=== PATIENT | male | born 1945 | race Caucasian/White ===

== ENCOUNTER → 2017-11-05 12:54 | Outpatient (CLI) | payer MEDICARE, OTHER, SELFPAY ==
[2017-11-06 08:05] LABS: CREATININE FINGERSTICK 1.06 mg/dL (0.70-1.30)
== END ==
PROVIDERS: Family Provider Internal Medicine Infectious Disease; PCP Internal Medicine Infectious Disease
DX: C61 Malignant neoplasm of prostate (principal)
CPT/HCPCS: 74177; Q9967

== ENCOUNTER → 2017-11-06 10:22 | Outpatient (CLI) | payer MEDICARE, OTHER, SELFPAY | PROVIDERS: Family Provider Internal Medicine Infectious Disease; PCP Internal Medicine Infectious Disease | DX: C61 Malignant neoplasm of prostate (principal) | CPT/HCPCS: 78306 ==

== ENCOUNTER → 2018-10-05 | Outpatient (CLI) | payer MEDICARE, OTHER, SELFPAY | END | disposition home or self-care (01) | LOC: LAB 14:50 | PROVIDERS: Family Provider Internal Medicine Infectious Disease; PCP Internal Medicine Infectious Disease; Referring Provider Urology; Visit Provider Urology | DX: C61 Malignant neoplasm of prostate (principal) | CPT/HCPCS: 36415; 84153 ==

== ENCOUNTER → 2018-10-13 | Outpatient (CLI) | payer MEDICARE, OTHER, SELFPAY ==
[2016-10-01 13:05] VITALS: BMI 35.9
--- NOTE | 2018-10-13 10:16 | NM_ITS ---
CLINICAL: 73-year-old male with reported history of carcinoma of the prostate. WHOLE BODY 99m Tc MDP RADIONUCLIDE BONE SCINTIGRAPHY COMPARISON: Previous whole body bone scintigraphy study dated 11/06/2017 FINDINGS: Following the intravenous administration of 26.0 mCi of 99m Tc MDP, whole body bone images reveal: 1. Focal increased radiopharmaceutical concentration is newly defined in the right femoral neck. 2. Enhanced tracer uptake is defined in the sixth thoracic vertebra posteriorly on the left, 12th thoracic vertebra posteriorly on the right, the acromioclavicular and sternoclavicular compartments of both shoulders, patellofemoral compartments of both knees, medial tibial compartment of the right knee. 3. The remaining skeletal structures are scintigraphically unremarkable with normal-appearing renal images and urinary bladder activity identified. There is interval resolution of the prior defined left rib and right iliac wing abnormalities. NM/Bone Scan Whole Body IMPRESSION: 1. The facilitated radiotracer distribution currently defined in the right femoral neck may be further investigated with plain film radiography. 2. 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 3. The previously described left rib and visualized right iliac wing scintigraphic findings are resolved on the present examination. 4. Overall compared to the previous whole body bone scintigraphy study dated 11/06/2017, the current increase in radiopharmaceutical concentration noted in the right proximal femur-femoral neck warrants further radiologic investigation. There is interval resolution of the previously described left rib and right iliac wing abnormalities. Electronically Signed: Kian Karimi DO at 23:39 EDT Tel , Service support ,
== END | disposition home or self-care (01) ==
LOC: NM 10:10
PROVIDERS: Family Provider Internal Medicine; PCP Internal Medicine; Referring Provider Urology; Visit Provider Urology
DX: C61 Malignant neoplasm of prostate (principal)
CPT/HCPCS: 78306

== ENCOUNTER → 2018-10-16 | Outpatient (CLI) | payer MEDICARE, OTHER, SELFPAY ==
[2016-10-01 13:05] VITALS: BMI 35.9
--- NOTE | 2018-10-16 10:37 | RAD_ITS ---
STUDY: X-RAY - RIGHT FEMUR REASON FOR STUDY: Male, 73 years old. Prostate cancer. Abnormal bone scan. TECHNIQUE: Frontal and lateral view(s) of the femur on 4 films. COMPARISON: Whole body bone scan October 13, 2018. FINDINGS: There is a vaguely defined 2.5 cm sclerotic density in the neck of the femur, correlating to the area of abnormal uptake on bone scan. This is consistent with blastic bone metastasis. Degenerative spurring also seen at the greater trochanter as well as the medial femoral condyle at the knee. Corresponding degenerative changes also seen at the medial tibial plateau and patella. Normal visualized soft tissue structure. There is no significant knee joint effusion. There is no demonstrated fracture. RAD/Femur Min 2 Views IMPRESSION: Sclerotic density consistent with osseous metastasis in the neck of the femur, correlating to the site of abnormal uptake on bone scan. Electronically Signed: Gideon Cardoza MD at 17:46 EDT , Service support ,
== END | disposition home or self-care (01) ==
LOC: RAD.FUTURE 10:33
PROVIDERS: Family Provider Internal Medicine; PCP Internal Medicine; Referring Provider Urology; Visit Provider Urology
DX: R93.7 Abnormal findings on diagnostic imaging of other parts of musculoskeletal system (principal)
CPT/HCPCS: 73552

== ENCOUNTER → 2018-10-20 | Outpatient (CLI) | payer MEDICARE, OTHER, SELFPAY ==
[2016-10-01 13:05] VITALS: BMI 35.9
--- NOTE | 2018-10-20 08:10 | CT_ITS ---
STUDY: CT ABDOMEN AND PELVIS WITH CONTRAST REASON FOR EXAM: Male, 73 years old. Prostate cancer RADIATION DOSAGE (If Supplied By Facility): CTDIvol = ( 17.33 ) mGy, DLP = ( 1084.46 ) mGycm TECHNIQUE: Transaxial images were obtained from the dome of the diaphragm to the symphysis pubis without oral contrast. 100 IV Isovue 300 was administered. Sagittal and coronal images were reconstructed. Individualized dose optimization techniques were used for this CT. COMPARISON: November 05, 2017.. FINDINGS: There is 1.6 cm left lower lung nodule, series 2 image 19/122. There are mitral annular calcifications. Normal liver. Normal gallbladder and extrahepatic biliary system. Normal spleen. Normal pancreas. Normal bilateral adrenal glands. There are parapelvic cysts versus mild hydronephrosis of the kidneys. Normal visualized stomach. Normal small intestine. There are multiple colonic diverticula consistent with diverticulosis. There is non-visualization of the appendix. There is diffuse atherosclerotic calcification of the abdominal aorta, without a demonstrated aneurysm. Normal inferior vena cava. Normal retroperitoneum. Normal urinary bladder. There is enlargement of the prostate gland. There is trace free fluid in the pelvis. Postoperative changes of the abdominal wall. There are diffuse degenerative changes of the visualized lumbar spine. There is focal sclerosis of the right femoral neck, series 2 image 102/122. CT/Abdomen/Pelvis WITH Contrast IMPRESSION: Left lower lung nodule. Biopsy and/or PET scan recommended for further delineation. Focal sclerosis of the right femoral neck suggesting osseous metastatic disease. Enlarged prostate gland. Parapelvic cysts versus mild hydronephrosis of the kidneys. Colonic diverticulosis. Electronically Signed: Jaquan Neely MD at 21:38 EDT , Service support ,
[2018-10-20 08:21] LABS: CREATININE FINGERSTICK 0.9 mg/dL (0.70-1.30); EGFR FINGERSTICK > 60.0000 mL/min (>60)
== END | disposition home or self-care (01) ==
LOC: CT 08:01
PROVIDERS: Family Provider Internal Medicine; PCP Internal Medicine; Referring Provider Urology; Visit Provider Urology
DX: C61 Malignant neoplasm of prostate (principal)
CPT/HCPCS: 74177; Q9967

== ENCOUNTER → 2018-12-08 09:19 | Outpatient (CLI) | payer MEDICARE, OTHER, SELFPAY ==
[2016-10-01 13:05] VITALS: BMI 35.9
== END ==
PROVIDERS: Family Provider Internal Medicine; PCP Internal Medicine; Referring Provider Urology; Visit Provider Urology
DX: C61 Malignant neoplasm of prostate (principal)
CPT/HCPCS: 36415; 84153

== ENCOUNTER → 2019-01-18 16:34 | Outpatient (CLI) | payer MEDICARE, OTHER, SELFPAY ==
[2016-10-01 13:05] VITALS: BMI 35.9
[2019-01-18 17:38] LABS: Creatinine, Serum 1.26 mg/dL (0.70-1.30); EST Glomerular Filtration Rate 60 mL/min (>60); Est Glom Filt Rate - Afr Amer 72 mL/min (>60)
== END ==
PROVIDERS: Family Provider Internal Medicine; PCP Internal Medicine; Referring Provider Internal Medicine Pulmonary Disease; Visit Provider Internal Medicine Pulmonary Disease
DX: R91.1 Solitary pulmonary nodule (principal)
CPT/HCPCS: 36415; 82565

== ENCOUNTER → 2019-01-26 15:37 | Outpatient (CLI) | payer MEDICARE, OTHER, SELFPAY ==
[2016-10-01 13:05] VITALS: BMI 35.9
--- NOTE | 2019-01-26 15:44 | CT_ITS ---
STUDY: CT CHEST WITH CONTRAST REASON FOR EXAM: Male, 73 years old. Nodule for follow-up. Currently with prostate cancer undergoing treatment. History of tonsillar cancer with surgery. RADIATION DOSAGE (If Supplied By Facility): CTDIvol = ( 14.78 ) mGy, DLP = ( 636.29 ) mGycm TECHNIQUE: Transaxial imaging was performed following intravenous administration of IV Isovue 300 100CC. Individualized dose optimization techniques were used for this CT. COMPARISON: PET-CT February 10, 2017. CT abdomen and pelvis October 20, 2018. CT abdomen and pelvis November 05, 2017. FINDINGS: 3 mm calcified nodule right upper lobe axial image 28 series 4. Multiple noncalcified lung nodules right upper lobe anteriorly 0.3 cm axial image 53, right middle lobe measuring 0.6 x 0.6 cm axial image 64 right middle lobe measuring 0.6 x 0.5 cm axial image 77 right middle lobe measuring 0.4 x 0.4 cm axial image 81, right middle lobe measuring 0.4 x 0.4 cm axial image 83 right middle lobe measuring 0.3 x 0.3 cm axial image 86, all measured on series 4. 1.2 x 0.9 cm noncalcified left lower lobe lung nodule axial image 108 series 4. As compared to the CT of the abdomen and pelvis October 20, 2018 the more inferior lung nodules in the right middle lobe and both lower lobes have not significantly changed. On the CT of the abdomen and pelvis November 10, 2017 the nodule left lower lobe was not present. The other sections of the lung bases obtained did not include the region of the lung nodules. Although not optimal for evaluation of lung nodules on the PET/CT scan of February 10, 2017 no lung nodules are identified. In particular the largest lung nodule located in the left lower lobe was not present. The heart is not enlarged. Calcification mitral annulus. No pericardial effusion. Pretracheal lymph nodes measuring 1.5 x 1.3 cm and 1.5 x 0.8 cm new since the PET/CT scan of January 2017. Normal hilar regions. Normal enhanced pulmonary arteries. Normal aorta arch and descending thoracic aorta. Mild degenerative changes of thoracic spine. Left parapelvic renal cysts unchanged. CT/Chest WITH Contrast IMPRESSION: Multiple noncalcified lung nodules bilaterally with the largest in the left lower lobe measuring 1.2 x 0.9 cm. As compared to the CT of the abdomen and pelvis from October 2018 the more inferior lung nodules have not significantly changed. However the lung nodules in the inferior aspect of the right middle lobe as well as in the inferior aspect of the right and left lower lobes were not present on the studies of October 2017 and January 2017 suggestive of interval development of metastatic disease. There are additional noncalcified nodules in the right lung not visualized on any of the prior studies and also worrisome for metastatic disease. Development of mild mediastinal lymphadenopathy. Electronically Signed: Flip Urrutia MD at 8:27 EST , Service support ,
== END ==
PROVIDERS: Family Provider Internal Medicine; PCP Internal Medicine; Referring Provider Internal Medicine Pulmonary Disease; Visit Provider Internal Medicine Pulmonary Disease
DX: R91.1 Solitary pulmonary nodule (principal)
CPT/HCPCS: 71260; Q9967

== ENCOUNTER → 2019-02-02 10:37 | Outpatient (CLI) | payer MEDICARE, OTHER, SELFPAY ==
[2016-10-01 13:05] VITALS: BMI 35.9
== END ==
PROVIDERS: Family Provider Internal Medicine; PCP Internal Medicine; Referring Provider Urology; Visit Provider Urology
DX: C61 Malignant neoplasm of prostate (principal)
CPT/HCPCS: 36415; 84153

== ENCOUNTER → 2019-05-21 11:54 | Outpatient (CLI) | payer MEDICARE, OTHER, SELFPAY ==
[2016-10-01 13:05] VITALS: BMI 35.9
== END ==
PROVIDERS: PCP Internal Medicine; Referring Provider Urology; Visit Provider Urology
DX: R97.20 Elevated prostate specific antigen [PSA] (principal)
CPT/HCPCS: 36415; 84153

== ENCOUNTER → 2019-07-06 12:36 | Outpatient (CLI) | payer MEDICARE, OTHER, SELFPAY ==
[2016-10-01 13:05] VITALS: BMI 35.9
--- NOTE | 2019-07-06 12:41 | CT_ITS ---
STUDY: CT CHEST WITHOUT CONTRAST REASON FOR EXAM: Male, 73 years old. LUNG NODULES FOUND IN JAN. RADIATION DOSAGE (If Supplied By Facility): CTDIvol = ( 16.60 ) mGy, DLP = ( 672.12 ) mGycm TECHNIQUE: Transaxial imaging was performed without the administration of intravenous contrast material. Multiplanar coronal and sagittal images were reformatted. Individualized dose optimization techniques were used for this CT. COMPARISON: Comparison is made with prior examination dated January 26, 2019. FINDINGS: Since prior study, the previously seen nodular density in the left lower lobe has decreased in size. It presently measures 9 mm x 9 mm. Stable tiny noncalcified nodules in both lungs. Stable 3 mm calcified nodule in the right upper lobe. There is no demonstrated pleural abnormality. There are calcifications of the coronary arteries. There are multiple small lymph nodes within the mediastinum, which are normal in size and morphology most compatible with reactive lymph hyperplasia. Normal hilar regions. Normal unenhanced pulmonary arteries. There is atherosclerotic calcification of the aortic arch with tortuosity and elongation of the aortic arch and descending thoracic aorta. There are mild degenerative changes of the thoracic spine. Small hiatal hernia. CT/Chest without Contrast IMPRESSION: Interval decrease in size of the noncalcified nodule in the left lower lobe presently measuring 9 mm x 9 mm. Electronically Signed: Jesse Alvarez, at 13:55 EDT , Service support ,
== END ==
PROVIDERS: Family Provider Internal Medicine; PCP Internal Medicine; Referring Provider Internal Medicine Pulmonary Disease; Visit Provider Internal Medicine Pulmonary Disease
DX: R91.1 Solitary pulmonary nodule (principal)
CPT/HCPCS: 71250

== ENCOUNTER → 2019-08-26 08:13 | Outpatient (CLI) | payer MEDICARE, OTHER, SELFPAY ==
[2016-10-01 13:05] VITALS: BMI 35.9
== END ==
PROVIDERS: PCP Internal Medicine; Referring Provider Urology; Visit Provider Urology
DX: C61 Malignant neoplasm of prostate (principal)
CPT/HCPCS: 36415; 84153

== ENCOUNTER → 2019-12-07 12:52 | Outpatient (CLI) | payer MEDICARE, OTHER, SELFPAY ==
[2016-10-01 13:05] VITALS: BMI 35.9
[2019-12-07 14:10] LABS: PSA,Total- Diagnostic 2.73 ng/mL (0.0-4.0)
== END ==
PROVIDERS: PCP Internal Medicine; Referring Provider Urology; Visit Provider Urology
DX: C61 Malignant neoplasm of prostate (principal)
CPT/HCPCS: 36415; 84153

== ENCOUNTER → 2020-01-14 12:57 | Outpatient (CLI) | payer MEDICARE, OTHER, SELFPAY ==
[2016-10-01 13:05] VITALS: BMI 35.9
--- NOTE | 2020-01-14 12:59 | CT_ITS ---
We are attempting to reach an attending provider to discuss findings. An addendum with communication details will be sent when the communication is complete. STUDY: CT CHEST WITHOUT CONTRAST REASON FOR EXAM: Male, 74 years old. Lung nodule f/u RADIATION DOSAGE (If Supplied By Facility): CTDIvol = ( 17.55 ) mGy, DLP = ( 710.62 ) mGycm TECHNIQUE: Transaxial imaging was performed without the administration of intravenous contrast material. Multiplanar coronal and sagittal images were reformatted. Individualized dose optimization techniques were used for this CT. COMPARISON: CT ChestJun 2018 4:03pm FINDINGS: There are patchy groundglass opacities involving the left upper lobe and bilateral lower lobes with some areas of peripheral higher, localized density (reverse halo sign). Nodule in the left lower lobe on image 113 of series 4 the prior study has nearly, completely involuted with a only small residual nodule measuring 4-5 mm on image 113 of series 4 of the current study. There is no demonstrated pleural abnormality. Heart size is normal. There are mitral valve calcifications. Minor calcifications are also identified. Normal mediastinum. Normal hilar regions. Normal unenhanced pulmonary arteries. Normal aorta arch and descending thoracic aorta. Normal osseous structures. Left parapelvic renal cysts are grossly similar, considered benign. Benign, incidental finding; no specific imaging workup recommended according to current ACR guidelines. CT/Chest without Contrast IMPRESSION: 1. Multilobar groundglass opacities with reverse halo sign in the right lower lobe. Findings are commonly reported imaging features of COVID-19 pneumonia although can be seen in other processes such as influenza pneumonia, organizing pneumonia, among other etiologies. Electronically Signed: Cristofer Stahl MD ([place]) at 12:50 EDT , Service support ,
[2020-01-14 13:20] VITALS: BP 213/92; PULSE 85; RESP 16; O2SAT 99
--- NOTE | 2020-01-14 13:28 | NURSING ---
Pt brought to radiology nurse office for b/p check after finishing a CT study. Pt reports being seen in pcp office this morning and having a headache and elevated b/p 188 systolic. B/P remains elevated at 213/92. Pt reports not being on any home medications for blood pressure. CARLYLE Mcgee asked if pt would be willing to be seen in ED since he seems to be in a hypertensive crisis. Pt states I think I'll be ok, I've been under a lot of stress recently CARLYLE Mcgee states that she does not believe patient will come out of this high b/p on his own. CARLYLE Mcgee tells pt that this high b/p can put him at a much greater risk for stroke and that he should be seen so they can bring his blood pressure down to a safe level. Pt does not wish to be seen in ED, pt does agree to wait 10 minutes in radiology to have b/p rechecked.
[2020-01-14 13:39] VITALS: BP 169/92; PULSE 83; RESP 16; O2SAT 99
--- NOTE | 2020-01-14 13:40 | NURSING ---
Pt agrees to communicate intermittent elevated b/p with his pcp. Pt states he intends to keep his b/p low without medications at home if possible. CARLYLE Mcgee encouraged pt to seek assistance at his local ED if he has any headache, throbbing or rushing sound in his ears, dizziness or visual changes. Pt agrees. CARLYLE Mcgee walks pt to elevator.
== END ==
PROVIDERS: PCP Internal Medicine; Referring Provider Internal Medicine Pulmonary Disease; Visit Provider Internal Medicine Pulmonary Disease
DX: R91.1 Solitary pulmonary nodule (principal)
CPT/HCPCS: 71250

== ENCOUNTER → 2020-01-28 17:18 | Outpatient (CLI) | payer MEDICARE, OTHER, SELFPAY ==
[2016-10-01 13:05] VITALS: BMI 35.9
--- NOTE | 2020-01-28 17:24 | RAD_ITS ---
STUDY: X-RAY CHEST REASON FOR EXAM: Male, 74 years old. DRUG INDUCED INTERSTITIAL LUNG; LUNG NODULE TECHNIQUE: Frontal and lateral views of the chest. COMPARISON: None. FINDINGS: The lungs are clear and expanded. There is no demonstrated pleural abnormality. Normal size heart. Normal mediastinum and kirby. Normal visualized pulmonary arteries. Normal visualized aortic arch and descending thoracic aorta. There are diffuse degenerative changes of the visualized thoracic spine. Normal visualized ribs, clavicles, and shoulders. There is no demonstrated abnormality of the visualized soft tissue structures of the upper abdomen. RAD/Chest PA and Lateral IMPRESSION: No acute pulmonary findings. Electronically Signed: Ayad Shukla MD at 19:11 EST Tel , Service support ,
[2020-01-28 18:27] LABS: Erythrocyte Sedimentation Rate 12 mm/hr (0-20)
[2020-01-28 19:03] LABS: CRP < 2.90 mg/L (0.0-3.0)
== END ==
PROVIDERS: PCP Internal Medicine; Visit Provider Internal Medicine Pulmonary Disease
DX: R91.1 Solitary pulmonary nodule (principal)
CPT/HCPCS: 36415; 71046; 85652; 86140

== ENCOUNTER → 2020-03-15 14:20 | Outpatient (CLI) | payer MEDICARE, OTHER, SELFPAY ==
[2016-10-01 13:05] VITALS: BMI 35.9
[2020-03-15 15:26] LABS: PSA,Total- Diagnostic 0.54 ng/mL (0.0-4.0)
== END ==
PROVIDERS: PCP Internal Medicine; Referring Provider Urology; Visit Provider Urology
DX: C61 Malignant neoplasm of prostate (principal)
CPT/HCPCS: 36415; 84153

== ENCOUNTER → 2020-06-22 09:54 | Outpatient (CLI) | payer MEDICARE, OTHER, SELFPAY ==
[2016-10-01 13:05] VITALS: BMI 35.9
== END ==
PROVIDERS: PCP Internal Medicine; Referring Provider Urology; Visit Provider Urology
DX: C79.51 Secondary malignant neoplasm of bone (principal)
CPT/HCPCS: 36415; 84153

== ENCOUNTER → 2020-09-26 11:23 | Outpatient (CLI) | payer MEDICARE, OTHER, SELFPAY ==
[2016-10-01 13:05] VITALS: BMI 35.9
[2020-09-26 13:04] LABS: PSA,Total- Diagnostic 0.53 ng/mL (0.0-4.0)
== END ==
PROVIDERS: PCP Internal Medicine; Visit Provider Urology
DX: R97.20 Elevated prostate specific antigen [PSA] (principal)
CPT/HCPCS: 36415; 84153

== ENCOUNTER → 2020-10-05 11:44 | Outpatient (CLI) | payer MEDICARE, OTHER, SELFPAY ==
--- NOTE | 2020-10-05 12:30 | BD_ITS ---
STUDY: DUAL ENERGY X-RAY ABSORPTIOMETRY / DXA REASON FOR EXAM: Male, 74 years old. Z79.52. History of prostate cancer. TECHNIQUE: Bone Mineral Density (BMD) measurements of lumbar spine and bilateral hips were obtained. COMPARISON: None. FINDINGS: Lumbar Spine (L1-L4): g/cm2 (1.168) / T-score (0.5) / Z-score (1.5) Findings are suggestive of normal bone density with a low fracture risk. Left Femur Total: g/cm2 (1.266) / T-score (1.5) / Z-score (2.3) Left Femoral Neck: g/cm2 (0.978) / T-score (0.4) / Z-score (1.7) Right Femur Total: g/cm2 (1.310) / T-score (1.8) / Z-score (2.6) Right Femoral Neck: g/cm2 (1.383) / T-score (3.3) / Z-score (4.6) BD/Dexa Bone Density Study IMPRESSION: The patient is considered normal as outlined below according to World Robinson Organization (WHO) criteria with a low fracture risk. Reference Information: The T-score is the number of standard deviations above or below the standard which is normal for young adults at their peak bone mineral density. The World Health Organization (WHO) interprets the T-scores as follows: Above -1 Normal bone density Between -1 and -2.5 Osteopenia Equal to / or below -2.5 Osteoporosis As a practical clinical guideline, osteopenia may be graded as follows: Mild -1 through -1.5 Moderate -1.6 through -2.0 Severe -2.1 through -2.4 The Z-score is the number of standard deviations above or below age-matched controls. A Z-score of less than -1.5 would be considered abnormal. References: 1. NIH Osteoporosis and Related Bone Diseases www osteo.org 2. International Society for Clinical Densitometry www iscd.org 3. National Osteoporosis Foundation www nof.org Electronically Signed: Jesse Alvarez MD at 14:44 EDT , Service support ,
== END ==
PROVIDERS: PCP Internal Medicine; Referring Provider Urology; Visit Provider Urology
DX: C61 Malignant neoplasm of prostate (principal); Z79.52 Long term (current) use of systemic steroids
CPT/HCPCS: 77080

== ENCOUNTER → 2021-01-02 16:58 | Outpatient (CLI) | payer MEDICARE, OTHER, SELFPAY ==
[2021-01-02 18:54] LABS: PSA,Total- Diagnostic 0.81 ng/mL (0.0-4.0)
== END ==
PROVIDERS: PCP Internal Medicine; Referring Provider Urology; Visit Provider Urology
DX: C61 Malignant neoplasm of prostate (principal)
CPT/HCPCS: 84153

== ENCOUNTER → 2021-01-16 13:33 | Outpatient (CLI) | payer MEDICARE, OTHER, SELFPAY ==
--- NOTE | 2021-01-16 13:38 | CT_ITS ---
STUDY: CT CHEST WITHOUT CONTRAST REASON FOR EXAM: Male, 75 years old. PULMONARY NODULE follow-up. RADIATION DOSAGE (If Supplied By Facility): CTDIvol = ( 15.95 ) mGy, DLP = ( 641.70 ) mGycm TECHNIQUE: Transaxial imaging was performed without the administration of intravenous contrast material. Multiplanar coronal and sagittal images were reformatted. Individualized dose optimization techniques were used for this CT. COMPARISON: Comparison is made with prior study 01/14/2020. FINDINGS: The previously seen patchy groundglass opacities in the left upper lobe and bilateral lower lobes have cleared. Stable 3 mm nodule in the posterior aspect of the left lower lobe. There is no demonstrated pleural abnormality. There are calcifications of the coronary arteries. Calcification of the mitral valve annulus. There are multiple small lymph nodes within the mediastinum, which are normal in size and morphology most compatible with reactive lymph hyperplasia. Normal hilar regions. Normal unenhanced pulmonary arteries. There is atherosclerotic calcification of the aortic arch . There are multi-level degenerative changes of the thoracic spine. Once again, zones of left parapelvic renal cysts. CT/Chest without Contrast IMPRESSION: The previously seen bilateral groundglass appearance have cleared. Stable tiny peripheral based nodule at the left lung base. Electronically Signed: Jesse Alvarez MD at 15:03 EDT , Service support ,
== END ==
PROVIDERS: PCP Internal Medicine; Referring Provider Internal Medicine Pulmonary Disease; Visit Provider Internal Medicine Pulmonary Disease
DX: R91.1 Solitary pulmonary nodule (principal)
CPT/HCPCS: 71250

== ENCOUNTER → 2021-09-24 | Outpatient (CLI) | payer MEDICARE, OTHER, SELFPAY ==
[2021-09-24 13:28] LABS: PSA,Total- Diagnostic 1.51 ng/mL (0.0-4.0)
== END | disposition home or self-care (01) ==
LOC: LAB 12:06
PROVIDERS: PCP Internal Medicine; Visit Provider Urology
DX: C61 Malignant neoplasm of prostate (principal)
CPT/HCPCS: 36415; 84153

== ENCOUNTER → 2022-01-10 | Outpatient (CLI) | payer MEDICARE, OTHER, SELFPAY ==
[2022-01-10 10:43] LABS: Absolute Lymphocyte Count 0.63 X10^3/uL (0.83-4.51); Absolute Neutrophil Count 6.7 X10^3/uL (2.0-7.7); Basophil# 0.02 X10^3/uL; Basophil% 0.2 % (0-1); Eosinophil# 0.05 X10^3/uL; Eosinophils% 0.6 % (0-5); Hematocrit 31.8 % (40-54); Hemoglobin 10.7 g/dL (13.0-16.5); Lymphocyte # 0.63 X10^3/ul (0.83-4.51); Lymphocyte % 7.8 % (19-41); Mean Corp Hgb Conc 33.6 g/dL (32-36); Mean Corpuscular Hgb 29.8 pg (27.0-32.0); Mean Corpuscular Volume 88.6 fL (80-94); Mean Platelet Vol. 10.9 fl (6.2-12.0); Monocyte# 0.61 X10^3/uL; Monocyte% 7.6 % (0-10); NRBC Flagged by Analyzer 0 % (0-5); Neutrophil # 6.66 X10^3/uL (2.7-7.7); Neutrophil % 82.7 % (47-70); Platelet Count 238 K/mm3 (150-450); RBC Distribution Width CV 12.8 % (11.6-14.6); RBC Distribution Width SD 41.7 fl (35.1-43.9); Red Blood Count 3.59 M/mm3 (4.6-6.2); White Blood Count 8.1 K/mm3 (4.4-11.0)
[2022-01-10 10:59] LABS: Hemoglobin A1c 6.9 % (3.8-5.6)
[2022-01-10 12:47] LABS: ALB/GLOB Ratio 0.5 RATIO (0.9-2.4); AST(SGOT) 53 U/L (15-37); Alanine Aminotransfer ALT/SGPT 45 U/L (16-61); Albumin, Serum 2.3 g/dL (3.2-5.0); Alkaline Phosphatase 115 U/L (45-117); Anion Gap 9 (5-15); BUN 54 mg/dL (7-18); BUN/Creat Ratio 26.3 RATIO (10-20); Calcium,Total 9.2 mg/dL (8.5-10.1); Chloride 107 mmol/L (98-107); Creatinine, Serum 2.05 mg/dL (0.70-1.30); EST Glomerular Filtration Rate 34 mL/min (>60); Est Glom Filt Rate - Afr Amer 41 mL/min (>60); Globulin 4.6 g/dL (2.2-4.2); Glucose 176 mg/dL (74-106); Potassium 3.4 mmol/L (3.5-5.1); Protein, Total 6.9 g/dL (6.4-8.2); Sodium Level 137 mmol/L (136-145); T4 Free Direct 1.67 ng/dL (0.76-1.46); Thyroid Stim Hormone (TSH) 3.45 uIU/mL (0.358-3.74)
== END | disposition home or self-care (01) ==
LOC: LAB 09:45
PROVIDERS: PCP Internal Medicine; Referring Provider Internal Medicine; Visit Provider Internal Medicine
DX: E53.8 Deficiency of other specified B group vitamins (principal); E11.9 Type 2 diabetes mellitus without complications; E03.9 Hypothyroidism, unspecified
CPT/HCPCS: 36415; 80053; 82043; 82570; 82746; 83036; 84439; 84443; 85025

== ENCOUNTER → 2022-01-16 | Outpatient (CLI) | payer MEDICARE, OTHER, SELFPAY ==
--- NOTE | 2022-01-16 11:30 | PET_ITS ---
EXAMINATION: PSMA PET/CT : INDICATIONS: A 76-year-old male with history of carcinoma of the prostate presenting for restaging examination. COMPARISON: Prior Gallium 68 PSMA study dated 09/26/17. INDEX LESION SIZE SUV PROMISE SCORE INTERPRETATION Rectum versus prostate gland 13.2 mm 22.39 2 if applicable Fulfills quantitative criteria for viable neoplasm if localized to the prostate gland. TECHNIQUE: Following the intravenous administration of 8.85 mCi of PSMA-Pylarify via the left hand, image acquisitions of the head, neck, chest, abdomen and pelvis to the level of the mid thigh at 73 minutes post-tracer distribution reveal: The examination was interpreted utilizing the EANM (Zion et al, Journal of Nuclear Medicine Molecular Imaging 44:1622, 2017) and PROMISE (Francie et al, Journal of Nuclear Medicine 59:469, 2018) interpretive criteria. PSMA expression score-PROMISE criteria High (3): SUV equal to and/or greater than parotid-salivary glands, Intermediate (2): SUV equal to or greater than liver, Low (1): SUV equal and/or less than blood pool. PAROTID GLANDS SUV: 29.1 NORMAL LIVER PARENCHYMA: 13.1 BLOOD POOL: 2.8 HEIGHT: 65 inches. WEIGHT: 200 lbs. FINDINGS: Head/Neck: Symmetric tracer concentration is noted in the right and left parotid glands. The left submandibular gland demonstrates physiologic tracer uptake. There is non-visualization of the right adrenal gland. Uptake is discerned within the nasal cavity. There is no evidence of abnormal increased radiopharmaceutical concentration within the context of the cranial vault. CHEST: There is no evidence of abnormal increased radiopharmaceutical within the context of the bilateral hemithorax pulmonary parenchyma, mediastinal structures and right-left thoracic perihilum. Pertinent chest CT findings are as follows. Atherosclerotic calcification is defined in the thoracic aorta without evidence of dilatation, aneurysm formation. Coronary arterial calcification is observed. Right and left axillary, both calcified and noncalcified mediastinal and thoracic perihilar soft tissue is non-radiotracer avid. Abdomen/Pelvis: A focus of increased radiopharmaceutical is noted in the distal rectal vault posterior aspect of the prostate gland in the midline. The calculated maximum standard uptake value is 22.39 for a PROMISE score of 2 if applicable. The maximum axial diameter of the metabolic abnormality is 13.2 mm. Pertinent abdomen and pelvis CT findings are as follows. Colonic diverticulosis is defined without evidence of diverticulitis. There is atherosclerotic calcification defined in the abdominal aorta without evidence of dilatation-aneurysm formation. Pelvic arterial calcification is defined. Inguinal soft tissue densities are non-radiopharmaceutical avid bilaterally. Skeletal: Pertinent skeletal CT findings are as follows. Degenerative changes defined in the cervical, thoracic and lumbar spine demonstrate no evidence of radiotracer hypermetabolism. There is no visualized sclerotic-lytic changes manifest on review of the appendicular-axial skeletal structures. PET/PET/CT Tumor Base -Thigh Subs IMPRESSION: 1. The increase in radiopharmaceutical concentration defined in the lower pelvis in the region of the rectal vault, prostate gland may be further investigated with magnetic resonance imaging to confirm the anatomic localization of the metabolic abnormality. If localized to the prostate gland this finding will be consistent with viable neoplasia. 2. No other scintigraphic abnormalities are defined. Electronic Signature Kian Karimi D.O. Electronically Signed: Kian Karimi, at 7:11 EDT ,
== END | disposition home or self-care (01) ==
LOC: ONC 11:34
PROVIDERS: PCP Internal Medicine; Referring Provider Urology; Visit Provider Urology
DX: C61 Malignant neoplasm of prostate (principal); R97.21 Rising PSA following treatment for malignant neoplasm of prostate
CPT/HCPCS: 78815; A9595

== ENCOUNTER → 2022-04-11 | Outpatient (CLI) | payer MEDICARE, OTHER, SELFPAY ==
[2022-04-11 11:33] LABS: PSA,Total- Diagnostic 2.62 ng/mL (0.0-4.0)
== END | disposition home or self-care (01) ==
LOC: LAB 10:17
PROVIDERS: PCP Internal Medicine; Visit Provider Registered Nurse
DX: C61 Malignant neoplasm of prostate (principal)
CPT/HCPCS: 36415; 84153

== ENCOUNTER → 2022-07-11 | Outpatient (CLI) | payer MEDICARE, OTHER, SELFPAY ==
[2022-07-11 16:45] LABS: PSA,Total- Diagnostic 5.66 ng/mL (0.0-4.0)
== END | disposition home or self-care (01) ==
PROVIDERS: Urology; PCP Internal Medicine; Referring Provider Registered Nurse; Visit Provider Registered Nurse
DX: C61 Malignant neoplasm of prostate (principal)
CPT/HCPCS: 36415; 84153

== ENCOUNTER → 2022-10-01 | Outpatient (CLI) | payer MEDICARE, OTHER, SELFPAY ==
[2022-10-01 16:16] LABS: PSA,Total- Diagnostic 6.99 ng/mL (0.0-4.0)
== END | disposition home or self-care (01) ==
PROVIDERS: PCP Internal Medicine; Referring Provider Urology; Visit Provider Urology
DX: C61 Malignant neoplasm of prostate (principal)
CPT/HCPCS: 36415; 84153

== ENCOUNTER → 2023-01-08 | Outpatient (CLI) | payer MEDICARE, OTHER, SELFPAY ==
[2023-01-08 10:51] LABS: PSA,Total- Diagnostic 6.87 ng/mL (0.0-4.0)
== END | disposition home or self-care (01) ==
LOC: LAB.FUTURE 08:24 → MTLAB 08:26
PROVIDERS: PCP Internal Medicine; Referring Provider Urology; Visit Provider Urology
DX: C61 Malignant neoplasm of prostate (principal)
CPT/HCPCS: 36415; 84153

== ENCOUNTER → 2023-03-21 | Outpatient (CLI) | payer MEDICARE, OTHER, SELFPAY ==
--- NOTE | 2023-03-21 12:56 | RAD_ITS ---
STUDY: X-RAY CHEST REASON FOR EXAM: Male, 77 years old. Shortness of breath. TECHNIQUE: Frontal and lateral views of the chest. COMPARISON: January 28, 2020 FINDINGS: Mild hyperinflation unchanged There is no demonstrated pleural abnormality. Normal size heart. Normal mediastinum and kirby. Normal visualized pulmonary arteries. Normal visualized aortic arch and descending thoracic aorta. Stable thoracic spondylosis. Normal visualized ribs, clavicles, and shoulders. There is no demonstrated abnormality of the visualized soft tissue structures of the upper abdomen. RAD/Chest PA and Lateral IMPRESSION: Stable mild hyperinflation with no acute or active cardiopulmonary disease. Electronically Signed: Marc White MD at 13:36 EST ,
--- OUTSIDE RECORDS SUMMARY | 2023-03-21 13:16 | XMS RPT_ITS | CCD ---
Author Name Unknown Address [address] [facility] [address] [place] [address] Organization [facility] Care Team Providers Care Manager Government Name Role Phone Armani Alva Unavailable Unavailable SEEMA BROWNLEE MD Consulting Unavailable LATOUSEEMA Guillermo MD Admitting Unavailable LATOUFSEEMA MD Attending Unavailable LATOUSEEMA Guillermo MD Primary Care Unavailable PROVIDER, UNKNOWN Consulting Unavailable PROVIDER, UNKNOWN Consulting Unavailable PROVIDER, UNKNOWN Consulting Unavailable SEEMA BROWNLEE MD Primary Care Unavailable LATOUSEEMA Guillermo MD Consulting Unavailable LATOUSEEMA Guillermo MD Attending Unavailable LATOUSEEMA Guillermo MD Admitting Unavailable PROVIDER, UNKNOWN Consulting Unavailable PROVIDER, UNKNOWN Consulting Unavailable PROVIDER, UNKNOWN Consulting Unavailable LATOUSEEMA Guillermo MD Consulting Unavailable LATOUSEEMA Guillermo MD Attending Unavailable LATSEEMA DONALD MD Admitting Unavailable LATSEEMA DONALD MD Primary Care Unavailable PROVIDER, UNKNOWN Consulting Unavailable PROVIDER, UNKNOWN Consulting Unavailable PROVIDER, UNKNOWN Consulting Unavailable SEEMA BROWNLEE MD Consulting Unavailable LATOUSEEMA Guillermo MD Admitting Unavailable SEEMA BROWNLEE MD Attending Unavailable SEEMA BROWNLEE MD Primary Care Unavailable PROVIDER, UNKNOWN Consulting Unavailable PROVIDER, UNKNOWN Consulting Unavailable PROVIDER, UNKNOWN Consulting Unavailable SEEMA BROWNLEE MD Consulting Unavailable LATOUSEEMA Guillermo MD Attending Unavailable LATOUSEEMA Guillermo MD Primary Care Unavailable LATOUSEEMA Guillermo MD Admitting Unavailable PROVIDER, UNKNOWN Consulting Unavailable PROVIDER, UNKNOWN Consulting Unavailable PROVIDER, UNKNOWN Consulting Unavailable SEEMA BROWNLEE MD Consulting Unavailable LATOUSEEMA Guillermo MD Attending Unavailable LATOUSEEMA Guillermo MD Primary Care Unavailable LATOUSEEMA Guillermo MD Admitting Unavailable PROVIDER, UNKNOWN Consulting Unavailable PROVIDER, UNKNOWN Consulting Unavailable PROVIDER, UNKNOWN Consulting Unavailable SEEMA BROWNLEE MD Consulting Unavailable LATOUSEEMA Guillermo MD Attending Unavailable LATOUSEEMA Guillermo MD Primary Care Unavailable LATOUFSEEMA MD Admitting Unavailable PROVIDER, UNKNOWN Consulting Unavailable PROVIDER, UNKNOWN Consulting Unavailable PROVIDER, UNKNOWN Consulting Unavailable SEEMA BROWNLEE MD Consulting Unavailable SEEMA BROWNLEE MD Attending Unavailable SEEMA BROWNLEE MD Admitting Unavailable SEEMA BROWNLEE MD Primary Care Unavailable PROVIDER, UNKNOWN Consulting Unavailable PROVIDER, UNKNOWN Consulting Unavailable PROVIDER, UNKNOWN Consulting Unavailable Problems Active Problems Problem Classification Problem Date Documented Da te Episodic/Chronic Acute and unspecified renal failure (1 source) Acute kidney failure, unspecified; Translations: [Acute kidney failure, unspecified] Onset: 02-18-2023 Episodic Deficiency and other anemia (2 sources) Anemia, unspecified; Translations: [Anemia, unspecified] Onset: 07-01-2022 Episodic Diabetes mellitus with complications (2 sources) Type 2 diabetes mellitus with other specified complication; Translations: [Type 2 diabetes mellitus with other specified complication] Onset: 12-09-2022 Chronic Diabetes mellitus without complication (4 sources) Type 2 diabetes mellitus without complications; Translations: [Type 2 diabetes mellitus without complications] Onset: 07-01-2022 Chronic Disorders of lipid metabolism (1 source) Hyperlipidemia, unspecified; Translations: [Hyperlipidemia, unspecified] Onset: 07-01-2022 Chronic Essential hypertension (3 sources) Essential (primary) hypertension; Translations: [Essential (primary) hypertension] Onset: 02-21-2022 Chronic Nutritional deficiencies (1 source) Vitamin D deficiency, unspecified; Translations: [Vitamin D deficiency, unspecified] Onset: 02-18-2023 Chronic Other nutritional; endocrine; and metabolic disorders (1 source) Other disorders of plasma-protein metabolism, not elsewhere classified; Translations: [Other disorders of plasma-protein metabolism, not elsewhere classified] Onset: 07-01-2022 Chronic Thyroid disorders (4 sources) Hypothyroidism, unspecified; Translations: [Hypothyroidism, unspecified] Onset: 02-21-2022 Chronic Unclassified (1 source) Unknown / UNK(Unknown) Onset: 08-18-2017 Past or Other Problems Problem Classification Problem Date Documented Da te Episodic/Chronic Nutritional deficiencies (3 sources) Deficiency of other specified B group vitamins; Translations: [Deficiency of other specified B group vitamins] Onset: 02-21-2022 Episodic Other nervous system disorders (1 source) Unsteadiness on feet; Translations: [Unsteadiness on feet] Onset: 02-21-2022 Episodic Other nutritional; endocrine; and metabolic disorders (1 source) Abnormal weight loss; Translations: [Abnormal weight loss] Onset: 02-21-2022 Episodic Unclassified (1 source) ELEVATED PSA R97.20 Onset: 08-18-2017 Results Test Name Value Interpretation Reference Range Facil ity Encounters Encounter Date Encounter Type Care Provider Facility Start: [facility]-18[facility]23 [facility] Start: 12-09-2022 End: 12-09-2022 ambulatory SEEMA SHETH [facility] Start: 07-01-2022 End: 07-01-2022 ambulatory SEEMA SHETH [facility] Start: 03-14-2022 [facility] Start: 02-21-2022 End: 02-21-2022 ambulatory SEEMA SHETH [facility] Start: 02-21-2022 End: 02-21-2022 ambulatory SEEMA SHETH [facility] Start: 08-18-2017 Ambulatory Armani Alva Facility :[facility] Payers Date Payer Category Payer Medicare [id number] 2011 Medicare [id number] 1945 Unknown [id number] 2.16.8 [id number]. 1945 Unknown [id number] 2.16.8 40.1.785037.3.579.2 1945 Unknown [id number] 2.16.8 40.1.440753.3.579.2. 1945 Unknown [id number] 2.16.84 0.1.551157.3.579.2 1945 Unknown [id number] 2.16.84 0.1.664869.3.579.2. 1945 Unknown [id number] 2.16.84 0.1.679529.3.579.2 1945 Unknown [id number] 2.16.84 0.1.049216.3.579.2.651 1945 Unknown [id number] 2.16.84 0.1.036789.3.579.2.651 Medicaid [id number] Summary Purpose Family History No Family History Records FoundNo Family History Records FoundNo Family History Records FoundNo Family History Records Found Advance Directives No Advanced Directives Records FoundNo Advanced Directives Records FoundNo Advanced Directives Records FoundNo Advanced Directives Records Found Additional Source Comments (unrecognized sect ion and content) No Status Records FoundNo Status Records FoundNo Status Records FoundNo Status Records Found INFORMATION SOURCE (unrecogn ized section and content) DATE CREATED AUTHOR AUTHOR'S ORGANIZ ATION 11/09/2020 [facility] DATE CREATED AUTHOR AUTHOR'S ORGANIZ ATION 03/08/2022 [facility] DATE CREATED AUTHOR AUTHOR'S ORGANIZ ATION 02/20/2023 [facility] FOR RECORDS PERTAINING TO PATIENTS WHO ARE OR HAVE BEEN ENROLLED IN A CHEMICAL DEPENDENCY/SUBSTANCEABUSE PROGRAM, SOME INFORMATION MAY BE OMITTED. This clinical summary was aggregated from multiple sources. Caution should be exercised in using it in the provision of clinical care. This summary normalizes information from multiple sources, and as a consequence, information in this document may materially change the coding, format and clinical context of patient data. In addition, data may be omitted in some cases. CLINICAL DECISIONS SHOULD BE BASED ON THE PRIMARY CLINICAL RECORDS. [facility] [employer] [facility]. provides no warranty or guarantee of the accuracy or completeness of information in this document.
== END | disposition home or self-care (01) ==
LOC: RAD 12:51
PROVIDERS: PCP Internal Medicine; Referring Provider Internal Medicine Pulmonary Disease; Visit Provider Internal Medicine Pulmonary Disease
DX: R06.02 Shortness of breath (principal)
CPT/HCPCS: 71046

== ENCOUNTER → 2023-04-22 | Outpatient (CLI) | payer MEDICARE, OTHER, SELFPAY ==
[2023-04-22 15:19] LABS: PSA,Total- Diagnostic 8.57 ng/mL (0.0-4.0)
--- OUTSIDE RECORDS SUMMARY | 2023-04-22 16:51 | XMS RPT_ITS | CCD ---
Author Name Unknown Address [address] [facility] [address] [place] [id number] Organization [facility] Care Team Providers Care Crtt Name Role Phone Armani Alva Unavailable Unavailable [...] Attending Unavailable LATSEEMA DONALD MD Admitting Unavailable SEEMA BROWNLEE MD Primary [...] Consulting Unavailable SEEMA BROWNLEE MD Consulting Unavailable MARIALUISAOUSEEMA Guillermo MD Attending Unavailable LATOUSEEMA Guillermo MD Primary Care Unavailable LATOUFSEEMA MD Admitting Unavailable PROVIDER, UNKNOWN Consulting Unavailable PROVIDER, UNKNOWN Consulting Unavailable PROVIDER, UNKNOWN Consulting Unavailable SEEMA BROWNLEE MD Consulting Unavailable SEEAM BROWNLEE MD Attending Unavailable SEEMA BROWNLEE MD [...] Provider Facility Start: [facility]-18-[facility]23 [facility] Start: 12-09-2022 End: 12-09-2022 ambulatory SEEMA SHETH [facility] Start: 07-01-2022 End: 07-01-2022 ambulatory SEEMA SHETH [facility] Start: 03-14-2022 [facility] Start: 02-21-2022 End: 02-21-2022 ambulatory SEEMA SHETH [facility] Start: 02-21-2022 End: 02-21-2022 ambulatory SEEMA SHETH [facility] Start: 08-18-2017 Ambulatory Armani Alva Facility :[facility] Payers Date Payer Category Payer Medicare [id number] 2011 Medicare [id number] 1945 Unknown [id number] 2.16.8 40.1.913876.3.579.2. 1945 Unknown [id number] 2.16.8 40.1.896155.3.579.2 1945 Unknown [id number] 2.16.8 40.1.118796.3.579.2. 1945 Unknown [id number] 2.16.84 0.1.655714.3.579.2 1945 Unknown [id number] 2.16.84 0.1.222232.3.579.2. 1945 Unknown [id number] 2.16.84 0.1.283128.3.579.2 1945 Unknown [id number] 2.16.84 0.1.404334.3.579.2.651 1945 Unknown [id number] 2.16.84 0.1.294562.3.579.2.651 Medicaid [id number] Summary Purpose Family History No Family History [...] DATE CREATED AUTHOR AUTHOR'S ORGANIZ ATION 11/09/2020 [facility] DATE CREATED AUTHOR AUTHOR'S ORGANIZ ATION 03/08/2022 [facility] DATE CREATED AUTHOR AUTHOR'S ORGANIZ ATION 02/20/2023 [facility] FOR RECORDS PERTAINING TO PATIENTS WHO [...] BE BASED ON THE PRIMARY CLINICAL RECORDS. [facility] [employer] [facility]. provides no warranty or guarantee of the accuracy or completeness of information in this document.
== END | disposition home or self-care (01) ==
LOC: MTLAB 12:32
PROVIDERS: PCP Internal Medicine; Referring Provider Nurse Practitioner; Visit Provider Nurse Practitioner
DX: C61 Malignant neoplasm of prostate (principal)
CPT/HCPCS: 36415; 84153

== ENCOUNTER → 2023-04-29 | Outpatient (CLI) | payer MEDICARE, OTHER, SELFPAY ==
--- NOTE | 2023-04-29 08:21 | NM_ITS ---
CLINICAL: 77-year-old male with history of primary prostate carcinoma. WHOLE BODY 99m Tc MDP RADIONUCLIDE BONE SCINTIGRAPHY COMPARISON: Previous whole body bone scintigraphy study report dated 10/13/2018 FINDINGS: Following the intravenous administration of 26.0 mCi of 99m Tc MDP, whole body bone images reveal: 1. Increased radiopharmaceutical concentration is currently demonstrated in the acromioclavicular and sternoclavicular compartments of both shoulders, the lower cervical spine posteriorly on the right, the visualized right elbow, fifth thoracic vertebra posteriorly on the left. 2. Subtle increased uptake is noted in the posterior aspect of the left mid femoral diaphysis. 3. The remaining skeletal structures are scintigraphically unremarkable with normal-appearing renal images and urinary bladder activity identified. NM/Bone Scan Whole Body IMPRESSION: 1. The increase in tracer uptake noted in the posterior left mid femoral diaphysis may be further investigated with plain film radiography in the setting of known prostate carcinoma. 2. 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 3. Overall compared to the previous whole body bone scintigraphy study report dated 10/13/2018, the currently identified uptake noted in the left mid femoral diaphysis posteriorly once further radiologic investigation. Electronically Signed: Kian Karimi DO at 9:37 EST ,
== END | disposition home or self-care (01) ==
LOC: NM 08:21
PROVIDERS: PCP Internal Medicine; Referring Provider Urology; Visit Provider Urology
DX: C61 Malignant neoplasm of prostate (principal)
CPT/HCPCS: 78306; A9503

== ENCOUNTER → 2023-05-02 | Outpatient (CLI) | payer MEDICARE, OTHER, SELFPAY ==
--- NOTE | 2023-05-02 14:01 | RAD_ITS ---
EXAM: XR LEFT KNEE COMPLETE, 4 OR MORE VIEWS CLINICAL INDICATION: PROSTATE CANCER TECHNIQUE: Four or more views of the left knee. COMPARISON: No relevant prior studies available. FINDINGS: BONES/JOINTS: No acute fracture, subluxation or joint effusion. No joint space narrowing. Patellar spurring. SOFT TISSUES: Normal. No soft tissue swelling or gas. No radiopaque foreign body. RAD/Knee 4 or More Views IMPRESSION: No acute bone or joint abnormality. No suspicious bone lesion. Electronically Signed: Daniel Herrera MD at 12:15 EST ,
--- OUTSIDE RECORDS SUMMARY | 2023-05-02 14:23 | XMS RPT_ITS | CCD ---
Author Name Unknown Address [address] [facility] [address] [place] [address] Organization [facility] Care Team Providers Care Water Jet Loom Fixer Name Role Phone Armani Alva Unavailable Unavailable ESEMA BROWNLEE MD Consulting Unavailable LATOUSEEMA Guillermo MD [...] Provider Facility Start: 02-18-2023 [facility] Start: 12-09-2022 End: 12-09-2022 ambulatory SEEMA SHETH [facility] Start: 07-01-2022 End: 07-01-2022 ambulatory SEEMA SHETH [facility] Start: 03-14-2022 [facility] Start: 02-21-2022 End: 02-21-2022 ambulatory SEEMA SHETH [facility] Start: 02-21-2022 End: 02-21-2022 ambulatory SEEMA SHETH [facility] Start: 08-18-2017 Ambulatory Armani Alva Facility :[facility] Payers Date Payer Category Payer Medicare [id number] 2011 Medicare [id number] 1945 Unknown [id number] 2.16.8 40.1.904437.3.579.2. 1945 Unknown [id number] 2.16.8 40.1.144944.3.579.2 1945 Unknown [id number] 2.16.8 40.1.417565.3.579.2. 1945 Unknown [id number] 2.16.84 0.1.041565.3.579.2 1945 Unknown [id number] 2.16.84 0.1.877336.3.579.2. 1945 Unknown [id number] 2.16.84 0.1.021681.3.579.2 1945 Unknown [id number] 2.16.84 0.1.641544.3.579.2.651 1945 Unknown [id number] 2.16.84 0.1.804591.3.579.2.651 Medicaid [id number] Summary Purpose Family History No Family History [...] DATE CREATED AUTHOR AUTHOR'S ORGANIZ ATION 11/09/2020 [facility] DATE CREATED AUTHOR AUTHOR'S ORGANIZ ATION 03/08/2022 [facility] DATE CREATED AUTHOR AUTHOR'S ORGANIZ ATION 02/20/2023 [facility] FOR RECORDS PERTAINING TO PATIENTS WHO [...] BE BASED ON THE PRIMARY CLINICAL RECORDS. [facility] [employer] [facility]. provides no warranty or guarantee of the accuracy or completeness of information in this document.
== END | disposition home or self-care (01) ==
PROVIDERS: PCP Internal Medicine; Referring Provider Urology; Visit Provider Urology
DX: C61 Malignant neoplasm of prostate (principal)
CPT/HCPCS: 73564

== ENCOUNTER → 2023-07-26 | Outpatient (CLI) | payer MEDICARE, OTHER, SELFPAY | END | disposition home or self-care (01) | LOC: LAB 10:12 | PROVIDERS: PCP Internal Medicine; Referring Provider Urology; Visit Provider Urology | DX: C61 Malignant neoplasm of prostate (principal) | CPT/HCPCS: 36415; 84153 ==

== ENCOUNTER → 2023-09-30 | Outpatient (CLI) | payer MEDICARE, OTHER, SELFPAY ==
--- NOTE | 2023-09-30 13:00 | CDU_ITS ---
Reason For Study: Lt ICA Occlusion/Stenosis Rt. Velocities/BP Lt. Velocities/BP Prox CCA 75.6/11.3 cm/sec. Prox CCA 55.6/13.8 cm/sec. Mid CCA 59.7/9.3 cm/sec. Mid CCA 56.7/17.1 cm/sec. Dist CCA 76.9/15.5 cm/sec. Dist CCA 65.5/18.2 cm/sec. Prox ICA 245.6/49.4 cm/sec. Prox ICA 68.3/17.9 cm/sec. Mid ICA 288.8/73.0 cm/sec. Mid ICA 352.0/91.9 cm/sec. Dist ICA 135.8/19.0 cm/sec. Dist ICA 134.7/29.7 cm/sec. Rt. ICA/CCA = 4.9. Lt. ICA/CCA = 6.2. Prox ECA 91.6/13.0 cm/sec. Prox ECA 92.8/13.0 cm/sec. Rt. Vert. 89.1/17.9 cm/sec. Retrograde / Drumbeat flow noted. Right Extracranial There is heterogeneous, smooth atherosclerotic plaque noted in the right common carotid artery. There is heterogeneous, irregular atherosclerotic plaque noted in the right internal carotid artery. There is heterogeneous, irregular atherosclerotic plaque noted in the right external carotid artery. Antegrade flow is noted in the right vertebral artery. Left Extracranial There is heterogeneous, smooth atherosclerotic plaque noted in the left common carotid artery. There is heterogeneous, irregular atherosclerotic plaque noted in the left internal carotid artery. There is heterogeneous, irregular atherosclerotic plaque noted in the left external carotid artery. Drumbeat/ Retrograde flow noted. Procedure Carotid Duplex [id number]. This is a Carotid Duplex examination using B-mode, color flow and specral Doppler. The exam was diagnostic. Exam performed in department. preliminary results deliveredto Dr. Rehman's office. 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 Severe (>70%) stenosis left extracranial internal carotid. The Right vertebral is patent and antegrade. The Left vertebral flow is retrograde, obstructive waveform Ordering Physician: Ramu Rehman Referring Physician: Fiona Krueger Performed By: Chavo Nagel RVT
== END | disposition home or self-care (01) ==
LOC: CVS 12:59
PROVIDERS: PCP Internal Medicine; Referring Provider Surgery Trauma Surgery; Visit Provider Surgery Trauma Surgery
DX: I65.22 Occlusion and stenosis of left carotid artery (principal)
CPT/HCPCS: 93880

== ENCOUNTER → 2023-10-01 | Outpatient (CLI) | payer MEDICARE, OTHER, SELFPAY ==
[2023-10-01 12:22] LABS: Creatinine, Serum 1.52 mg/dL (0.70-1.30); EST Glomerular Filtration Rate 48 mL/min (>60); Est Glom Filt Rate - Afr Amer 58 mL/min (>60)
== END | disposition home or self-care (01) ==
LOC: LAB 11:17
PROVIDERS: PCP Internal Medicine; Referring Provider Physician Assistant; Visit Provider Physician Assistant
DX: I10 Essential (primary) hypertension (principal)
CPT/HCPCS: 36415; 82565

== ENCOUNTER → 2023-10-15 | Outpatient (CLI) | payer MEDICARE, OTHER, SELFPAY ==
--- NOTE | 2023-10-15 07:30 | CT_ITS ---
STUDY: CTA HEAD AND NECK WITH CONTRAST REASON FOR EXAM: Male, 78 years old. Severe left carotid stenosis RADIATION DOSAGE (If Supplied By Facility): CTDIvol = ( 28.73 ) mGy, DLP = ( 1656.55 ) mGycm TECHNIQUE: CT angiography was performed with a multi-detector CT scanner. Data acquisition was obtained from the skull base through the vertex following intravenous administration of IV 100mL Isovue-370. MIP images were reconstructed from the axial data set. Post-processing of the angiographic images was performed, with multiplanar reformation and 3D reconstruction. Individualized dose optimization techniques were used for this CT. COMPARISON: No relevant priors. FINDINGS: Normal bilateral petrous carotid arteries. There is calcified plaque formation of the right cavernous carotid artery, with a mild stenosis (less than 50%). There is calcified plaque formation of the left cavernous carotid artery, with a mild stenosis (less than 50%). There is hypoplastic development of the right A1 segment of the anterior cerebral arteries with an atretic but intact artery. Normal left A1 segments of the anterior cerebral artery. Normal intact anterior communicating artery (ACOM). Normal bilateral A2 segments of the anterior cerebral arteries. Normal right M1 and M2 segments of the middle cerebral arteries, with a normal M1 bifurcation. Normal left M1 and M2 segments of the middle cerebral arteries, with a normal M1 bifurcation. There is a persistent origin of the right posterior cerebral artery with absence of the posterior communicating artery (PCOM). Normal left posterior communicating artery (PCOM). Normal bilateral vertebral arteries. Normal basilar artery with a normal basilar bifurcation. The visualized bilateral superior cerebellar (SCA) arteries are normal. Normal bilateral P1, P2 and visualized P3 segments of the posterior cerebral arteries. There is no demonstrated aneurysm of the [place] of [place]. Cerebral atrophy. Multiple lucencies seen in the deep white matter of both cerebral hemispheres. These may represent watershed infarcts. These are not acute. There is evidence of a 1.4 cm retention cyst or polyp in the sphenoid sinus. AORTIC ARCH: There is atherosclerotic calcific plaque formation of the aortic arch and great vessels arising from the aortic arch, without a hemodynamically significant stenosis. There is a bovine origin of the great vessels with a common origin of the brachiocephalic and left common carotid artery. Normal origin of the left subclavian artery. RIGHT CAROTID ARTERIES: Normal right common carotid artery (CCA). Normal right common carotid bulb. There is extensive atherosclerotic plaque formation of the origin of the right internal carotid artery with an estimated stenosis of greater than 70%. Normal visualized cervical portion of the right internal carotid artery. Normal origin of the right external carotid artery (ECA). LEFT CAROTID ARTERIES: Normal left common carotid artery (CCA). Normal left common carotid bulb. There is severe atherosclerotic and soft plaque formation just distal to the origin of the left internal carotid artery with a near complete occlusion. Normal visualized cervical portion of the left internal carotid artery. Normal origin of the left external carotid artery (ECA). VERTEBRAL ARTERIES: Densely calcified left vertebral artery. The proximal portion of the left vertebral artery is not visualized. There is retrograde filling of the distal portion of the left vertebral artery. CT/CTA Head AND Neck W/ Contrast IMPRESSION: High-grade stenosis/near occlusion of both proximal portions of the right and left internal carotid arteries caused by both atherosclerotic calcific plaque and soft plaque. 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 Nonvisualization of the proximal portion of left vertebral artery with the retrograde filling along its distal portion. Mucosal retention cyst or polyp in the sphenoid sinus. Electronically Signed: Jesse Alvarez MD at 8:28 EDT ,
== END | disposition home or self-care (01) ==
LOC: CT 07:30
PROVIDERS: PCP Internal Medicine; Referring Provider Physician Assistant; Visit Provider Physician Assistant
DX: I65.23 Occlusion and stenosis of bilateral carotid arteries (principal)
CPT/HCPCS: 70496; 70498; Q9967

== ENCOUNTER → 2023-10-23 | Outpatient (CLI) | payer MEDICARE, OTHER, SELFPAY | END | disposition home or self-care (01) | LOC: LAB 15:53 | PROVIDERS: PCP Internal Medicine; Referring Provider Urology; Visit Provider Urology | DX: C61 Malignant neoplasm of prostate (principal) | CPT/HCPCS: 36415; 84153 ==

== ENCOUNTER 2023-10-27 10:26 | Outpatient (CLI) | payer MEDICARE, OTHER, SELFPAY | END 2023-10-27 23:59 | disposition home or self-care (01) | PROVIDERS: PCP Internal Medicine; Referring Provider Physician Assistant; Visit Provider Physician Assistant | DX: I65.21 Occlusion and stenosis of right carotid artery (principal) ==

== ENCOUNTER → 2023-10-31 | Outpatient (CLI) | payer MEDICARE, OTHER, SELFPAY | END | disposition home or self-care (01) | PROVIDERS: PCP Internal Medicine; Referring Provider Physician Assistant; Visit Provider Physician Assistant | DX: I65.22 Occlusion and stenosis of left carotid artery (principal) ==

== ENCOUNTER → 2023-11-06 | Outpatient (CLI) | payer MEDICARE, OTHER, SELFPAY ==
--- NOTE | 2023-11-06 09:05 | ECHOD_ITS ---
Reason For Study: ABN EKG Procedure This was a 2D Doppler, Color Flow transthoracic echocardiogram. Exam performed in department. Left Ventricle Normal LV size. The estimated ejection fraction is 55 %. Unable to assess diastolic dysfunction. No regional wall motion abnormalities noted. Right Ventricle Normal RV size. Normal systolic function. Atria The left and right atria are normal. No doppler evidence for ASD. Mitral Valve There is severe mitral annular calcification. There is no mitral valve stenosis. Trivial mitral valve insufficiency. Tricuspid Valve There is no tricuspid stenosis. Unable to estimate RV systolic pressure due to inadequate jet, pulmonary artery pressure probably normal. Aortic Valve Aortic sclerosis, no stenosis. There is no aortic stenosis. No aortic valve insufficiency. Pulmonic Valve There is no pulmonic valvular stenosis. No pulmonic valve insufficiency. Great Vessels Normal aortic root. Pericardium/Pleural No pericardial effusion. MMode/2D Measurements & Calculations LVIDd: 4.5 cm IVSd: 1.3 cm Ao root diam: 3.3 cm LVIDs: 3.2 cm LVPWd: 1.5 cm FS: 28.6 % LAV(MOD-bp): 50.9 ml LVAd ap4: 24.7 cm2 SV(MOD-sp4): 29.6 ml LAV(MOD-bp) Indexed: 25.2 ml/m2 LVLd ap4: 7.9 cm LAV(MOD-sp2): 44.0 ml EDV(MOD-sp4): 64.4 ml LAV(MOD-sp4): 54.0 ml EDV(sp4-el): 65.0 ml LVAs ap4: 15.8 cm2 LVLs ap4: 6.5 cm ESV(MOD-sp4): 34.8 ml ESV(sp4-el): 32.6 ml EF(MOD-sp4): 46.0 % EF(sp4-el): 49.8 % SV(sp4-el): 32.4 ml LA A4 area: 18.8 cm2 LA dimension(2D): 4.3 cm RA A4 area: 11.5 cm2 TAPSE: 2.9 cm Time Measurements MV dec time: 0.12 sec Doppler Measurements & Calculations MV E max earl: 104.3 cm/sec Lat Peak E' Earl: 8.2 cm/sec Med Peak E' Earl: 4.0 cm/sec MV A max earl: 183.6 cm/sec E/E' lat: 12.8 E/E' med: 26.3 MV E/A: 0.57 MV V2 max: 186.8 cm/sec Ao V2 max: 88.1 cm/sec MV max P.0 mmHg MV dec slope: 853.7 cm/sec2 Ao max P.1 mmHg MV V2 mean: 90.3 cm/sec Ao V2 mean: 64.4 cm/sec MV mean P.1 mmHg Ao mean P.8 mmHg MV V2 VTI: 44.5 cm Ao V2 VTI: 18.7 cm AV (velocity ratio): 0.96 LV V1 max: 85.2 cm/sec PA V2 max: 115.9 cm/sec LV V1 max P.9 mmHg PA V2 mean: 75.0 cm/sec LV V1 mean P.5 mmHg LV V1 mean: 56.6 cm/sec LV V1 VTI: 17.9 cm ECHO/Echo Complete Interpretation Summary The estimated ejection fraction is 55 %. Unable to assess diastolic dysfunction. Trivial mitral valve insufficiency. Ordering Physician: Edvin Lin Referring Physician: Edvin Lin Performed By: Jesenia Perry RCS
== END | disposition home or self-care (01) ==
PROVIDERS: PCP Internal Medicine; Referring Provider Internal Medicine Cardiovascular Disease; Visit Provider Internal Medicine Cardiovascular Disease
DX: R06.09 Other forms of dyspnea (principal)
CPT/HCPCS: 93306

== ENCOUNTER 2023-11-18 10:28 | Inpatient (IN) | payer MEDICARE, OTHER, SELFPAY ==
[2023-11-06 09:38] LABS: Hematocrit 34.1 % (40-54); Hemoglobin 11.1 g/dL (13.0-16.5); Mean Corp Hgb Conc 32.6 g/dL (32-36); Mean Corpuscular Hgb 29.1 pg (27.0-32.0); Mean Corpuscular Volume 89.5 fL (80-94); Mean Platelet Vol. 10.4 fl (6.2-12.0); Platelet Count 239 K/mm3 (150-450); RBC Distribution Width CV 12.9 % (11.6-14.6); RBC Distribution Width SD 42.4 fl (35.1-43.9); Red Blood Count 3.81 M/mm3 (4.6-6.2); White Blood Count 5.2 K/mm3 (4.4-11.0)
[2023-11-06 11:37] LABS: Anion Gap 9 (5-15); BUN 31 mg/dL (7-18); BUN/Creat Ratio 22.5 RATIO (10-20); Calcium,Total 9.3 mg/dL (8.5-10.1); Chloride 107 mmol/L (98-107); Creatinine, Serum 1.38 mg/dL (0.70-1.30); EST Glomerular Filtration Rate 53 mL/min (>60); Est Glom Filt Rate - Afr Amer 64 mL/min (>60); Glucose 206 mg/dL (74-106); Potassium 4.2 mmol/L (3.5-5.1); Sodium Level 138 mmol/L (136-145)
[2023-11-06 13:02] LABS: Hemoglobin A1c 7.5 % (3.8-5.6)
[2023-11-18] VITALS (27 sets, daily range): BP systolic 94–210; BP diastolic 39–98; PULSE 65–90; RESP 10–18; TEMP 35.5–36.7; O2SAT 96–100; BMI 31.6
[2023-11-18] MEDS: Lactated Ringers 1,000 ML 15 ML IV (06:25)
[2023-11-18] MEDS: 0.9% Normal Saline (1000mL) 1,000 ML IV (06:38)
--- NOTE | 2023-11-18 07:02 | PCM.PRE.AN2 ---
ASA Classification* ASA Classification ASA Classification: 3 Assessment & Plan Anesthesia* Anesthesia Assessment Anesthesia Assessment: Discussed sedation and/or anesthesia options, risks, benefits, and alternatives with patient/parents/legal guardian/POA. Questions invited. The patient/parents/legal guardian/POA seems to understand and agrees to proceed with anesthesia plan. Reviewed the physical assessment, medical history, allergy history and patient home medications list prior to surgery/procedure/anesthetic and documented any changes. Performed airway and anesthesia risk assessments. Anesthesia Type Anesthesia Type: General History Source History Obtained from:: Patient and Chart Anesthesia Focused Assessment* Temperature: 97.0 F Pulse Rate: 70 Blood Pressure: 159/64 Respiratory Rate: 18 Pulse Ox: 98 Oxygen Delivery Method: Room Air Airway Assessment Mouth opens: >3 cm Mallampati Score: II Teeth Condition: Intact Neck Range of motion (ROM): Full ROM Focused Labs Anesthesia Preop lab: CBC WBC 5.2 K/mm3 (4.4-11.0) 11/06/23 08:46 RBC 3.81 M/mm3 (4.6-6.2) L 11/06/23 08:46 Hgb 11.1 g/dL (13.0-16.5) L 11/06/23 08:46 Hct 34.1 % (40-54) L 11/06/23 08:46 Plt Count 239 K/mm3 (150-450) 11/06/23 08:46 CHEMISTRY Potassium 4.2 mmol/L (3.5-5.1) 11/06/23 08:46 Sodium 138 mmol/L (136-145) 11/06/23 08:46 BUN 31 mg/dL (7-18) H 11/06/23 08:46 Creatinine 1.38 mg/dL (0.70-1.30) H 11/06/23 08:46 Glucose 206 mg/dL (74-106) H 11/06/23 08:46 POC Glucose 160 mg/dL (70-110) H 10/01/16 13:00 TSH 2.700 uIU/mL (0.358-3.740) 11/06/23 08:45 COAG Pre-Assessment Diagnosis/Proposed Procedure Planned Operative Procedure(s): LEFT CAROTID STENT Anesthesia History 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 When Was Last Pacemaker Check QUESTION #4 FULL TEXT: You/Your Family Experience fever (hyperthermia) with Anesthesia Last Oral Intake Last Oral intake: Last Oral Intake NPO since 04:00 11/18/23 05:47 Meds taken in AM with sips of Yes 11/18/23 05:47 water? Meds patient instructed to see medlist 11/18/23 05:47 take am of surgery Any additional information?: Yes NPO since: 04:00 (Patient had his meds this morning at 4:00.) Meds taken in AM with sips of water?: Yes PONV PONV - cooling tower technician: PONV - cooling tower technician Female No 11/05/23 11:16 HX of Motion Sickness No 11/05/23 11:16 HX of N/V After Surgery No 11/05/23 11:16 Non-Smoker Yes 11/05/23 11:16 Duration of Surgery greater Yes 11/05/23 11:16 than 60 minutes Number of Risk Factors 2 11/05/23 11:16 PONV Score Moderate Risk 11/05/23 11:16 Height & Weight Height & Weight: Anesthesia: Height & Weight Height 5 ft 7 in 11/18/23 05:47 Weight: 91.6 kg 11/18/23 05:47 Body Mass Index (BMI) 31.6 11/18/23 05:47 Respiratory Assessment Respiratory Assessment - cooling tower technician: Respiratory Tract Infection Hx - cooling tower technician Hx Respiratory Tract Infection No 11/05/23 11:16 STOP Sleep Apnea STOP Sleep Apnea - cooling tower technician: STOP Sleep Apnea - cooling tower technician Hx Hypertension Yes: JUST INCREASED BP MED 8 11/05/23 11:16 Hx Sleep Apnea Yes 11/05/23 11:16 CPAP Yes: NONCOMPLIANT 11/05/23 11:16 BIPAP No 11/05/23 11:16 Do you snore loudly (louder than talking or can be heard Do you often feel tired/ fatigued/ sleepy during daytime? Has anyone observed you stop breathing during sleep? STOP Results Positive 11/05/23 11:16 QUESTION #5 FULL TEXT : Do you snore loudly (louder than talking or can be heard through closed doors)? 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 Specify any problems Hx of Preganancy in last 3 N/A 11/05/23 11:16 Months Nurse Filling Out Transfusion DSCHRIBER 11/05/23 11:16 & Questions: Date: 11/05/23 11/05/23 11:16 Time: 11:20 11/05/23 11:16 Patient unable to answer at this time (ie. confused, unrespo /Reproduction History /Reproductive History - cooling tower technician: /Reproductive Hx- cooling tower technician Hx Now No 11/05/23 11:16 Gestational Age (in weeks): EDC: Hx Hx Para Hx Section SAB No 11/05/23 11:16 Active Medications Active Medications: Current Medications Generic Name Dose Route Start Last Admin Trade Name Freq PRN Reason Stop Dose Admin Cefazolin Sodium 2 gm/ Sodium 110 mls @ 150 mls/hr 11/18/23 08:00 Chloride IV 11/18/23 08:43 PREOP ONE Lactated Ringer's 1,000 mls @ 15 mls/hr 11/18/23 06:30 11/18/23 06:25 IV 15 mls/hr .Q48H MARIANO Administration Sodium Chloride 1,000 mls @ 1 mls/hr 11/18/23 06:36 11/18/23 06:38 IV 1 mls/hr .Q48H PRN Administration Saline Flush PFSH Medical History Tinnitus of both ears Wears glasses Cancer Alcohol use High cholesterol Blackout Heartburn History of DVT (deep vein thrombosis) Hx of edema Hx of echocardiogram History of stress test Cardiology follow-up encounter Diabetes VENEGAS (dyspnea on exertion) Obesity RONAL (obstructive sleep apnea) Hypothyroidism Hyperlipidemia Lung nodule Chronic kidney disease 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 Prostate CA Hypertension Stroke (~08/2023) Home Medications ?Medication ?Instructions ?Recorded ?Last Taken ?Type aspirin 81 mg chewable tablet 81 mg PO DAILY@0800 HEART HEALTH 08/06/16 11/18/23 History cholecalciferol (vitamin D3) 50 50 mcg PO DAILY SUPPLEMENT 09/29/23 11/17/23 History mcg (2,000 unit) capsule enzalutamide 40 mg capsule (Xtandi) 160 mg PO QHS PROSTATE 09/29/23 11/16/23 History folic acid 1 mg tablet 1 mg PO DAILY SUPPLEMENT 09/29/23 11/17/23 History levothyroxine 88 mcg capsule 88 mcg PO DAILY THYROID 09/29/23 11/17/23 History rosuvastatin 20 mg tablet 20 mg PO QHS CHOLESTEROL 09/29/23 11/17/23 History clopidogrel 75 mg tablet (Plavix) 75 mg PO DAILY BLOOD THINNER #30 09/30/23 11/18/23 Rx tabs glipizide 2.5 mg tablet, extended 2.5 mg PO DAILY DIABETES 11/05/23 11/17/23 History release 24 hr losartan 100 1 tab PO DAILY BP 11/05/23 11/17/23 History mg-hydrochlorothiazide 12.5 mg tablet Allergy/AdvReac Type Severity Reaction Status Date / Time No Known Allergies Allergy Verified 11/18/23 05:44 Family History Other Heart disease Myocardial infarction Surgical History Hx of colonoscopy Hx of right cataract extraction Hx of left cataract extraction Hx of umbilical hernia repair History of tonsillectomy (~2018) Social History Smoking Status: Never smoker alcohol intake: current substance use type: does not use caffeine: Yes Review of Systems (Anesthesia) ROS Narrative System reviewed and no additional complaints, except as documented.
[2023-11-18 07:38] LABS: Bedside Glucose 174 mg/dL (74-106)
--- NOTE | 2023-11-18 07:50 | PCM.HP.BLA ---
History and Physical Allergies No Known Allergies Allergy (Verified 10/23/23 15:11) Medications ?Medication ?Instructions ?Recorded ?Confirmed ?Type aspirin 81 mg chewable tablet 81 mg PO DAILY@0800 08/06/16 10/23/23 History cholecalciferol (vitamin D3) 50 50 mcg PO DAILY 09/29/23 10/23/23 History mcg (2,000 unit) capsule enzalutamide 40 mg capsule (Xtandi) 160 mg PO DAILY 09/29/23 10/23/23 History folic acid 1 mg tablet 1 mg PO DAILY 09/29/23 10/23/23 History levothyroxine 88 mcg capsule 88 mcg PO DAILY 09/29/23 10/23/23 History losartan 25 mg tablet 25 mg PO DAILY 09/29/23 10/23/23 History rosuvastatin 20 mg tablet 20 mg PO DAILY 09/29/23 10/23/23 History clopidogrel 75 mg tablet (Plavix) 75 mg PO DAILY #30 tabs 09/30/23 10/23/23 Rx Have you fallen in the past year?: Yes PFSH Medical History Prostate CA Hypertension Surgical History History of tonsillectomy (~2018) Family History Other Heart disease Myocardial infarction Social History Smoking Status: Never smoker HPI HPI HPI: SUMEET MAJANO, is a 78 M who presents to the office today for follow up of bilateral carotid stenosis, left symptomatic. He had MRA at outside facility that suggested left ICA occlusion, had left hemispheric infarct. At last office visit obtained duplex to confirm status of ICA; it revealed left ICA patent with >70% stenosis and right also >70%. He has had a CTA and is here to discuss. No recurrent new numbness/weakness/vision loss/speech difficulty (has expressive aphasia from initial CVA). ROS General General: Yes fatigue and weakness; No weight change, appetite, colon cancer or breast cancer HEENT HEENT: No difficulty swallowing, eye injury, eye surgery, swollen glands or hoarseness Endo Endocrine: Yes diabetes mellitus; No thyroid disease, thyroid cancer, Hair loss, heat intolerance or cold intolerance Skin Skin: No rash or changing moles Musc Musculoskeletal: No back problems, arthritis, rheumatoid arthritis, gout or joint pain Cardio Cardiovascular: Yes high blood pressure and shortness of breat with exertion; No murmur, pacemaker, heart disease, atrial fibrillation, heart attack, heart stent, palpitations or chest pain Psych Psychiatric: No depression, anxiety or hearing voices Resp Respiratory: Yes shortness of breath, Yes sleep apnea, No cough, No COPD, No asthma, No emphysema and No wheezing Gastro Gastrointestinal: No abdominal pain, No nausea or vomiting, No diarrhea, No constipation, No blood in stool, No acid reflux, No hemorrhoids, No ulcers, No gallbladder problem and No black,tarry stools Baldo Hematologic: Yes blood thinners, No blood disorders, No bleeding, No anemia and No blood clots Neuro Neurologic: No system reviewed and no additional complaints, except as documented, No as per HPI, No abnormal gait, No abnormal hearing, No abnormal movements, No abnormal speech, No behavioral changes, No burning sensations, Yes confusion, No convulsions, Yes disequilibrium, Yes dizziness, No localized weakness, Yes frequent falls, No headache(s), Yes lack of coordination, No loss of vision, Yes memory loss, No numbness, No other visual disturbances, No radicular pain, No restless legs, No sensory deficit, No syncope, No tingling, No tremor(s), Yes weakness and No other Exam Const General: cooperative, healthy appearing, comfortable, no acute distress and well developed Nutritional Appearance: well nourished Orientation: alert, awake and oriented x3 [facility] Head: normocephalic and atraumatic Ears: hearing grossly normal bilaterally Nose: external nose normal Eyes General: appearance normal, both eyes and all related structures EOM: EOM intact bilaterally Neck Neck: normal visual inspection, full ROM, no lymphadenopathy and trachea midline Thyroid: thyroid normal Lymphatic: no lymphadenopathy noted Resp Effort & Inspection: normal respiratory effort, able to speak in complete sentences, symmetric chest movement, no audible wheezes, not labored, no stridor and no use of accessory muscles Cardio Rate: regular rate Rhythm: regular rhythm Skin General: no rashes or lesions noted and no erythema Wounds: no wounds Neuro Cranial Nerves: CN's II-XI intact bilaterally and EOM intact bilaterally Gait: normal gait Motor: strength 5/5 throughout Sensory Exam: no sensory deficits noted Psych Appearance: grossly normal and well kempt Mental Status: mental status grossly normal Mood: congruent mood Speech and Movement: speech and movement normal Thought Content: normal Judgment: judgment good Coding Level of Care Code Off vis,est,level 3 Diagnoses Stenosis of left internal carotid artery I65.22 Stenosis of right internal carotid artery I65.21 Assessment and Plan Assessment and Plan (1) Stenosis of left internal carotid artery: -left TCAR
--- NOTE | 2023-11-18 10:43 | PCM.OPRPT ---
Report of Operation Date of Procedure: 11/18/23 Pre-Operative Diagnosis: symptomatic left carotid stenosis Post-Operative Diagnosis: same Surgery/Procedure Performed:: left trans carotid stent Surgeon: Ramu Rehman Type of Anesthesia: General Drains: 15 Fr WILLAIM Estimated Blood Loss (mL): 15 Description of Procedure: HPI: Patient is a 78-year-old male with symptomatic left internal carotid artery stenosis. He had imaging that revealed a lesion that was distal to the bifurcation and was appropriate for carotid artery stenting. He presents now transcarotid artery stenting. 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 He was then positioned prepped and draped in usual sterile fashion timeout was performed. Transverse incision was made 1 fingerbreadth superior to the left clavicle Bovie electrocautery used to dissect down through the subcutaneous tissue to the level of platysma. The platysma was then divided and self-retaining retractor was put in position. The sternocleidomastoid was then dissected free along its medial border as well as between the sternal and clavicular heads. This was then initially retracted medially however then the carotid sheath and vessels were too medial to successfully reach from this position. Sternocleidomastoids then further dissected and mobilized and then retracted laterally exposing the carotid sheath. Sharp dissection used to dissect free the proximal common carotid artery with care taken to identify and protect the adjacent nerve and vein structures. A right angle was used to place vessel approximately the patient was heparinized allowed circulate for 3 minutes. Subsequent heparin dosing was performed based on serial ACT results. A pursestring 5-0 Prol[address] suture was in place the intended site of access. Next ultrasound was used to evaluate the right common femoral vein and the vessel accessed under ultrasound guidance with a micropuncture needle wire. Patient exchanged for micropuncture sheath through which a J-wire was advanced and the micropuncture sheath exchanged for the [place] flow reversal return sheath. Next a micropuncture needle wire used to access the common carotid artery and antegrade fashion the site of the pursestring suture. This was then exchanged for micropuncture sheath through which injection subtraction geography was performed revealing satisfactory position with no extravasation or dissection. Through the micropuncture sheath a J-wire was advanced and stopped inferior to the proximal edge of the plaque. The micropuncture sheath and exchanged for the silk Road flow reversal sheath was advanced without difficulty. This was then secured in position with silk stay sutures in the flow reversal infiltration tubing attached. Satisfactory flow reversal was confirmed and an adequate ACT had been obtained. The common carotid artery was then occluded with vessel loop and continued flow reversal confirmed by flushing the sheaths. Next an [address] angioplasty balloon 4 x 35 was advanced into position crossing the lesion without difficulty. This was then predilated to nominal and then deflated and withdrawn. Next a silk [address] en route stent tapered 9 to 7 x 40 was advanced into position and deployed. Flow reversal was allowed to continue for 2 minutes at which point repeat angiography was performed revealed satisfactory stent placement no extravasation or dissection and no plaque protrusion. This also revealed satisfactory stent expansion with no residual stenosis. The vessel loop was then released and a further 1 minute of flow reversal allowed prior to removal of the flow reversal system and securing the pursestring in the carotid artery. The femoral venous return sheath was then withdrawn and manual pressure held for 10 minutes or satisfactory stasis noted. Patient was then taken to the recovery room with anticipate admission to the intensive care unit for hemodynamic and neurologic monitoring. Grafts/Implants Used: En route 9-7x40
--- NOTE | 2023-11-18 11:10 | PCM.POST.ANE ---
Anesthesia: Postop Eval I Current Vital Signs Temperature: 98.1 F Pulse Rate: 89 Blood Pressure: 148/68 Respiratory Rate: 16 Pulse Ox: 100 Oxygen Delivery Method: Room Air Assessment Airway patent: Yes Spontaneous unlabored respirations: Yes Mental status: Awake and Calm nausea: No Vomiting: No Anesthesia Complication: No Fluid Hydration Crystalloid volume administer (ml): 1,200 Total IV fluid infused: 1,200 Progress Note Anesthesia document: Postop Eval 1 completed: Yes
[2023-11-18] MEDS: Labetalol (Prefilled) 20 MG/4 ML 10 MG IV ×2 (12:10→17:44)
--- NOTE | 2023-11-18 12:18 | SUR.PHASEI ---
MAR NOT ALLOWING RN TO CHART OFF LABETOLOL 10MG GIVEN BY CARLYLE BENOIT AT 1210
--- NOTE | 2023-11-18 12:31 | POSTOPAN2_ITS ---
Anesthesia Postop Eval I Sum Postop Eval Completion status Anesthesia document: Postop Eval 1 completed: Yes Anesthesia Postop Eval I Summary Anesthesia Postop Eval I Summary: Anesthesia Postop Eval I: Assessment Summary Airway patent Yes 11/18/23 11:11 LOG CHAIN FEEDER.JACKIE Spontaneous unlabored Yes 11/18/23 11:11 LOG CHAIN FEEDER.OT respirations Mental status Awake,Calm 11/18/23 11:11 LOG CHAIN FEEDER.MDOT nausea No 11/18/23 11:11 LOG CHAIN FEEDER.MDOT Vomiting No 11/18/23 11:11 LOG CHAIN FEEDER.MDOT Anesthesia Postop Eval I: Fluid Summary Crystalloid volume administer 1,200 11/18/23 11:11 LOG CHAIN FEEDER.MDOT (ml) Colloids volume administered ( ml) Blood Product volume administered (ml) Total IV fluid infused 1,200 11/18/23 11:11 LOG CHAIN FEEDER.OT Anesthesia Postop Eval I: Summary Notes Anesthesia Complication No 11/18/23 11:11 LOG CHAIN FEEDER.MDFABIENNE Anesthesia Complication Comment: Post-operative progress note Anesthesia: Postop Eval II Evaluation Mental status: Awake and Calm Pain Level: 1 nausea: No Vomiting: No Complications Anesthesia Complication: No
--- NOTE | 2023-11-18 12:31 | PCM.POSTANE2 ---
Anesthesia Postop Eval I Sum Postop Eval Completion status Anesthesia document: Postop Eval 1 completed: Yes Anesthesia Postop Eval I Summary Anesthesia Postop Eval I Summary: Anesthesia Postop Eval I: Assessment Summary Airway patent Yes 11/18/23 11:11 PASSENGER RELATIONS REPRESENTATIVE.JACKIE Spontaneous unlabored Yes 11/18/23 11:11 PASSENGER RELATIONS REPRESENTATIVE.OT respirations Mental status Awake,Calm 11/18/23 11:11 PASSENGER RELATIONS REPRESENTATIVE.MDOT nausea No 11/18/23 11:11 PASSENGER RELATIONS REPRESENTATIVE.MDOT Vomiting No 11/18/23 11:11 PASSENGER RELATIONS REPRESENTATIVE.MDOT Anesthesia Postop Eval I: Fluid Summary Crystalloid volume administer 1,200 11/18/23 11:11 PASSENGER RELATIONS REPRESENTATIVE.MDOT (ml) Colloids volume administered ( ml) Blood Product volume administered (ml) Total IV fluid infused 1,200 11/18/23 11:11 PASSENGER RELATIONS REPRESENTATIVE.OT Anesthesia Postop Eval I: Summary Notes Anesthesia Complication No 11/18/23 11:11 PASSENGER RELATIONS REPRESENTATIVE.MDFABIENNE Anesthesia Complication Comment: Post-operative progress note Anesthesia: Postop Eval II Evaluation Mental status: Awake and Calm Pain Level: 1 nausea: No Vomiting: No Complications Anesthesia Complication: No
[2023-11-18] MEDS: Acetaminophen 500 MG Tablet 1000 MG PO ×2 (13:01→20:25)
[2023-11-18] MEDS: 0.45% Normal Saline 1,000 ML 75 ML IV (13:03)
[2023-11-18 13:27] LABS: Bedside Glucose 188 mg/dL (74-106)
[2023-11-18] MEDS: hydrALAZINE 20 MG/ML Vial 10 MG IV (13:47)
[2023-11-18 15:39] LABS: ACT Activated Clotting Time 348 sec (74-137)
[2023-11-18] MEDS: CLARIFY ORDER NOTE (15:48)
[2023-11-18] MEDS: Cefazolin 1 GM/50 ML BAG IV (16:04)
[2023-11-18] MEDS: Insulin Lispro 100 UNIT/ML INSULN.PEN SC ×2 (16:10→20:29)
[2023-11-18 17:14] LABS: Bedside Glucose 199 mg/dL (74-106)
[2023-11-18] MEDS: 0.9% Saline Lock 10 ML Syringe IV ×2 (17:44→20:26)
[2023-11-18] MEDS: Atorvastatin Calcium 40 MG Tablet PO (20:25)
[2023-11-18 20:57] LABS: Bedside Glucose 206 mg/dL (74-106)
[2023-11-19] VITALS (16 sets, daily range): BP systolic 116–158; BP diastolic 40–92; PULSE 65–79; RESP 12–18; TEMP 36.4; O2SAT 94–100; BMI 31.9
[2023-11-19] MEDS: Cefazolin 1 GM/50 ML BAG IV (00:22)
[2023-11-19] MEDS: 0.45% Normal Saline 1,000 ML 75 ML IV (01:53)
[2023-11-19] MEDS: Labetalol (Prefilled) 20 MG/4 ML 10 MG IV (02:12)
[2023-11-19 06:21] LABS: Absolute Neutrophil Count 4.5 X10^3/uL (2.0-7.7); Basophil# 0.04 X10^3/uL; Basophil% 0.6 % (0-1); Eosinophil# 0.15 X10^3/uL; Eosinophils% 2.2 % (0-5); Hematocrit 28.2 % (40-54); Hemoglobin 9.3 g/dL (13.0-16.5); Lymphocyte % 22.2 % (19-41); Mean Corpuscular Hgb 29.4 pg (27.0-32.0); Mean Corpuscular Volume 89.2 fL (80-94); Mean Platelet Vol. 10.3 fl (6.2-12.0); Monocyte# 0.56 X10^3/uL; Monocyte% 8.3 % (0-10); NRBC Flagged by Analyzer 0 % (0-5); Neutrophil % 66.4 % (47-70); Platelet Count 174 K/mm3 (150-450); RBC Distribution Width CV 13.1 % (11.6-14.6); RBC Distribution Width SD 42.7 fl (35.1-43.9); Red Blood Count 3.16 M/mm3 (4.6-6.2); White Blood Count 6.8 K/mm3 (4.4-11.0)
[2023-11-19] MEDS: Acetaminophen 500 MG Tablet 1000 MG PO (06:25)
[2023-11-19] MEDS: Levothyroxine 88 MCG Tablet PO (06:25)
[2023-11-19] MEDS: Clopidogrel Bisulfate 75 MG Tablet PO (07:57)
[2023-11-19] MEDS: Losartan Potassium 100 MG Tablet PO (07:57)
[2023-11-19] MEDS: Cholecalciferol (VIT D3) 25 MCG TABLET (1,000 UNITS) 50 MCG PO (07:57)
[2023-11-19] MEDS: Folic Acid 1 MG Tablet PO (07:58)
[2023-11-19] MEDS: Aspirin 81 MG TAB.CHEW PO (07:58)
[2023-11-19] MEDS: hydroCHLOROthiazide 12.5mg 12.5 MG PO (07:58)
[2023-11-19] MEDS: Enoxaparin 40 MG/0.4 ML Syringe SC (07:59)
[2023-11-19] MEDS: glipiZIDE 2.5 MG TAB.ER.24 PO (07:59)
[2023-11-19] MEDS: Insulin Lispro 100 UNIT/ML INSULN.PEN SC ×2 (08:03→11:38)
[2023-11-19 08:26] LABS: Bedside Glucose 153 mg/dL (74-106)
--- NOTE | 2023-11-19 10:03 | CASEMGMT ---
CARLYLE SU Assessment Face to Face with patient for initial transition planning/care coordination assessment. CARLYLE SU introduced self and role at [facility], pt voices understanding. Pt is A&Ox4 and is resting comfortably in the chair and is calm. Pt at bedside. Care providers, pharmacy, and demographics verified. Admitting dx: Lt Carotid Stent LACE Strata: 2 PCP: Fiona Sterling Specialists: Sherie (Vasc), Josafat (Uro), Joanie (Pulm) [facility]erred [facility]acy: [facility] Insurance: [employer] A/B, [place] [employer] Prescription Benefit: yes LNOK: Annie Alan (W) Living Arrangements: Pt lives with his in a two story home with two steps to enter ADLs/IADLs: Ind Transportation: Self, DME: Working [employer] and supplies. FWW. Cane. BP monitor. Pulse Ox HHC/SNF: Denies Hx or needs Pt?s goal: Home Plan: Tentative plan to DC home today with no additional needs with pt . Pt takes Plavix at home. Pt refuses the need for HHC, OP Tx, or SNF. However, PT eval is pending. Pt does not anticipate needing this. CM to follow. Santino Henry RN, CM
--- NOTE | 2023-11-19 10:26 | PCM.PN.SRG ---
Subjective Subjective Mr. Alan was seen resting comfortably in the bedside chair this morning. He he denies any motor weakness, sensory deficits, unilateral left-sided headache, difficulty speaking or swallowing, hoarse voice. He has mild discomfort at the incision site with palpation but no pain just resting. His blood pressures were elevated following surgery and requiring a few PRNs overnight but have been improved this morning. He did receive his home blood pressure dose this morning as well. He has been voiding without difficulty and tolerating liquid diet at this point. Objective Data Objective Data Vital Signs: Vital Signs Temp Pulse Resp BP Pulse Ox O2 Del Method 97.6 F L 79 18 138/57 H 95 Room Air 11/19/23 03:25 11/19/23 08:00 11/19/23 08:00 11/19/23 08:00 11/19/23 08:00 11/19/23 08:00 Oxygen Delivery Method Room Air Weight: 203 lb 14.841 oz Body Mass Index (BMI) 31.9 Intake & Output: Intake and Output for Last 24 Hours 11/17/23 11/18/23 11/19/23 23:59 23:59 23:59 Intake Total 610.97 / 610.97 766.25 / 766.25 Output Total 60 / 85 705 / 705 Balance 550.97 / 525.97 61.25 / 61.25 Lab / Micro Data 11/19/23 06:00 11/06/23 08:46 Labs: Laboratory Results - last 24 hr 11/18/23 09:41: Activated Clotting Time 348 H 11/18/23 13:00: POC Glucose 188 H 11/18/23 16:04: POC Glucose 199 H 11/18/23 20:28: POC Glucose 206 H 11/19/23 06:00: WBC 6.8, RBC 3.16 L, Hgb 9.3 L, Hct 28.2 L, MCV 89.2, MCH 29.4, MCHC 33.0, RDW Std Deviation 42.7, RDW Coeff of Tania 13.1, Plt Count 174, MPV 10.3, Immature Gran % (Auto) 0.300, Neut % (Auto) 66.4, Lymph % (Auto) 22.2, Daniels % (Auto) 8.3, Eos % (Auto) 2.2, Baso % (Auto) 0.6, Absolute Neuts (auto) 4.5, Absolute Lymphs (auto) 1.50, Nucleated RBC % 0 11/19/23 08:02: POC Glucose 153 H Physical Exam Const alert, oriented x3 and no apparent distress General Appearance: cooperative and comfortable HEENT normocephalic, head/scalp atraumatic, hearing grossly normal bilaterally, external ears normal and external nose normal Head and Scalp: normal to inspection Eyes EOMs intact bilaterally General Eye: normal appearance of both eyes Neck Neck Narrative: Left neck incision site with incision site satisfactory in appearance, skin glue intact without dehiscence, mild ecchymosis but no hematoma. WILLIAM drain with serosanguineous output. General: trachea midline Resp normal respiratory effort, normal air movement, no retractions and no use of accessory muscles Effort and Inspection: able to speak in complete sentences Cardio regular rate and regular rhythm Extremity normal to inspection, full ROM, no clubbing, cyanosis or edema and no calf tenderness Extremity Narrative: Right groin access site with dressing clean, dry, and intact. No apparent hematoma. Skin no rashes or lesions noted Wounds: Negative for wounds noted Neuro oriented x3, CN's II-XII intact bilaterally, moves all extremities, no focal motor deficits and no sensory deficits noted Psych mental status grossly normal Appearance: grossly normal Attitude: calm and engaged Activity / Motor Behavior: appropriate eye contact Speech: normal speech Mood & Affect: euthymic mood Judgement: judgement good Assessment & Plan Assessment/Plan (1) Stenosis of left internal carotid artery: PLAN: Plan He is status post left TCAR on 11/18/2023. WILLIAM drain was removed without issue today. Incision site is satisfactory in appearance. Right groin access site also satisfactory in appearance. He was hypertensive following surgery and overnight, blood pressures are improved this morning. DC art line. Will continue to monitor. Plan to advance to a normal diet as tolerated. Plan to have him ambulate with nursing/PT. As long as both go well, anticipate discharge later this afternoon.
[2023-11-19 12:01] LABS: Bedside Glucose 217 mg/dL (74-106)
--- NOTE | 2023-11-19 13:09 | PCM.DC.SUM ---
Providers Date of Admission: 11/18/23 Primary Care Physician: Dr. 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 WILLIAM drain was removed without issue today. Incision site is satisfactory in appearance. Right groin access site also satisfactory in appearance. He was hypertensive following surgery and overnight, blood pressures are improved this morning. DC art line. Will continue to monitor. Plan to advance to a normal diet as tolerated. Plan to have him ambulate with nursing/PT. As long as both go well, anticipate discharge later this afternoon. Medications at Discharge Home Medications aspirin 81 mg chewable tablet 81 mg PO DAILY@0800 [facility] 08/06/16 cholecalciferol (vitamin D3) 50 mcg (2,000 unit) capsule 50 mcg PO DAILY SUPPLEMENT 09/29/23 enzalutamide 40 mg capsule (Xtandi) 160 mg PO QHS PROSTATE 09/29/23 folic acid 1 mg tablet 1 mg PO DAILY SUPPLEMENT 09/29/23 levothyroxine 88 mcg capsule 88 mcg PO DAILY THYROID 09/29/23 rosuvastatin 20 mg tablet 20 mg PO QHS CHOLESTEROL 09/29/23 clopidogrel 75 mg tablet (Plavix) 75 mg PO DAILY BLOOD THINNER #30 tabs 09/30/23 glipizide 2.5 mg tablet, extended release 24 hr 2.5 mg PO DAILY DIABETES 11/05/23 losartan 100 mg-hydrochlorothiazide 12.5 mg tablet 1 tab PO DAILY BP 11/05/23 Hospital Course Summary of Care Provided Hospital Course: Mr. Ovidio Alan is a 78-year-old male who underwent left TCAR on 11/18/2023. He tolerated the procedure well and it was without complication. Postoperatively, he was routinely admitted to the ICU for ongoing hemodynamic and neurologic monitoring. He was slightly hypertensive following surgery and overnight but has been normotensive today with his normal home blood pressure medications. He has remained neurologically stable throughout his admission. He has not had any unilateral headache, hoarseness, difficulty swallowing, weakness, sensory deficits, facial droop. The incision site is satisfactory in appearance with skin glue intact and no evidence of hematoma. The WILLIAM drain was removed today without issue. The right groin access site satisfactory in appearance without evidence of hematoma. He has been ambulating without difficulty, tolerating a normal diet, voiding without difficulty, and he has minimal pain which is well-controlled with Tylenol. He is medically stable for discharge home today with follow-up scheduled in the office in a few weeks. He will continue to take Plavix and aspirin daily. Physical Exam Const alert, oriented x3 and no apparent distress General Appearance: cooperative and comfortable HEENT normocephalic, head/scalp atraumatic, hearing grossly normal bilaterally, external ears normal and external nose normal Head and Scalp: normal to inspection Eyes EOMs intact bilaterally General Eye: normal appearance of both eyes Neck Neck Narrative: Left neck incision site with incision site satisfactory in appearance, skin glue intact without dehiscence, mild ecchymosis but no hematoma. General: trachea midline Resp normal respiratory effort, normal air movement, no retractions and no use of accessory muscles Effort and Inspection: able to speak in complete sentences Cardio regular rate and regular rhythm Extremity normal to inspection, full ROM, no clubbing, cyanosis or edema and no calf tenderness Extremity Narrative: Right groin access site with dressing clean, dry, and intact. No apparent hematoma. Skin no rashes or lesions noted Wounds: Negative for wounds noted Neuro oriented x3, CN's II-XII intact bilaterally, moves all extremities, no focal motor deficits and no sensory deficits noted Psych mental status grossly normal Appearance: grossly normal Attitude: calm and engaged Activity / Motor Behavior: appropriate eye contact Speech: normal speech Mood & Affect: euthymic mood Judgement: judgement good Weight / BMI Weight Weight: 203 lb 14.841 oz Body Mass Index (BMI) 31.9 ABG / Lab / Microbiology Data 11/19/23 06:00 11/06/23 08:46 Laboratory: Laboratory Results - last 24 hr 11/18/23 09:41: Activated Clotting Time 348 H 11/18/23 13:00: POC Glucose 188 H 11/18/23 16:04: POC Glucose 199 H 11/18/23 20:28: POC Glucose 206 H 11/19/23 06:00: WBC 6.8, RBC 3.16 L, Hgb 9.3 L, Hct 28.2 L, MCV 89.2, MCH 29.4, MCHC 33.0, RDW Std Deviation 42.7, RDW Coeff of Tania 13.1, Plt Count 174, MPV 10.3, Immature Gran % (Auto) 0.300, Neut % (Auto) 66.4, Lymph % (Auto) 22.2, Hockley % (Auto) 8.3, Eos % (Auto) 2.2, Baso % (Auto) 0.6, Absolute Neuts (auto) 4.5, Absolute Lymphs (auto) 1.50, Nucleated RBC % 0 11/19/23 08:02: POC Glucose 153 H 11/19/23 11:37: POC Glucose 217 H D/C Instructions Discharge Diet: No restrictions May shower in (days): 1 Weight Bearing Status: Weight bearing as tolerated Lifting Restricted to (Lbs): 20 Lifting Restrictions: Do not lift greater than 20 pounds for 3 weeks Call your doctor if your incision/area has: Sudden Increased Bleeding, Increased Pain/ Swelling and Foul Smelling Discharge Call your doctor if you observe: Fever of 101 or Higher and Uncontrolled pain Additional Instructions: You have a small bandage over the site from which the surgical drain was removed. You may remove this bandage tomorrow. As long as there is no residual drainage, you may leave this open to air. If you do notice some continued drainage, you may re-cover with a Band-Aid. Your incision site is covered with surgical glue which will continue to protect it. The surgical glue will peel/flake off on its own over the next few weeks. Please do not pick at it. You have a dry dressing over the right groin access site. You may remove this dressing tomorrow. You may then leave the site open to air. You may shower tomorrow. It is okay for soap and water to rinse over the incision site, pat to dry. Do not submerge the incision site in water such as to take a bath or go swimming etc. for 3 weeks. Do not lift greater than 20 pounds for 3 weeks. Otherwise, please continue with activity as tolerated. Do not drive until you can turn your head well enough to safely check your blind spots. Continue to take Plavix 75 mg daily and aspirin 81 mg daily. You declined any prescription pain medication. Please continue to take Tylenol as needed. You are scheduled for follow-up in the office on 12/04/2023 at 10 AM. If you need to change the appointment date or time or have any other questions/concerns please contact the office at [phone]. Please Follow Up With: Evelyn Arana PA When: 12/04/2023 at 10 AM Meaningful Use Info Meaningful Use Meaningful Use Diagnoses (Choose all that apply): None applicable Ischemic Stroke Statin Dosing Therapy Reference: STATIN DOSE THERAPY REFERENCE: * Patients > 75 years receive moderate or high dose statin therapy. * Patients 75 years or YOUNGER should receive HIGH intensity statin dose unless contraindicated. You will be required to document reason for non-treatment if statin daily dose does not meet guidelines. HIGH DOSE STATIN THERAPY DAILY Atorvastatin > than or = to 40 mg Rosuvastatin > than or = to 20 mg Amlodipine + Atorvastatin > than or = to 2.5/40 mg Ezetimibe + Simvastatin 10/80 mg Simvastatin 80mg Discharge Plan Admission Admit Date/Time: 11/18/23 10:28 Primary Reason for Your Visit: Left TCAR Attending Provider: Ramu Rehman Primary Care Provider: Fiona Sterling Instructions Additional Instructions / Restrictions: You have a small bandage over the site from which the surgical drain was removed. You may remove this bandage tomorrow. As long as there is no residual drainage, you may leave this open to air. If you do notice some continued drainage, you may re-cover with a Band-Aid. Your incision site is covered with surgical glue which will continue to protect it. The surgical glue will peel/flake off on its own over the next few weeks. Please do not pick at it. You have a dry dressing over the right groin access site. You may remove this dressing tomorrow. You may then leave the site open to air. You may shower tomorrow. It is okay for soap and water to rinse over the incision site, pat to dry. Do not submerge the incision site in water such as to take a bath or go swimming etc. for 3 weeks. Do not lift greater than 20 pounds for 3 weeks. Otherwise, please continue with activity as tolerated. Do not drive until you can turn your head well enough to safely check your blind spots. Continue to take Plavix 75 mg daily and aspirin 81 mg daily. You declined any prescription pain medication. Please continue to take Tylenol as needed. You are scheduled for follow-up in the office on 12/04/2023 at 10 AM. If you need to change the appointment date or time or have any other questions/concerns please contact the office at [phone]. Discharge Orders/Prescriptions Prescriptions: Continued rosuvastatin 20 mg tablet 20 mg PO QHS levothyroxine 88 mcg capsule 88 mcg PO DAILY folic acid 1 mg tablet 1 mg PO DAILY Xtandi 40 mg capsule 160 mg PO QHS aspirin 81 MG tablet,chewable 81 mg PO DAILY@0800 losartan-hydrochlorothiazide 100-12.5 mg tablet 1 tab PO DAILY glipizide 2.5 mg tablet extended release 24hr 2.5 mg PO DAILY clopidogrel [Plavix] 75 mg tablet 75 mg PO DAILY Qty: 30 1RF No Action cholecalciferol (vitamin D3) 50 mcg (2,000 unit) capsule 50 mcg PO DAILY Referrals / Follow Up: Fiona Sterling MD [Primary Care Provider] - Disposition Disposition (needs filled in before D/C Order can be placed): Home, Self Care
== END 2023-11-19 14:15 | disposition home or self-care (01) | DRG 36 ==
LOC: ACINP 12:30 → ICU 12:30
PROVIDERS: Anesthesiology; Physician Assistant; Admitting Provider Surgery Trauma Surgery; PCP Internal Medicine; Referring Provider Surgery Trauma Surgery; Visit Provider Surgery Trauma Surgery
PROC: 037J3DZ Dilation of Left Common Carotid Artery with Intraluminal Device, Percutaneous Approach (ICD-10-PCS; CPT 37236; principal; 2023-11-18 07:00)
DX: I65.22 Occlusion and stenosis of left carotid artery (principal); I10 Essential (primary) hypertension; Z79.82 Long term (current) use of aspirin; Z79.02 Long term (current) use of antithrombotics/antiplatelets; Z85.46 Personal history of malignant neoplasm of prostate
CPT/HCPCS: 36415; 37215; 76937; 80048; 82962; 83036; 84443; 85025; 85027; 85347; 86850; 86900; 86901; 94668; 99252; A4648; C1725; C1769; C1876; C1884; C1894; J7030; J7120; Q9967; A4216; G0463; J2405

== ENCOUNTER → 2023-12-12 | Outpatient (CLI) | payer MEDICARE, OTHER, SELFPAY ==
--- NOTE | 2023-12-12 14:19 | CDU_ITS ---
Reason For Study: s/p Lt TCAR Rt. Velocities/BP Lt. Velocities/BP Prox CCA 72/11 cm/sec. Prox CCA 81/18 cm/sec. Mid CCA 69/12 cm/sec. Mid CCA 64/15 cm/sec. Dist CCA 66/15 cm/sec. Dist CCA 75/18 cm/sec. Prox ICA 203/47 cm/sec. Prox ICA 57/12 cm/sec. Mid ICA 370/103 cm/sec. Mid ICA 84/19 cm/sec. Dist ICA 180/27 cm/sec. Dist ICA 99/25 cm/sec. Rt. ICA/CCA = 5.4. Lt. ICA/CCA = 1.5. Prox ECA 127/12 cm/sec. Lt ICA stent: Rt. Vert. 73/18 cm/sec. Pre stent: 71/17 cm/s Prox stent: 50/11 cm/s Mid stent: 84/19 cm/s Distal stent: 73/19 cm/s Post stent: 99/25 cm/s. Prox ECA 92/17 cm/sec. Lt. Vert. 46/9 cm/sec. Right Extracranial There is heterogeneous, irregular atherosclerotic plaque noted in the right common carotid artery. There is heterogeneous, irregular atherosclerotic plaque noted in the right internal carotid artery. There is heterogeneous, irregular atherosclerotic plaque noted in the right external carotid artery. Antegrade flow is noted in the right vertebral artery. Left Extracranial There is heterogeneous, smooth atherosclerotic plaque noted in the left common carotid artery. There is no significant atherosclerotic plaque noted in the left internal carotid artery. Stent noted Lt ICA. There is heterogeneous, smooth atherosclerotic plaque noted in the left external carotid artery. Bidirectional flow noted Lt Vert A. Procedure Carotid Duplex 26565. This is a Carotid Duplex examination using B-mode, color flow and specral Doppler. Prelim given to Kirti at [facility]. Exam performed in department. 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 Normal left extracranial internal carotid. The Right vertebral is patent and antegrade. The Left vertebral flow is bidirectional. Ordering Physician: Evelyn Arana Referring Physician: Fiona Sterling Performed By: Irene Jaramillo, TASHI, RVT
== END | disposition home or self-care (01) ==
LOC: CVS 14:17
PROVIDERS: PCP Internal Medicine; Referring Provider Physician Assistant; Visit Provider Physician Assistant
DX: Z48.812 Encounter for surgical aftercare following surgery on the circulatory system (principal)
CPT/HCPCS: 93880

== ENCOUNTER 2023-12-23 10:34 | Inpatient (IN) | payer MEDICARE, OTHER, SELFPAY ==
[2023-12-23] VITALS (22 sets, daily range): BP systolic 108–186; BP diastolic 42–83; PULSE 57–77; RESP 13–20; TEMP 36–36.8; O2SAT 96–100; BMI 31.4; BMI 31.5
[2023-12-23] MEDS: Lactated Ringers 1,000 ML 15 ML IV (06:22)
[2023-12-23 06:53] LABS: Bedside Glucose 163 mg/dL (74-106)
--- NOTE | 2023-12-23 07:39 | PRE.ANES_ITS ---
ASA Classification* ASA Classification ASA Classification: 3 Assessment & Plan Anesthesia* Anesthesia Assessment Anesthesia Assessment: Discussed sedation and/or anesthesia options, risks, benefits, and alternatives with patient/parents/legal guardian/POA. Questions invited. The patient/parents/legal guardian/POA seems to understand and agrees to proceed with anesthesia plan. Reviewed the physical assessment, medical history, allergy history and patient home medications list prior to surgery/procedure/anesthetic and documented any changes. Performed airway and anesthesia risk assessments. Anesthesia Type Anesthesia Type: General (see written pre anesthesia record for full assessment) Anesthesia Focused Assessment* Temperature: 97 F Pulse Rate: 73 Blood Pressure: 168/83 Respiratory Rate: 18 Pulse Ox: 100 Airway Assessment Mouth opens: >3 cm Mallampati Score: II Focused Labs Anesthesia Preop lab: CBC WBC 6.8 K/mm3 (4.4-11.0) 11/19/23 06:00 RBC 3.16 M/mm3 (4.6-6.2) L 11/19/23 06:00 Hgb 9.3 g/dL (13.0-16.5) L 11/19/23 06:00 Hct 28.2 % (40-54) L 11/19/23 06:00 Plt Count 174 K/mm3 (150-450) 11/19/23 06:00 CHEMISTRY Potassium 4.2 mmol/L (3.5-5.1) 11/06/23 08:46 Sodium 138 mmol/L (136-145) 11/06/23 08:46 BUN 31 mg/dL (7-18) H 11/06/23 08:46 Creatinine 1.38 mg/dL (0.70-1.30) H 11/06/23 08:46 Glucose 206 mg/dL (74-106) H 11/06/23 08:46 POC Glucose 163 mg/dL (74-106) H 12/23/23 06:20 TSH 2.700 uIU/mL (0.358-3.740) 11/06/23 08:45 COAG Pre-Assessment Diagnosis/Proposed Procedure Planned Operative Procedure(s): (R) Carotid stent, Aerial Photographer, STEWARD DISHWASHER ,OR Staff Anesthesia History 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 When Was Last Pacemaker Check QUESTION #4 FULL TEXT: You/Your Family Experience fever (hyperthermia) with Anesthesia Last Oral Intake Last Oral intake: Last Oral Intake NPO since 00:00 12/23/23 06:24 Meds taken in AM with sips of Yes 12/23/23 06:24 water? Meds patient instructed to take am of surgery PONV PONV - vending machine mechanic: PONV - vending machine mechanic Female No 12/08/23 11:45 HX of Motion Sickness No 12/08/23 11:45 HX of N/V After Surgery No 12/08/23 11:45 Non-Smoker Yes 12/08/23 11:45 Duration of Surgery greater No 12/08/23 11:45 than 60 minutes Number of Risk Factors 1 12/08/23 11:45 PONV Score Low Risk 12/08/23 11:45 Height & Weight Height & Weight: Anesthesia: Height & Weight Height 5 ft 7 in 12/23/23 06:24 Weight: 91.172 kg 12/23/23 06:24 Body Mass Index (BMI) 31.4 12/23/23 06:24 Respiratory Assessment Respiratory Assessment - vending machine mechanic: Respiratory Tract Infection Hx - vending machine mechanic Hx Respiratory Tract Infection No 12/08/23 11:45 STOP Sleep Apnea STOP Sleep Apnea - vending machine mechanic: STOP Sleep Apnea - vending machine mechanic Hx Hypertension Yes: JUST INCREASED BP MED 8 12/08/23 11:45 /, STILL HIGH, PT TO CALL PCP Hx Sleep Apnea Yes 12/08/23 11:45 CPAP Yes: NONCOMPLIANT 12/08/23 11:45 BIPAP No 12/08/23 11:45 Do you snore loudly (louder than talking or can be heard Do you often feel tired/ fatigued/ sleepy during daytime? Has anyone observed you stop breathing during sleep? STOP Results Positive 12/08/23 11:45 QUESTION #5 FULL TEXT : Do you snore loudly (louder than talking or can be heard through closed doors)? 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 Specify any problems Hx of Preganancy in last 3 N/A 12/08/23 11:45 Months Nurse Filling Out Transfusion VCHRISTIN 12/08/23 11:45 & Questions: Date: 12/08/23 12/08/23 11:45 Time: 11:46 12/08/23 11:45 Patient unable to answer at this time (ie. confused, unrespo /Reproduction History /Reproductive History - vending machine mechanic: /Reproductive Hx- vending machine mechanic Hx Now Gestational Age (in weeks): EDC: Hx Hx Para Hx Section SAB No 12/08/23 11:45 Active Medications Active Medications: Current Medications Generic Name Dose Route Start Last Admin Trade Name Freq PRN Reason Stop Dose Admin Cefazolin Sodium 2 gm/ Sodium 110 mls @ 150 mls/hr 12/23/23 07:00 Chloride IV 12/23/23 07:43 PREOP ONE Lactated Ringer's 1,000 mls @ 15 mls/hr 12/23/23 06:00 12/23/23 06:22 IV 15 mls/hr .Q48H MARIANO Administration Sodium Chloride 500 mls @ 0 mls/hr 12/23/23 06:00 IV .Q0M MARIANO KVO PFSH Medical History History of left common carotid artery stent placement Tinnitus of both ears Wears glasses Cancer Alcohol use High cholesterol Blackout Heartburn History of DVT (deep vein thrombosis) Hx of edema Hx of echocardiogram History of stress test Cardiology follow-up encounter Diabetes VENEGAS (dyspnea on exertion) Obesity RONAL (obstructive sleep apnea) Hypothyroidism Hyperlipidemia Lung nodule Chronic kidney disease 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 Prostate CA Hypertension Stroke (~08/2023) Home Medications ?Medication ?Instructions ?Recorded ?Last Taken ?Type aspirin 81 mg chewable tablet 81 mg PO DAILY@0800 [facility] 08/06/16 12/22/23 History cholecalciferol (vitamin D3) 50 50 mcg PO DAILY SUPPLEMENT 09/29/23 12/22/23 History mcg (2,000 unit) capsule enzalutamide 40 mg capsule (Xtandi) 160 mg PO QHS PROSTATE 09/29/23 12/15/23 History folic acid 1 mg tablet 1 mg PO DAILY SUPPLEMENT 09/29/23 12/22/23 History levothyroxine 88 mcg capsule 88 mcg PO DAILY THYROID 09/29/23 12/23/23 History rosuvastatin 20 mg tablet 20 mg PO QHS CHOLESTEROL 09/29/23 12/22/23 History clopidogrel 75 mg tablet (Plavix) 75 mg PO DAILY BLOOD THINNER #30 09/30/23 12/22/23 Rx tabs glipizide 2.5 mg tablet, extended 2.5 mg PO DAILY DIABETES 11/05/23 12/22/23 History release 24 hr losartan 100 1 tab PO DAILY BP 11/05/23 12/22/23 History mg-hydrochlorothiazide 12.5 mg tablet diltiazem HCl 120 mg capsule,24 120 mg PO DAILY blood pressure 12/23/23 12/22/23 History hr,extended release Allergy/AdvReac Type Severity Reaction Status Date / Time No Known Allergies Allergy Verified 12/08/23 11:27 Family History Other Heart disease Myocardial infarction Surgical History Hx of colonoscopy Hx of right cataract extraction Hx of left cataract extraction Hx of umbilical hernia repair History of tonsillectomy (~2017) Social History Smoking Status: Never smoker alcohol intake: current substance use type: does not use caffeine: Yes Review of Systems (Anesthesia) ROS Narrative System reviewed and no additional complaints, except as documented.
--- NOTE | 2023-12-23 07:46 | HP.PCM_ITS ---
HPI - General General Date of Admission: 12/23/23 HPI Narrative SUMEET MAJANO, is a 78 M who presents with right ICA stenosis, asymptomatic. Recently underwent left ICA TCAR from which he has recovered well. [facility] Medical History History of left common carotid artery stent placement Tinnitus of both ears Wears glasses Cancer Alcohol use High cholesterol Blackout Heartburn History of DVT (deep vein thrombosis) Hx of edema Hx of echocardiogram History of stress test Cardiology follow-up encounter Diabetes VENEGAS (dyspnea on exertion) Obesity RONAL (obstructive sleep apnea) Hypothyroidism Hyperlipidemia Lung nodule Chronic kidney disease 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 Prostate CA Hypertension Stroke (~08/2023) Home Medications ?Medication ?Instructions ?Recorded ?Last Taken ?Type aspirin 81 mg chewable tablet 81 mg PO DAILY@0800 HEART HEALTH 08/06/16 12/22/23 History cholecalciferol (vitamin D3) 50 50 mcg PO DAILY SUPPLEMENT 09/29/23 12/22/23 History mcg (2,000 unit) capsule enzalutamide 40 mg capsule (Xtandi) 160 mg PO QHS PROSTATE 09/29/23 12/15/23 History folic acid 1 mg tablet 1 mg PO DAILY SUPPLEMENT 09/29/23 12/22/23 History levothyroxine 88 mcg capsule 88 mcg PO DAILY THYROID 09/29/23 12/23/23 History rosuvastatin 20 mg tablet 20 mg PO QHS CHOLESTEROL 09/29/23 12/22/23 History clopidogrel 75 mg tablet (Plavix) 75 mg PO DAILY BLOOD THINNER #30 09/30/23 12/22/23 Rx tabs glipizide 2.5 mg tablet, extended 2.5 mg PO DAILY DIABETES 11/05/23 12/22/23 History release 24 hr losartan 100 1 tab PO DAILY BP 11/05/23 12/22/23 History mg-hydrochlorothiazide 12.5 mg tablet diltiazem HCl 120 mg capsule,24 120 mg PO DAILY blood pressure 12/23/23 12/22/23 History hr,extended release Allergy/AdvReac Type Severity Reaction Status Date / Time No Known Allergies Allergy Verified 12/08/23 11:27 Family History Other Heart disease Myocardial infarction Surgical History Hx of colonoscopy Hx of right cataract extraction Hx of left cataract extraction Hx of umbilical hernia repair History of tonsillectomy (~2018) Social History Smoking Status: Never smoker alcohol intake: current substance use type: does not use caffeine: Yes ROS Constitutional Constitutional: Denies chills, fever(s), frequent falls, lethargy or weakness Eyes Eyes: Denies blind spots, change in vision or loss of vision ENT HEENT: Denies bleeding gums, hoarseness or sore throat Cardiovascular Cardiovascular: Denies abdominal pain, bluish discoloration of hand/feet, chest pain with activity, claudication, cold extremities, cyanosis, dyspnea on exertion, erythema on extremities, irregular heart rhythm, leg edema, leg ulcers, numbness in extremities or weakness in extremities Respiratory/Chest Respiratory/Chest: Denies cough, excessive phlegm production, shortness of breath at rest, shortness of breath with exertion or wheezing Gastrointestinal Gastrointestinal: Denies anorexia, change in stool character, constipation, diarrhea, melena or rectal bleeding Genitourinary Genitourinary: Denies dysuria or hematuria Musculoskeletal Musculoskeletal: Denies abnormal gait Integumentary Integumentary: Reports other Details: ; Denies erythema, non-healing lesions or wounds Neurologic Neurologic: Denies abnormal speech, focal weakness, headache(s), loss of vision, numbness, paresthesias or sensory deficit Hematologic/Lymphatic Hematologic/Lymphatic: Denies easy bleeding, easy bruising or lymphadenopathy Vital Signs Vital Signs Vital Signs: 12/23/23 06:24 12/23/23 06:24 12/23/23 07:39 Temperature 97 F L 97 F L Temperature Source Temporal Pulse Rate 73 73 Respiratory Rate 18 18 Respiratory Pattern Normal Blood Pressure 168/83 H 168/83 H Blood Pressure Mean 111 Blood Pressure Source Monitor Blood Pressure Position Semi-Fowlers Blood Pressure Location Left Arm Pulse Ox 100 100 Oxygen Delivery Method Room Air Weight Weight: 201 lb Body Mass Index (BMI) 31.4 Physical Exam Const alert, oriented x3, no apparent distress and healthy appearing General Appearance: cooperative; Negative for combative or lethargic Orientation / Consciousness: awake Exam Limitations: no limitations HEENT Head and Scalp: normocephalic and atraumatic Eyes EOMs intact bilaterally General Eye: normal appearance of both eyes Neck full ROM, no lymphadenopathy and thyroid normal General: trachea midline; Negative for lymphadenopathy or tenderness Thyroid: thyroid normal Resp normal respiratory effort and no use of accessory muscles Effort and Inspection: Negative for labored, stridor or audible wheezes Cardio regular rate and regular rhythm Back/Spine Cervical Spine: cervical ROM normal Extremity full ROM, normal capillary refill and no clubbing, cyanosis or edema Skin no rashes or lesions noted and no wounds Neuro oriented x3, CN's II-XII intact bilaterally, no focal motor deficits and no sensory deficits noted Psych thought process normal, cooperative, affect normal, speech normal and activity/motor behavior normal Results Lab / Micro Data Labs: Laboratory Results - last 24 hr 12/23/23 06:20: POC Glucose 163 H Assessment & Plan Assessment/Plan (1) Stenosis of right internal carotid artery: PLAN: -right TCAR
[2023-12-23] MEDS: Cefazolin 2 GM in 0.9% Normal Saline (100mL Bag) 100 ML IV (08:30)
--- NOTE | 2023-12-23 11:13 | PCM.POST.ANE ---
Anesthesia: Postop Eval I Current Vital Signs Temperature: 96.8 F Pulse Rate: 57 Blood Pressure: 122/56 Respiratory Rate: 16 Pulse Ox: 97 Assessment Airway patent: Yes Spontaneous unlabored respirations: Yes nausea: No Vomiting: No Anesthesia Complication: No Fluid Hydration Crystalloid volume administer (ml): 1,000 Total IV fluid infused: 1,000 Progress Note Anesthesia document: Postop Eval 1 completed: Yes
--- NOTE | 2023-12-23 11:15 | OP.PCM_ITS ---
Report of Operation Date of Procedure: 12/23/23 Pre-Operative Diagnosis: right carotid artery stenosis Post-Operative Diagnosis: same Surgery/Procedure Performed:: right carotid artery stent TCAR Surgeon: Ramu Rehman carburetor mechanic: Marcelle Vásquez Type of Anesthesia: General Drains: 19 Fr WILLIAM Estimated Blood Loss (mL): 15 Description of Procedure: HPI: Patient is a 78-year-old male with right carotid artery stenosis and a lesion that is distal anatomically and difficult to treat surgically so he presents now for transcarotid artery stenting. Description of procedure: Upon obtaining form consent and verification correct patient procedure site patient was taken to the [facility] where he was placed under general anesthesia. He was then positioned prepped and draped in usual sterile fashion a timeout was performed. Transverse incision was made 1 fingerbreadth superior to the clavicle and Bovie electrocautery used to dissect down through the subcutaneous tissue and divide the platysma. Further dissection was carried down to the sternocleidomastoid which was freed along its medial edge allowing it to be retracted laterally. Self-retaining retractors then moved deeper in the wound and further Bovie dissection carried down until the jugular vein was identified. There is a fair amount of scar around the ant erior surface of the jugular vein which made dissection more difficult however we were able to successfully dissect free the vessel along its anterior edge dividing small tributary branches and retracted the vein laterally to expose the carotid artery. Sharp dissection used dissect free the carotid artery circumferentially and a right angle was used to place a vessel loop proximally. The patient was then heparinized and allowed to circulate 3 minutes with ACT's performed to confirm adequate anticoagulation. A 5-0 Prolene pursestring sutures in place at the intended access site. Next under ultrasound guidance the right common femoral vein was accessed with micropuncture needle wire. This then exchanged for micropuncture sheath through which a J-wire was advanced and the micropuncture sheath exchanged for the [place] venous return sheath. Next a micropuncture needle was used to access the common carotid artery in antegrade fashion which was then exchanged out for micropuncture sheath. Through this hand-injection carotid angiogram was performed revealing satisfactory position with no extravasation or dissection. Also confirmed the location of the bifurcation and the areas of significant plaque. Through the micropuncture sheath the J-wire was advanced stopping short of the proximal extent of the lesion. The micropuncture sheath was then exchanged for the [address] [place] [address] [place] [address] flow reversal sheath. Once this was positioned it was secured with silk sutures and the flow reversal system attached oblique images obtained to confirm satisfactory position and confirmed the extent of the lesions. Next the common carotid artery was occluded with a vessel loop and the 014 wire advanced through the sheath and utilized to navigate across the lesion into the distal internal carotid artery. Next a 4 mm x 35 angioplasty balloon was advanced over the wire and inflated to nominal for 15 seconds with satisfactory coverage of the lesion. Balloon was then deflated withdrawn and a tapered 6 to 8 x 40 en route stent was advanced in the position and deployed. 2 minutes of flow reversal was then permitted prior to completion imaging performed which revealed satisfactory stent position with good wall apposition and no plaque extrusion or residual stenosis. Next the clamp was released and further flow reversal allowed prior to detaching the system. The wire and sheath were then withdrawn and the pursestring suture secured. Next the femoral vein sheath was withdrawn and manual pressure held for 10 minutes with satisfactory stasis noted. Heparin was then reversed with protamine and a 19 [place] channel WILLIAM placed via separate stab incision. Incision closed with a 3-0 Vicryl followed by 4 Monocryl and Dermabond for the skin. Patient was then awakened from anesthesia moving all extremities to command with cranial nerves intact. He is then taken to the PACU with anticipated admission to the intensive care unit for hemodynamic and neurologic monitoring. Grafts/Implants Used: 6-8x40 En Route
--- NOTE | 2023-12-23 11:52 | PCM.POST.ANE ---
Anesthesia: Postop Eval I Current Vital Signs Temperature: 96.8 F Pulse Rate: 58 Blood Pressure: 134/68 Respiratory Rate: 14 Pulse Ox: 99 Oxygen Delivery Method: Room Air Assessment Airway patent: Yes Spontaneous unlabored respirations: Yes Mental status: Awake and Calm nausea: No Vomiting: No Anesthesia Complication: No Fluid Hydration Crystalloid volume administer (ml): 1,500 Total IV fluid infused: 1,500 Progress Note Anesthesia document: Postop Eval 1 completed: Yes
[2023-12-23] MEDS: 0.45% Normal Saline 1,000 ML 75 ML IV (12:12)
[2023-12-23] MEDS: oxyCODONE 5 MG Tablet PO (12:28)
[2023-12-23] MEDS: Acetaminophen 500 MG Tablet 1000 MG PO ×2 (12:29→19:52)
[2023-12-23] MEDS: dilTIAZem CD 120 MG Capsule PO (12:55)
[2023-12-23] MEDS: hydroCHLOROthiazide 12.5mg 12.5 MG PO (12:56)
[2023-12-23] MEDS: Losartan Potassium 100 MG Tablet PO (12:56)
[2023-12-23] MEDS: Labetalol (Prefilled) 20 MG/4 ML 10 MG IV ×2 (15:50→21:19)
[2023-12-23] MEDS: Cefazolin 1 GM/50 ML BAG IV ×2 (15:54→23:55)
[2023-12-23] MEDS: Atorvastatin Calcium 40 MG Tablet PO (19:52)
[2023-12-23] MEDS: Ondansetron 4 MG/2 ML Vial IV (19:55)
[2023-12-23] MEDS: hydrALAZINE 20 MG/ML Vial 10 MG IV (23:55)
[2023-12-24] VITALS (17 sets, daily range): BP systolic 103–156; BP diastolic 41–91; PULSE 61–75; RESP 12–20; TEMP 35.9–36.7; O2SAT 98–100; BMI 32.2
--- NOTE | 2023-12-24 02:36 | NURSING ---
0.45% NS timed out on MAY, fluids still running continuously
[2023-12-24] MEDS: 0.45% Normal Saline 1,000 ML 75 ML IV (02:37)
[2023-12-24] MEDS: Acetaminophen 500 MG Tablet 1000 MG PO ×2 (05:28→12:44)
[2023-12-24] MEDS: Levothyroxine 88 MCG Tablet PO (05:28)
[2023-12-24 05:47] LABS: Absolute Lymphocyte Count 1.35 X10^3/uL (0.83-4.51); Absolute Neutrophil Count 3.5 X10^3/uL (2.0-7.7); Basophil# 0.04 X10^3/uL; Basophil% 0.7 % (0-1); Eosinophils% 3.5 % (0-5); Hematocrit 29.3 % (40-54); Hemoglobin 9.6 g/dL (13.0-16.5); Lymphocyte # 1.35 X10^3/ul (0.83-4.51); Lymphocyte % 23.9 % (19-41); Mean Corp Hgb Conc 32.8 g/dL (32-36); Mean Corpuscular Hgb 29.4 pg (27.0-32.0); Mean Corpuscular Volume 89.9 fL (80-94); Mean Platelet Vol. 10.5 fl (6.2-12.0); Monocyte# 0.51 X10^3/uL; NRBC Flagged by Analyzer 0 % (0-5); Neutrophil # 3.51 X10^3/uL (2.7-7.7); Neutrophil % 62.4 % (47-70); Platelet Count 157 K/mm3 (150-450); RBC Distribution Width CV 13.2 % (11.6-14.6); RBC Distribution Width SD 43.9 fl (35.1-43.9); Red Blood Count 3.26 M/mm3 (4.6-6.2); White Blood Count 5.6 K/mm3 (4.4-11.0)
[2023-12-24] MEDS: glipiZIDE 2.5 MG TAB.ER.24 PO (08:02)
[2023-12-24] MEDS: Aspirin 81 MG TAB.CHEW PO (08:02)
[2023-12-24] MEDS: Folic Acid 1 MG Tablet PO (08:02)
[2023-12-24] MEDS: hydroCHLOROthiazide 12.5mg 12.5 MG PO (08:03)
[2023-12-24] MEDS: Clopidogrel Bisulfate 75 MG Tablet PO (08:03)
[2023-12-24] MEDS: Losartan Potassium 100 MG Tablet PO (08:03)
[2023-12-24] MEDS: dilTIAZem CD 120 MG Capsule PO (08:04)
[2023-12-24] MEDS: Enoxaparin 40 MG/0.4 ML Syringe SC (08:04)
[2023-12-24] MEDS: Cholecalciferol (VIT D3) 25 MCG TABLET (1,000 UNITS) 50 MCG PO (08:04)
--- NOTE | 2023-12-24 09:43 | CASEMGMT ---
CARLYLE SU Assessment Face to Face with patient for initial transition planning/care coordination assessment. RN GEORGES introduced self and role at [facility], pt voices understanding. Pt is A&Ox4 and is resting comfortably in the chair and is calm. Pt at bedside. Care providers, pharmacy, and demographics verified. Admitting dx: Rt Carotid Stent LACE Strata: 2 PCP: Fiona Sterling Specialists: Sherie (Vasc), Josafat (Uro), Joanie (Pulm) Preferred [facility]acy: [facility] Insurance: [employer] A/B, [employer] Prescription Benefit: yes LNOK: Annie Alan (W) Living Arrangements: Pt lives with his in a two story home with two steps to enter ADLs/IADLs: Ind Transportation: Self, DME: Working Glucom[employer] and supplies. FWW. Cane. BP monitor. Pulse Ox HHC/SNF: Denies Hx or needs Pt?s goal: Home Plan: Home with no additional needs with pt . 6-click=23. Pt takes Plavix at home. Pt refuses the need for HHC, OP Tx, CCN/Pt Link, or SNF. CM to follow. Santino Henry RN, CM
--- NOTE | 2023-12-24 15:31 | PCM.DC.SUM ---
Providers Date of Admission: 12/23/23 Primary Care Physician: Dr. Fiona Sterling MD Reason For Visit: RT CAROTID STENT Diagnosis Discharge Diagnosis (1) Stenosis of right internal carotid artery: Status: Chronic Code(s): I65.21 - Occlusion and stenosis of right carotid artery Plan: -right TCAR Medications at Discharge Home Medications aspirin 81 mg chewable tablet 81 mg PO DAILY@0800 HEART HEALTH 08/06/16 cholecalciferol (vitamin D3) 50 mcg (2,000 unit) capsule 50 mcg PO DAILY SUPPLEMENT 09/29/23 enzalutamide 40 mg capsule (Xtandi) 160 mg PO QHS PROSTATE 09/29/23 folic acid 1 mg tablet 1 mg PO DAILY SUPPLEMENT 09/29/23 levothyroxine 88 mcg capsule 88 mcg PO DAILY THYROID 09/29/23 rosuvastatin 20 mg tablet 20 mg PO QHS CHOLESTEROL 09/29/23 clopidogrel 75 mg tablet (Plavix) 75 mg PO DAILY BLOOD THINNER #30 tabs 09/30/23 glipizide 2.5 mg tablet, extended release 24 hr 2.5 mg PO DAILY DIABETES 11/05/23 losartan 100 mg-hydrochlorothiazide 12.5 mg tablet 1 tab PO DAILY BP 11/05/23 diltiazem HCl 120 mg capsule,24 hr,extended release 120 mg PO DAILY blood pressure 12/23/23 Hospital Course Operations - (right carotid artery stent, TCAR) Summary of Care Provided Hospital Course: Mr. Alan presented with asymptomatic right carotid stenosis with disease distal anatomically who was felt to be treated with carotid stent. He underwent right trans carotid artery stent 12/23/2023 which he tolerated well. Post op he was admitted to the ICU for hemodynamic and neurologic monitoring. He did well overnight with no obvious sequelae. On POD # 1 his WILLIAM and arterial line were removed, his diet advanced, and he was progressively ambulated. He was discharged to home 12/24/2023. Weight / BMI Weight Weight: 205 lb 7.533 oz Body Mass Index (BMI) 32.2 ABG / Lab / Microbiology Data 12/24/23 05:33 Laboratory: Laboratory Results - last 24 hr 12/24/23 05:33: WBC 5.6, RBC 3.26 L, Hgb 9.6 L, Hct 29.3 L, MCV 89.9, MCH 29.4, MCHC 32.8, RDW Std Deviation 43.9, RDW Coeff of Tania 13.2, Plt Count 157, MPV 10.5, Immature Gran % (Auto) 0.500, Neut % (Auto) 62.4, Lymph % (Auto) 23.9, [place] % (Auto) 9.0, Eos % (Auto) 3.5, Baso % (Auto) 0.7, Absolute Neuts (auto) 3.5, Absolute Lymphs (auto) 1.35, Nucleated RBC % 0 D/C Instructions Discharge Diet: No restrictions May shower in (days): 2 Lifting Restrictions: do not lift > 20 lbs for 14 days Additional Activity Instructions: do not submerge incision for 14 days Call your doctor if your incision/area has: Sudden Increased Bleeding, Increased Pain/ Swelling, Increased Redness and Foul Smelling Discharge Call your doctor if you observe: Fever of 101 or Higher and Numbness or Tingling Remove Dressing in: 2 days Meaningful Use Info Meaningful Use Meaningful Use Diagnoses (Choose all that apply): None applicable Ischemic Stroke Statin Dosing Therapy Reference: STATIN DOSE THERAPY REFERENCE: * Patients > 75 years receive moderate or high dose statin therapy. * Patients 75 years or YOUNGER should receive HIGH intensity statin dose unless contraindicated. You will be required to document reason for non-treatment if statin daily dose does not meet guidelines. HIGH DOSE STATIN THERAPY DAILY Atorvastatin > than or = to 40 mg Rosuvastatin > than or = to 20 mg Amlodipine + Atorvastatin > than or = to 2.5/40 mg Ezetimibe + Simvastatin 10/80 mg Simvastatin 80mg Discharge Plan Admission Admit Date/Time: 12/23/23 10:34 Attending Provider: Ramu Rehman Primary Care Provider: Fiona Sterling Discharge Orders/Prescriptions Prescriptions: Continued rosuvastatin 20 mg tablet 20 mg PO QHS levothyroxine 88 mcg capsule 88 mcg PO DAILY folic acid 1 mg tablet 1 mg PO DAILY cholecalciferol (vitamin D3) 50 mcg (2,000 unit) capsule 50 mcg PO DAILY Xtandi 40 mg capsule 160 mg PO QHS aspirin 81 MG tablet,chewable 81 mg PO DAILY@0800 diltiazem HCl 120 mg capsule,extended release 24 hr 120 mg PO DAILY losartan-hydrochlorothiazide 100-12.5 mg tablet 1 tab PO DAILY glipizide 2.5 mg tablet extended release 24hr 2.5 mg PO DAILY clopidogrel [Plavix] 75 mg tablet 75 mg PO DAILY Qty: 30 1RF Referrals / Follow Up: Fiona Sterling MD [Primary Care Provider] - Disposition Disposition (needs filled in before D/C Order can be placed): Home, Self Care
--- NOTE | 2023-12-24 16:14 | NURSING ---
pressure held on WILLIAM site for [address] Rehman's order, pt tolerated well, no oozing noted, dressing clean, dry, intact. Education patient and if bleeding occurs to hold pressure for 10-20 minutes, if reoccuring bleeding occurs call Dr. Rehman's office. Receptive of education.
[2023-12-25 09:30] LABS: ACT Activated Clotting Time 336 sec (74-137)
== END 2023-12-24 16:35 | disposition home or self-care (01) | DRG 36 ==
LOC: ICU 14:24
PROVIDERS: Admitting Provider Surgery Trauma Surgery; PCP Internal Medicine; Referring Provider Surgery Trauma Surgery; Visit Provider Surgery Trauma Surgery
PROC: 037K3DZ Dilation of Right Internal Carotid Artery with Intraluminal Device, Percutaneous Approach (ICD-10-PCS; CPT 37236; principal; 2023-12-23 07:00)
DX: I65.21 Occlusion and stenosis of right carotid artery (principal); E03.9 Hypothyroidism, unspecified; E11.22 Type 2 diabetes mellitus with diabetic chronic kidney disease; I12.9 Hypertensive chronic kidney disease with stage 1 through stage 4 chronic kidney disease, or unspecified chronic kidney disease; N18.9 Chronic kidney disease, unspecified; E78.5 Hyperlipidemia, unspecified; Z79.84 Long term (current) use of oral hypoglycemic drugs; Z79.82 Long term (current) use of aspirin; Z86.718 Personal history of other venous thrombosis and embolism; Z86.73 Personal history of transient ischemic attack (TIA), and cerebral infarction without residual deficits
CPT/HCPCS: 37215; 76937; 82962; 85025; 85347; 94668; 97802; 99252; A4648; C1725; C1769; C1876; C1884; C1894; J7040; J7120; Q9967; A4216; G0463; J2405

== ENCOUNTER → 2024-01-19 | Outpatient (CLI) | payer MEDICARE, OTHER, SELFPAY ==
--- NOTE | 2024-01-19 09:46 | CDU_ITS ---
Reason For Study: s/p Bilateral TCAR Rt. Velocities/BP Lt. Velocities/BP Prox CCA 104/14 cm/sec. Prox CCA 74/17 cm/sec. Mid CCA 101/15 cm/sec. Mid CCA 77/23 cm/sec. Dist CCA 85/19 cm/sec. Dist CCA 76/20 cm/sec. Prox ICA 109/25 cm/sec. Prox ICA 70/16 cm/sec. Mid ICA 116/14 cm/sec. Mid ICA 100/22 cm/sec. Dist ICA 113/25 cm/sec. Dist ICA 101/23 cm/sec. Rt. ICA/CCA = 1.1. Lt. ICA/CCA = 1.3. Rt ICA stent: Lt ICA stent: Pre stent: 101/15 cm/s Pre stent: 76/20 cm/s Prox stent: 109/25 cm/s Prox stent: 70/16 cm/s Mid stent: 116/14 cm/s Mid stent: 100/22 cm/s Distal stent: 113/25 cm/s Distal stent: 101/23 cm/s Post stent: 92/27 cm/s. Post stent: 84/20 cm/s. Prox ECA 100/8 cm/sec. Prox ECA 120/18 cm/sec. Rt. Vert. 74/23 cm/sec. Lt. Vert. 84/20 cm/sec. Right Extracranial There is heterogeneous, irregular atherosclerotic plaque noted in the right common carotid artery. Stent noted Rt ICA. There is no significant atherosclerotic plaque noted in the right external carotid artery. Antegrade flow is noted in the right vertebral artery. Left Extracranial There is heterogeneous, irregular atherosclerotic plaque noted in the left common carotid artery. Stent noted Lt ICA. There is no significant atherosclerotic plaque noted in the left external carotid artery. Retrograde flow noted Lt Vert A. Procedure Carotid Duplex [id number]. This is a Carotid Duplex examination using B-mode, color flow and specral Doppler. Exam performed in department. VL/Carotid Duplex Ultrasound Interpretation Summary Mild (<50%) stenosis right extracranial internal carotid. Mild (<50%) stenosis left extracranial internal carotid. The Right vertebral is patent and antegrade. The Left vertebral flow is retrograde. Ordering Physician: Evelyn Arana Referring Physician: Fiona Sterling Performed By: Irene Jaramillo, TASHI, RVT
== END | disposition home or self-care (01) ==
LOC: CVS 09:46
PROVIDERS: PCP Internal Medicine; Referring Provider Physician Assistant; Visit Provider Physician Assistant
DX: Z48.812 Encounter for surgical aftercare following surgery on the circulatory system (principal)
CPT/HCPCS: 93880

== ENCOUNTER → 2024-02-10 | Outpatient (CLI) | payer MEDICARE, OTHER, SELFPAY | END | disposition home or self-care (01) | LOC: LAB 09:32 | PROVIDERS: PCP Internal Medicine; Referring Provider Urology; Visit Provider Urology | DX: C61 Malignant neoplasm of prostate (principal) | CPT/HCPCS: 36415; 84153 ==

== ENCOUNTER → 2024-05-17 | Outpatient (CLI) | payer MEDICARE, OTHER, SELFPAY | END | disposition home or self-care (01) | PROVIDERS: PCP Internal Medicine; Referring Provider Nurse Practitioner; Visit Provider Nurse Practitioner | DX: C61 Malignant neoplasm of prostate (principal) | CPT/HCPCS: 36415; 84153 ==

== ENCOUNTER → 2024-06-15 | Outpatient (CLI) | payer MEDICARE, OTHER, SELFPAY ==
--- NOTE | 2024-06-15 09:55 | CDU_ITS ---
Reason For Study Reason For Study: S/P Bilateral TCAR Rt. Velocities/BP Lt. Velocities/BP Prox CCA 90.6/10.2 cm/sec. Prox CCA 73.2/14.2 cm/sec. Mid CCA, Pre Stent, 94.2/12.1 cm/sec. Mid CCA 87.9/19.2 cm/sec. Distal CCA, Prox Stent, 70.5/10.2 cm/sec. Distal CCA, Pre Stent, 89.1/20.4 cm/sec. Prox ICA, Mid Stent, 67.0/13.0 cm/sec. Prox ICA, Prox Stent, 74.4/15.5 cm/sec. Mid ICA, Distal Stent, 97.9/24.8 cm/sec. Mid ICA, Mid Stent, 73.2/16.7 cm/sec. Distal ICA, Distal to Stent, 90.4/19.3 cm/sec. Mid ICA, Distal Stent, 84.2/19.2 cm/sec. Rt. ICA/CCA = 1.0. Distal ICA, Distal to Stent, 105.2/24.8 Prox ECA 144.0/5.7 cm/sec. cm/sec. Rt. Vert. 69.5/15.5 cm/sec. Lt. ICA/CCA = 1.2. Prox ECA 86.7/8.1 cm/sec. Lt. Vert. 28.9/0.0 cm/sec. Right Extracranial There is heterogeneous, irregular atherosclerotic plaque noted in the right common carotid artery. There is heterogeneous, irregular atherosclerotic plaque noted in the right internal carotid artery. Stent noted in right internal carotid artery. There is intimal thickening but no significant atherosclerotic plaque noted in the right external carotid artery. Antegrade flow is noted in the right vertebral artery. Left Extracranial There is heterogeneous, irregular atherosclerotic plaque noted in the left common carotid artery. There is heterogeneous, irregular atherosclerotic plaque noted in the left internal carotid artery. Stent noted in the left internal carotid artery. There is intimal thickening but no significant atherosclerotic plaque noted in the left external carotid artery. The atherosclerotic plaque causes acoustic shadowing. Antegrade flow is noted in the left vertebral artery. Procedure Carotid Duplex [id number]. This is a Carotid Duplex examination using B-mode, color flow and specral Doppler. Exam performed in department. VL/Carotid Duplex Ultrasound Interpretation Summary Mild (<50%) stenosis right extracranial internal carotid. Mild (<50%) stenosis left extracranial internal carotid. Patent and antegrade vertebrals bilaterally. Ordering Physician: Evelyn Arana Referring Physician: Evelyn Arana Performed By: Marilyn Garcia RVT
== END | disposition home or self-care (01) ==
LOC: CVS 09:54
PROVIDERS: PCP Internal Medicine; Referring Provider Physician Assistant; Visit Provider Physician Assistant
DX: Z48.812 Encounter for surgical aftercare following surgery on the circulatory system (principal)
CPT/HCPCS: 93880

== ENCOUNTER → 2024-08-14 | Outpatient (CLI) | payer MEDICARE, OTHER, SELFPAY | END | disposition home or self-care (01) | LOC: LAB 09:08 | PROVIDERS: PCP Internal Medicine; Referring Provider Nurse Practitioner; Visit Provider Nurse Practitioner | DX: C61 Malignant neoplasm of prostate (principal) | CPT/HCPCS: 36415; 84153 ==

== ENCOUNTER → 2024-11-11 | Outpatient (CLI) | payer MEDICARE, OTHER, SELFPAY ==
[2024-11-11 13:27] LABS: PSA,Total- Diagnostic 273.00 ng/mL (0.00-4.00)
--- OUTSIDE RECORDS SUMMARY | 2024-11-11 18:19 | XMS RPT_ITS | CCD ---
Author Organization [facility] CliniSyn[facility] Care Team Providers Care Rn Ortho Name Role Phone Armani AlvaEstelita Unavailable Unavailable Latouf , Dr. Jaimes Primary Care Provider [phone] Josafat SHETH, Dr. Rodrigo Purdy Attending Provider Josafat SHETH, Dr. Rodrigo Purdy Referring Provider Sally Plummer Attending Provider EminenceSally garcia Referring Provider Asher SHETH, Dr. Jaimes Primary Care Provider Hickman PA, Evelyn Attending Provider Hickman PA, Evelyn Referring Provider Lorenzo SHETH, Dr. Guallpa Attending Provider [phone] Lorenzo, Ramu Referring Unavailable Lorenzo, Ramu Attending Unavailable Lorenzo, Ramu Admitting Unavailable Latouf, Butros Primary Care Unavailable Lorenzo, Ramu Referring Unavailable Lorenzo, Ramu Attending Unavailable Lorenzo, Ramu Admitting Unavailable Latouf, Butros Primary Care Unavailable Hickman, Evelyn Referring Unavailable Hickman, Evelyn Attending Unavailable Latouf, Butros Primary Care Unavailable Hickman, Evelyn Referring Unavailable Hickman, Evelyn Attending Unavailable Latouf, Butros Primary Care Unavailable Latouf, Butros Primary Care Unavailable Hickman, Evelyn Referring Unavailable Hickman, Evelyn Attending Unavailable Rodrigo Maurice Attending Unavailable Rodrigo Maurice Referring Unavailable Latouf, Butros Primary Care Unavailable Hickman, Evelyn Referring Unavailable Hickman, Evelyn Attending Unavailable Latouf, Butros Primary Care Unavailable [place], Ramu Referring Unavailable [place], Ramu Attending Unavailable Latouf, Butros Primary Care Unavailable Edvin Lin Referring Unavailable Latouf, Butros Primary Care Unavailable Edvin Lin Attending Unavailable [place], Ramu Referring Unavailable [place], Ramu Consulting Unavailable Lorenzo, Ramu Attending Unavailable Lorenzo, Ramu Admitting Unavailable Latouf, Butros Primary Care Unavailable [place], Ramu Consulting Unavailable Lorenzo, Ramu Referring Unavailable [place], Ramu Admitting Unavailable Hickman, Evelyn Attending Unavailable Latouf, Butros Primary Care Unavailable Hickman, Evelyn Referring Unavailable Lorenzo, Ramu Attending Unavailable Latouf, Butros Primary Care Unavailable Eminence, Sally Attending Unavailable Eminence, Sally Referring Unavailable Latouf, Butros Primary Care Unavailable Hickman, Evelyn Referring Unavailable Hickman, Evelyn Attending Unavailable Latouf, Butros Primary Care Unavailable Eminence, Sally Attending Unavailable Eminence, Sally Referring Unavailable Latouf, Butros Primary Care Unavailable JosafatRodrigo Attending Unavailable Josafat, Fer Referring Unavailable Latouf, Butros Primary Care Unavailable Hickman, Evelyn Referring Unavailable Hickman, Evelyn Attending Unavailable Latouf, Butros Primary Care Unavailable [place], Ramu Attending Unavailable Hickman, Evelyn Referring Unavailable Latouf, Butros Primary Care Unavailable Edvin Lin Attending Unavailable Latouf, Butros Referring Unavailable Latouf, Butros Primary Care Unavailable Latouf, Butros Primary Care Unavailable Latouf, Butros Referring Unavailable Hickman, Evelyn Attending Unavailable [place], Ramu Attending Unavailable Latouf, Butros Referring Unavailable Latouf, Butros Primary Care Unavailable [place], Ramu Attending Unavailable Hickman, Evelyn Referring Unavailable Latouf, Butros Primary Care Unavailable [place], Ramu Referring Unavailable [place], Ramu Attending Unavailable Latouf, Butros Primary Care Unavailable Jo Ann Carmen Attending Unavailabl e Latouf, Butros Primary Care Unavailable [place], Ramu Referring Unavailable Lorenzo, Ramu Consulting Unavailable Lorenzo, Ramu Attending Unavailable [place], Ramu Admitting Unavailable Latouf, Butros Primary Care Unavailable [place], Ramu Referring Unavailable [place], Ramu Consulting Unavailable [place], Ramu Attending Unavailable Lorenzo, Ramu Admitting Unavailable Latouf, Butros Primary Care Unavailable Lorenzo, Ramu Attending Unavailable Latouf, Butros Referring Unavailable Latouf, Butros Primary Care Unavailable Latouf, Zionros Referring Unavailable Hickman, Evelyn Attending Unavailable Latouf, Butros Primary Care Unavailable Hickman, Evelyn Referring Unavailable Yasmeen, Evelyn Attending Unavailable Latfloresita, Seema Primary Care Unavailable SEEMA STERLING MD Primary Care Unavailable ASHER, SEEMA SHETH Consulting Unavailable ASHER, SEEMA SHETH Attending Unavailable LATOUF, SEEMA SHETH Admitting Unavailable June [employer] ARCHITECT Referring Unavailable PROVIDER, UNKNOWN Consulting Unavailable PROVIDER, UNKNOWN Consulting Unavailable PROVIDER, UNKNOWN Consulting Unavailable ASHER, SEEMA SHETH Primary Care Unavailable LATOUMima, SEEMA SHETH Consulting Unavailable LATOUMima, SEEMA SHETH Attending Unavailable LATOUF, SEEMA SHETH Admitting Unavailable PROVIDER, UNKNOWN Consulting Unavailable PROVIDER, UNKNOWN Consulting Unavailable PROVIDER, UNKNOWN Consulting Unavailable LATOUMima, SEEMA SHETH Admitting Unavailable LATOUF, SEEMA SHETH Primary Care Unavailable LATOUF, SEEMA SHETH Consulting Unavailable LATOUF, SEEMA SHETH Attending Unavailable PROVIDER, UNKNOWN Consulting Unavailable PROVIDER, UNKNOWN Consulting Unavailable PROVIDER, UNKNOWN Consulting Unavailable LATOUMima, SEEMA SHETH Primary Care Unavailable LATOUF, SEEMA SHETH Consulting Unavailable LATOUF, SEEMA SHETH Attending Unavailable LATOUF, SEEMA SHETH Admitting Unavailable June [employer] ARCHITECT Referring Unavailable PROVIDER, UNKNOWN Consulting Unavailable PROVIDER, UNKNOWN Consulting Unavailable PROVIDER, UNKNOWN Consulting Unavailable Medications Current Medications Medication Drug Class(es) Dates Sig (Normalized) Sig (Original) aspirin 81 mg chewable tablet (12 sources) Platelet Aggregation Inhibitor, Nonsteroidal Anti-inflammatory Drug Start: 7 take 1 tablet by mouth once daily Aspirin 81 MG tablet,chewable Active 81 mg PO DAILY@0800 August 06, 2016 12:00am cholecalciferol 0.05 mg oral capsule (3 sources) Vitamin D Start: 4 take 1 capsule by mouth once daily Cholecalciferol (Vitamin D3) 50 mcg (2,000 unit) capsule Active 50 ug PO DAILY September 29, 2023 12:00am clopidogrel 75 mg oral tablet (3 sources) P2Y12 Platelet Inhibitor Start: 4 take 1 tablet by mouth once daily Clopidogrel (Plavix) 75 mg tablet Active 75 mg PO DAILY September 30, 2023 12:00am 24 hr dilTIAZem hydrochloride 120 mg extended release oral capsule (3 sources) Calcium Channel Natali Start: 4 take 1 capsule by mouth once daily Diltiazem Hcl 120 mg capsule,extended release 24 hr Active 120 mg PO DAILY December 23, 2023 12:00am enzalutamide 40 mg oral capsule (3 sources) Androgen Receptor Inhibitor Start: 4 take 1 capsule by mouth at bedtime Enzalutamide (Xtandi) 40 mg capsule Active 160 mg PO AT BEDTIME September 29, 2023 12:00am folic acid 1 mg oral tablet (3 sources) Start: 4 take 1 tablet by mouth once daily Folic Acid 1 mg tablet Active 1 mg PO DAILY September 29, 2023 12:00am glipiZIDE er 2.5 mg 24 hr extended release oral tablet (3 sources) Sulfonylurea Start: 4 take 1 tablet by mouth once daily Glipizide 2.5 mg tablet extended release 24hr Active 2.5 mg PO DAILY November 05, 2023 12:00am hydroCHLOROthiazide 12.5 mg / losartan potassium 100 mg oral tablet (3 sources) Thiazide Diuretic, Angiotensin 2 Receptor Natali Start: 4 Losartan-Hydrochlor othiazide 100-12.5 mg tablet Active 1 {tbl} PO DAILY November 05, 2023 12:00am levothyroxine sodium 0.088 mg oral capsule (3 sources) l-Thyroxine Start: 4 take 1 capsule by mouth once daily Levothyroxine 88 mcg capsule Active 88 ug PO DAILY September 29, 2023 12:00am rosuvastatin calcium 20 mg oral tablet (3 sources) HMG-CoA Reductase Inhibitor Start: 4 take 1 tablet by mouth at bedtime Rosuvastatin 20 mg tablet Active 20 mg PO AT BEDTIME September 29, 2023 12:00am Completed/Discontinued Medications Medication Drug Class(es) Dates Sig (Normalized) Sig (Original) glimepiride 4 mg oral tablet (12 sources) Sulfonylurea Start: 08-06-2016 End: 09-29-2023 take 1 tablet by mouth once daily Glimepiride 4 MG tablet Discontinued 4 mg PO DAILY August 06, 2016 12:00am September 29, 2023 4:04pm inositol 141 mg / niacin 500 mg oral capsule (12 sources) Nicotinic Acid Start: 08-06-2016 End: 09-29-2023 take 1 capsule by mouth once daily Niacin (Inositol Niacinate) 500 MG capsule Discontinued 500 mg PO DAILY August 06, 2016 12:00am September 29, 2023 4:07pm losartan potassium 100 mg oral tablet (6 sources) Angiotensin 2 Receptor Natali Start: 12-08-2023 End: 12-10-2023 take 2 tablets by mouth once daily Losartan 100 mg tablet Discontinued 200 mg PO DAILY December 08, 2023 12:00am December 10, 2023 12:35pm Start: 09-29-2023 End: 11-05-2023 take 1 tablet by mouth once daily Losartan 25 mg tablet Discontinued 25 mg PO DAILY September 29, 2023 12:00am November 05, 2023 11:12am lovastatin 10 mg oral tablet (12 sources) HMG-CoA Reductase Inhibitor Start: 08-06-2016 End: 09-29-2023 take 1 tablet by mouth once daily Lovastatin 10 MG tablet Discontinued 10 mg PO DAILY August 06, 2016 12:00am September 29, 2023 4:29pm metFORMIN hydrochloride 1000 mg oral tablet (12 sources) Biguanide Start: 08-06-2016 End: 09-29-2023 take 1 tablet by mouth twice daily Metformin 1,000 MG tablet Discontinued 1000 mg PO TWICE A DAY August 06, 2016 12:00am September 29, 2023 4:04pm raNITIdine 150 mg oral tablet (12 sources) Histamine-2 Receptor Antagonist Start: 08-06-2016 End: 09-29-2023 take 1 tablet by mouth once daily as needed Ranitidine Hcl (Acid Control) 150 MG tablet Discontinued 150 mg PO DAILY as needed for Indigestion August 06, 2016 12:00am September 29, 2023 4:07pm Problems Active Problems Problem Classification Problem Date Documented Date Episodic/Chronic Acute cerebrovascular disease (3 sources) Cerebrovascular accident; Translations: [Cerebral infarction, unspecified] Onset: 03-17-2023 11-05-2023 Chronic Comment on above: TIA 08/2023. SLOW TO RESPOND TO QUESTIONS/MEMORY LOSS Cancer of prostate (4 sources) Malignant tumor of prostate; Translations: [Malignant neoplasm of prostate] Onset: 08-19-2024 11-05-2023 Chronic Comment on above: ON MED AT THIS TIME Chronic kidney disease (3 sources) Chronic kidney disease; Translations: [Chronic kidney disease, unspecified] 10-28-2023 Chronic Chronic kidney disease (1 source) Chronic kidney disease; Translations: [Chronic kidney disease, stage 3a] Onset: 07-16-2024 Deficiency and other anemia (3 sources) Anemia, unspecified; Translations: [Anemia, unspecified] Onset: 07-16-2024 Episodic Diabetes mellitus with complications (1 source) Type 2 diabetes mellitus with other specified complication; Translations: [Type 2 diabetes mellitus with other specified complication] Onset: 07-16-2024 Chronic Diabetes mellitus without complication (5 sources) Diabetes mellitus; Translations: [Type 2 diabetes mellitus without complications] Onset: 02-13-2024 11-05-2023 Chronic Comment on above: ON ORAL MED Disorders of lipid metabolism (3 sources) Hyperlipidemia; Translations: [Hyperlipidemia, unspecified] 10-31-2023 Chronic Essential hypertension (5 sources) Hypertensive disorder; Translations: [Essential (primary) hypertension] Onset: 10-24-2023 01-08-2024 Chronic Nutritional deficiencies (1 source) Vitamin D deficiency, unspecified; Translations: [Vitamin D deficiency, unspecified] Onset: 07-16-2024 Chronic Occlusion or stenosis of precerebral arteries (11 sources) Internal carotid artery stenosis; Translations: [Occlusion and stenosis of right carotid artery] Onset: 11-07-2023 10-28-2023 Chronic Other aftercare (3 sources) Surgical follow-up; Translations: [Encounter for surgical aftercare following surgery on the circulatory system] 12-04-2023 Episodic Other aftercare (1 source) Encounter for surgical aftercare following surgery on the circulatory system; Translations: [Encounter for surgical aftercare following surgery on the circulatory system] Onset: 06-21-2024 Episodic Other lower respiratory disease (3 sources) Dyspnea on exertion; Translations: [Other forms of dyspnea] 11-05-2023 Episodic Comment on above: WITH [address] AIRS Other nutritional; endocrine; and metabolic disorders (3 sources) Obesity; Translations: [Obesity, unspecified] 10-28-2023 Chronic Residual codes; unclassified (3 sources) Obstructive sleep apnea syndrome; Translations: [Obstructive sleep apnea (adult) (pediatric)] 10-28-2023 Chronic Thyroid disorders (4 sources) Hypothyroidism; Translations: [Hypothyroidism, unspecified] Onset: 07-16-2024 11-05-2023 Chronic Comment on above: ON MED Unclassified (1 source) Unknown / UNK(Unknown) Onset: 08-18-2017 Past or Other Problems Problem Classification Problem Date Documented Da te Episodic/Chronic Nutritional deficiencies (1 source) Deficiency of other specified B group vitamins; Translations: [Deficiency of other specified B group vitamins] Onset: 02-13-2024 Episodic Other lower respiratory disease (1 source) Other forms of dyspnea; Translations: [Other forms of dyspnea] Onset: 11-18-2023 Episodic Unclassified (1 source) ELEVATED PSA R97.20 Onset: 08-18-2017 Results Test Name Value Interpretation Reference Range Facility CBC + DIFFon 09-14-2024 Baso # 0.02 x10EE3/UL Normal 0.00 - 0.10 [facility] Comment on above: Performed By: #### 2 [id number] #### [facility],[address] [place] [address] 22864 Basophils/100 WBC (Bld) 0.5 % Normal 0.0 - 2.0 [facility] Comment on above: Performed By: #### 2 [id number] #### [facility],[address] [place] [address] 44336 CBC + DIFF Normal [facility] Comment on above: Result Comment: CBC- COMPLETE BLOOD COUNT Performed By: #### 2 03693 #### [facility],[address] [place] [address] 02762 EO # 0.28 x10EE3/UL Normal 0.00 - 0.50 [facility] Comment on above: Performed By: #### 2 01560 #### [facility],[address] [place] [address] 63577 Eosinophils/100 WBC (Bld) 5.7 % Normal 0.0 - 7.0 [facility] Comment on above: Performed By: #### 2 08306 #### [facility],[address] [place] [address] 68054 Erythrocyte distribution width (RBC) [Ratio] 14.0 % Normal 12.0 - 15.6 [facility] Comment on above: Performed By: #### 2 19772 #### [facility],[address] [place] [address] 00779 Hematocrit (Bld) [Volume fraction] 32.5 % Low 40.0 - 52.0 [facility] Comment on above: Performed By: #### 2 34887 #### [facility],[address] [place] [address] 12402 Hemoglobin (Bld) [Mass/Vol] 11.3 g/dL Low 13.0 - 17.5 [facility] Comment on above: Performed By: #### 2 05749 #### [facility],[address] [place] [address] Lymph # 1.17 x10EE3/UL Normal 0.80 - 2.80 [facility] Comment on above: Performed By: #### 2 79092 #### [facility],[address] [place], [place] [phone] Lymphocytes/100 WBC (Bld) 23.4 % Normal 20.0 - 45.0 [facility] Comment on above: Performed By: #### 2 44740 #### [facility],[address] [place], [place] [phone] MANUAL DIFF N/A Normal [facility] Comment on above: Performed By: #### 2 82743 #### [facility],[address] [place], [place] [phone] MCH (RBC) [Entitic mass] 31 pg Normal 27 - 33 [facility] Comment on above: Performed By: #### 2 84373 #### [facility],[address] [place] [address] 96138 MCHC 35 X10 3 Normal 32 - 36 [facility] Comment on above: Performed By: #### 2 69749 #### [facility],[address] [place] [address] 05492 MCV (RBC) [Entitic vol] 88 fL Normal 81 - 98 [facility] Comment on above: Performed By: #### 2 04217 #### [facility],[address] [place] [address] 79911 [place] # 0.40 x10EE3/UL Normal 0.20 - 1.00 [facility] Comment on above: Performed By: #### 2 43399 #### [facility],[address] [place] [address] 67259 MONOS % 8.0 % Normal 0.0 - 10.0 [facility] Comment on above: Performed By: #### 2 50585 #### [facility],[address] [place] [address] 57992 Morphology Joe (Bld) [Interp] N/A Normal [facility] Comment on above: Performed By: #### 2 78227 #### [facility],[address] [place] [address] 97717 Neut # 3.12 x10EE3/UL Normal 1.50 - 7.10 [facility] Comment on above: Performed By: #### 2 14135 #### [facility],[address] [place] [address] 79942 Neutrophils/100 WBC (Bld) 62.5 % Normal 46.0 - 76.0 [facility] Comment on above: Performed By: #### 2 11514 #### [facility],[address] [place] [address] 05222 PLATELET 217 x10EE3/UL Normal 150 - 450 [facility] Comment on above: Performed By: #### 2 57526 #### [facility],[address] [place] [address] 43993 Platelet mean volume (Bld) [Entitic vol] 8.6 fL Normal 6.4 - 10.5 [facility] Comment on above: Result Comment: AUTO MATED DIFFERENTIAL Performed By: #### 2 95674 #### [facility],[address] [place] [address] 00959 RBC 3.71 x 10EE6/UL Low 4.50 - 6.00 [facility] Comment on above: Performed By: #### 2 61531 #### [facility],[address] [place] [address] 09717 WBC 5.0 x 10EE3/UL Normal 4.5 - 10.8 [facility] Comment on above: Performed By: #### 2 51695 #### [facility],[address] [place], [place] [phone] HEMOGLOBIN A1C (POM)on 09-14 Glucose [Mass/Vol] 145.6 mg/dL High 0.0 - 0.0 [facility] Comment on above: Result Comment: Do HEMOGLOBIN A1C REFERENCE RANGESBLDo Suggested Diagnosis HbA1c(%) HbA1C (mmol/mol Diabetic >/=6.5 >/=48 Prediabetes 5.7 - 6.4 39 - 47 Normal <5.7 <39 Performed By: #### 2 85107 #### [facility],[address] [place], [place] [phone] HbA1c (Bld) [Mass fraction] 6.7 % High 0.0 - 6.5 [facility] Comment on above: Performed By: #### 2 30799 #### [facility],[address] [place] [address] 88982 IRON AND TIBCon 09-14-2024 %SATURATION 27 % Normal [facility] Comment on above: Performed By: #### 2 64554 #### [facility],[address] [place] [address] 47939 Iron [Mass/Vol] 74 ug/dL Normal 65 - 175 [facility] Comment on above: Performed By: #### 2 76424 #### [facility],[address] [place] [address] 48841 TIBC 272 ug/dl Normal 250 - 450 [facility] Comment on above: Performed By: #### 2 39633 #### [facility],[address] [place] [address] 84917 UIBC 198 ug/dL Normal 155 - 355 [facility] Comment on above: Performed By: #### 2 77337 #### [facility],[address] [place] [address] 96705 PSA,Total- [employer] 07-17 PSA, DIAGNOSTIC 235.00 ng/mL High 0.00-4.00 [facility] Comment on above: Result Comment: This test was performed using the [employer] tPSA method. Measured values of a patient??sample can vary depending on the testing procedure used. PSA values determined on patient samples by different testing procedures cannot be used interchangeably. If there is a change in PSA assays while monitoring therapy, sequential testing should be performed to confirm baseline values. Performed By: #### L 501.080 #### [facility] [address] [place], [address] FERRITIN [CCL]on 07-17-2024 Ferritin [Mass/Vol] 90.9 ng/mL Normal 30.3-565.7 [facility] Comment on above: Result Comment: [facility] [address] [place] [address] Zafar Bangura III, M.D. [id number] Performed By: #### 2 40854 #### [facility],[address] [place] [address] 77603 CBC + DIFFon 07-16-2024 Baso # 0.03 x10EE3/UL Normal 0.00 - 0.10 [facility] Comment on above: Performed By: #### 2 41719 #### [facility],[address] [place] [address] 57202 Basophils/100 WBC (Bld) 0.6 % Normal 0.0 - 2.0 [facility] Comment on above: Performed By: #### 2 12014 #### [facility],[address] [place] [address] 72570 CBC + DIFF Normal [facility] Comment on above: Result Comment: CBC- COMPLETE BLOOD COUNT Performed By: #### 2 96663 #### [facility],[address] [place] [address] 60405 EO # 0.26 x10EE3/UL Normal 0.00 - 0.50 [facility] Comment on above: Performed By: #### 2 90566 #### [facility],[address] [place], [place] [phone] Eosinophils/100 WBC (Bld) 5.2 % Normal 0.0 - 7.0 [facility] Comment on above: Performed By: #### 2 40853 #### [facility],[address] [place] [address] Erythrocyte distribution width (RBC) [Ratio] 14.1 % Normal 12.0 - 15.6 [facility] Comment on above: Performed By: #### 2 94422 #### [facility],[address] [place] [address] Hematocrit (Bld) [Volume fraction] 31.1 % Low 40.0 - 52.0 [facility] Comment on above: Performed By: #### 2 36844 #### [facility],[address] [place] [address] Hemoglobin (Bld) [Mass/Vol] 10.8 g/dL Low 13.0 - 17.5 [facility] Comment on above: Performed By: #### 2 13105 #### [facility],[address] [place] [address] 40577 Lymph # 1.06 x10EE3/UL Normal 0.80 - 2.80 [facility] Comment on above: Performed By: #### 2 49486 #### [facility],[address] [place], [place] [phone] Lymphocytes/100 WBC (Bld) 21.5 % Normal 20.0 - 45.0 [facility] Comment on above: Performed By: #### 2 85091 #### [facility],[address] [place] [address] MANUAL DIFF N/A Normal [facility] Comment on above: Performed By: #### 2 17126 #### [facility],[address] [place] [address] MCH (RBC) [Entitic mass] 30 pg Normal 27 - 33 [facility] Comment on above: Performed By: #### 2 64235 #### [facility],[address] [place] [address] MCHC 35 X10 3 Normal 32 - 36 [facility] Comment on above: Performed By: #### 2 44475 #### [facility],[address] [place] [address] MCV (RBC) [Entitic vol] 87 fL Normal 81 - 98 [facility] Comment on above: Performed By: #### 2 84761 #### [facility],[address] [place] [address] [place] # 0.43 x10EE3/UL Normal 0.20 - 1.00 [facility] Comment on above: Performed By: #### 2 73048 #### [facility],[address] [place] [address] 05486 MONOS % 8.8 % Normal 0.0 - 10.0 [facility] Comment on above: Performed By: #### 2 90724 #### [facility],[address] [place], [place] [phone] Morphology Joe (Bld) [Interp] N/A Normal [facility] Comment on above: Performed By: #### 2 69815 #### [facility],[address] [place] [address] Neut # 3.14 x10EE3/UL Normal 1.50 - 7.10 [facility] Comment on above: Performed By: #### 2 42216 #### [facility],[address] [place], [place] [phone] Neutrophils/100 WBC (Bld) 63.9 % Normal 46.0 - 76.0 [facility] Comment on above: Performed By: #### 2 45618 #### [facility],[address] [place] [address] 07501 PLATELET 217 x10EE3/UL Normal 150 - 450 [facility] Comment on above: Performed By: #### 2 53748 #### [facility],[address] [place] [address] 73553 Platelet mean volume (Bld) [Entitic vol] 7.4 fL Normal 6.4 - 10.5 [facility] Comment on above: Result Comment: AUTO MATED DIFFERENTIAL Performed By: #### 2 32884 #### [facility],[address] [place] [address] 43023 RBC 3.58 x 10EE6/UL Low 4.50 - 6.00 [facility] Comment on above: Performed By: #### 2 91614 #### [facility],[address] [place] [address] 68148 WBC 4.9 x 10EE3/UL Normal 4.5 - 10.8 [facility] Comment on above: Performed By: #### 2 34748 #### [facility],[address] [place] [address] 50880 CMP with eGFRon 07-16-2024 AGE 78 years Normal [facility] Comment on above: Performed By: #### 2 34798 #### [facility],[address] [place] [address] 46915 Albumin [Mass/Vol] 3.6 g/dL Normal 3.4 - 5.0 [facility] Comment on above: Performed By: #### 2 12481 #### [facility],[address] [place] [address] 14837 Albumin/Globulin [Mass ratio] 1.2 {ratio} Normal 0.9 - 1.6 [facility] Comment on above: Performed By: #### 2 98924 #### [facility],[address] [place] [address] 63667 ALK PHOS 64 U/L Normal 46 - 116 [facility] Comment on above: Performed By: #### 2 25243 #### [facility],[address] [place] [address] 97098 ALT [Catalytic activity/Vol] 15 U/L Low 16 - 63 [facility] Comment on above: Performed By: #### 2 16611 #### [facility],[address] [place] [address] 37844 Anion gap [Moles/Vol] 12 mmol/L Normal 10 - 20 [facility] Comment on above: Performed By: #### 2 72032 #### [facility],[address] [place] [address] 85604 AST [Catalytic activity/Vol] 18 U/L Normal 15 - 37 [facility] Comment on above: Performed By: #### 2 42692 #### [facility],[address] [place] [address] 81838 B/C RATIO 22 ratio Normal 0 - 30 [facility] Comment on above: Performed By: #### 2 97678 #### [facility],[address] [place] [address] 62980 Bilirubin [Mass/Vol] 0.3 mg/dL Normal 0.2 - 1.0 [facility] Comment on above: Performed By: #### 2 85560 #### [facility],[address] [place] [address] 75331 Calcium [Mass/Vol] 9.4 mg/dL Normal 8.5 - 10.1 [facility] Comment on above: Performed By: #### 2 57206 #### [facility],[address] [place] [address] 67422 Chloride [Moles/Vol] 106 mmol/L Normal 98 - 107 [facility] Comment on above: Performed By: #### 2 93884 #### [facility],[address] [place] [address] 56804 CMP with eGFR Normal [facility] Comment on above: Result Comment: COMP REHENSIVE METABOLIC PANEL Performed By: #### 2 49751 #### [facility],[address] [place] [address] 64039 CO2 [Moles/Vol] 29.1 mmol/L Normal 21.0 - 32.0 [facility] Comment on above: Performed By: #### 2 54238 #### [facility],[address] [place] [address] Creatinine [Mass/Vol] 1.62 mg/dL High 0.70 - 1.30 [facility] Comment on above: Performed By: #### 2 10473 #### [place] [address] eGFR 42 ML/MINUTE Low 60 - 999 [facility] Comment on above: Performed By: #### 2 75227 #### [place] [id number] eGFR(AA) 50 ML/MINUTE Low 60 - 999 [facility] Comment on above: Result Comment: ACCO RDING TO THE NATIONAL KIDNEY DISEASE EDUCATION PROGRAM(NKDE), A NORMAL eGFR IS A VALUE GREATER THAN OR EQUAL TO 60 ML/MIN/1.73 SQ METERS. CHRONIC KIDNEY DISEASE: <60mL/MIN/1.73 SQ METERS KIDNEY FAILURE: <15mL/MIN/1.73 SQ METERS THIS TEST SHOULD ONLY BE USED FOR PATIENTS 18 YEARS OF AGE AND OLDER. Performed By: #### 2 14784 #### [facility],[address] [place] [address] 30046 Globulin (S) [Mass/Vol] 3.1 g/dL Normal 1.5 - 3.8 [facility] Comment on above: Performed By: #### 2 75323 #### [facility],[address] [place], [place] [phone] Glucose [Mass/Vol] 144 mg/dL High 74 - 106 [facility] Comment on above: Performed By: #### 2 25657 #### [facility],[address] [place] [address] 38641 Potassium [Moles/Vol] 5.0 mmol/L Normal 3.5 - 5.1 [facility] Comment on above: Performed By: #### 2 81639 #### [facility],[address] [place] [address] 71060 Protein [Mass/Vol] 6.7 g/dL Normal 6.4 - 8.2 [facility] Comment on above: Performed By: #### 2 49206 #### [facility],[address] [place] [address] 56195 Sodium [Moles/Vol] 142 mmol/L Normal 136 - 145 [facility] Comment on above: Performed By: #### 2 00641 #### [facility],[address] [place] [address] 54440 Urea nitrogen [Mass/Vol] 35 mg/dL High 7 - 18 [facility] Comment on above: Performed By: #### 2 14863 #### [facility],[address] [place] [address] 55532 FOLATESon 07-16-2024 FOLATES 50.2 ng/ml Normal 8.6 - 58.9 [facility] Comment on above: Performed By: #### 2 71277 #### [facility],[address] [place] [address] 42914 Ferritin SerPl-mCncon 2024 Ferritin [Mass/Vol] 90.9 ng/mL Normal 30.3-565.7 [facility] Comment on above: Order Comment: Speci men Type: BLOOD SPECIMEN Ordering Facility: [facility] Address: [address] [place] [address] Performed By: #### 2 276-4 #### [facility] CLIA [id number] [address] [place] [address] [place] HEMOGLOBIN A1C (POM)on 07-16 Glucose [Mass/Vol] 162.8 mg/dL High 0.0 - 0.0 [facility] Comment on above: Result Comment: BLDo HEMOGLOBIN A1C REFERENCE RANGESBLDo Suggested Diagnosis HbA1c(%) HbA1C (mmol/mol Diabetic >/=6.5 >/=48 Prediabetes 5.7 - 6.4 39 - 47 Normal <5.7 <39 Performed By: #### 2 84670 #### [facility],[address] [place] [address] 52464 HbA1c (Bld) [Mass fraction] 7.3 % High 0.0 - 6.5 [facility] Comment on above: Performed By: #### 2 63475 #### [facility],[address] [place] [address] 25307 IRON AND TIBCon 07-16-2024 %SATURATION 18 % Normal [facility] Comment on above: Performed By: #### 2 90448 #### [facility],[address] [place] [address] 36868 Iron [Mass/Vol] 57 ug/dL Low 65 - 175 [facility] Comment on above: Performed By: #### 2 12574 #### [facility],[address] [place] [address] 02357 TIBC 316 ug/dl Normal 250 - 450 [facility] Comment on above: Performed By: #### 2 25010 #### [facility],[address] [place] [address] 32586 UIBC 259 ug/dL Normal 155 - 355 [facility] Comment on above: Performed By: #### 2 23600 #### [facility],[address] [place] [address] 05169 LIPID PROFILEon 07-16-2024 Cholesterol [Mass/Vol] 114 mg/dL Normal 0 - 240 [facility] Comment on above: Performed By: #### 2 81217 #### [facility],[address] [place] [address] 64082 Cholesterol in HDL [Mass/Vol] 70 mg/dL High 40 - 60 [facility] Comment on above: Performed By: #### 2 71907 #### [facility],[address] [place] [address] 32138 Cholesterol in LDL [Mass/Vol] 33 mg/dL Normal 0 - 129 [facility] Comment on above: Performed By: #### 2 40243 #### [facility],[address] [place] [address] 90172 Cholesterol.total/Cho lesterol in HDL [Mass ratio] 1.6 {ratio} Normal 0.0 - 5.0 [facility] Comment on above: Performed By: #### 2 02224 #### [facility],[address] [place] [address] 55344 Lipid 1996 panel Normal [facility] Comment on above: Result Comment: LIPI D PROFILE Performed By: #### 2 92756 #### [facility],[address] [place] [address] 59654 Triglyceride [Mass/Vol] 56 mg/dL Normal 0 - 150 [facility] Comment on above: Performed By: #### 2 36868 #### [facility],[address] [place] [address] 34084 T4-FREE (FREE THYROXINE)on 0 07-16-2024 Free T4 [Mass/Vol] 1.17 ng/dL Normal 0.76 - 1.46 [facility] Comment on above: Result Comment: P otential of falsely elevated results when biotin concentrations are > 10 ng/mL. Performed By: #### 2 88816 #### [facility],[address] [place] [address] 58261 TSHon 07-16-2024 TSH Qn 2.20 m[IU]/L Normal 0.35 - 3.74 [facility] Comment on above: Performed By: #### 2 36810 #### [facility],[address] [place] [address] 46928 URINE MICROALBUMIN W/CREATIN INE, RANDOMon 07-16-2024 CREATININE UR 92.08 mg/dl Normal [facility] Comment on above: Performed By: #### 2 91795 #### [facility],[address] [place] [address] 75103 MICROALBUMIN UR 5.6 mg/dL Normal 0.1 - 25.1 [facility] Comment on above: Performed By: #### 2 80773 #### [facility],[address] [place] [address] 43789 UACR 61 mg/g Normal [facility] Comment on above: Performed By: #### 2 00897 #### [facility],[address] [place] [address] 84212 VITAMIN B-12on 07-16-2024 Cobalamin (Vitamin B12) [Mass/Vol] 285 pg/mL Normal 193 - 986 [facility] Comment on above: Performed By: #### 2 17723 #### [facility],[address] [place] [address] 58397 VITAMIN D, 25 HYDROXYon 05- VitD 44.30 ng/mL Normal 30.00 - 100 [facility] Comment on above: Result Comment: 25-O HD3 indicates both endogenous production and supplementation. 25-OHD2 is an indicator of exogenous sources, such as diet or supplementation. Therapy is based on measurement of Total 25-OHD, with levels <20 ng/mL indicative of Vitamin D deficiency, while levels between 20 ng/mL and 30 ng/mL suggest insufficiency. Optimal levels are >=30ng/mL. Vitamin D, 25-OH D3 Not Established Vitamin D, 25-OH D2 Not Established Performed By: #### 2 32779 #### [address] [address] Carotid Duplex Ultrasoundon 06-15-2024 Carotid Duplex Ultrasound [facility] [address] [place] [address] 61624 Carotid Duplex Ultrasound 06/15/24 0955 MR#: [id number] Acct: [id number] Name: SUMEET MAJANO Rep #: [id number] : 1945 From: Ramu Rehman MD Attending Dr: TAYLOR Donovan Status: REG CLI Ordering Dr: Evelyn Hickman Date: 06/15/24 Location: CVS Sex: M C Admitted: Reason For Study Reason For Study: S/P Bilateral TCAR Rt. Velocities/BP Lt. Velocities/BP Prox CCA 90.6/10.2 cm/sec. Prox CCA 73.2/14.2 cm/sec. Mid CCA, Pre Stent, 94.2/12.1 cm/sec. Mid CCA 87.9/19.2 cm/sec. Distal CCA, Prox Stent, 70.5/10.2 cm/sec. Distal CCA, Pre Stent, 89.1/20.4 cm/sec. Prox ICA, Mid Stent, 67.0/13.0 cm/sec. Prox ICA, Prox Stent, 74.4/15.5 cm/sec. Mid ICA, Distal Stent, 97.9/24.8 cm/sec. Mid ICA, Mid Stent, 73.2/16.7 cm/sec. Distal ICA, Distal to Stent, 90.4/19.3 cm/sec. Mid ICA, Distal Stent, 84.2/19.2 cm/sec. Rt. ICA/CCA = 1.0. Distal ICA, Distal to Stent, 105.2/24.8 Prox ECA 144.0/5.7 cm/sec. cm/sec. Rt. Vert. 69.5/15.5 cm/sec. Lt. ICA/CCA = 1.2. Prox ECA 86.7/8.1 cm/sec. Lt. Vert. 28.9/0.0 cm/sec. Right Extracranial There is heterogeneous, irregular atherosclerotic plaque noted in the right common carotid artery. There is heterogeneous, irregular atherosclerotic plaque noted in the right internal carotid artery. Stent noted in right internal carotid artery. There is intimal thickening but no significant atherosclerotic plaque noted in the right external carotid artery. Antegrade flow is noted in the right vertebral artery. Left Extracranial There is heterogeneous, irregular atherosclerotic plaque noted in the left common carotid artery. There is heterogeneous, irregular atherosclerotic plaque noted in the left internal carotid artery. Stent noted in the left internal carotid artery. There is intimal thickening but no significant atherosclerotic plaque noted in the left external carotid artery. The atherosclerotic plaque causes acoustic shadowing. Antegrade flow is noted in the left vertebral artery. Procedure Carotid Duplex 84230. This is a Carotid Duplex examination using B-mode, color flow and specral Doppler. Exam performed in department. VL/Carotid Duplex Ultrasound Interpretation Summary Mild (<50%) stenosis right extracranial internal carotid. Mild (<50%) stenosis left extracranial internal carotid. Patent and antegrade vertebrals bilaterally. Ordering Physician: Evelyn Hickman Referring Physician: Evelyn Hickman Performed By: Marilyn Garcia, SAMREEN 06/15/24 1549 Date Ramu Rehman MD CC: TAYLOR Donovan; Dr. Seema Sterling MD Date Dictated: 06/15/24954 Date Transcribed: 06/15/241548 Casework Manager: Signed Normal [facility] Duplex ultrasound of carotid artery reportOrdered By: Ramu Rehman on 06-15-2024 Study report [facility] [address] [place] [address] Carotid Duplex Ultrasound 06/15/24954 MR#: [id number] Acct: [id number] Name: SUMEET MAJANO Rep #:[id number] : 1945 78 From: Ramu Hutchins Attending Dr: TAYLOR Donovan Stat us: REG CLI Ordering Dr: Evelyn Hickman Date: Location: [facility] Sex: M C Admitted: Reason For Study Reason For Study: S/P Bilateral TCAR Rt. Velocities/BP Lt. Velocities/BP Prox CCA 90.6/10.2 cm/sec. Prox CCA 73.2/14.2 cm/sec. Mid CCA, Pre Stent, 94.2/12.1 cm/sec. Mid CCA 87.9/19.2 cm/sec. Distal CCA, Prox Stent, 70.5/10.2 cm/sec. DistalCCA, Pre Stent, 89.1/20.4 cm/sec. Prox ICA, Mid Stent, 67.0/13.0 cm/sec. Prox ICA, Prox Stent, 74.4/15.5 cm/sec. Mid ICA, Distal Stent, 97.9/24.8 cm/sec. Mid ICA, Mid Stent, 73.2/16.7 cm/sec. Distal ICA, Distal to Stent, 90.4/19.3 cm/sec. Mid ICA, Distal Stent, 84.2/19.2 cm/sec. Rt. ICA/CCA = 1.0. DistalICA, Distal to Stent, 105.2/24.8 Prox ECA 144.0/5.7 cm/sec. cm/sec. Rt. Vert. 69.5/15.5 cm/sec. Lt. ICA/CCA = 1.2. Prox ECA 86.7/8.1 cm/sec. Lt. Vert. 28.9/0.0 cm/sec. Right Extracranial There is heterogeneous, irregular atherosclerotic plaque noted in the right common carotid artery. There is heterogeneous, irregular atherosclerotic plaque noted in the right internal carotid artery. Stent noted in right internal carotid artery. There is intimal thickening but no significant atherosclerotic plaque noted in the right external carotid artery. Antegrade flow is noted in the right vertebral artery. Left Extracranial There is heterogeneous, irregular atherosclerotic plaque noted in the left common carotid artery. There is heterogeneous, irregular atherosclerotic plaque noted in the left internal carotid artery. Stent noted in the left internal carotid artery. There is intimal thickening but no significant atherosclerotic plaque noted in the left external carotid artery. The atherosclerotic plaque causes acoustic shadowing. Antegrade flow is noted in the left vertebral artery. Procedure Carotid Duplex 58122. This is a Carotid Duplex examination using B-mode, color flow and specral Doppler. Exam performed in department. VL/Carotid Duplex Ultrasound Interpretation Summary Mild (<50%) stenosis right extracranial internal carotid. Mild (<50%) stenosis left extracranial internal carotid. Patent and antegrade vertebrals bilaterally. Ordering Physician: Evelyn Hickman Referring Physician: Evelyn Hickman Performed By: Marilyn Garcia, SAMREEN 06/15/24 1549 Date _ Ramu Rehman MD CC: TAYLOR Donovan; Dr. Seema Sterling MD ~ Date Dictated: 06/15/24954 Date Transcribed: 06/15/241548 Casework Manager: Signed [facility] Work Phone: PSA,Total- [employer] PSA, DIAGNOSTIC 92.20 ng/mL High 0.00-4.00 [facility] Comment on above: Result Comment: This test was performed using the [employer] tPSA method. Measured values of a patient??sample can vary depending on the testing procedure used. PSA values determined on patient samples by different testing procedures cannot be used interchangeably. If there is a change in PSA assays while monitoring therapy, sequential testing should be performed to confirm baseline values. Performed By: #### L [phone] #### [facility] [address] [place], [address] Diagnostic total prostate sp ecific antigen (PSA) measurementOrdered By: Sally Plummer on 05-17-2024 Prostate Specific Antigen Total 92.20 ng/mL High 0.00-4.00 [facility] Comment on above: This test was perfor med using the [employer] tPSA method. Measured values of a patient sample can vary depending on the testing procedure used. PSA values determined on patient samples by different testing procedures cannot be used interchangeably. If there is a change in PSA assays while monitoring therapy, sequential testing should be performed to confirm baseline values. CBC + DIFFon 02-13-2024 Baso # 0.03 x10EE3/UL Normal 0.00 - 0.10 [facility] Comment on above: Performed By: #### 2 53452 #### [facility],[address] [place] [address] 63927 Basophils/100 WBC (Bld) 0.8 % Normal 0.0 - 2.0 [facility] Comment on above: Performed By: #### 2 19017 #### [facility],[address] [place] [address] 42871 CBC + DIFF Normal [facility] Comment on above: Result Comment: CBC- COMPLETE BLOOD COUNT Performed By: #### 2 10743 #### [facility],[address] [place] [address] EO # 0.29 x10EE3/UL Normal 0.00 - 0.50 [facility] Comment on above: Performed By: #### 2 39800 #### [facility],[address] [place] [address] 80512 Eosinophils/100 WBC (Bld) 6.8 % Normal 0.0 - 7.0 [facility] Comment on above: Performed By: #### 2 53447 #### [facility],[address] [place], [place] [phone] Erythrocyte distribution width (RBC) [Ratio] 13.9 % Normal 12.0 - 15.6 [facility] Comment on above: Performed By: #### 2 61961 #### [facility],[address] [place] [address] 81363 Hematocrit (Bld) [Volume fraction] 36.8 % Low 40.0 - 52.0 [facility] Comment on above: Performed By: #### 2 74188 #### [facility],[address] [place] [address] 22248 Hemoglobin (Bld) [Mass/Vol] 11.7 g/dL Low 13.0 - 17.5 [facility] Comment on above: Performed By: #### 2 64795 #### [facility],[address] [place] [address] Lymph # 0.85 x10EE3/UL Normal 0.80 - 2.80 [facility] Comment on above: Performed By: #### 2 01840 #### [place] [address] Lymphocytes/100 WBC (Bld) 19.8 % Low 20.0 - 45.0 [facility] Comment on above: Performed By: #### 2 25219 #### [place] [address] MANUAL DIFF N/A Normal [facility] Comment on above: Performed By: #### 2 97825 #### [place] [address] MCH (RBC) [Entitic mass] 29 pg Normal 27 - 33 [facility] Comment on above: Performed By: #### 2 47881 #### [place] [address] MCHC 32 X10 3 Normal 32 - 36 [facility] Comment on above: Performed By: #### 2 15489 #### [place] [address] MCV (RBC) [Entitic vol] 90 fL Normal 81 - 98 [facility] Comment on above: Performed By: #### 2 83302 #### [place] [address] [place] # 0.35 x10EE3/UL Normal 0.20 - 1.00 [facility] Comment on above: Performed By: #### 2 18866 #### [place] [address] MONOS % 8.2 % Normal 0.0 - 10.0 [facility] Comment on above: Performed By: #### 2 01306 #### [facility],[address] [place] [address] 19146 Morphology Joe (Bld) [Interp] N/A Normal [facility] Comment on above: Performed By: #### 2 53440 #### [facility],[address] [place] [address] 92209 Neut # 2.76 x10EE3/UL Normal 1.50 - 7.10 [facility] Comment on above: Performed By: #### 2 05859 #### [facility],[address] [place] [address] Neutrophils/100 WBC (Bld) 64.5 % Normal 46.0 - 76.0 [facility] Comment on above: Performed By: #### 2 20428 #### [facility],[address] [place] [address] PLATELET 215 x10EE3/UL Normal 150 - 450 [facility] Comment on above: Performed By: #### 2 33560 #### [facility],[address] [place] [address] Platelet mean volume (Bld) [Entitic vol] 8.2 fL Normal 6.4 - 10.5 [facility] Comment on above: Result Comment: AUTO MATED DIFFERENTIAL Performed By: #### 2 64885 #### [facility],[address] [place] [address] 84676 RBC 4.09 x 10EE6/UL Low 4.50 - 6.00 [facility] Comment on above: Performed By: #### 2 47674 #### [facility],[address] [place] [address] 11732 WBC 4.3 x 10EE3/UL Low 4.5 - 10.8 [facility] Comment on above: Performed By: #### 2 29360 #### [facility],[address] [place] [address] CMP with eGFRon 02-13-2024 AGE 78 years Normal [facility] Comment on above: Performed By: #### 2 99207 #### [facility],[address] [place], [place] [phone] Albumin [Mass/Vol] 3.3 g/dL Low 3.4 - 5.0 [facility] Comment on above: Performed By: #### 2 12599 #### [facility],[address] [place] [address] Albumin/Globulin [Mass ratio] 0.9 {ratio} Normal 0.9 - 1.6 [facility] Comment on above: Performed By: #### 2 27035 #### [facility],[address] [place], [place] [phone] ALK PHOS 60 U/L Normal 46 - 116 [facility] Comment on above: Performed By: #### 2 08065 #### [facility],[address] [place], [place] [phone] ALT [Catalytic activity/Vol] 11 U/L Low 16 - 63 [facility] Comment on above: Performed By: #### 2 38427 #### [facility],[address] [place] [address] 25140 Anion gap [Moles/Vol] 14 mmol/L Normal 10 - 20 [facility] Comment on above: Performed By: #### 2 90703 #### [facility],[address] [place], [place] [phone] AST [Catalytic activity/Vol] 13 U/L Low 15 - 37 [facility] Comment on above: Performed By: #### 2 69650 #### [facility],[address] [place] [address] 86821 B/C RATIO 19 ratio Normal 0 - 30 [facility] Comment on above: Performed By: #### 2 29626 #### [facility],[address] [place] [address] 91292 Bilirubin [Mass/Vol] 0.4 mg/dL Normal 0.2 - 1.0 [facility] Comment on above: Performed By: #### 2 26367 #### [facility],[address] [place] [address] Calcium [Mass/Vol] 9.4 mg/dL Normal 8.5 - 10.1 [facility] Comment on above: Performed By: #### 2 11340 #### [facility],[address] [place] [address] Chloride [Moles/Vol] 107 mmol/L Normal 98 - 107 [facility] [facility] Comment on above: Performed By: #### 2 08772 #### [facility],[address] [place] [address] CMP with eGFR Normal [facility] Comment on above: Result Comment: COMP REHENSIVE METABOLIC PANEL Performed By: #### 2 49654 #### [facility],[address] [place] [address] CO2 [Moles/Vol] 24.5 mmol/L Normal 21.0 - 32.0 [facility] Comment on above: Performed By: #### 2 04723 #### [facility],[address] [place], [place] [id number] Creatinine [Mass/Vol] 1.71 mg/dL High 0.70 - 1.30 [facility] Comment on above: Performed By: #### 2 11190 #### [facility],[address] [place], [place] [id number] eGFR 39 ML/MINUTE Low 60 - 999 [facility] Comment on above: Performed By: #### 2 04636 #### [facility],[address] [place] [address] 44444 eGFR(AA) 47 ML/MINUTE Low 60 - 999 [facility] Comment on above: Result Comment: ACCO RDING TO THE NATIONAL KIDNEY DISEASE EDUCATION PROGRAM(NKDE), A NORMAL eGFR IS A VALUE GREATER THAN OR EQUAL TO 60 ML/MIN/1.73 SQ METERS. CHRONIC KIDNEY DISEASE: <60mL/MIN/1.73 SQ METERS KIDNEY FAILURE: <15mL/MIN/1.73 SQ METERS THIS TEST SHOULD ONLY BE USED FOR PATIENTS 18 YEARS OF AGE AND OLDER. Performed By: #### 2 58393 #### [facility],[address] [place] [address] 30830 Globulin (S) [Mass/Vol] 3.5 g/dL Normal 1.5 - 3.8 [facility] Comment on above: Performed By: #### 2 96944 #### [facility],[address] [place] [address] 53709 Glucose [Mass/Vol] 145 mg/dL High 74 - 106 [facility] Comment on above: Performed By: #### 2 17829 #### [facility],[address] [place] [address] 82090 Potassium [Moles/Vol] 4.2 mmol/L Normal 3.5 - 5.1 [facility] Comment on above: Performed By: #### 2 12242 #### [facility],[address] [place] [address] 31042 Protein [Mass/Vol] 6.8 g/dL Normal 6.4 - 8.2 [facility] Comment on above: Performed By: #### 2 19507 #### [facility],[address] [place] [address] 11888 Sodium [Moles/Vol] 141 mmol/L Normal 136 - 145 [facility] Comment on above: Performed By: #### 2 81140 #### [facility],[address] [place] [address] 97894 Urea nitrogen [Mass/Vol] 32 mg/dL High 7 - 18 [facility] Comment on above: Performed By: #### 2 11253 #### [facility],[address] [place] [address] 88647 FOLATESon 02-13-2024 FOLATES 24.3 ng/ml Normal 8.6 - 58.9 [facility] Comment on above: Performed By: #### 2 33555 #### [facility],[address] [place] [address] 01056 HEMOGLOBIN A1C (POM)on 02-12 Glucose [Mass/Vol] 162.8 mg/dL High 0.0 - 0.0 [facility] Comment on above: Result Comment: BLDo HEMOGLOBIN A1C REFERENCE RANGESBLDo Suggested Diagnosis HbA1c(%) HbA1C (mmol/mol Diabetic >/=6.5 >/=48 Prediabetes 5.7 - 6.4 39 - 47 Normal <5.7 <39 Performed By: #### 2 96145 #### [facility],[address] [place] [address] 12203 HbA1c (Bld) [Mass fraction] 7.3 % High 0.0 - 6.5 [facility] Comment on above: Performed By: #### 2 04568 #### [facility],[address] [place] [address] 30926 LIPID PROFILEon 02-13-2024 Cholesterol [Mass/Vol] 131 mg/dL Normal 0 - 240 [facility] Comment on above: Performed By: #### 2 07596 #### [facility],[address] [place] [address] 54483 Cholesterol in HDL [Mass/Vol] 68 mg/dL High 40 - 60 [facility] Comment on above: Performed By: #### 2 84766 #### [facility],[address] [place] [address] 15341 Cholesterol in LDL [Mass/Vol] 34 mg/dL Normal 0 - 129 [facility] Comment on above: Performed By: #### 2 19519 #### [address] [address] Cholesterol.total/Cho lesterol in HDL [Mass ratio] 1.9 {ratio} Normal 0.0 - 5.0 [facility] Comment on above: Performed By: #### 2 26112 #### [address],[place] [address] Lipid 1996 panel Normal [facility] Comment on above: Result Comment: LIPI D PROFILE Performed By: #### 2 74850 #### [facility],[address] [place] [address] 06822 Triglyceride [Mass/Vol] 143 mg/dL Normal 0 - 150 [facility] Comment on above: Performed By: #### 2 80668 #### [facility],[address] [place] [address] 00863 MICROALBUMIN RANDOM URINE W/ CREATININEon 02-13-2024 CREATININE UR 141.51 mg/dl Normal [facility] Comment on above: Result Comment: Micr oalbumin/Creat Ratio Performed By: #### 2 91799 #### [facility],[address] [place] [address] 84907 MICROALBUMIN UR 6.4 mg/dL Normal 0.1 - 25.1 [facility] Comment on above: Performed By: #### 2 90752 #### [facility],[address] [place] [address] 65710 UACR 45 mg/g Normal [facility] Comment on above: Performed By: #### 2 77323 #### [facility],[address] [place] [address] 73803 T4-FREE (FREE THYROXINE)on 04-14-2023 Free T4 [Mass/Vol] 1.20 ng/dL Normal 0.76 - 1.46 [facility] Comment on above: Result Comment: P otential of falsely elevated results when biotin concentrations are > 10 ng/mL. Performed By: #### 2 26328 #### [facility],[address] [place] [address] 62448 TSHon 02-13-2024 TSH Qn 3.82 m[IU]/L High 0.35 - 3.74 [facility] Comment on above: Performed By: #### 2 42097 #### [facility],[address] [place] [address] 53270 VITAMIN B-12on 02-13-2024 Cobalamin (Vitamin B12) [Mass/Vol] 330 pg/mL Normal 193 - 986 [facility] Comment on above: Performed By: #### 2 18741 #### [facility],[address] [place] [address] 89705 VITAMIN D, 25 HYDROXYon 01-16 VitD 44.60 ng/mL Normal 30.00 - 100 [facility] Comment on above: Result Comment: 25-O HD3 indicates both endogenous production and supplementation. 25-OHD2 is an indicator of exogenous sources, such as diet or supplementation. Therapy is based on measurement of Total 25-OHD, with levels <20 ng/mL indicative of Vitamin D deficiency, while levels between 20 ng/mL and 30 ng/mL suggest insufficiency. Optimal levels are >=30ng/mL. Vitamin D, 25-OH D3 Not Established Vitamin D, 25-OH D2 Not Established Performed By: #### 2 12500 #### [facility],[address] [place] [address] 67115 Diagnostic total prostate sp ecific antigen (PSA) measurementOrdered By: Rodrigo Maurice on 02-10-2024 Prostate Specific Antigen Total 43.70 ng/mL High 0.0-4.0 [facility] Comment on above: This test was perfor med using the TPSA assay method for [employer] chemistry system. Values obtained with differentassay methods cannot be used interchangably.When changing PSA assays in the course of monitoring apatient, additional sequential testing should be carriedout to confirm baseline values. PSA,Total- Diagnosticon 01-16 PSA, DIAGNOSTIC 43.70 ng/mL High 0.0-4.0 [facility] Comment on above: Result Comment: This test was performed using the TPSA assay method for the [employer] chemistry system. Values obtained with different assay methods cannot be used interchangably. When changing PSA assays in the course of monitoring a patient, additional sequential testing should be carried out to confirm baseline values. Performed By: #### L 501.9940 #### [facility] [address] [place], [address] Carotid Duplex Ultrasoundon 01-19-2024 Carotid Duplex Ultrasound [facility] [address] [place] [address] Carotid Duplex Ultrasound 01/19/24 0953 MR#: [id number] Acct: [id number] Name: SUMEET MAJANO Rep #: [id number] : 1945 78 From: Ramu Rehman MD Attending Dr: TAYLOR Donovan Status: REG CLI Ordering Dr: Evelyn Hickman Date: 01/19/24 Location: CVS Sex: M C Admitted: Reason For Study: s/p Bilateral TCAR Rt. Velocities/BP Lt. Velocities/BP Prox CCA 104/14 cm/sec. Prox CCA 74/17 cm/sec. Mid CCA 101/15 cm/sec. Mid CCA 77/23 cm/sec. Dist CCA 85/19 cm/sec. Dist CCA 76/20 cm/sec. Prox ICA 109/25 cm/sec. Prox ICA 70/16 cm/sec. Mid ICA 116/14 cm/sec. Mid ICA 100/22 cm/sec. Dist ICA 113/25 cm/sec. Dist ICA 101/23 cm/sec. Rt. ICA/CCA = 1.1. Lt. ICA/CCA = 1.3. Rt ICA stent: Lt ICA stent: Pre stent: 101/15 cm/s Pre stent: 76/20 cm/s Prox stent: 109/25 cm/s Prox stent: 70/16 cm/s Mid stent: 116/14 cm/s Mid stent: 100/22 cm/s Distal stent: 113/25 cm/s Distal stent: 101/23 cm/s Post stent: 92/27 cm/s. Post stent: 84/20 cm/s. Prox ECA 100/8 cm/sec. Prox ECA 120/18 cm/sec. Rt. Vert. 74/23 cm/sec. Lt. Vert. 84/20 cm/sec. Right Extracranial There is heterogeneous, irregular atherosclerotic plaque noted in the right common carotid artery. Stent noted Rt ICA. There is no significant atherosclerotic plaque noted in the right external carotid artery. Antegrade flow is noted in the right vertebral artery. Left Extracranial There is heterogeneous, irregular atherosclerotic plaque noted in the left common carotid artery. Stent noted Lt ICA. There is no significant atherosclerotic plaque noted in the left external carotid artery. Retrograde flow noted Lt Vert A. Procedure Carotid Duplex 22130. This is a Carotid Duplex examination using B-mode, color flow and specral Doppler. Exam performed in department. VL/Carotid Duplex Ultrasound Interpretation Summary Mild (<50%) stenosis right extracranial internal carotid. Mild (<50%) stenosis left extracranial internal carotid. The Right vertebral is patent and antegrade. The Left vertebral flow is retrograde. Ordering Physician: Evelyn Hickman Referring Physician: Seema Sterling Performed By: Irene Jaramillo, TASHI, RVT 01/26/241937 Date Ramu Rehman MD CC: TAYLOR Donovan; Dr. Seema Sterling MD Date Dictated: 01/19/2453 Date Transcribed: 01/26/241937 Casework Manager: Signed Normal [facility] Surgery Visit Reporton 01-07 Surgery Visit Report [facility] [address] [place] [address] OFFICE VISIT Date of Service: 01/08/24 MR#: [id number] Acct: [id number] Name: GRETELSUMEET Hutchins Rep #: [id number] : 1945 Provider: TAYLOR Donovan Age/Sex: 78/M Location: [facility] Status: Signed Intake Vital Signs 12/24/23 14:34 01/08/24 10:49 01/08/24 22:16 Height 5 ft 6.93 in Weight: 200 lb BP 188/90 H 164/84 H Blood Pressure Location Lt brachial Lt brachial Position Sitting Sitting Respiration 14 Pulse 83 Pulse Source Monitor Temp 98.2 F Temp Source Temporal Pulse Oximetry (%) 99 Oxygen Delivery Method room air Intake Visit Reasons: 2-3 W CATH F/U Chief Complaint: post op Is patient in pain?: No Allergies No Known Allergies Allergy (Verified 01/08/24 10:51) Have you fallen in the past year?: Yes Subjective Details: Mr. Sumeet Majano is a 78 y/o male who presents today for follow-up after R TCAR 12/23/23. He has noticed slightly more swelling around the incision following this surgery compared to his L TCAR (11/18/23) but otherwise no concerns or complaints at the incision site. No concerns at the groin access site. He has been taking Plavix and ASA as prescribed without issue. He denies any recurrent focal neurologic symptoms. He did report a fall from bent-over position recently, denies hitting his head or having any residual pain related to this. His blood pressure was initially significantly elevated to 188/90 in the office today. This improved to 160/84 when I rechecked at the end of the appointment. He thinks he may have forgotten to take one of his blood pressure medications this morning. He denies any LANGLEY, vision changes, chest/back pain, SOB. He started ASA and Plavix following stroke in August of this year. Objective Details: Alert and oriented x 3, no apparent distress Regular rate and rhythm Nonlabored respirations, clear to auscultation Right neck incision site is well-healed, mild edema which is soft to palpation without any significant tenderness. Coding Level of Care Code Global Post Op Diagnoses Stenosis of right internal carotid artery I65.21 Primary hypertension I10 Hypertension type: primary hypertension [facility] Medical History History of left common carotid artery stent placement Tinnitus of both ears Wears glasses Cancer Alcohol use High cholesterol Blackout Heartburn History of DVT (deep vein thrombosis) Hx of edema Hx of echocardiogram History of stress test Cardiology follow-up encounter Diabetes VENEGAS (dyspnea on exertion) Obesity RONAL (obstructive sleep apnea) Hypothyroidism Hyperlipidemia Lung nodule Chronic kidney disease 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 Prostate CA Hypertension Stroke ( 08/2023) Surgical History Hx of colonoscopy Hx of right cataract extraction Hx of left cataract extraction Hx of umbilical hernia repair History of tonsillectomy ( 2018) Family History Other Heart disease Myocardial infarction Social History Smoking Status: Never smoker alcohol intake: current substance use type: does not use caffeine: Yes Assessment and Plan (No Qualifiers) Assessment and Plan (1) Stenosis of right internal carotid artery: Status: Chronic Plan: Status post right TCAR. Surgical site is well-healed. We discussed that the mild swelling at the incision site should continue to improve with time. Will obtain initial postop carotid duplex now. Anticipate repeating at 6 months and 1 year. He will need to continue with ASA + Plavix for 30 days postoperatively then okay to discontinue Plavix. Continue ASA indefinitely. (2) Hypertension: Status: Chronic Plan: Patient was hypertensive in the office again today. He is instructed to take his BP medication as soon as he gets home. Continue to monitor BP at home and contact his PCP if it is persistently >140 systolic. He acknowledged understanding. Plan Return to the office in 1 year or sooner as needed. 01/08/242215 Date Evelyn VAZQUEZ 01/13/24 3048 Cosigner Signature: Date (if applicable) Ramu Rehman MD CC: Dr. Seema Sterling MD Normal [facility] ACT Activated Clotting Timeo n 12-25-2023 ACTk CLOT TIME 336 sec High 74-137 [facility] Comment on above: Performed By: #### L 501.080 #### [facility] [address] [place], [address] CBC W/Diff, Automatedon 10-0 9-2023 Absolute Lymph 1.35 X10 3/uL Normal 0.83-4.51 [facility] Comment on above: Performed By: #### L 100.0100 #### [facility] [address] [place], [address] Absolute Neut 3.5 X10 3/uL Normal 2.0-7.7 [facility] Comment on above: Performed By: #### L 100.0100 #### [facility] [address] [place], [address] Basophils/100 WBC (Bld) 0.7 % Normal 0-1 [facility] Comment on above: Performed By: #### L 100.0100 #### [facility] [address] [place], [address] Eosinophils/100 WBC (Bld) 3.5 % Normal 0-5 [facility] Comment on above: Performed By: #### L 100.0100 #### [facility] [address] [place], [address] Erythrocyte distribution width (RBC) [Ratio] 13.2 % Normal 11.6-14.6 [facility] Comment on above: Performed By: #### L 100.0100 #### [facility] [address] [place], [address] Hematocrit (Bld) [Volume fraction] 29.3 % Low 40-54 [facility] Comment on above: Performed By: #### L 100.0100 #### [facility] [address] [place], [address] Hemoglobin (Bld) [Mass/Vol] 9.6 g/dL Low 13.0-16.5 [facility] Comment on above: Performed By: #### L 100.0100 #### [facility] [address] [place], [address] IG% 0.500 Normal 0.0-0.9 [facility] Comment on above: Result Comment: IG% - Immature Granulocytes (promyelocytes, myelocytes and metamyelocytes) > 1% indicates that a LEFT SHIFT is Present. Performed By: #### L 100.0100 #### [facility] [address] [place], [address] Lymphocytes/100 WBC (Bld) 23.9 % Normal 19-41 [facility] Comment on above: Performed By: #### L 100.0100 #### [facility] [address] [place], [address] MCH (RBC) [Entitic mass] 29.4 pg Normal 27.0-32.0 [facility] Comment on above: Performed By: #### L 100.0100 #### [facility] [address] [place], [address] MCHC (RBC) [Mass/Vol] 32.8 g/dL Normal 32-36 [facility] Comment on above: Performed By: #### L 100.0100 #### [facility] [address] [place], [address] MCV (RBC) [Entitic vol] 89.9 fL Normal 80-94 [facility] Comment on above: Performed By: #### L 100.0100 #### [facility] [address] [place], [address] Monocytes/100 WBC (Bld) 9.0 % Normal 0-10 [facility] Comment on above: Performed By: #### L 100.0100 #### [facility] [address] [place], [address] Neutrophils/100 WBC (Bld) 62.4 % Normal 47-70 [facility] Comment on above: Performed By: #### L 100.0100 #### [facility] [address] [place], [address] Nucleated RBC (Bld) [#/Vol] 0 10*3/uL Normal 0-5 [facility] Comment on above: Performed By: #### L 100.0100 #### [facility] [address] [place], [address] Platelet mean volume (Bld) [Entitic vol] 10.5 fL Normal 6.2-12.0 [facility] Comment on above: Performed By: #### L 100.0100 #### [facility] [address] [place], [address] Platelets (Bld) [#/Vol] 157 10*3/uL Normal 150-450 [facility] Comment on above: Performed By: #### L 100.0100 #### [facility] [address] [place], [address] RBC (Bld) [#/Vol] 3.26 10*6/uL Low 4.6-6.2 [facility] Comment on above: Performed By: #### L 100.0100 #### [facility] [address] [place], [address] RDW SD 43.9 fl Normal 35.1-43.9 [facility] Comment on above: Performed By: #### L 100.0100 #### [facility] [address] [place], [address] WBC (Bld) [#/Vol] 5.6 10*3/uL Normal 4.4-11.0 [facility] Comment on above: Performed By: #### L 100.0100 #### [facility] [address] [place], [address] Bedside Glucoseon 12-23-2023 FINGERSTICK GLU 163 mg/dL High 74-106 [facility] Comment on above: Result Comment: XUAN LOBATO OF PATIENT CARE PER NURSING PROTOCOL Performed By: #### L 501.080 #### [facility] [address] [place], [address] MR/POSTOP.ANE 12-23-2023 MR/POSTOP.[facility] Medical Records Department [address] [place] [address] Anesthesia Postop Eval I 12/23/23 1152 MR#: [id number] Acct: [id number] Name: SUMEET MAJANO Rep #: [id number] : 1945 78 From: Osmar Santos CRNA PCP: Dr. Seema Sterling MD Status:ADM IN Y Race: C Location: ICU [place] [address] Anesthesia: Postop Eval I Current Vital Signs Temperature: 96.8 F Pulse Rate: 58 Blood Pressure: 134/68 Respiratory Rate: 14 Pulse Ox: 99 Oxygen Delivery Method: Room Air Assessment Airway patent: Yes Spontaneous unlabored respirations: Yes Mental status: Awake and Calm nausea: No Vomiting: No Anesthesia Complication: No Fluid Hydration Crystalloid volume administer (ml): 1,500 Total IV fluid infused: 1,500 Progress Note Anesthesia document: Postop Eval 1 completed: Yes 12/23/23 1153 Date Osmar Santos CRNA Cosigner Signature: Date CC: Signed Normal [facility] MR/POSTOP.[facility] Medical Records Department [address] [place] [address] Anesthesia Postop Eval I 12/23/23 1113 MR#: [id number] Acct: [id number] Name: SUMEET MAJANO Rep #: [id number] : 1945 78 From: Ramu Mcgrath MD PCP: Dr. Seema Sterling MD Status:ADM IN Y Race: C Location: ICU [id number] Anesthesia: Postop Eval I Current Vital Signs Temperature: 96.8 F Pulse Rate: 57 Blood Pressure: 122/56 Respiratory Rate: 16 Pulse Ox: 97 Assessment Airway patent: Yes Spontaneous unlabored respirations: Yes nausea: No Vomiting: No Anesthesia Complication: No Fluid Hydration Crystalloid volume administer (ml): 1,000 Total IV fluid infused: 1,000 Progress Note Anesthesia document: Postop Eval 1 completed: Yes 12/23/23 111 Date Ramu Mcgrath MD Cosigner Signature: Date CC: Signed Normal [facility] MR/[id number] 12-23-2023 [facility] Medical Records Department [address] [place] [address] Anesthesia Postop Eval II 12/23/23 1110 MR#: [id number] Acct: [id number] Name: SUMEET MAJANO Rep #: [id number] : 1945 78 From: Ramu Mcgrath MD PCP: Dr. Seema Sterling MD Status:ADM IN Y Race: C Location: ICU [id number] Anesthesia Postop Eval I Sum Anesthesia Postop Eval I Summary Anesthesia Postop Eval I Summary: Anesthesia Postop Eval I: Assessment Summary Airway patent Spontaneous unlabored respirations Mental status nausea Vomiting Anesthesia Postop Eval I: Fluid Summary Crystalloid volume administer (ml) Colloids volume administered ( ml) Blood Product volume administered (ml) Total IV fluid infused Anesthesia Postop Eval I: Summary Notes Anesthesia Complication Anesthesia Complication Comment: Post-operative progress note Anesthesia: Postop Eval II Evaluation Mental status: Awake Pain Level: 0 nausea: No Vomiting: No 12/23/23 1111 Date Ramu Mcgrath MD Cosigner Signature: Date CC: Signed Normal [facility] Operative Reporton 4 Operative Report [facility] Medical Records Department [address] [place] [address] Operative Report 12/23/23 1115 MR#: [id number] Acct: [id number] Name: SUMEET MAJANO Rep #: [id number] : 1945 78 From: Ramu Rehman MD PCP: Dr. Seema Sterling MD Status:ADM IN Location: ICU [id number] Report of Operation Date of Procedure: 12/23/23 Pre-Operative Diagnosis: right carotid artery stenosis Post-Operative Diagnosis: same Surgery/Procedure Performed:: right carotid artery stent TCAR Surgeon: Ramu Rehman house calls nurse practitioner: Marcelle Vásquez Type of Anesthesia: General Drains: 19 Fr WILLIAM Estimated Blood Loss (mL): 15 Description of Procedure: HPI: Patient is a 78-year-old male with right carotid artery stenosis and a lesion that is distal anatomically and difficult to treat surgically so he presents now for transcarotid artery stenting. Description of procedure: Upon obtaining form consent and verification correct patient procedure site patient was taken to the [facility] where he was placed under general anesthesia. He was then positioned prepped and draped in usual sterile fashion a timeout was performed. Transverse incision was made 1 fingerbreadth superior to the clavicle and Bovie electrocautery used to dissect down through the subcutaneous tissue and divide the platysma. Further dissection was carried down to the sternocleidomastoid which was freed along its medial edge allowing it to be retracted laterally. Self-retaining retractors then moved deeper in the wound and further Bovie dissection carried down until the jugular vein was identified. There is a fair amount of scar around the anterior surface of the jugular vein which made dissection more difficult however we were able to successfully dissect free the vessel along its anterior edge dividing small tributary branches and retracted the vein laterally to expose the carotid artery. Sharp dissection used dissect free the carotid artery circumferentially and a right angle was used to place a vessel loop proximally. The patient was then heparinized and allowed to circulate 3 minutes with ACT's performed to confirm adequate anticoagulation. A 5-0 Prolene pursestring sutures in place at the intended access site. Next under ultrasound guidance the right common femoral vein was accessed with micropuncture needle wire. This then exchanged for micropuncture sheath through which a J-wire was advanced and the micropuncture sheath exchanged for the 8 Swazi venous return sheath. Next a micropuncture needle was used to access the common carotid artery in antegrade fashion which was then exchanged out for micropuncture sheath. Through this hand-injection carotid angiogram was performed revealing satisfactory position with no extravasation or dissection. Also confirmed the location of the bifurcation and the areas of significant plaque. Through the micropuncture sheath the J-wire was advanced stopping short of the proximal extent of the lesion. The micropuncture sheath was then exchanged for the [address] flow reversal sheath. Once this was positioned it was secured with silk sutures and the flow reversal system attached oblique images obtained to confirm satisfactory position and confirmed the extent of the lesions. Next the common carotid artery was occluded with a vessel loop and the 014 wire advanced through the sheath and utilized to navigate across the lesion into the distal internal carotid artery. Next a 4 mm x 35 angioplasty balloon was advanced over the wire and inflated to nominal for 15 seconds with satisfactory coverage of the lesion. Balloon was then deflated withdrawn and a tapered 6 to 8 x 40 en route stent was advanced in the position and deployed. 2 minutes of flow reversal was then permitted prior to completion imaging performed which revealed satisfactory stent position with good wall apposition and no plaque extrusion or residual stenosis. Next the clamp was released and further flow reversal allowed prior to detaching the system. The wire and sheath were then withdrawn and the pursestring suture secured. Next the femoral vein sheath was withdrawn and manual pressure held for 10 minutes with satisfactory stasis noted. Heparin was then reversed with protamine and a 19 Swazi channel WILLIAM placed via separate stab incision. Incision closed with a 3-0 Vicryl followed by 4 Monocryl and Dermabond for the skin. Patient was then awakened from anesthesia moving all extremities to command with cranial nerves intact. He is then taken to the PACU with anticipated admission to the intensive care unit for hemodynamic and neurologic monitoring. Grafts/Implants Used: 6-8x40 En Route 12/23/23 1528 Cosigner Signature (if applicable): CC: Dr. Seema Sterling MD; Dr. Ramu Rehman MD Signed ADDENDUM by Dr. Ramu Rehman MD on 12/23/23 at 1635 Addendum The cable splicer assistant (more content not included)... Normal [facility] Carotid Duplex Ultrasoundon 12-12-2023 Carotid Duplex Ultrasound [facility] [address] [place] [address] Carotid Duplex Ultrasound 12/12/23 1432 MR#: [id number] Acct: [id number] Name: SUMEET MAJANO Rep #: [id number] : 1945 78 From: Ramu Rehman MD Attending Dr: TAYLOR Donovan Status: REG CLI Ordering Dr: Evelyn Hickman Date: 12/12/23 Location: [facility] Sex: M C Admitted: Reason For Study: s/p Lt TCAR Rt. Velocities/BP Lt. Velocities/BP Prox CCA 72/11 cm/sec. Prox CCA 81/18 cm/sec. Mid CCA 69/12 cm/sec. Mid CCA 64/15 cm/sec. Dist CCA 66/15 cm/sec. Dist CCA 75/18 cm/sec. Prox ICA 203/47 cm/sec. Prox ICA 57/12 cm/sec. Mid ICA 370/103 cm/sec. Mid ICA 84/19 cm/sec. Dist ICA 180/27 cm/sec. Dist ICA 99/25 cm/sec. Rt. ICA/CCA = 5.4. Lt. ICA/CCA = 1.5. Prox ECA 127/12 cm/sec. Lt ICA stent: Rt. Vert. 73/18 cm/sec. Pre stent: 71/17 cm/s Prox stent: 50/11 cm/s Mid stent: 84/19 cm/s Distal stent: 73/19 cm/s Post stent: 99/25 cm/s. Prox ECA 92/17 cm/sec. Lt. Vert. 46/9 cm/sec. Right Extracranial There is heterogeneous, irregular atherosclerotic plaque noted in the right common carotid artery. There is heterogeneous, irregular atherosclerotic plaque noted in the right internal carotid artery. There is heterogeneous, irregular atherosclerotic plaque noted in the right external carotid artery. Antegrade flow is noted in the right vertebral artery. Left Extracranial There is heterogeneous, smooth atherosclerotic plaque noted in the left common carotid artery. There is no significant atherosclerotic plaque noted in the left internal carotid artery. Stent noted Lt ICA. There is heterogeneous, smooth atherosclerotic plaque noted in the left external carotid artery. Bidirectional flow noted Lt Vert A. Procedure Carotid Duplex 19330. This is a Carotid Duplex examination using B-mode, color flow and specral Doppler. Prelim given to Kirti at [facility]. Exam performed in department. 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 Normal left extracranial internal carotid. The Right vertebral is patent and antegrade. The Left vertebral flow is bidirectional. Ordering Physician: Evelyn Hickman Referring Physician: Seema Sterling Performed By: Irene Jaramillo, RDCS, RVT 12/17/23 1101 Date Ramu Rehman MD CC: TAYLOR Donovan; Dr. Seema Sterling MD Date Dictated: 12/12/23 1432 Date Transcribed: 12/17/23 110 Casework Manager: Signed Normal [facility] Surgery Visit Reporton 12-03 Surgery Visit Report [facility] [address] [place] [address] OFFICE VISIT Date of Service: 12/04/23 MR#: [id number] Acct: [id number] Name: SUMEET MAJANO Rep #: [id number] : 1945 Provider: TAYLOR Donovan Age/Sex: 78/M Location[place] [facility] Status: Signed Intake Vital Signs 11/19/23 09:41 12/04/23 10:29 Height 5 ft 7 in BP 182/98 H Blood Pressure Location Lt brachial Position Sitting Respiration 16 Pulse 77 Pulse Source Monitor Temp 98.6 F Temp Source Temporal Pulse Oximetry (%) 99 Oxygen Delivery Method room air Intake Visit Reasons: 2-3 W CATH F/U Chief Complaint: left carotid stent Is patient in pain?: No Allergies No Known Allergies Allergy (Verified 12/04/23 10:28) Medications ???Medication ???Instructions ???Recorded ???Confirmed ???Type aspirin 81 mg chewable tablet 81 mg PO DAILY@0800 [facility] 08/06/16 12/04/23 History cholecalciferol (vitamin D3) 50 50 mcg PO DAILY SUPPLEMENT 09/29/23 12/04/23 History mcg (2,000 unit) capsule enzalutamide 40 mg capsule (Xtandi) 160 mg PO QHS PROSTATE 09/29/23 12/04/23 History folic acid 1 mg tablet 1 mg PO DAILY SUPPLEMENT 09/29/23 12/04/23 History levothyroxine 88 mcg capsule 88 mcg PO DAILY THYROID 09/29/23 12/04/23 History rosuvastatin 20 mg tablet 20 mg PO QHS CHOLESTEROL 09/29/23 12/04/23 History clopidogrel 75 mg tablet (Plavix) 75 mg PO DAILY BLOOD THINNER #30 09/30/23 12/04/23 Rx tabs glipizide 2.5 mg tablet, extended 2.5 mg PO DAILY DIABETES 11/05/23 12/04/23 History release 24 hr losartan 100 1 tab PO DAILY BP 11/05/23 12/04/23 History mg-hydrochlorothiazide 12.5 mg tablet Have you fallen in the past year?: Yes Subjective Details: Mr. Sumeet Majano is a 78-year-old male who presents today for initial postoperative follow- up after left TCAR on 11/19/2023. Reports he has overall been doing well since the procedure. He has noted that the incision site feels slightly raised and harder than the surrounding skin. Otherwise he denies any pain, drainage, redness, swelling. He denies any episodes of unilateral motor or sensory deficit, facial drooping, vision loss, vertigo. He denies any unilateral headaches, hoarseness. His blood pressure is very elevated in the office today. Initially, reading of 182/98 and then when I rechecked with a manual BP cuff later had actually worsened to 220/110. He denies any current headache, vision changes, chest pain, shortness of breath, palpitations, abdominal pain.states he feels just fine. He is pretty sure he took his blood pressure medications today, he just takes the pills that are in his pillbox which his sets up for him. He reports he has been checking his blood pressure at home, has been running high at times but typically in the systolic 150s. Objective Details: Alert and oriented x 3, no apparent distress Regular rate and rhythm Nonlabored respirations, clear to auscultation Left neck incision site is well-healed, no focal swelling. Coding Level of Care Code Global Post Op Diagnoses Stenosis of left internal carotid artery I65.22 Stenosis of right internal carotid artery I65.21 Primary hypertension I10 Hypertension type: primary hypertension [facility] Medical History Tinnitus of both ears Wears glasses Cancer Alcohol use High cholesterol Blackout Heartburn History of DVT (deep vein thrombosis) Hx of edema Hx of echocardiogram History of stress test Cardiology follow-up encounter Diabetes VENEGAS (dyspnea on exertion) Obesity RONAL (obstructive sleep apnea) Hypothyroidism Hyperlipidemia Lung nodule Chronic kidney disease 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 Prostate CA Hypertension Stroke ( 08/2023) Surgical History Hx of colonoscopy Hx of right cataract extraction Hx of left cataract extraction Hx of umbilical hernia repair History of tonsillectomy ( 2018) Family History Other Heart disease Myocardial infarction Social History Smoking Status: Never smoker alcohol intake: current substance use type: does not use caffeine: Yes Assessment and Plan (No Qualifiers) Assessment and Plan (1) Stenosis of left internal carotid artery: Status: Chronic Comment: Duplex- Interpretation Summary Severe (>70%) stenosis right extracranial internal carotid. Severe (>70%) stenosis left extracranial internal carotid. The Right vertebral is patent and antegrade. The Left vertebral flow is retrograde, obstruc (more content not included)... Normal [facility] Bedside Glucoseon 11-18-2023 FINGERSTICK GLU 217 mg/dL High 74-106 [facility] Comment on above: Result Comment: Dr Susan shannon Followed MANAGEMENT OF PATIENT CARE PER NURSING PROTOCOL Performed By: #### L 501.080 ####[facility] [address] [place], [address] FINGERSTICK GLU 153 mg/dL High 74-106 [facility] Comment on above: Result Comment: XUAN GEMENT OF PATIENT CARE PER NURSING PROTOCOL Performed By: #### L 501.080 #### [facility] Laboratory [address] [place], [address] CBC W/Diff, Automatedon 09-0 Absolute Lymph 1.50 X10 3/uL Normal 0.83-4.51 [facility] Comment on above: Performed By: #### L 100.0100 ####[facility] [address] [place], [address] Absolute Neut 4.5 X10 3/uL Normal 2.0-7.7 [facility] Comment on above: Performed By: #### L 100.0100 ####[facility] [address] [place], [address] Basophils/100 WBC (Bld) 0.6 % Normal 0-1 [facility] Comment on above: Performed By: #### L 100.0100 ####[facility] [address] [place], [address] Eosinophils/100 WBC (Bld) 2.2 % Normal 0-5 [facility] Comment on above: Performed By: #### L 100.0100 ####[facility] [address] [place], [address] Erythrocyte distribution width (RBC) [Ratio] 13.1 % Normal 11.6-14.6 [facility] Comment on above: Performed By: #### L 100.0100 ####[facility] [address] [place], [address] Hematocrit (Bld) [Volume fraction] 28.2 % Low 40-54 [facility] Comment on above: Performed By: #### L 100.0100 ####[facility] [address] [place], [address] Hemoglobin (Bld) [Mass/Vol] 9.3 g/dL Low 13.0-16.5 [facility] Comment on above: Performed By: #### L 100.0100 ####[facility] [address] [place], [address] IG% 0.300 Normal 0.0-0.9 [facility] Comment on above: Result Comment: IG% - Immature Granulocytes (promyelocytes, myelocytes and metamyelocytes) > 1% indicates that a LEFT SHIFT is Present. Performed By: #### L 100.0100 ####[facility] [address] [place], [address] Lymphocytes/100 WBC (Bld) 22.2 % Normal 19-41 [facility] Comment on above: Performed By: #### L 100.0100 ####[facility] [address] [place], [address] MCH (RBC) [Entitic mass] 29.4 pg Normal 27.0-32.0 [facility] Comment on above: Performed By: #### L 100.0100 ####[facility] [address] [place], [address] MCHC (RBC) [Mass/Vol] 33.0 g/dL Normal 32-36 [facility] Comment on above: Performed By: #### L 100.0100 ####[facility] [address] [place], [address] MCV (RBC) [Entitic vol] 89.2 fL Normal 80-94 [facility] Comment on above: Performed By: #### L 100.0100 ####[facility] [address] [place], [address] Monocytes/100 WBC (Bld) 8.3 % Normal 0-10 [facility] Comment on above: Performed By: #### L 100.0100 ####[facility] [address] [place], [address] Neutrophils/100 WBC (Bld) 66.4 % Normal 47-70 [facility] Comment on above: Performed By: #### L 100.0100 ####[facility] [address] [place], [address] Nucleated RBC (Bld) [#/Vol] 0 10*3/uL Normal 0-5 [facility] Comment on above: Performed By: #### L 100.0100 ####[facility] [address] [place], [address] Platelet mean volume (Bld) [Entitic vol] 10.3 fL Normal 6.2-12.0 [facility] Comment on above: Performed By: #### L 100.0100 ####[facility] [address] [place], [address] Platelets (Bld) [#/Vol] 174 10*3/uL Normal 150-450 [facility] Comment on above: Performed By: #### L 100.0100 ####[facility] [address] [place], [address] RBC (Bld) [#/Vol] 3.16 10*6/uL Low 4.6-6.2 [facility] Comment on above: Performed By: #### L 100.0100 ####[facility] [address] [place], [address] RDW SD 42.7 fl Normal 35.1-43.9 [facility] Comment on above: Performed By: #### L 100.0100 ####[facility] [address] [place], [address] WBC (Bld) [#/Vol] 6.8 10*3/uL Normal 4.4-11.0 [facility] Comment on above: Performed By: #### L 100.0100 ####[facility] [address] [place], [place], [address] Miscellaneous Lab Procedure 2on 11-19-2023 [facility] LAB TEST 2 Normal [facility] Comment on above: Order Comment: YASMEEN- PL.FUNC.TESTKANCHERLA-A1C TSHTURNEY-OTHER TESTSPlatelet Function TestPlatelet Function Test Result Comment: TEST RESULTS LIMITS Platelet Function Test Collagen/Epinephrine >300 (H) seconds 80 - 184 Collagen/ADP 94 seconds 56 - 102 Platelet Function Interp See Below Results consistent with the effect of aspirin or medications containing aspirin. TESTING PERFORMED AT [facility]. ORIGINAL REPORT ON FILE IN LAB CONTAINS ADDITIONAL TEST SITE INFORMATION. Performed By: #### L 501.080 #### [facility] [address] [place], [address] ACT Activated Clotting Timeo n 11-18-2023 ACTk CLOT TIME 348 sec High 74-137 [facility] Comment on above: Performed By: #### L 501.080 #### [facility] [address] [place], [address] Bedside Glucoseon 11-18-2023 FINGERSTICK GLU 206 mg/dL High 74-106 [facility] Comment on above: Result Comment: XUAN GEMENT OF PATIENT CARE PER NURSING PROTOCOL Performed By: #### L 501.080 ####[facility] [address] [place] [place], [address] FINGERSTICK GLU 199 mg/dL High -106 [facility] Comment on above: Result Comment: Dr Susan shannon Followed Insulin Given MANAGEMENT OF PATIENT CARE PER NURSING PROTOCOL Performed By: #### L 501.080 #### [facility] [address] [facility] [place], [address] FINGERSTICK GLU 188 mg/dL High -106 [facility] Comment on above: Result Comment: Dr Susan shannon Followed MANAGEMENT OF PATIENT CARE PER NURSING PROTOCOL Performed By: #### L 501.080 #### [facility] [address] [place] [place], [address] FINGERSTICK GLU 174 mg/dL High [facility]106 [facility] Comment on above: Result Comment: XUAN GEMENT OF PATIENT CARE PER NURSING PROTOCOL Performed By: #### L 501.080 ####[facility] [address] [place] [place], [address] MR/POSTOP.ANEon 11-18-2023 MR/POSTOP.[facility] Medical Records Department [address] [place] [address] Anesthesia Postop Eval I 11/18/23 1110 MR#: [id number] Acct: [id number] Name: SUMEET MAJANO Rep #: [id number] : 1945 78 From: Chavo Alexandra PCP: Dr. Seema Sterling MD Status:ADM IN Y Race: C Location: ICU [id number] Anesthesia: Postop Eval I Current Vital Signs Temperature: 98.1 F Pulse Rate: 89 Blood Pressure: 148/68 Respiratory Rate: 16 Pulse Ox: 100 Oxygen Delivery Method: Room Air Assessment Airway patent: Yes Spontaneous unlabored respirations: Yes Mental status: Awake and Calm nausea: No Vomiting: No Anesthesia Complication: No Fluid Hydration Crystalloid volume administer (ml): 1,200 Total IV fluid infused: 1,200 Progress Note Anesthesia document: Postop Eval 1 completed: Yes 11/18/23 1111 Date Chavo Reed Signature: Date CC: Signed Normal [facility] MR/GNSRKGOI2co 11-18-2023 [facility] Medical Records Department [address] [place] [address] Anesthesia Postop Eval II 11/18/23 1231 MR#: [id number] Acct: [id number] Name: SUMEET MAJANO Rep #: [id number] : 1945 78 From: Gregory Amin MD PCP: Dr. Seema Sterling MD Status:ADM IN Y Race: C Location: ICU [id number] Anesthesia Postop Eval I Sum Postop Eval Completion status Anesthesia document: Postop Eval 1 completed: Yes Anesthesia Postop Eval I Summary Anesthesia Postop Eval I Summary: Anesthesia Postop Eval I: Assessment Summary Airway patent Yes 11/18/23 11:11 CROWN POUNCER.JACKIE Spontaneous unlabored Yes 11/18/23 11:11 CROWN POUNCER.OT respirations Mental status Awake,Calm 11/18/23 11:11 CROWN POUNCER.MDOT nausea No 11/18/23 11:11 CROWN POUNCER.MDOT Vomiting No 11/18/23 11:11 CROWN POUNCER.MDOT Anesthesia Postop Eval I: Fluid Summary Crystalloid volume administer 1,200 11/18/23 11:11 VLAD (ml) Colloids volume administered ( ml) Blood Product volume administered (ml) Total IV fluid infused 1,200 11/18/23 11:11 VLAD Anesthesia Postop Eval I: Summary Notes Anesthesia Complication No 11/18/23 11:11 CROWN POUNCERANETA Anesthesia Complication Comment: Post-operative progress note Anesthesia: Postop Eval II Evaluation Mental status: Awake and Calm Pain Level: 1 nausea: No Vomiting: No Complications Anesthesia Complication: No 11/18/23 1235 Date Gregoyr Amin MD Cosigner Signature: Date CC: Signed Normal [facility] Operative Reporton 4 Operative Report [facility] Medical Records Department [address] [place] [address] Operative Report 11/18/23 1043 MR#: [id number] Acct: [id number] Name: SUMEET MAJANO Rep #: [id number] : 1945 78 From: Ramu Rehman MD PCP: Dr. Seema Sterling MD Status:ADM IN Location: ICU [id number] Report of Operation Date of Procedure: 11/18/23 Pre-Operative Diagnosis: symptomatic left carotid stenosis Post-Operative Diagnosis: same Surgery/Procedure Performed:: left trans carotid stent Surgeon: Ramu Rehman Type of Anesthesia: General Drains: 15 Fr WILLIAM Estimated Blood Loss (mL): 15 Description of Procedure: HPI: Patient is a 78-year-old male with symptomatic left internal carotid artery stenosis. He had imaging that revealed a lesion that was distal to the bifurcation and was appropriate for carotid artery stenting. He presents now transcarotid artery stenting. Description of procedure: Upon obtaining form consent and verification correct patient procedure site patient was taken to the [facility] where he was placed under general anesthesia. He was then positioned prepped and draped in usual sterile fashion timeout was performed. Transverse incision was made 1 fingerbreadth superior to the left clavicle Bovie electrocautery used to dissect down through the subcutaneous tissue to the level of platysma. The platysma was then divided and self- retaining retractor was put in position. The sternocleidomastoid was then dissected free along its medial border as well as between the sternal and clavicular heads. This was then initially retracted medially however then the carotid sheath and vessels were too medial to successfully reach from this position. Sternocleidomastoids then further dissected and mobilized and then retracted laterally exposing the carotid sheath. Sharp dissection used to dissect free the proximal common carotid artery with care taken to identify and protect the adjacent nerve and vein structures. A right angle was used to place vessel approximately the patient was heparinized allowed circulate for 3 minutes. Subsequent heparin dosing was performed based on serial ACT results. A pursestring 5-0 Prolene suture was in place the intended site of access. Next ultrasound was used to evaluate the right common femoral vein and the vessel accessed under ultrasound guidance with a micropuncture needle wire. Patient exchanged for micropuncture sheath through which a J-wire was advanced and the micropuncture sheath exchanged for the 8 Swazi flow reversal return sheath. Next a micropuncture needle wire used to access the common carotid artery and antegrade fashion the site of the pursestring suture. This was then exchanged for micropuncture sheath through which injection subtraction geography was performed revealing satisfactory position with no extravasation or dissection. Through the micropuncture sheath a J-wire was advanced and stopped inferior to the proximal edge of the plaque. The micropuncture sheath and exchanged for the silk Road flow reversal sheath was advanced without difficulty. This was then secured in position with silk stay sutures in the flow reversal infiltration tubing attached. Satisfactory flow reversal was confirmed and an adequate ACT had been obtained. The common carotid artery was then occluded with vessel loop and continued flow reversal confirmed by flushing the sheaths. Next an [address] angioplasty balloon 4 x 35 was advanced into position crossing the lesion without difficulty. This was then predilated to nominal and then deflated and withdrawn. Next a silk Road en route stent tapered 9 to 7 x 40 was advanced into position and deployed. Flow reversal was allowed to continue for 2 minutes at which point repeat angiography was performed revealed satisfactory stent placement no extravasation or dissection and no plaque protrusion. This also revealed satisfactory stent expansion with no residual stenosis. The vessel loop was then released and a further 1 minute of flow reversal allowed prior to removal of the flow reversal system and securing the pursestring in the carotid artery. The femoral venous return sheath was then withdrawn and manual pressure held for 10 minutes or satisfactory stasis noted. Patient was then taken to the recovery room with anticipate admission to the intensive care unit for hemodynamic and neurologic monitoring. Grafts/Implants Used: En route 9-7x40 11/18/23 1723 Cosigner Signature (if applicable): CC: Dr. Seema Sterling MD; Dr. Ramu Rehman MD Signed Normal [facility] Basic Metabolic Profile (BMP )on 11-06-2023 BUN/CRE 22.5 RATIO High 10-20 [facility] Comment on above: Order Comment: JESSICA BENDERC.TEST KANCHERLA-A1C TSH LORENZO-OTHER TESTS Performed By: #### L 500.2500, BTSPAT, L100.0500 #### [facility] [address] [place], [address] CA,Total 9.3 mg/dL Normal 8.5-10.1 [facility] Comment on above: Order Comment: JESSICA BENDERC.TEST KANCHERLA-A1C TSH LORENZO-OTHER TESTS Performed By: #### L 500.2500, BTSPAT, L100.0500 #### [facility] [address] [place], [address] Chloride [Moles/Vol] 107 mmol/L Normal 98-107 [facility] Comment on above: Order Comment: YASMEEN- FUNC.TEST KANCHERLA-A1C TSH LORENZO-OTHER TESTS Performed By: #### L 500.2500, BTSPAT, L100.0500 #### [facility] [address] [place], [address] CO2 [Moles/Vol] 22.0 mmol/L Normal 21.0-32.0 [facility] Comment on above: Order Comment: JESSICA THORNE.TEST KANCHERLA-A1C TSH LORENZO-OTHER TESTS Performed By: #### L 500.2500, BTSPAT, L100.0500 #### [facility] [address] [place], [address] Creatinine [Mass/Vol] 1.38 mg/dL High 0.70-1.30 [facility] Comment on above: Order Comment: JESSICA THORNE.TEST KANCHERLA-A1C TSH LORENZO-OTHER TESTS Result Comment: The validity of the calculated GFR GFRAA in patients over 70 years has not been determined. Clinical correlation is essential. Performed By: #### L 500.2500, BTSPAT, L100.0500 #### [facility] [address] [place], [address] EST GFR - AA 64 mL/min Normal >60 [facility] Comment on above: Order Comment: JESSICA THORNE.TEST KANCHERLA-A1C TSH LORENZO-OTHER TESTS Result Comment: Afri can Dutch GFR Calc Performed By: #### L 500.2500, BTSPAT, L100.0500 #### [facility] [address] [place], [address] GAP 9 Normal 5-15 [facility] Comment on above: Order Comment: JESSICA THORNE.TEST KANCHERLA-A1C TSH LORENZO-OTHER TESTS Performed By: #### L 500.2500, BTSPAT, L100.0500 #### [facility] [address] [place], [address] GFR/1.73 sq M.predicted among non-blacks MDRD (S/P/Bld) [Vol rate/Area] 53 mL/min/{1.73_m2} Low >60 [facility] Comment on above: Order Comment: JESSICA BENDERC.TEST KANCHERLA-A1C TSH LORENZO-OTHER TESTS Result Comment: Non- GFR Calc Performed By: #### L 500.2500, BTSPAT, L100.0500 #### [facility] [address] [place], [address] Glucose [Mass/Vol] 206 mg/dL High 74-106 [facility] Comment on above: Order Comment: YASMEEN- YULIAC.TEST KANCHERLA-A1C TSH LORENZO-OTHER TESTS Result Comment: Gluc ose result greater than or equal to 200 mg/dL suggests DIABETES MELLITUS per A.D.A. criteria. Performed By: #### L 500.2500, BTSPAT, L100.0500 #### [facility] [address] [place], [address] Potassium [Moles/Vol] 4.2 mmol/L Normal 3.5-5.1 [facility] Comment on above: Order Comment: JESSICA BENDERC.TEST KANCHERLA-A1C TSH LORENZO-OTHER TESTS Performed By: #### L 500.2500, BTSPAT, L100.0500 #### [facility] [address] [place], [address] Sodium [Moles/Vol] 138 mmol/L Normal 136-145 [facility] Comment on above: Order Comment: JESSICA BENDERC.TEST KANCHERLA-A1C TSH LORENZO-OTHER TESTS Performed By: #### L 500.2500, BTSPAT, L100.0500 #### [facility] [address] [place], [address] Urea nitrogen [Mass/Vol] 31 mg/dL High 7-18 [facility] Comment on above: Order Comment: YASMEEN- YULIAC.TEST KANCHERLA-A1C TSH LORENZO-OTHER TESTS Performed By: #### L 500.2500, BTSPAT, L100.0500 #### [facility] [address] [place], [address] CBC-Complete Blood Cnt No Di ffon 11-06-2023 Erythrocyte distribution width (RBC) [Ratio] 12.9 % Normal 11.6-14.6 [facility] Comment on above: Order Comment: YASMEEN- FUNC.TEST KANCHERLA-A1C TSH LORENZO-OTHER TESTS Performed By: #### L 500.2500, BTSPAT, L100.0500 #### [facility] [address] [place], [address] Hematocrit (Bld) [Volume fraction] 34.1 % Low 40-54 [facility] Comment on above: Order Comment: YASMEEN- PL.FUNC.TEST KANCHERLA-A1C TSH LORENZO-OTHER TESTS Performed By: #### L 500.2500, BTSPAT, L100.0500 #### [facility] [address] [place], [address] Hemoglobin (Bld) [Mass/Vol] 11.1 g/dL Low 13.0-16.5 [facility] Comment on above: Order Comment: YASMEEN- FUNC.TEST KANCHERLA-A1C TSH LORENZO-OTHER TESTS Performed By: #### L 500.2500, BTSPAT, L100.0500 #### [facility] [address] [place], [address] MCH (RBC) [Entitic mass] 29.1 pg Normal 27.0-32.0 [facility] Comment on above: Order Comment: YASMEEN- PLEstelitaFUNC.TEST KANCHERLA-A1C TSH LORENZO-OTHER TESTS Performed By: #### L 500.2500, BTSPAT, L100.0500 #### [facility] [address] [place], [address] MCHC (RBC) [Mass/Vol] 32.6 g/dL Normal 32-36 [facility] Comment on above: Order Comment: HICKMAN- PL.FUNC.TEST KANCHERLA-A1C TSH LORENZO-OTHER TESTS Performed By: #### L 500.2500, BTSPAT, L100.0500 #### [facility] [address] [place], [address] MCV (RBC) [Entitic vol] 89.5 fL Normal 80-94 [facility] Comment on above: Order Comment: HICKMAN- PL.FUNC.TEST KANCHERLA-A1C TSH LORENZO-OTHER TESTS Performed By: #### L 500.2500, BTSPAT, L100.0500 #### [facility] [address] [place], [address] Platelet mean volume (Bld) [Entitic vol] 10.4 fL Normal 6.2-12.0 [facility] Comment on above: Order Comment: HICKMAN- PL.FUNC.TEST KANCHERLA-A1C TSH LORENZO-OTHER TESTS Performed By: #### L 500.2500, BTSPAT, L100.0500 #### [facility] [address] [place], [address] Platelets (Bld) [#/Vol] 239 10*3/uL Normal 150-450 [facility] Comment on above: Order Comment: HICKMAN- PL.FUNC.TEST KANCHERLA-A1C TSH LORENZO-OTHER TESTS Performed By: #### L 500.2500, BTSPAT, L100.0500 #### [facility] [address] [place], [address] RBC (Bld) [#/Vol] 3.81 10*6/uL Low 4.6-6.2 [facility] Comment on above: Order Comment: HICKMAN- PL.FUNC.TEST KANCHERLA-A1C TSH LORENZO-OTHER TESTS Performed By: #### L 500.2500, BTSPAT, L100.0500 #### [facility] [address] [place], [address] RDW SD 42.4 fl Normal 35.1-43.9 [facility] Comment on above: Order Comment: HICKMAN- PL.FUNC.TEST KANCHERLA-A1C TSH LORENZO-OTHER TESTS Performed By: #### L 500.2500, BTSPAT, L100.0500 #### [facility] [address] [place], [place], [address] WBC (Bld) [#/Vol] 5.2 10*3/uL Normal 4.4-11.0 [facility] Comment on above: Order Comment: JESSICA THORNE.TEST KANCHERLA-A1C TSH LORENZO-OTHER TESTS Performed By: #### L 500.2500, BTSPAT, L100.0500 #### [facility] [address] [place], [place], [address] Echo Completeon 11-06-2023 Echo Complete [facility] [address] [place] [address] Echo Complete 11/06/23 0915 MR#: [id number] Acct: [id number] Name: SUMEET MAJANO Rep #: [id number] : 1945 78 From: Jo Ann Carmen MD Attending Dr: Dr. Edvin Lin MD Status: [facility] Ordering Dr: Edvin Lin MD Date: 11/06/23 Location: [facility] Sex: M C Admitted: Reason For Study: ABN EKG Procedure This was a 2D Doppler, Color Flow transthoracic echocardiogram. Exam performed in department. Left Ventricle Normal LV size. The estimated ejection fraction is 55 %. Unable to assess diastolic dysfunction. No regional wall motion abnormalities noted. Right Ventricle Normal RV size. Normal systolic function. Atria The left and right atria are normal. No doppler evidence for ASD. Mitral Valve There is severe mitral annular calcification. There is no mitral valve stenosis. Trivial mitral valve insufficiency. Tricuspid Valve There is no tricuspid stenosis. Unable to estimate RV systolic pressure due to inadequate jet, pulmonary artery pressure probably normal. Aortic Valve Aortic sclerosis, no stenosis. There is no aortic stenosis. No aortic valve insufficiency. Pulmonic Valve There is no pulmonic valvular stenosis. No pulmonic valve insufficiency. Great Vessels Normal aortic root. Pericardium/Pleural No pericardial effusion. MMode/2D Measurements Calculations LVIDd: 4.5 cm IVSd: 1.3 cm Ao root diam: 3.3 cm LVIDs: 3.2 cm LVPWd: 1.5 cm FS: 28.6 % LAV(MOD-bp): 50.9 ml LVAd ap4: 24.7 cm2 SV(MOD-sp4): 29.6 ml LAV(MOD-bp) Indexed: 25.2 ml/m2 LVLd ap4: 7.9 cm LAV(MOD-sp2): 44.0 ml EDV(MOD-sp4): 64.4 ml LAV(MOD-sp4): 54.0 ml EDV(sp4-el): 65.0 ml LVAs ap4: 15.8 cm2 LVLs ap4: 6.5 cm ESV(MOD-sp4): 34.8 ml ESV(sp4-el): 32.6 ml EF(MOD-sp4): 46.0 % EF(sp4-el): 49.8 % SV(sp4-el): 32.4 ml LA A4 area: 18.8 cm2 LA dimension(2D): 4.3 cm RA A4 area: 11.5 cm2 TAPSE: 2.9 cm Time Measurements MV dec time: 0.12 sec Doppler Measurements Calculations MV E max bhavana: 104.3 cm/sec Lat Peak E' Bhaavna: 8.2 cm/sec Med Peak E' Bhavana: 4.0 cm/sec MV A max bhavana: 183.6 cm/sec E/E' lat: 12.8 E/E' med: 26.3 MV E/A: 0.57 MV V2 max: 186.8 cm/sec Ao V2 max: 88.1 cm/sec MV max P.0 mmHg MV dec slope: 853.7 cm/sec2 Ao max P.1 mmHg MV V2 mean: 90.3 cm/sec Ao V2 mean: 64.4 cm/sec MV mean P.1 mmHg Ao mean P.8 mmHg MV V2 VTI: 44.5 cm Ao V2 VTI: 18.7 cm AV (velocity ratio): 0.96 LV V1 max: 85.2 cm/sec PA V2 max: 115.9 cm/sec LV V1 max P.9 mmHg PA V2 mean: 75.0 cm/sec LV V1 mean P.5 mmHg LV V1 mean: 56.6 cm/sec LV V1 VTI: 17.9 cm ECHO/Echo Complete Interpretation Summary The estimated ejection fraction is 55 %. Unable to assess diastolic dysfunction. Trivial mitral valve insufficiency. Ordering Physician: Edvin Lin Referring Physician: Edvin Lin Performed By: Jesenia Perry RCS 11/06/23 1536 Date Jo Ann Carmen MD CC: Dr. Seema Sterling MD; Dr. Edvin Lin MD Date Dictated: 11/06/23914 Date Transcribed: 11/06/231535 Casework Manager: Signed Normal [facility] Hemoglobin A1con 11-06-2023 HbA1c (Bld) [Mass fraction] 7.5 % High 3.8-5.6 [facility] Comment on above: Order Comment: HICKMAN- PLRUBIOC.TESTKANCHERLA-A1C TSHTURNEY-OTHER TESTS Result Comment: Norm al < 5.7 % Prediabetic 5.7 - 6.4 % Diabetic >or= 6.5 % Please note range changes. Performed By: #### L 501.080 #### [facility] [address] [place], [address] Thyroid Stim Hormone (TSH)on 11-06-2023 TSH 2.700 uIU/mL Normal 0.358-3.740 [facility] Comment on above: Order Comment: YASMEEN- PLRUBIOC.TESTKANCHERLA-A1C TSHTURNEY-OTHER TESTS Performed By: #### L 501.080 #### [facility] [address] [place], [address] Type AND Screen - PAT ONLYon 11-06-2023 Ab SCREEN GEL Negative Normal [facility] Comment on above: Order Comment: Surge ry Date: 11/18/23 Reason for Laboratory Test PREOP HICKMAN-PLRUBIOC.TEST KANCHERLA-A1C TSH LORENZO-OTHER TESTS [id number] N/A N N S LEFT CAROTID STENT Performed By: #### L 500.2500, BTSPAT, L100.0500 #### [facility] [address] [place], [address] 12 Lead EKG performed by [facility] on 10-31-2023 12 Lead EKG performed by [facility] [address] [place] [address] 12 Lead EKG performed by [facility] 10/31/2353 MR#: [id number] Acct: [id number] Name: SUMEET MAJANO Rep #: [id number] : 1945 78 From: Edvin Lin MD Attending Dr: Dr. Edvin Lin MD Status: DE P AMB Ordering Dr: Edvin Lin MD Date: 10/31/23 [facility] [facility] Sex: M C Admitted: BMS/12 Lead EKG performed by [facility] ECG Report Interpretation S inus Rhythm -Left atrial enlargement. -Poor R-wave progression -nonspecific -consider old anterior infarct. BORDERLINEElectronically signed on 10/31/2023 at 15:[address] Edvin Lin Eleanor Software Version [id number] 10/31/23 1534 Date Edvin Lin MD CC: Dr. Seema Sterling MD Date Dictated: 10/31/23852 Date Transcribed: 10/31/23852 Casework Manager: Signed Normal [facility] Cardiology Visit Reporton Cardiology Visit Report [facility] [address] [place] [address] OFFICE VISIT Date of Service: 10/31/23 MR#: [id number] Acct: [id number] Name: SUMEET MAJANO Rep #: [id number] : 1945 Provider: Dr. Edvin le MD Age/Sex: 78/M Location: [facility] Status: Signed HPI HPI History of Present Illness Details: The patient is a 78-year-old white male comes in for new patient visit for preop clearance. The patient is referred by Dr. Ramu Rehman for evaluation for bilateral carotid interventions. Patient has a history of a TIA in August and subsequently underwent testing which revealed greater than 70% stenosis in both the right and left internal carotid arteries. The left vertebral flow was retrograde with obstructive waveform the right vertebral was patent and had antegrade flow. The patient is here now for preop evaluation. He denies any previous history of coronary disease and denies any history of myocardial infarction he does have a history of chronic dyspnea on exertion. He has never smoked he does not have a family history of early coronary disease however he does have a history of hypertension hyperlipidemia and he is diabetic on oral agents. He also has a history of hypothyroidism and a history of left lower extremity DVTs. Due to financial constraints he did not complete his prescribed course of oral anticoagulation therapy for his DVT in the past. EKG in the office today shows normal sinus rhythm with left atrial enlargement and poor R wave progression consistent with a possible old anterior wall infarct. The patient has no previous history and has no history of recent angina or any change in his dyspnea on exertion. He can walk a flight of stairs. The patient did not bring on the list of his medications and he was slow to answer question. I was able to get his on the phone and she was able to provide a lot of information including his activity levels and his current medical therapy. We updated his medication list as noted. Intake Vital Signs 10/31/23 13:00 Height 5 ft 7 in Weight: 201 lb BMI 31.4 BP 151/80 H Blood Pressure Location Lt brachial Position Sitting Respiration 18 Pulse 89 Pulse Source Monitor Pulse Oximetry (%) 96 Oxygen Delivery Method room air Intake Visit Reasons: STENOSIS/SURG CLEARANCE (OK PER ) Knitter Hand Required: No Is patient in pain?: No Allergies No Known Allergies Allergy (Verified 10/31/23 13:02) Medications ???Medication ???Instructions ???Recorded ???Confirmed ???Type aspirin 81 mg chewable tablet 81 mg PO DAILY@0800 08/06/16 10/31/23 History cholecalciferol (vitamin D3) 50 50 mcg PO DAILY 09/29/23 10/31/23 History mcg (2,000 unit) capsule enzalutamide 40 mg capsule (Xtandi) 160 mg PO DAILY 09/29/23 10/31/23 History folic acid 1 mg tablet 1 mg PO DAILY 09/29/23 10/31/23 History levothyroxine 88 mcg capsule 88 mcg PO DAILY 09/29/23 10/31/23 History losartan 25 mg tablet 25 mg PO DAILY 09/29/23 10/31/23 History rosuvastatin 20 mg tablet 20 mg PO DAILY 09/29/23 10/31/23 History clopidogrel 75 mg tablet (Plavix) 75 mg PO DAILY #30 tabs 09/30/23 10/31/23 Rx Have you fallen in the past year?: Yes Nurse's Note: Pt does not know what medication he's taking or have a list [facility] Medical History Diabetes VENEGAS (dyspnea on exertion) Obesity RONAL (obstructive sleep apnea) Hypothyroidism Hyperlipidemia Lung nodule Chronic kidney disease 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 Stroke ( 08/2023) Prostate CA Hypertension Surgical History History of tonsillectomy ( 2017) Family History Other Heart disease Myocardial infarction Social History Smoking Status: Never smoker alcohol intake: current substance use type: does not use caffeine: Yes ROS Const Const: Positive for weakness; Negative for fatigue ENT ENT: Negative for dizziness or balance problems Cardio Chest Pain: No Palpitations: No Edema: Bilateral (primarily left) Muscle aches with walking: None Resp Respiratory: Negative for SOB with activity, SOB at rest or SOB orthopnea SOB lying down GI GI: Positive for heartburn; Negative nausea or vomiting Musc Musc: Negative for muscle weakness or balance problems Neuro Neuro: Positive for weakness; Negative for dizziness, lightheadedness, near syncope or syncope Endo Endo: Negative for fatigue Cardiology Exam Const Appearance: cooperative, comfortable and no acute distress Patient is slow to answer questions and (more content not included)... Normal [facility] Miscellaneous Lab Procedure [facility] Normal [facility] Comment on above: Order Comment: HICKMAN- PL.FUNC.TEST KANCHERLA-A1C TSH LORENZO-OTHER TESTS Result Comment: TEST RESULTS LIMITS Platelet Function Test Collagen/Epinephrine >300 (H) 80 - 184 SECONDS Collagen/ADP >300 (H) 55 - 102 SECONDS Platelet Function Interp See Below Intrinsic Platelet Dysfunction is suggested, since both studies are abnormal. TESTING PERFORMED AT [facility]. ORIGINAL REPORT ON FILE IN LAB CONTAINS ADDITIONAL TEST SITE INFORMATION. Performed By: #### L 500.2500, BTSPAT, L100.0500 #### [facility] [address] [place], [address] [facility] n [facility]-2023 [facility] LAB TEST Normal [facility] Comment on above: Order Comment: Plate let Function TestPlatelet Function Test Result Comment: TEST RESULTS LIMITS Platelet Function Test Collagen/Epinephrine >300 (H) 80-184 seconds Collagen/ADP 88 56-102 seconds Platelet Function Test See Below Comments: Two samples were received for testing. On initial testing, the collagen/epinephrine closure time was markedly prolonged and the collagen/ADP closure time was normal; this pattern of findings indicates platelet dysfunction and is most frequently associated with medication administration(commonly aspirin or another NSAID), but it has also been associated with some intrinsic platelet function defects. Repeat of the collagen/epinephrine assay on the second sample showed a shortened closure time of 65 seconds, which may be associated with a traumatic venipuncture(compromised sample) or possibly hypercoagulability. The significance of these disparate findings is unknown. If clinical concern for a platelet function abnormality persists, repeating the assay is recommended. Babar Belle M.D. TESTING PERFORMED AT [facility]. ORIGINAL REPORT ON FILE IN LAB CONTAINS ADDITIONAL TEST SITE INFORMATION. Performed By: #### L 801.1541 ####[facility] [address] [place], [address] MR/BMS.[facility] 10-23-2023 [facility] [address] [place] [address] OFFICE VISIT Date of Service: 10/23/23 MR#: [id number] Acct: [id number] Name: SUMEET MAJANO Rep #: [id number] : 1945 Provider: Dr. Ramu Rehman MD Age/Sex: 78/M Location: [facility] Status: Signed Intake Vital Signs 10/23/23 15:10 Weight: 203 lb BP 157/89 H Blood Pressure Location Lt brachial Position Sitting Respiration 16 Pulse 88 Pulse Source Monitor Temp 98.2 F Temp Source Temporal Pulse Oximetry (%) 98 Oxygen Delivery Method room air Intake Visit Reasons: REVIEW RESULTS Is patient in pain?: No Allergies No Known Allergies Allergy (Verified 10/23/23 15:11) Medications ???Medication ???Instructions ???Recorded ???Confirmed ???Type aspirin 81 mg chewable tablet 81 mg PO DAILY@0800 08/06/16 10/23/23 History cholecalciferol (vitamin D3) 50 50 mcg PO DAILY 09/29/23 10/23/23 History mcg (2,000 unit) capsule enzalutamide 40 mg capsule (Xtandi) 160 mg PO DAILY 09/29/23 10/23/23 History folic acid 1 mg tablet 1 mg PO DAILY 09/29/23 10/23/23 History levothyroxine 88 mcg capsule 88 mcg PO DAILY 09/29/23 10/23/23 History losartan 25 mg tablet 25 mg PO DAILY 09/29/23 10/23/23 History rosuvastatin 20 mg tablet 20 mg PO DAILY 09/29/23 10/23/23 History clopidogrel 75 mg tablet (Plavix) 75 mg PO DAILY #30 tabs 09/30/23 10/23/23 Rx Have you fallen in the past year?: Yes PFSH Medical History Prostate CA Hypertension Surgical History History of tonsillectomy ( 2018) Family History Other Heart disease Myocardial infarction Social History Smoking Status: Never smoker HPI HPI HPI: SUMEET MAJANO, is a 78 M who presents to the office today for follow up of bilateral carotid stenosis, left symptomatic. He had MRA at outside facility that suggested left ICA occlusion, had left hemispheric infarct. At last office visit obtained duplex to confirm status of ICA; it revealed left ICA patent with >70% stenosis and right also >70%. He has had a CTA and is here to discuss. No recurrent new numbness/weakness/vision loss/speech difficulty (has expressive aphasia from initial CVA). ROS General General: Yes fatigue and weakness; No weight change, appetite, colon cancer or breast cancer HEENT HEENT: No difficulty swallowing, eye injury, eye surgery, swollen glands or hoarseness Endo Endocrine: Yes diabetes mellitus; No thyroid disease, thyroid cancer, Hair loss, heat intolerance or cold intolerance Skin Skin: No rash or changing moles Musc Musculoskeletal: No back problems, arthritis, rheumatoid arthritis, gout or joint pain Cardio Cardiovascular: Yes high blood pressure and shortness of breat with exertion; No murmur, pacemaker, heart disease, atrial fibrillation, heart attack, heart stent, palpitations or chest pain Psych Psychiatric: No depression, anxiety or hearing voices Resp Respiratory: Yes shortness of breath, Yes sleep apnea, No cough, No COPD, No asthma, No emphysema and No wheezing Gastro Gastrointestinal: No abdominal pain, No nausea or vomiting, No diarrhea, No constipation, No blood in stool, No acid reflux, No hemorrhoids, No ulcers, No gallbladder problem and No black,tarry stools Baldo Hematologic: Yes blood thinners, No blood disorders, No bleeding, No anemia and No blood clots Neuro Neurologic: No system reviewed and no additional complaints, except as documented, No as per HPI, No abnormal gait, No abnormal hearing, No abnormal movements, No abnormal speech, No behavioral changes, No burning sensations, Yes confusion, No convulsions, Yes disequilibrium, Yes dizziness, No localized weakness, Yes frequent falls, No headache(s), Yes lack of coordination, No loss of vision, Yes memory loss, No numbness, No other visual disturbances, No radicular pain, No restless legs, No sensory deficit, No syncope, No tingling, No tremor(s), Yes weakness and No other Exam Const General: cooperative, healthy appearing, comfortable, no acute distress and well developed Nutritional Appearance: well nourished Orientation: alert, awake and oriented x3 HENMT Head: normocephalic and atraumatic Ears: hearing grossly normal bilaterally Nose: external nose normal Eyes General: appearance normal, both eyes and all related structures EOM: EOM intact bilaterally Neck Neck: normal visual inspection, full ROM, no lymphadenopathy and trachea midline Thyroid: thyroid normal Lymphatic: no lymphadenopathy noted Resp Effort Inspection: normal respiratory effort, able to sp (more content not included)... Normal [facility] PSA,Total- Diagnosticon 08-0 PSA, DIAGNOSTIC 34.70 ng/mL High 0.0-4.0 [facility] Comment on above: Result Comment: This test was performed using the TPSA assay method for the [employer] chemistry system. Values obtained with different assay methods cannot be used interchangably. When changing PSA assays in the course of monitoring a patient, additional sequential testing should be carried out to confirm baseline values. Performed By: #### L 500.2500, BTSPAT, L100.0500 #### [facility] [address] [place], [address] CTA Head AND Neck W/ Contras ton 10-15-2023 CTA Head AND Neck W/ Contrast [facility] Imaging Services [address] [place], [place] [address] CTA Head AND Neck W/ Contrast MR#: [id number] Acct: [id number] Name: SUMEET MAJANO Rep #: [id number] : 1945 M 78 From: Jesse berry MD PCP: Dr. Seema Sterling MD Status: REG CLI Study: CTA Head AND Neck W/ Contrast Date of Exam: Exam# [id number] Ordering Dr: Evelyn Hickman [id number] STUDY: CTA HEAD AND NECK WITH CONTRAST REASON FOR EXAM: Male, 78 years old. Severe left carotid stenosis RADIATION DOSAGE (If Supplied By Facility): CTDIvol = ( 28.73 ) mGy, DLP = ( 1656.55 ) mGycm TECHNIQUE: CT angiography was performed with a multi-detector CT scanner. Data acquisition was obtained from the skull base through the vertex following intravenous administration of IV 100mL Isovue-370. MIP images were reconstructed from the axial data set. Post-processing of the angiographic images was performed, with multiplanar reformation and 3D reconstruction. Individualized dose optimization techniques were used for this CT. COMPARISON: No relevant priors. FINDINGS: Normal bilateral petrous carotid arteries. There is calcified plaque formation of the right cavernous carotid artery, with a mild stenosis (less than 50%). There is calcified plaque formation of the left cavernous carotid artery, with a mild stenosis (less than 50%). There is hypoplastic development of the right A1 segment of the anterior cerebral arteries with an atretic but intact artery. Normal left A1 segments of the anterior cerebral artery. Normal intact anterior communicating artery (ACOM). Normal bilateral A2 segments of the anterior cerebral arteries. Normal right M1 and M2 segments of the middle cerebral arteries, with a normal M1 bifurcation. Normal left M1 and M2 segments of the middle cerebral arteries, with a normal M1 bifurcation. There is a persistent origin of the right posterior cerebral artery with absence of the posterior communicating artery (PCOM). Normal left posterior communicating artery (PCOM). Normal bilateral vertebral arteries. Normal basilar artery with a normal basilar bifurcation. The visualized bilateral superior cerebellar (SCA) arteries are normal. Normal bilateral P1, P2 and visualized P3 segments of the posterior cerebral arteries. There is no demonstrated aneurysm of the [place] of [place]. Cerebral atrophy. Multiple lucencies seen in the deep white matter of both cerebral hemispheres. These may represent watershed infarcts. These are not acute. There is evidence of a 1.4 cm retention cyst or polyp in the sphenoid sinus. AORTIC ARCH: There is atherosclerotic calcific plaque formation of the aortic arch and great vessels arising from the aortic arch, without a hemodynamically significant stenosis. There is a bovine origin of the great vessels with a common origin of the brachiocephalic and left common carotid artery. Normal origin of the left subclavian artery. RIGHT CAROTID ARTERIES: Normal right common carotid artery (CCA). Normal right common carotid bulb. There is extensive atherosclerotic plaque formation of the origin of the right internal carotid artery with an estimated stenosis of greater than 70%. Normal visualized cervical portion of the right internal carotid artery. Normal origin of the right external carotid artery (ECA). LEFT CAROTID ARTERIES: Normal left common carotid artery (CCA). Normal left common carotid bulb. There is severe atherosclerotic and soft plaque formation just distal to the origin of the left internal carotid artery with a near complete occlusion. Normal visualized cervical portion of the left internal carotid artery. Normal origin of the left external carotid artery (ECA). VERTEBRAL ARTERIES: Densely calcified left vertebral artery. The proximal portion of the left vertebral artery is not visualized. There is retrograde filling of the distal portion of the left vertebral artery. CT/CTA Head AND Neck W/ Contrast IMPRESSION: High-grade stenosis/near occlusion of both proximal portions of the right and left internal carotid arteries caused by both atherosclerotic calcific plaque and soft plaque. 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 Nonvisualization of the proximal portion of left vertebral artery with the retrograde filling along its distal portion. Mucosal retention cyst or polyp in the sphenoid sinus. Electronically Signed: Jesse Alvarez MD at 8:28 EDT , CC: TALYOR Donovan; Dr. Seema Sterling MD Casework Manager: Signed Normal [facility] Serum Creatinine AND GFRon 0 10-01-2023 Creatinine [Mass/Vol] 1.52 mg/dL High 0.70-1.30 [facility] Comment on above: Result Comment: The validity of the calculated GFR GFRAA in patients over 70 years has not been determined. Clinical correlation is essential. Performed By: #### L 501.080 #### [facility] [address] [place], [address] EST GFR - AA 58 mL/min Low >60 [facility] Comment on above: Result Comment: Afri can Dutch GFR Calc Performed By: #### L 501.080 #### [facility] [address] [place], [address] GFR/1.73 sq M.predicted among non-blacks MDRD (S/P/Bld) [Vol rate/Area] 48 mL/min/{1.73_m2} Low >60 [facility] Comment on above: Result Comment: Non- GFR Calc Performed By: #### L 501.080 #### [facility] [address] [place], [address] Carotid Duplex Ultrasoundon 09-30-2023 Carotid Duplex Ultrasound [facility] [address] [place] [address] Carotid Duplex Ultrasound 09/30/23 1307 MR#: [id number] Acct: [id number] Name: GEOVANNIRYANSUMEET Cuong Rep #: [id number] : 1945 77 From: Ramu Rehman MD Attending Dr: Dr. Ramu Rehman MD Status: CONNOR ANDREA Ordering Dr: Ramu Rehman MD Date: 09/30/23 Location: [facility] Sex: M C Admitted: Reason For Study: Lt ICA Occlusion/Stenosis Rt. Velocities/BP Lt. Velocities/BP Prox CCA 75.6/11.3 cm/sec. Prox CCA 55.6/13.8 cm/sec. Mid CCA 59.7/9.3 cm/sec. Mid CCA 56.7/17.1 cm/sec. Dist CCA 76.9/15.5 cm/sec. Dist CCA 65.5/18.2 cm/sec. Prox ICA 245.6/49.4 cm/sec. Prox ICA 68.3/17.9 cm/sec. Mid ICA 288.8/73.0 cm/sec. Mid ICA 352.0/91.9 cm/sec. Dist ICA 135.8/19.0 cm/sec. Dist ICA 134.7/29.7 cm/sec. Rt. ICA/CCA = 4.9. Lt. ICA/CCA = 6.2. Prox ECA 91.6/13.0 cm/sec. Prox ECA 92.8/13.0 cm/sec. Rt. Vert. 89.1/17.9 cm/sec. Retrograde / Drumbeat flow noted. Right Extracranial There is heterogeneous, smooth atherosclerotic plaque noted in the right common carotid artery. There is heterogeneous, irregular atherosclerotic plaque noted in the right internal carotid artery. There is heterogeneous, irregular atherosclerotic plaque noted in the right external carotid artery. Antegrade flow is noted in the right vertebral artery. Left Extracranial There is heterogeneous, smooth atherosclerotic plaque noted in the left common carotid artery. There is heterogeneous, irregular atherosclerotic plaque noted in the left internal carotid artery. There is heterogeneous, irregular atherosclerotic plaque noted in the left external carotid artery. Drumbeat/ Retrograde flow noted. Procedure Carotid Duplex [id number]. This is a Carotid Duplex examination using B-mode, color flow and specral Doppler. The exam was diagnostic. Exam performed in department. preliminary results deliveredto Dr. Rehman's office. 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 Severe (>70%) stenosis left extracranial internal carotid. The Right vertebral is patent and antegrade. The Left vertebral flow is retrograde, obstructive waveform Ordering Physician: Ramu Rehman Referring Physician: Seema Sterling Performed By: Chavo Nagel, RVT 09/30/23 1600 Date Ramu Rehman MD CC: Dr. Seema Sterling MD; Dr. Ramu Rehman MD Date Dictated: 09/30/23 1307 Date Transcribed: 09/30/23 1600 Casework Manager: Signed [facility] MR/BMS.BVSon 09-29-2023 MR/BMS.S [facility] [address] [place] [address]. [address] [place] [address] OFFICE VISIT Date of Service: 09/29/23 MR#: [id number] Acct: [id number] Name: SUMEET MAJANO Rep #: [id number] : 1945 Provider: Dr. Ramu Rehman MD Age/Sex: 77/M Location: [facility] Status: Signed Intake Vital Signs 09/29/23 15:57 Weight: 204 lb BP 198/108 H Blood Pressure Location Lt brachial Position Sitting Respiration 16 Pulse 75 Pulse Source Monitor Temp 98.6 F Temp Source Temporal Pulse Oximetry (%) 98 Oxygen Delivery Method room air Intake Visit Reasons: CONSULT-CAROTID Chief Complaint: establish care Is patient in pain?: No Allergies No Known Allergies Allergy (Verified 09/29/23 16:00) Medications ???Medication ???Instructions ???Recorded ???Confirmed ???Type aspirin 81 mg chewable tablet 81 mg PO DAILY@0800 08/06/16 09/29/23 History cholecalciferol (vitamin D3) 50 50 mcg PO DAILY 09/29/23 09/29/23 History mcg (2,000 unit) capsule enzalutamide 40 mg capsule (Xtandi) 160 mg PO DAILY 09/29/23 09/29/23 History folic acid 1 mg tablet 1 mg PO DAILY 09/29/23 09/29/23 History levothyroxine 88 mcg capsule 88 mcg PO DAILY 09/29/23 09/29/23 History losartan 25 mg tablet 25 mg PO DAILY 09/29/23 09/29/23 History rosuvastatin 20 mg tablet 20 mg PO DAILY 09/29/23 09/29/23 History Have you fallen in the past year?: Yes PFSH Medical History Prostate CA Hypertension Surgical History History of tonsillectomy ( 2018) Family History Other Heart disease Myocardial infarction Social History Smoking Status: Never smoker HPI HPI HPI: SUMEET MAJANO, is a 77 M who presents to the office today for evaluation of symptomatic left carotid stenosis. He initially presented with right sided weakness,confusion to an outside facility. He was observed and head CT was negative. His symptoms resolved and he was discharged to home. Shortly after he again suffered right sided weakness and confusion and was admitted to the outside facility. This time MRI was performed that revealed left hemispheric infarct and MRA neck revealed possible occlusion of ICA on the left. His symptoms again resolved. He was initially on ASA. Now on ASA/plavix, statin. ROS General General: Yes fatigue and weakness; No weight change, appetite, colon cancer or breast cancer HEENT HEENT: No difficulty swallowing, eye injury, eye surgery, swollen glands or hoarseness Endo Endocrine: Yes diabetes mellitus; No thyroid disease, thyroid cancer, Hair loss, heat intolerance or cold intolerance Skin Skin: No rash or changing moles Musc Musculoskeletal: No back problems, arthritis, rheumatoid arthritis, gout or joint pain Cardio Cardiovascular: Yes high blood pressure; No murmur, pacemaker, heart disease, atrial fibrillation, heart attack, heart stent, palpitations, shortness of breat with exertion or chest pain Psych Psychiatric: No depression, anxiety or hearing voices Resp Respiratory: Yes shortness of breath, No sleep apnea, No cough, No COPD, No asthma, No emphysema and No wheezing Gastro Gastrointestinal: No abdominal pain, No nausea or vomiting, No diarrhea, No constipation, No blood in stool, No acid reflux, No hemorrhoids, No ulcers, No gallbladder problem and No black,tarry stools Baldo Hematologic: Yes blood thinners, No blood disorders, No bleeding, No anemia and No blood clots Neuro Neurologic: No system reviewed and no additional complaints, except as documented, No as per HPI, No abnormal gait, No abnormal hearing, No abnormal movements, No abnormal speech, No behavioral diaz es, No burning sensations, Yes confusion, No convulsions, Yes disequilibrium, Yes dizziness, No localized weakness, Yes frequent falls, No headache(s), Yes lack of coordination, No loss of vision, Yes memory loss, No numbness, No other visual disturbances, No radicular pain, No restless legs, No sensory deficit, No syncope, No tingling, No tremor(s), Yes weakness and No other Exam Const General: cooperative, healthy appearing, comfortable, no acute distress and well developed Nutritional Appearance: well nourished Orientation: alert, awake and oriented x3 HENMT Head: normocephalic and atraumatic Ears: hearing grossly normal bilaterally Nose: external nose normal Eyes General: appearance normal, both eyes and all related structures EOM: EOM intact bilaterally Neck Neck: normal visual inspection, full ROM, no lymphadenopathy and trachea midline Thyroid: thyroid normal Lymphatic: no lymphadenopathy noted R (more content not included)... Normal [facility] Basophil percentageOrdered B y: Sally Plummer on 04-22-2023 Basophil percentage 8.57 ng/mL 0.0-4.0 [facility] Comment on above: This test was perfor med using the TPSA assay method for the[employer] chemistry system. Values obtained with differentassay methods cannot be used interchangably.When changing PSA assays in the course of monitoring apatient, additional sequential testing should be carriedout to confirm baseline values. No Panel InformationOrdered By: Rodrigo Maurice on 01-08-2023 Prostate Specific Antigen Total 6.87 ng/mL 0.0-4.0 [facility] Comment on above: This test was perfor med using the TPSA assay method for the[employer] chemistry system. Values obtained with differentassay methods cannot be used interchangably.When changing PSA assays in the course of monitoring apatient, additional sequential testing should be carriedout to confirm baseline values. No Panel InformationOrdered By: Rodrigo Maurice on 10-01-2022 Prostate Specific Antigen Total 6.99 ng/mL 0.0-4.0 [facility] Comment on above: This test was perfor med using the TPSA assay method for the[employer] chemistry system. Values obtained with differentassay methods cannot be used interchangably.When changing PSA assays in the course of monitoring apatient, additional sequential testing should be carriedout to confirm baseline values. No Panel InformationOrdered By: Dr. Maurice on 07-11-2022 Prostate Specific Antigen Total 5.66 ng/mL 0.0-4.0 [facility] Comment on above: This test was perfor med using the TPSA assay method for the[facility] system. Values obtained with differentassay methods cannot be used interchangably.When changing PSA assays in the course of monitoring apatient, additional sequential testing should be carriedout to confirm baseline values. No Panel InformationOrdered By: CHRISTINE MadisonEda Emelia on 04-11-2022 Prostate Specific Antigen Total 2.62 ng/mL 0.0-4.0 [facility] Comment on above: This test was perfor med using the TPSA assay method for the[employer] chemistry system. Values obtained with differentassay methods cannot be used interchangably.When changing PSA assays in the course of monitoring apatient, additional sequential testing should be carriedout to confirm baseline values. Absolute lymphocyte countOrd ered By: Dr. Sterling on 01-10-2022 Lymphocytes Auto (Unsp spec) [#/Vol] 0.63 10*3/uL 0.83-4.51 [facility] Basophil percentageOrdered B y: Dr. Sterling on 01-10-2022 Basophils/100 WBC (Bld) 0.2 % 0-1 [facility] Bilirubin [Mass/Vol] 0.60 mg/dL 0.20-1.00 [facility] Comment on above: For patients on eltr ombopag therapy, use of Dimension [place] TBIL is not recommended. Chloride [Moles/Vol] 107 mmol/L 98-107 [facility] Eosinophils/100 WBC (Bld) 0.6 % 0-5 [facility] Glucose [Mass/Vol] 176 mg/dL 74-106 [facility] Comment on above: Fasting Glucose resu lt greater than or equal to 126 mg/dL suggests DIABETES MELLITUS per A.D.A. criteria. Neutrophils (Bld) [#/Vol] 6.7 10*3/uL 2.0-7.7 [facility] Neutrophils/100 WBC (Bld) 82.7 % 47-70 [facility] Potassium [Moles/Vol] 3.4 mmol/L 3.5-5.1 [facility] Protein [Mass/Vol] 6.9 g/dL 6.4-8.2 [facility] Sodium [Moles/Vol] 137 mmol/L 136-145 [facility] WBC (Bld) [#/Vol] 8.1 10*3/uL 4.4-11.0 [facility] Blood erythrocytes count (nu mber/volume)Ordered By: Dr. Sterling on 01-10-2022 RBC (Bld) [#/Vol] 3.59 10*6/uL 4.6-6.2 [facility] Blood hemoglobin measurement (mass/volume)Ordered By: Dr. Sterling on 01-10-2022 Hemoglobin (Bld) [Mass/Vol] 10.7 g/dL 13.0-16.5 [facility] Blood lymphocytes/100 leukoc ytesOrdered By: Dr. Sterling on 01-10-2022 Lymphocytes/100 WBC (Bld) 7.8 % 19-41 [facility] Blood monocytes/100 leukocyt esOrdered By: Dr. Sterling on 01-10-2022 Monocytes/100 WBC (Bld) 7.6 % 0-10 [facility] Blood platelet mean volumeOr dered By: Dr. Sterling on 01-10-2022 Platelet mean volume (Bld) [Entitic vol] 10.9 fL 6.2-12.0 [facility] Determination of erythrocyte mean corpuscular volume (MCV)Ordered By: Dr. Sterling on 01-10-2022 MCV (RBC) [Entitic vol] 88.6 fL 80-94 [facility] Hematocrit Auto (Bld) [Volum e fraction]Ordered By: Dr. Sterling on 01-10-2022 Hematocrit (Bld) [Volume fraction] 31.8 % 40-54 [facility] - Chemistry and C hemistry - challengeOrdered By: Dr. Sterling on 01-10-2022 ALP [Catalytic activity/Vol] 115 U/L 45-117 [facility] ALT [Catalytic activity/Vol] 45 U/L 16-61 [facility] CO2 [Moles/Vol] 21.0 mmol/L 21.0-32.0 [facility] Free T4 [Mass/Vol] 1.67 ng/dL 0.76-1.46 [facility] Globulin (S) [Mass/Vol] 4.6 g/dL 2.2-4.2 [facility] Urea nitrogen/Creatinine [Mass ratio] 26.3 mg/mg 10-20 [facility] - Hematology and Cell countsOrdered By: Dr. Sterling on 01-10-2022 Erythrocyte distribution width (RBC) [Entitic vol] 41.7 fL 35.1-43.9 [facility] Erythrocyte distribution width (RBC) [Ratio] 12.8 % 11.6-14.6 [facility] Immature granulocytes/100 WBC (Bld) 1.100 % 0.0-0.9 [facility] Comment on above: IG% - Immature Granu locytes (promyelocytes, myelocytes and metamyelocytes) > 1% indicates that a LEFT SHIFT is Present. MCH (RBC) [Entitic mass] 29.8 pg 27.0-32.0 [facility] Nucleated RBC/100 WBC (Bld) [Ratio] 0 % 0-5 [facility] MCHC Auto (RBC) [Mass/Vol]Or dered By: Dr. Sterling on 01-10-2022 MCHC (RBC) [Mass/Vol] 33.6 g/dL 32-36 [facility] No Panel InformationOrdered By: Dr. Sterling on 01-10-2022 Estimated GFR (MDRD) Amer 41 mL/min >60 [facility] Comment on above: GFR Calc Estimated GFR (MDRD) Non-Af Amer 34 mL/min >60 [facility] Comment on above: Non- GFR Calc Thyroid Stimulating Hormone (TSH) 3.45 uIU/mL 0.358-3.74 [facility] Platelets bldOrdered By: Dr. Sterling on 01-10-2022 Platelets (Bld) [#/Vol] 238 10*3/uL 150-450 [facility] Serum or plasma albumin jermaine urement (mass/volume)Ordered By: Dr. Sterling on 01-10-2022 Albumin [Mass/Vol] 2.3 g/dL 3.2-5.0 [facility] Serum or plasma albumin/glob ulin mass ratioOrdered By: Dr. Sterling on 01-10-2022 Albumin/Globulin [Mass ratio] 0.5 {ratio} 0.9-2.4 [facility] Serum or plasma calcium jermaine urement (mass/volume)Ordered By: Dr. Sterling on 01-10-2022 Calcium [Mass/Vol] 9.2 mg/dL 8.5-10.1 [facility] Serum or plasma creatinine m easurement (mass/volume)Ordered By: Dr. Sterling on 01-10-2022 Creatinine [Mass/Vol] 2.05 mg/dL 0.70-1.30 [facility] Comment on above: The validity of the calculated GFR & GFRAA in patients over 70 years has not been determined. Clinical correlation is essential. Serum or plasma folate measu rement (mass/volume)Ordered By: Dr. Sterling on 01-10-2022 Folate [Mass/Vol] 30.50 ng/mL 3.1-55.4 [facility] Serum or plasma urea nitroge n measurement (mass/volume)Ordered By: Dr. Sterling on 01-10-2022 Urea nitrogen [Mass/Vol] 54 mg/dL 7-18 [facility] Thin prep Papanicolaou smear with manual screeningOrdered By: Dr. Sterling on 01-10-2022 Thin prep Papanicolaou smear with manual screening 53 U/L 15-37 [facility] Thin prep Papanicolaou smear with manual screening 9 5-15 [facility] Whole blood hemoglobin A1c/t otal hemoglobin ratio (mass fraction)Ordered By: Dr. Sterling on 01-10-2022 HbA1c (Bld) [Mass fraction] 6.9 % 3.8-5.6 [facility] Comment on above: Normal < 5.7 % Predi abetic 5.7 - 6.4 % Diabetic >or= 6.5 % Please note range changes. No Panel Informationon 09-24 Prostate Specific Antigen Total 1.51 ng/mL 0.0-4.0 [facility] Work Phone: Comment on above: This test was perfor med using the TPSA assay method for [employer] chemistry system. Values obtained with differentassay methods cannot be used interchangably.When changing PSA assays in the course of monitoring apatient, additional sequential testing should be carriedout to confirm baseline values. 25-Hydroxy D2+D3on 25-Hydroxy D Total 27.5 ng/mL Low 30.0-100.0 [facility] Comment on above: Performed By: #### H BA1C #### [facility] Routine Lab [address] [phone] #### D2D3 #### [facility] [address] [place], [place] [phone] 25-Hydroxy D2 <4.0 Normal [facility] Comment on above: Performed By: #### Wilda BA1C #### [facility] [address] [phone] #### D2D3 #### [facility] [address] [phone] 25-Hydroxy D3 27.5 ng/mL Normal [facility] Comment on above: Performed By: #### Wilda BA1C #### [facility] Laboratories Routine Lab [address] [phone] #### D2D3 #### [facility] Chemistry [address] [phone] Hemoglobin A1con 11-04-2020 Glucose [Mass/Vol] 186 mg/dL Normal [facility] Reference Lab Comment on above: Performed By: #### H BA1C #### [facility] Routine Lab [address] [phone] #### D2D3 #### [facility] Chemistry [address] [place], [place] [id number] HbA1c (Bld) [Mass fraction] 8.1 % High 4.3-5.6 [facility] Reference Lab Comment on above: Performed By: #### H BA1C #### [facility] Routine Lab [address] [place], [place] [id number] #### D2D3 #### [facility] Chemistry [address] [address] Hemoglobin A1con 01-28-2020 Glucose [Mass/Vol] 166 mg/dL Normal [facility] Reference Lab Comment on above: Performed By: #### H BA1C #### [facility] Routine Lab [address] [place], [place] [address] HbA1c (Bld) [Mass fraction] 7.4 % High 4.3-5.6 [facility] Reference Lab Comment on above: Performed By: #### H BA1C #### [facility] Routine Lab [address] [place], [place] [phone] PSAon 08-19-2017 PSA 96.30 NG/ML High 0.0-4.0 [facility] Comment on above: Performed By: #### L [phone] ####[facility] [id number] [place], [place] [address]Tp# [phone] Encounters Encounter Date Encounter Type Care Provider Facility Start: 09-15-2024 End: 09-15-[address] [facility] Start: 09-14-2024 End: 09-14-2024 ambulatory SEEMA SHETH [facility] Start: 08-14-2024 End: 08-14-[address] Seema Sterling MD Work Phone: [facility] Work Phone: Start: 08-14-2024 End: 08-14-2024 Patient encounter procedure Sally Plummer -Laboratory Work Phone: Start: 08-14-2024 End: 08-14-2024 ambulatory Sally Eminence Facility:[facility] Start: 07-16-2024 End: 07-16-2024 ambulatory SEEMA SHETH [facility] Start: 06-15-2024 Non-patient / Non-visit Dr. Ramu browning MD -[facility] Start: 06-15-2024 End: 06-15-[address] Seema Sterling MD Work Phone: [facility] Work Phone: Start: 06-15-2024 End: 06-15-2024 Patient encounter procedure Evelyn VAZQUEZ -Cardiovascular Services Work Phone: Start: 06-15-2024 End: 06-15-2024 ambulatory Evelyn Hickman Facility:[facility] Start: 05-17-2024 End: 05-17-[address] Seema Sterling MD Work Phone: [facility] Work Phone: Start: 05-17-2024 End: 05-17-2024 Patient encounter procedure Sally Eminence -Laboratory Work Phone: Start: 05-17-2024 End: 05-17-2024 ambulatory Sally Eminence Facility:[facility] Start: 02-13-2024 End: 02-13-2024 ambulatory SEEMA SHETH [facility] Start: 02-10-2024 End: 02-10-[address] Rodrigo Maurice MD -Laboratory Work Phone: Start: 02-10-2024 End: 02-10-2024 ambulatory Rodrigo Maurice Facility:[facility] Start: 01-19-2024 ambulatory Ramu Rehman Facility:[facility] Start: 01-19-2024 End: 01-19-2024 ambulatory Evelyn Hickman Facility:[facility] Start: 01-08-2024 End: 01-08-2024 ambulatory Seema Sterling Facility:[facility] Start: 12-24-2023 Encounter for other preprocedural examination Ramu Rehman [facility] Start: 12-23-2023 ambulatory Ramu [place] Facility:[facility] Start: 12-23-2023 End: 12-24-2023 Evaluation and management of inpatient Ramu Lorenzo Facility:[facility] Start: 12-23-2023 ambulatory Ramu Lorenzo Facility:[facility] Start: 12-12-2023 ambulatory Ramu Lorenzo Facility:[facility] Start: 12-12-2023 End: 12-12-2023 ambulatory Butros Latouf Facility:[facility] Start: 12-04-2023 End: 12-04-2023 ambulatory Butros Latouf Facility:[facility] Start: 11-18-2023 ambulatory Ramu [place] Facility:[facility] Start: 11-18-2023 End: 11-19-2023 Evaluation and management of inpatient Ramu [place] Facility:[facility] Start: 11-18-2023 ambulatory Ramu [place] Facility:[facility] Start: 11-06-2023 ambulatory Jo Ann Carmen Fa cility:[facility] Start: 11-06-2023 End: 11-06-2023 ambulatory Edvin Lin Facility:[facility] Start: 10-31-[address] Santino Sterling MD Work Phone: [facility] Start: 10-31-2023 End: 10-31-2023 ambulatory Edvin Lin Facility:[facility] Start: 10-31-2023 End: 10-31-2023 ambulatory Evelyn Hickman Facility:[facility] Start: 10-27-2023 End: 10-27-2023 ambulatory Evelyn Hickman Facility:[facility] Start: 10-23-2023 End: 10-23-2023 ambulatory Ramu Rehman Facility:[facility] Start: 10-23-2023 End: 10-23-2023 ambulatory Rodrigo Maurice Facility:[facility] Start: 10-15-2023 End: 10-15-2023 ambulatory Evelyn Yasmeen Facility:[facility] Start: 09-30-2023 End: 10-01-2023 ambulatory Evelyn Hickman Facility:[facility] Start: 09-29-2023 End: 09-30-2023 ambulatory Ramu Lorenzo Facility:[facility] Start: 05-02-2023 End: 05-02-2023 ambulatory [facility] Work Phone: Start: 05-02-2023 End: 05-02-2023 Patient encounter procedure [facility]-Radiology, [facility] Work Phone: Start: 04-29-2023 End: 04-29-2023 ambulatory [facility] Work Phone: Start: 04-29-2023 End: 04-29-2023 Patient encounter procedure [facility]-Nuclear Medicine, [facility] Work Phone: Start: 04-22-2023 End: 04-22-2023 Patient encounter procedure [facility]-Laboratory, [place] Work Phone: Start: 03-21-2023 End: 03-21-2023 ambulatory [facility] Work Phone: Start: 03-21-2023 End: 03-21-2023 Patient encounter procedure [facility]-Radiology, [facility] Work Phone: Start: 01-08-2023 End: 01-08-2023 ambulatory [facility] Work Phone: Start: 01-08-2023 End: 01-08-2023 Patient encounter procedure [facility]-Laboratory, [place] Work Phone: Start: 10-01-2022 End: 10-01-2022 ambulatory [facility] Work Phone: Start: 10-01-2022 End: 10-01-2022 Patient encounter procedure [facility]-Laboratory Work Phone: Start: 07-11-2022 End: 07-11-2022 ambulatory [facility] Work Phone: Start: 07-11-2022 End: 07-11-2022 Patient encounter procedure [facility]-Laboratory Start: 04-11-2022 End: 04-11-2022 ambulatory [facility] Work Phone: Start: 04-11-2022 End: 04-11-2022 Patient encounter procedure [facility]-Laboratory Start: 01-16-2022 End: 01-16-2022 ambulatory [facility] Work Phone: Start: 01-16-2022 End: 01-16-2022 Patient encounter procedure [facility] Start: 01-10-2022 End: 01-10-2022 ambulatory [facility] Work Phone: Start: 01-10-2022 End: 01-10-2022 Patient encounter procedure [facility]-Laboratory Start: 09-24-2021 End: 09-24-2021 Patient encounter procedure [facility]-Laboratory Start: 08-18-2017 Ambulatory Armani Alva Facility :[facility] Procedures Date Procedure Procedure Detail Performing Clinician Start: 08-14-2024 Assay of prostate sp ecific antigen total Dr. Seema Sterling MD Work Phone: Comment on above: This test was perfor med using the [employer] tPSA method. Measured values of a patient sample can vary depending on the testing procedure used. PSA values determined on patient samples by different testing procedures cannot be used interchangeably. If there is a change in PSA assays while monitoring therapy, sequential testing should be performed to confirm baseline values. Start: 05-17-2024 Assay of prostate sp ecific antigen total Dr. Seema Sterling MD Work Phone: Comment on above: This test was perfor med using the [employer] tPSA method. Measured values of a patient sample can vary depending on the testing procedure used. PSA values determined on patient samples by different testing procedures cannot be used interchangeably. If there is a change in PSA assays while monitoring therapy, sequential testing should be performed to confirm baseline values. Start: 05-02-2023 Radiologic examinati on of knee Start: 04-29-2023 Radionuclide whole b luz bone study Start: 03-21-2023 Plain chest X-ray Start: 01-16-2022 PET study for locali zation of tumor Plan of Treatment Date Care Activity Detail Author Start: 01-16-2022 PET study for locali zation of tumor PET/CT Tumor Base -Thigh Subs [facility] Work Phone: Start: 01-16-2022 PT Unspecified body region [facility] Work Phone: Payers Date Payer Category Payer Self-pay [id number] 2011 Medicare [id number] 2011 Medicare [id number] 2011 Unknown [id number] 1945 Unknown [id number] 2.16.8 40.1.872001.3.579.2.651 1945 Unknown [id number] 2.16.8 40.1.738428.3.579.2.651 1945 Unknown [id number] 2.16.8 40.1.436145.3.579.2.651 1945 Unknown [id number] 2.16.8 40.1.782384.3.579.2.651 Unknown [id number] 2.16.8 40.1.936174.3.579.2.462 Unknown [id number] 2.16.8 40.1.965615.3.579.2.462 Unknown [id number] 2.16.8 40.1.850887.3.579.2.462 Unknown [id number] 2.16.8 40.1.176334.3.579.2.462 Unknown [id number] 2.16.8 40.1.725772.3.579.2.462 Unknown [id number] 2.16.8 40.1.468539.3.579.2.462 Unknown [id number] 2.16.8 40.1.186605.3.579.2.462 Unknown [id number] 2.16.8 40.1.626932.3.579.2.462 Unknown [id number] 2.16.8 40.1.541782.3.579.2.462 Unknown [id number] 2.16.8 40.1.936922.3.579.2.462 Unknown [id number] 2.16.8 40.1.287904.3.579.2.462 Unknown [id number] 2.16.8 40.1.483513.3.579.2.462 Unknown [id number] 2.16.8 40.1.923098.3.579.2.462 Unknown [id number] 2.16.8 40.1.711372.3.579.2.462 Unknown [id number] 2.16.8 40.1.271233.3.579.2.462 Unknown [id number] 2.16.8 40.1.656652.3.579.2.462 Unknown [id number] 2.16.8 40.1.399966.3.579.2.462 Unknown [id number] 2.16.8 40.1.048151.3.579.2.462 Unknown [id number] 2.16.8 40.1.839516.3.579.2.462 Unknown [id number] 2.16.8 40.1.981483.3.579.2.462 Unknown [id number] 2.16.8 40.1.263172.3.579.2.462 Unknown [id number] 2.16.8 40.1.757793.3.579.2.462 Unknown [id number] 2.16.8 40.1.455156.3.579.2.462 Unknown [id number] 2.16.8 40.1.188553.3.579.2.462 Unknown [id number] 2.16.8 40.1.701909.3.579.2.462 Unknown [id number] 2.16.8 40.1.369811.3.579.2.462 Unknown [id number] 2.16.8 40.1.804279.3.579.2.462 Unknown [id number] 2.16.8 40.1.928377.3.579.2.462 Unknown [id number] 2.16.8 40.1.519592.3.579.2.462 Social History Date Type Detail Facility Start: 09-27-2016 End: 09-27-2016 Tobacco smoking status OKIS Unknown if ever smoked [facility] Start: 1945 Sex Assigned At Male [facility] Start: 12-08-2023 Tobacco smoking stat us OKIS Never smoked tobacco (finding) [facility] Start: 05-28-2024 End: 06-21-2024 Sex Male (finding) [facility] Medical Equipment Procedure Code Equipment Code Equipment Origin al Text Equipment Identifier Dates Bare-metal carot id artery stent ()[id number] FDA Start: 11-18-2023 Bare-metal carot id artery stent ()[id number] FDA Start: 12-23-2023 Discharge summary note 12-24-2023 Note Date & Type Note Facility 12-24-2023 Note [facility] Medical Records Department [address] [place] [address] Discharge Summary 12/24/23 1531 MR#: [id number] Acct: [id number] Name: SUMEET MAJANO Rep #: [id number] : 1945 78 From: Ramu Rehman MD PCP: Dr. Seema Sterling MD Status:ADM IN Location: ICU [id number] Providers Date of Admission: 12/23/23 Primary Care Physician: Dr. Seema tSerling MD Reason For Visit: RT CAROTID STENT Diagnosis Discharge Diagnosis (1) Stenosis of right internal carotid artery: Status: Chronic Code(s): I65.21 - Occlusion and stenosis of right carotid artery Plan: -right TCAR Medications at Discharge Home Medications aspirin 81 mg chewable tablet 81 mg PO DAILY@0800 HEART [facility] 08/06/16 cholecalciferol (vitamin D3) 50 mcg (2,000 unit) capsule 50 mcg PO DAILY SUPPLEMENT 09/29/23 enzalutamide 40 mg capsule (Xtandi) 160 mg PO QHS PROSTATE 09/29/23 folic acid 1 mg tablet 1 mg PO DAILY SUPPLEMENT 09/29/23 levothyroxine 88 mcg capsule 88 mcg PO DAILY THYROID 09/29/23 rosuvastatin 20 mg tablet 20 mg PO QHS CHOLESTEROL 09/29/23 clopidogrel 75 mg tablet (Plavix) 75 mg PO DAILY BLOOD THINNER #30 tabs 09/30/23 glipizide 2.5 mg tablet, extended release 24 hr 2.5 mg PO DAILY DIABETES 11/05/23 losartan 100 mg-hydrochlorothiazide 12.5 mg tablet 1 tab PO DAILY BP 11/05/23 diltiazem HCl 120 mg capsule,24 hr,extended release 120 mg PO DAILY blood pressure 12/23/23 Hospital Course Operations - (right carotid artery stent, TCAR) Summary of Care Provided Hospital Course: Mr. Majano presented with asymptomatic right carotid stenosis with disease distal anatomically who was felt to be treated with carotid stent. He underwent right trans carotid artery stent 12/23/2023 which he tolerated well. Post op he was admitted to the ICU for hemodynamic and neurologic monitoring. He did well overnight with no obvious sequelae. On POD # 1 his WILLIAM and arterial line were removed, his diet advanced, and he was progressively ambulated. He was discharged to home 12/24/2023. Weight / BMI Weight Weight: 205 lb 7.533 oz Body Mass Index (BMI) 32.2 ABG / Lab / Microbiology Data 12/24/23 05:33 Laboratory: Laboratory Results - last 24 hr 12/24/23 05:33: WBC 5.6, RBC 3.26 L, Hgb 9.6 L, Hct 29.3 L, MCV 89.9, MCH 29.4, MCHC 32.8, RDW Std Deviation 43.9, RDW Coeff of Tania 13.2, Plt Count 157, MPV 10.5, Immature Gran % (Auto) 0.500, Neut % (Auto) 62.4, Lymph % (Auto) 23.9, [place] % (Auto) 9.0, Eos % (Auto) 3.5, Baso % (Auto) 0.7, Absolute Neuts (auto) 3.5, Absolute Lymphs (auto) 1.35, Nucleated RBC % 0 D/C Instructions Discharge Diet: No restrictions May shower in (days): 2 Lifting Restrictions: do not lift > 20 lbs for 14 days Additional Activity Instructions: do not submerge incision for 14 days Call your doctor if your incision/area has: Sudden Increased Bleeding, Increased Pain/ Swelling, Increased Redness and Foul Smelling Discharge Call your doctor if you observe: Fever of 101 or Higher and Numbness or Tingling Remove Dressing in: 2 days Meaningful Use Info Meaningful Use Meaningful Use Diagnoses (Choose all that apply): None applicable Ischemic Stroke Statin Dosing Therapy Reference: STATIN DOSE THERAPY REFERENCE: * Patients > 75 years receive moderate or high dose statin therapy. * Patients 75 years or YOUNGER should receive HIGH intensity statin dose unless contraindicated. You will be required to document reason for non-treatment if statin daily dose does not meet guidelines. HIGH DOSE STATIN THERAPY DAILY Atorvastatin > than or = to 40 mg Rosuvastatin > than or = to 20 mg Amlodipine + Atorvastatin > than or = to 2.5/40 mg Ezetimibe + Simvastatin 10/80 mg Simvastatin 80mg Discharge Plan Admission Admit Date/Time: 12/23/23 10:34 Attending Provider: Ramu Rehman Primary Care Provider: Seema Sterling Discharge Orders/Prescriptions Prescriptions: Continued rosuvastatin 20 mg tablet 20 mg PO QHS levothyroxine 88 mcg capsule 88 mcg PO DAILY folic acid 1 mg tablet 1 mg PO DAILY cholecalciferol (vitamin D3) 50 mcg (2,000 unit) capsule 50 mcg PO DAILY Xtandi 40 mg capsule 160 mg PO QHS aspirin 81 MG tablet,chewable 81 mg PO DAILY@0800 diltiazem HCl 120 mg capsule,extended release 24 hr 120 mg PO DAILY losartan-hydrochlorothiazide 100-12.5 mg tablet 1 tab PO DAILY glipizide 2.5 mg tablet extended release 24hr 2.5 mg PO DAILY clopidogrel [Plavix] 75 mg tablet 75 mg PO DAILY Qty: 30 1RF Referrals / Follow Up: Seema Sterling MD [Primary Care Provider] - Disposition Disposition (needs filled in before D/C Order can be placed): Home, Self Care 12/24/23 1540 Cosigner Signature (if applicable): CC: Dr. Seema Sterling MD; Dr. Ramu Rehman MD Signed [facility] Clinical Note 12-23-2023 Note Date & Type Note Facility 12-23-2023 Note [facility] Medical Records Department [address] [place] [address] History Physical Exam 12/23/23 0746 MR#: [id number] Acct: [id number] Name: SUMEET MAJANO Rep #: [id number] : 1945 78 From: Ramu Rehman MD PCP: Dr. Seema Sterling MD Status:ADM IN Location: [address] [place] [address] HPI - General General Date of Admission: 12/23/23 HPI Narrative SUMEET MAJANO, is a 78 M who presents with right ICA stenosis, asymptomatic. Recently underwent left ICA TCAR from which he has recovered well. [facility] Medical History History of left common carotid artery stent placement Tinnitus of both ears Wears glasses Cancer Alcohol use High cholesterol Blackout Heartburn History of DVT (deep vein thrombosis) Hx of edema Hx of echocardiogram History of stress test Cardiology follow-up encounter Diabetes VENEGAS (dyspnea on exertion) Obesity RONAL (obstructive sleep apnea) Hypothyroidism Hyperlipidemia Lung nodule Chronic kidney disease 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 Prostate CA Hypertension Stroke ( 08/2023) Home Medications ???Medication ???Instructions ???Recorded ???Last Taken ???Type aspirin 81 mg chewable tablet 81 mg PO DAILY@0800 HEART [facility] 08/06/16 12/22/23 History cholecalciferol (vitamin D3) 50 50 mcg PO DAILY SUPPLEMENT 09/29/23 12/22/23 History mcg (2,000 unit) capsule enzalutamide 40 mg capsule (Xtandi) 160 mg PO QHS PROSTATE 09/29/23 12/15/23 History folic acid 1 mg tablet 1 mg PO DAILY SUPPLEMENT 09/29/23 12/22/23 History levothyroxine 88 mcg capsule 88 mcg PO DAILY THYROID 09/29/23 12/23/23 History rosuvastatin 20 mg tablet 20 mg PO QHS CHOLESTEROL 09/29/23 12/22/23 History clopidogrel 75 mg tablet (Plavix) 75 mg PO DAILY BLOOD THINNER #30 09/30/23 12/22/23 Rx tabs glipizide 2.5 mg tablet, extended 2.5 mg PO DAILY DIABETES 11/05/23 12/22/23 History release 24 hr losartan 100 1 tab PO DAILY BP 11/05/23 12/22/23 History mg-hydrochlorothiazide 12.5 mg tablet diltiazem HCl 120 mg capsule,24 120 mg PO DAILY blood pressure 12/23/23 12/22/23 History hr,extended release Allergy/AdvReac Type Severity Reaction Status Date / Time No Known Allergies Allergy Verified 12/08/23 11:27 Family History Other Heart disease Myocardial infarction Surgical History Hx of colonoscopy Hx of right cataract extraction Hx of left cataract extraction Hx of umbilical hernia repair History of tonsillectomy ( 2018) Social History Smoking Status: Never smoker alcohol intake: current substance use type: does not use caffeine: Yes ROS Constitutional Constitutional: Denies chills, fever(s), frequent falls, lethargy or weakness Eyes Eyes: Denies blind spots, change in vision or loss of vision ENT HEENT: Denies bleeding gums, hoarseness or sore throat Cardiovascular Cardiovascular: Denies abdominal pain, bluish discoloration of hand/feet, chest pain with activity, claudication, cold extremities, cyanosis, dyspnea on exertion, erythema on extremities, irregular heart rhythm, leg edema, leg ulcers, numbness in extremities or weakness in extremities Respiratory/Chest Respiratory/Chest: Denies cough, excessive phlegm production, shortness of breath at rest, shortness of breath with exertion or wheezing Gastrointestinal Gastrointestinal: Denies anorexia, change in stool character, constipation, diarrhea, melena or rectal bleeding Genitourinary Genitourinary: Denies dysuria or hematuria Musculoskeletal Musculoskeletal: Denies abnormal gait Integumentary Integumentary: Reports other Details: ; Denies erythema, non-healing lesions or wounds Neurologic Neurologic: Denies abnormal speech, focal weakness, headache(s), loss of vision, numbness, paresthesias or sensory deficit Hematologic/Lymphatic Hematologic/Lymphatic: Denies easy bleeding, easy bruising or lymphadenopathy Vital Signs Vital Signs Vital Signs: 12/23/23 06:24 12/23/23 06:24 12/23/23 07:39 Temperature 97 F L 97 F L Temperature Source Temporal Pulse Rate 73 73 Respiratory Rate 18 18 Respiratory Pattern Normal Blood Pressure 168/83 H 168/83 H Blood Pressure Mean 111 Blood Pressure Source Monitor Blood Pressure Position Semi-Fowlers Blood Pressure Location Left Arm Pulse Ox 100 100 Oxygen Delivery Method Room Air Weight Weight: 201 lb Body Mass Index (BMI) 31.4 Physical Exam Const alert, oriented x3, no apparent distress and healthy appearing General Appearance: cooperative; Negative for (more content not included)... [facility] Discharge summary note 11-19-2023 Note Date & Type Note Facility 11-19-2023 Note [facility] Medical Records Department [address] [place] [address] Discharge Summary 11/19/23 1309 MR#: [id number] Acct: [id number] Name: SUMEET MAJANO Rep #: [id number] : 1945 78 From: Evelyn VAZQUEZ PCP: Dr. Seema Sterling MD Status:DIS IN Location: ICU [id number] Providers Date of Admission: 11/18/23 Primary Care Physician: Dr. 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 WILLIAM drain was removed without issue today. Incision site is satisfactory in appearance. Right groin access site also satisfactory in appearance. He was hypertensive following surgery and overnight, blood pressures are improved this morning. DC art line. Will continue to monitor. Plan to advance to a normal diet as tolerated. Plan to have him ambulate with nursing/PT. As long as both go well, anticipate discharge later this afternoon. Medications at Discharge Home Medications aspirin 81 mg chewable tablet 81 mg PO DAILY@0800 HEART [facility] 08/06/16 cholecalciferol (vitamin D3) 50 mcg (2,000 unit) capsule 50 mcg PO DAILY SUPPLEMENT 09/29/23 enzalutamide 40 mg capsule (Xtandi) 160 mg PO QHS PROSTATE 09/29/23 folic acid 1 mg tablet 1 mg PO DAILY SUPPLEMENT 09/29/23 levothyroxine 88 mcg capsule 88 mcg PO DAILY THYROID 09/29/23 rosuvastatin 20 mg tablet 20 mg PO QHS CHOLESTEROL 09/29/23 clopidogrel 75 mg tablet (Plavix) 75 mg PO DAILY BLOOD THINNER #30 tabs 09/30/23 glipizide 2.5 mg tablet, extended release 24 hr 2.5 mg PO DAILY DIABETES 11/05/23 losartan 100 mg-hydrochlorothiazide 12.5 mg tablet 1 tab PO DAILY BP 11/05/23 Hospital Course Summary of Care Provided Hospital Course: Mr. Sumeet Majano is a 78-year-old male who underwent left TCAR on 11/18/2023. He tolerated the procedure well and it was without complication. Postoperatively, he was routinely admitted to the ICU for ongoing hemodynamic and neurologic monitoring. He was slightly hypertensive following surgery and overnight but has been normotensive today with his normal home blood pressure medications. He has remained neurologically stable throughout his admission. He has not had any unilateral headache, hoarseness, difficulty swallowing, weakness, sensory deficits, facial droop. The incision site is satisfactory in appearance with skin glue intact and no evidence of hematoma. The WILLIAM drain was removed today without issue. The right groin access site satisfactory in appearance without evidence of hematoma. He has been ambulating without difficulty, tolerating a normal diet, voiding without difficulty, and he has minimal pain which is well-controlled with Tylenol. He is medically stable for discharge home today with follow-up scheduled in the office in a few weeks. He will continue to take Plavix and aspirin daily. Physical Exam Const alert, oriented x3 and no apparent distress General Appearance: cooperative and comfortable HEENT normocephalic, head/scalp atraumatic, hearing grossly normal bilaterally, external ears normal and external nose normal Head and Scalp: normal to inspection Eyes EOMs intact bilaterally General Eye: normal appearance of both eyes Neck Neck Narrative: Left neck incision site with incision site satisfactory in appearance, skin glue intact without dehiscence, mild ecchymosis but no hematoma. General: trachea midline Resp normal respiratory effort, normal air movement, no retractions and no use of accessory muscles Effort and Inspection: able to speak in complete sentences Cardio regular rate and regular rhythm Extremity normal to inspection, full ROM, no clubbing, cyanosis or edema and no calf tenderness Extremity Narrative: Right groin access site with dressing clean, dry, and intact. No apparent hematoma. Skin no rashes or lesions noted Wounds: Negative for wounds noted Neuro oriented x3, CN's II-XII intact bilaterally, moves all extremities, no focal motor deficits and no sensory deficits noted Psych mental status grossly normal Appearance: grossly normal Attitude: calm and engaged Activity / Motor Behavior: appropriate eye contact Speech: normal speech Mood Affect: euthymic mood Judgement: judgement good Weight / BMI Weight Weight: 203 lb 14.841 oz Body Mass Index (BMI) 31.9 ABG / Lab / Microbiology Data 11/19/23 06:00 11/06/23 08:46 Laboratory: Laboratory Results - last 24 hr 11/18/23 09:41: Activated Clotting Time 348 H 11/18/23 13:00: POC Glucose 188 H 11/18/23 16:04: POC Glucose 199 H 11/18/23 20:28: POC Glucose 206 H 11/19/23 06:00: WBC 6.8, RBC 3.16 L, Hgb 9.3 L, Hct 28.2 L, MCV 89.2, MCH 29.4, MCHC 33.0, (more content not included)... [facility] Clinical Note 11-18-2023 Note Date & Type Note Facility 11-18-2023 Note [facility] Medical Records Department [address] [place] [address] History Physical Exam 11/18/23 0750 MR#: [id number] Acct: [id number] Name: SUMEET MAJANO Rep #: [id number] : 1945 78 From: Ramu Rehman MD PCP: Dr. Seema Sterling MD Status:ADM IN Location: [place] [address] History and Physical Allergies No Known Allergies Allergy (Verified 10/23/23 15:11) Medications ???Medication ???Instructions ???Recorded ???Confirmed ???Type aspirin 81 mg chewable tablet 81 mg PO DAILY@0800 08/06/16 10/23/23 History cholecalciferol (vitamin D3) 50 50 mcg PO DAILY 09/29/23 10/23/23 History mcg (2,000 unit) capsule enzalutamide 40 mg capsule (Xtandi) 160 mg PO DAILY 09/29/23 10/23/23 History folic acid 1 mg tablet 1 mg PO DAILY 09/29/23 10/23/23 History levothyroxine 88 mcg capsule 88 mcg PO DAILY 09/29/23 10/23/23 History losartan 25 mg tablet 25 mg PO DAILY 09/29/23 10/23/23 History rosuvastatin 20 mg tablet 20 mg PO DAILY 09/29/23 10/23/23 History clopidogrel 75 mg tablet (Plavix) 75 mg PO DAILY #30 tabs 09/30/23 10/23/23 Rx Have you fallen in the past year?: Yes PFSH Medical History Prostate CA Hypertension Surgical History History of tonsillectomy ( 2018) Family History Other Heart disease Myocardial infarction Social History Smoking Status: Never smoker HPI HPI HPI: SUMEET MAJANO, is a 78 M who presents to the office today for follow up of bilateral carotid stenosis, left symptomatic. He had MRA at outside facility that suggested left ICA occlusion, had left hemispheric infarct. At last office visit obtained duplex to confirm status of ICA; it revealed left ICA patent with >70% stenosis and right also >70%. He has had a CTA and is here to discuss. No recurrent new numbness/weakness/vision loss/speech difficulty (has expressive aphasia from initial CVA). ROS General General: Yes fatigue and weakness; No weight change, appetite, colon cancer or breast cancer HEENT HEENT: No difficulty swallowing, eye injury, eye surgery, swollen glands or hoarseness Endo Endocrine: Yes diabetes mellitus; No thyroid disease, thyroid cancer, Hair loss, heat intolerance or cold intolerance Skin Skin: No rash or changing moles Musc Musculoskeletal: No back problems, arthritis, rheumatoid arthritis, gout or joint pain Cardio Cardiovascular: Yes high blood pressure and shortness of breat with exertion; No murmur, pacemaker, heart disease, atrial fibrillation, heart attack, heart stent, palpitations or chest pain Psych Psychiatric: No depression, anxiety or hearing voices Resp Respiratory: Yes shortness of breath, Yes sleep apnea, No cough, No COPD, No asthma, No emphysema and No wheezing Gastro Gastrointestinal: No abdominal pain, No nausea or vomiting, No diarrhea, No constipation, No blood in stool, No acid reflux, No hemorrhoids, No ulcers, No gallbladder problem and No black,tarry stools Baldo Hematologic: Yes blood thinners, No blood disorders, No bleeding, No anemia and No blood clots Neuro Neurologic: No system reviewed and no additional complaints, except as documented, No as per HPI, No abnormal gait, No abnormal hearing, No abnormal movements, No abnormal speech, No behavioral changes, No burning sensations, Yes confusion, No convulsions, Yes disequilibrium, Yes dizziness, No localized weakness, Yes frequent falls, No headache(s), Yes lack of coordination, No loss of vision, Yes memory loss, No numbness, No other visual disturbances, No radicular pain, No restless legs, No sensory deficit, No syncope, No tingling, No tremor(s), Yes weakness and No other Exam Const General: cooperative, healthy appearing, comfortable, no acute distress and well developed Nutritional Appearance: well nourished Orientation: alert, awake and oriented x3 HENOH Head: normocephalic and atraumatic Ears: hearing grossly normal bilaterally Nose: external nose normal Eyes General: appearance normal, both eyes and all related structures EOM: EOM intact bilaterally Neck Neck: normal visual inspection, full ROM, no lymphadenopathy and trachea midline Thyroid: thyroid normal Lymphatic: no lymphadenopathy noted Resp Effort Inspection: normal respiratory effort, able to speak in complete sentences, symmetric chest movement, no audible wheezes, not labored, no stridor and no use of accessory muscles Cardio Rate: regular rate Rhythm: regular rhythm Skin General: no rashes or lesions noted and no erythema Wounds: no wounds Neuro Cranial Nerves: CN's II-XI intact bilaterally and EOM intact bilaterally Gait: normal gait (more content not included)... [facility] Evaluation note Note Date & Type Note Facility Evaluation note No assessment information availa ble [facility] Work Phone: Reason for referral (narrative) Note Date & Type Note Facility Reason for referral (narrative) No reason for referral information available [facility] Work Phone: Summary Purpose Family History No Family History Records Found Relationship Condition Age at Onset Recorded Date/T christel Not Specified Cardiac disease Unknown Myocardial infarction Unknown Advance Directives No Advanced Directives Records Found Advance Directive Response Recorded Date/ Time Living Will No September 27, 2016 1:46pm Power of Dye Machine Tender No September 27 1:46pm Advance Directive Response Recorded Date/ Time Living Will No September 27, 2016 12:46pm Power of Dye Machine Tender No September 27 12:46pm Chief Complaint and Reason for Visit Chief Complaint MALIGNANT NEOPLASM O F PROSTATE Chief Complaint PSA Chief Complaint PSA C61 Chief Complaint Admit Date AFTERCARE June 15, 2024 9:53 am Additional Source Comments (unrecognized sect ion and content) No Status Records FoundNo Status Records FoundNo Status Records FoundNo Status Records FoundNo Status Records Found INFORMATION SOURCE (unrecogn ized section and content) DATE CREATED AUTHOR 09/02/2017 [facility] gia Hubbell DATE CREATED AUTHOR AUTHOR'S ORGANIZ ATION 11/09/2020 [facility] DATE CREATED AUTHOR AUTHOR'S ORGANIZ ATION 07/22/2024 [facility] DATE CREATED AUTHOR AUTHOR'S ORGANIZ ATION 08/20/2024 [facility] DATE CREATED AUTHOR AUTHOR'S ORGANIZ ATION 09/23/2024 [facility] [place] Goals (unrecognized section and content) Goals may be documented in a n alternate sectionGoals may be documented in an alternate sectionGoals may be documented in an alternate sectionGoals may be documented in an alternate sectionGoals may be documented in an alternate sectionGoals may be documented in an alternate sectionGoals may be documented in an alternate sectionGoals may be documented in an alternate sectionGoals may be documented in an alternate sectionGoals may be documented in an alternate sectionGoals may be documented in an alternate sectionGoals may be documented in an alternate section Care Teams (unrecognized sec tion and content) Team Status: Active Member Role Status Dates Dr. Seema Sterling MD Family Provider Active Dr. Seema Sterling MD Primary Care Provider Active Team Status: Inactive Member Role Status Dates Dr. Seema Sterling MD Primary Care Prov ider, Attending Provider, Referring Provider Active Team Status: Inactive Member Role Status Dates Dr. Seema Sterling MD Primary Care Provider Active Dr. Rodrigo Maurice MD Attending Provider, Referr ing Provider Active Team Status: Inactive Member Role Status Dates Dr. Seema Sterling MD Primary Care Provider Active Eda Kapoor , LAN SUPPORT SPECIALIST-C Attending Provider Active Team Status: Inactive Member Role Status Dates Dr. Seema Sterling MD Primary Care Provider Active Eda Kapoor , LAN SUPPORT SPECIALIST-C Attending Provider, Referrin g Provider Active Team Status: Inactive Member Role Status Dates Dr. Seema Sterling MD Primary Care Provider Active Dr. Zac Nair MD Attending Provider, Referrin g Provider Active Team Status: Inactive Member Role Status Dates Dr. Seema Sterling MD Primary Care Provider Active Sally Eminence Attending Provider, Referring Provide r Active Team Status: Active Member Role Status Dates Dr. Seema Sterling MD Primary Care Provider Active Dr. Rodrigo Maurice MD Attending Provider, Referr ing Provider Active Team Status: Inactive Member Role Status Dates Dr. Seema Sterling MD Primary Care Provider Active Start: February 10, 2024 End: February 10, 2024 Dr. Rodrigo Maurice MD Attending Provider Active Start: February 10, 2024 End: February 10, 2024 Dr. Rodrigo Maurice MD Referring Provider Active Start: February 10, 2024 End: February 10, 2024 Team Status: Inactive Member Role Status Dates Dr. Seema Sterling MD Primary Care Provider Active Start: May 17, 2024 End: May 17, 2024 Sally Eminence Attending Provider Active Start : May 17, 2024 End: May 17, 2024 Sally Eminence Referring Provider Active Start : May 17, 2024 End: May 17, 2024 Team Status: Active Member Role Status Dates Dr. Seema Sterling MD Primary Care Provider Active Team Status: Inactive Member Role Status Dates Dr. Seema Sterling MD Primary Care Provider Active Start: June 15, 2024 End: June 15, 2024 TAYLOR Donovan Attending Provider Active Star t: June 15, 2024 End: June 15, 2024 TAYLOR Donovan Referring Provider Active Star t: June 15, 2024 End: June 15, 2024 Team Status: Active Member Role Status Dates Dr. Seema Sterling MD Primary Care Provider Active Start: June 15, 2024 Dr. Ramu Rehman MD Attending Provider Active S tart: June 15, 2024 Team Status: Active Member Role Status Dates Dr. Seema Sterling MD Primary Care Provider Active Start: June 15, 2024 Dr. Ramu Rehman MD Attending Provider Active S tart: June 15, 2024 TAYLOR Donovan Referring Provider Active Star t: June 15, 2024 Team Status: Inactive Member Role Status Dates Dr. Seema Sterling MD Primary Care Provider Active Start: August 14, 2024 End: August 14, 2024 Sally Plummer Attending Provider Active Start : August 14, 2024 End: August 14, 2024 Sally Plummer Referring Provider Active Start : August 14, 2024 End: August 14, 2024 FOR RECORDS PERTAINING TO PATIENTS WHO ARE [...] BE BASED ON THE PRIMARY CLINICAL RECORDS. [facility] [employer] provides no warranty or guarantee of the accuracy or completeness of information in this document.
== END | disposition home or self-care (01) ==
LOC: LAB 12:07
PROVIDERS: PCP Internal Medicine; Referring Provider Urology; Visit Provider Urology
DX: C61 Malignant neoplasm of prostate (principal)
CPT/HCPCS: 36415; 84153

== ENCOUNTER → 2024-11-25 | Outpatient (CLI) | payer MEDICARE, OTHER, SELFPAY ==
[2024-11-25 13:22] LABS: PSA,Total- Diagnostic 271.00 ng/mL (0.00-4.00)
--- OUTSIDE RECORDS SUMMARY | 2024-11-25 19:46 | XMS RPT_ITS | CCD ---
Author Organization [facility] Care Team Providers Care Structural Fitter Name Role Phone Armani AlvaEstelita Unavailable Unavailable Latouf , Dr. Jaimes Primary Care Provider Josafat SHETH, Dr. Rodrigo Purdy Attending Provider Josafat SHETH, Dr. Rodrigo Purdy Referring Provider PanamaSally Attending Provider [phone] [place], Sally Referring Provider Dr. Seema Sterling MD Primary Care Provider Evelyn Olvera Attending Provider Evelyn Olvera Referring Provider Sherie SHETH, Dr. Guallpa Attending Provider [phone] SEEMA STERLING MD Primary Care Unavailable SEEMA STERLING MD Consulting Unavailable SEEMA STERLING MD Attending Unavailable LATOUSEEMA Guillermo MD Admitting Unavailable June SEAT JOINER Referring Unavailable PROVIDER, UNKNOWN Consulting Unavailable PROVIDER, UNKNOWN Consulting Unavailable PROVIDER, UNKNOWN Consulting Unavailable SEEMA STERLING MD Primary Care Unavailable SEEMA STERLING MD Consulting Unavailable SEEMA STERLING MD Attending Unavailable SEEMA STERLING MD Admitting Unavailable PROVIDER, UNKNOWN Consulting Unavailable PROVIDER, UNKNOWN Consulting Unavailable PROVIDER, UNKNOWN Consulting Unavailable SEEMA STERLING MD Admitting Unavailable SEEMA STERLING MD Primary Care Unavailable SEEMA STERLING MD Consulting Unavailable SEEMA STERLING MD Attending Unavailable PROVIDER, UNKNOWN Consulting Unavailable PROVIDER, UNKNOWN Consulting Unavailable PROVIDER, UNKNOWN Consulting Unavailable SEEMA STERLING MD Primary Care Unavailable SEEMA STERLING MD Consulting Unavailable SEEMA STERLING MD Attending Unavailable SEEMA STERLNIG MD Admitting Unavailable June Referring Unavailable PROVIDER, UNKNOWN Consulting Unavailable PROVIDER, UNKNOWN Consulting Unavailable PROVIDER, UNKNOWN Consulting Unavailable Premium, Ramu Admitting Unavailable Premium, Ramu Referring Unavailable Premium, Ramu Attending Unavailable Premium, Ramu Consulting Unavailable Latouf, Butros Primary Care Unavailable Premium, Ramu Attending Unavailable Latouf, Butros Primary Care Unavailable Arana, Evelyn Referring Unavailable Latouf, Butros Primary Care Unavailable Latouf, Butros Referring Unavailable Arana, Evelyn Attending Unavailable Arana, Evelyn Referring Unavailable Latouf, Butros Primary Care Unavailable Arana, Evelyn Attending Unavailable Latouf, Butros Primary Care Unavailable Premium, Ramu Attending Unavailable Arana, Evelyn Referring Unavailable Sherie, Ramu Admitting Unavailable Premium, Ramu Referring Unavailable Sherie, Ramu Attending Unavailable Sherie, Ramu Consulting Unavailable Latouf, Butros Primary Care Unavailable Latouf, Butros Primary Care Unavailable Arana, Evelyn Referring Unavailable Arana, Evelyn Attending Unavailable Sherie, Ramu Referring Unavailable Latouf, Butros Primary Care Unavailable Sherie, Ramu Attending Unavailable Premium, Ramu Consulting Unavailable Premium, Ramu Admitting Unavailable Premium, Ramu Referring Unavailable Premium, Ramu Consulting Unavailable Arana, Evelyn Attending Unavailable Latouf, Butros Primary Care Unavailable Premium, Ramu Admitting Unavailable Sherie, Ramu Referring Unavailable Latouf, Butros Primary Care Unavailable Sherie, Ramu Attending Unavailable Sherie, Ramu Admitting Unavailable Premium, Ramu Referring Unavailable Latouf, Butros Primary Care Unavailable Sherie, Ramu Attending Unavailable Sherie, Ramu Admitting Unavailable Latouf, Butros Referring Unavailable Latouf, Butros Primary Care Unavailable Arana, Evelyn Attending Unavailable Sherie, Ramu Attending Unavailable Arana, Evelyn Referring Unavailable Latouf, Butros Primary Care Unavailable [place], Sally Referring Unavailable [place], Sally Attending Unavailable Latouf, Butros Primary Care Unavailable Latouf, Butros Primary Care Unavailable Arana, Evelyn Referring Unavailable Arana, Evelyn Attending Unavailable Latouf, Butros Primary Care Unavailable Josafat, Fer Referring Unavailable JosafatRodrigo Attending Unavailable Latouf, Butros Primary Care Unavailable Josafat, Fer Referring Unavailable Josafat, Fer Attending Unavailable [place], Sally Referring Unavailable [place], Sally Attending Unavailable Seema Sterling Primary Care Unavailable Medications Current Medications Medication Drug Class(es) [...] mg oral capsule (3 sources) l-Thyroxine Start: take 1 capsule by mouth once daily Levothyroxine 88 mcg capsule Active 88 ug PO DAILY September 29, 2023 12:00am rosuvastatin calcium 20 mg oral tablet (3 sources) HMG-CoA Reductase Inhibitor Start: take 1 tablet by mouth at bedtime [...] RESPOND TO QUESTIONS/MEMORY LOSS Cancer of prostate (5 sources) Malignant tumor of prostate; Translations: [Malignant [...] Translations: [Hyperlipidemia, unspecified] 10-31-2023 Chronic Essential hypertension (4 sources) Hypertensive disorder; Translations: [Essential (primary) hypertension] Onset: 02-13-2024 01-08-2024 Chronic Nutritional deficiencies (1 source) Vitamin D deficiency, unspecified; Translations: [Vitamin D deficiency, unspecified] Onset: 07-16-2024 Chronic Occlusion or stenosis of precerebral arteries (10 sources) Internal carotid artery stenosis; Translations: [Occlusion and stenosis of right carotid artery] Onset: 12-24-2023 10-28-2023 Chronic Other aftercare (3 sources) Surgical follow-up; Translations: [Encounter for surgical aftercare following surgery on the circulatory system] 12-04-2023 Episodic Other lower respiratory disease (3 sources) [...] B group vitamins] Onset: 02-13-2024 Episodic Other aftercare (1 source) Encounter for surgical aftercare following surgery on the circulatory system; Translations: [Encounter for surgical aftercare following surgery on the circulatory system] Onset: 06-21-2024 Episodic Unclassified (1 source) ELEVATED PSA R97.20 Onset: 08-18-2017 Results Test Name Value Interpretation Reference Range Facility PSA,Total- Diagnosticon 10-16 PSA, DIAGNOSTIC 273.00 ng/mL High 0.00-4.[address] [facility] Comment on above: Result Comment: This [...] values. Performed By: #### L [id number] #### [facility] [address] [place], [place], [id number] CBC + DIFFon 09-14-2024 Baso # 0.02 x10EE3/UL Normal 0.00 - 0.10 [facility] Comment on above: Performed By: #### 2 65281 #### [facility],[address] [place] [address] 32567 Basophils/100 WBC (Bld) 0.5 % Normal 0.0 - 2.0 [facility] Comment on above: Performed By: #### 2 92670 #### [facility],[address] [place] [address] 61855 CBC + DIFF Normal [facility] Comment on above: Result Comment: CBC- COMPLETE BLOOD COUNT Performed By: #### 2 21018 #### [facility],[address] [place] [address] 75818 EO # 0.28 x10EE3/UL Normal 0.00 - 0.50 [facility] Comment on above: Performed By: #### 2 48375 #### [facility],[address] [place] [address] 82568 Eosinophils/100 WBC (Bld) 5.7 % Normal 0.0 - 7.0 [facility] Comment on above: Performed By: #### 2 01242 #### [facility],[address] [place] [address] 99776 Erythrocyte distribution width (RBC) [Ratio] 14.0 % Normal 12.0 - 15.6 [facility] Comment on above: Performed By: #### 2 06118 #### [facility],[address] [place] [address] 25737 Hematocrit (Bld) [Volume fraction] 32.5 % Low 40.0 - 52.0 [facility] Comment on above: Performed By: #### 2 76500 #### [facility],[address] [place] [address] 85457 Hemoglobin (Bld) [Mass/Vol] 11.3 g/dL Low 13.0 - 17.5 [facility] Comment on above: Performed By: #### 2 34846 #### [facility],[address] [place] [address] Lymph # 1.17 x10EE3/UL Normal 0.80 - 2.80 [facility] Comment on above: Performed By: #### 2 16947 #### [facility],[address] [place] [address] Lymphocytes/100 WBC (Bld) 23.4 % Normal 20.0 - 45.0 [facility] Comment on above: Performed By: #### 2 32955 #### [facility],[address] [place] [address] MANUAL DIFF N/A Normal [facility] Comment on above: Performed By: #### 2 88673 #### [facility],[address] [place] [address] MCH (RBC) [Entitic mass] 31 pg Normal 27 - 33 [facility] Comment on above: Performed By: #### 2 65460 #### [facility],[address] [place] [address] MCHC 35 X10 3 Normal 32 - 36 [facility] Comment on above: Performed By: #### 2 83006 #### [facility],[address] [place], [place] [address] MCV (RBC) [Entitic vol] 88 fL Normal 81 - 98 [facility] Comment on above: Performed By: #### 2 48466 #### [facility],[address] [place] [address] 35706 Wright # 0.40 x10EE3/UL Normal 0.20 - 1.00 [facility] Comment on above: Performed By: #### 2 56272 #### [facility],[address] [place] [address] 15262 MONOS % 8.0 % Normal 0.0 - 10.0 [facility] Comment on above: Performed By: #### 2 81805 #### [facility],[address] [place] [address] 40998 Morphology Joe (Bld) [Interp] N/A Normal [facility] Comment on above: Performed By: #### 2 34390 #### [facility],[address] [place] [address] 63941 Neut # 3.12 x10EE3/UL Normal 1.50 - 7.10 [facility] Comment on above: Performed By: #### 2 98693 #### [facility],[address] [place] [address] 43233 Neutrophils/100 WBC (Bld) 62.5 % Normal 46.0 - 76.0 [facility] Comment on above: Performed By: #### 2 27055 #### [facility],[address] [place] [address] 78335 PLATELET 217 x10EE3/UL Normal 150 - 450 [facility] Comment on above: Performed By: #### 2 73702 #### [facility],[address] [place] [address] 44558 Platelet mean volume (Bld) [Entitic vol] 8.6 fL Normal 6.4 - 10.5 [facility] Comment on above: Result Comment: AUTO MATED DIFFERENTIAL Performed By: #### 2 53844 #### [facility],[address] [place] [address] 71526 RBC 3.71 x 10EE6/UL Low 4.50 - 6.00 [facility] Comment on above: Performed By: #### 2 78332 #### [facility],[address] [place] [address] 36945 WBC 5.0 x 10EE3/UL Normal 4.5 - 10.8 [facility] Comment on above: Performed By: #### 2 75477 #### [facility],[address] [place] [address] 01351 HEMOGLOBIN A1C (POM)on 09-14 Glucose [Mass/Vol] 145.6 mg/dL High 0.0 - 0.0 [facility] Comment on above: Result Comment: BLDo HEMOGLOBIN A1C REFERENCE RANGESBLDo Suggested Diagnosis HbA1c(%) HbA1C (mmol/mol Diabetic >/=6.5 >/=48 Prediabetes 5.7 - 6.4 39 - 47 Normal <5.7 <39 Performed By: #### 2 04755 #### [facility],[address] [place] [address] 44082 HbA1c (Bld) [Mass fraction] 6.7 % High 0.0 - 6.5 [facility] Comment on above: Performed By: #### 2 96765 #### [address] [address] IRON AND TIBCon 09-14-2024 %SATURATION 27 % Normal [facility] Comment on above: Performed By: #### 2 45056 #### [address] [address] Iron [Mass/Vol] 74 ug/dL Normal 65 - 175 [facility] Comment on above: Performed By: #### 2 34250 #### [address] [address] TIBC 272 ug/dl Normal 250 - 450 [facility] Comment on above: Performed By: #### 2 32389 #### [address] [address] UIBC 198 ug/dL Normal 155 - 355 [facility] Comment on above: Performed By: #### 2 38941 #### [address] [address] PSA,Total- Diagnosticon 07-17 PSA, DIAGNOSTIC 235.00 ng/mL High 0.00-4.[address] [facility] Comment on above: Result Comment: This [...] values. Performed By: #### L 501.9940 #### [facility] [address] [place], [address] FERRITIN [CCL]on 07-17-2024 Ferritin [Mass/Vol] 90.9 ng/mL Normal 30.3-565.7 [facility] Comment on above: Result Comment: [facility] [address] [place] [address] Zafar Bangura III, M.D. [id number] Performed By: #### 2 37728 #### [facility],[address] [place] [address] 27031 CBC + DIFFon 07-16-2024 Baso # 0.03 x10EE3/UL Normal 0.00 - 0.10 [facility] Comment on above: Performed By: #### 2 06453 #### [facility],[address] [place] [address] 58948 Basophils/100 WBC (Bld) 0.6 % Normal 0.0 - 2.0 [facility] Comment on above: Performed By: #### 2 78397 #### [facility],[address] [place] [address] 82437 CBC + DIFF Normal [facility] Comment on above: Result Comment: CBC- COMPLETE BLOOD COUNT Performed By: #### 2 71687 #### [facility],[address] [place] [address] 85040 EO # 0.26 x10EE3/UL Normal 0.00 - 0.50 [facility] Comment on above: Performed By: #### 2 62263 #### [facility],[address] [place] [address] 66836 Eosinophils/100 WBC (Bld) 5.2 % Normal 0.0 - 7.0 [facility] Comment on above: Performed By: #### 2 67079 #### [facility],[address] [place] [address] Erythrocyte distribution width (RBC) [Ratio] 14.1 % Normal 12.0 - 15.6 [facility] Comment on above: Performed By: #### 2 36976 #### [facility],[address] [place] [address] Hematocrit (Bld) [Volume fraction] 31.1 % Low 40.0 - 52.0 [facility] Comment on above: Performed By: #### 2 24827 #### [facility],[address] [place] [address] Hemoglobin (Bld) [Mass/Vol] 10.8 g/dL Low 13.0 - 17.5 [facility] Comment on above: Performed By: #### 2 31298 #### [facility],[address] [place] [address] Lymph # 1.06 x10EE3/UL Normal 0.80 - 2.80 [facility] Comment on above: Performed By: #### 2 71280 #### [facility],[address] [place] [address] Lymphocytes/100 WBC (Bld) 21.5 % Normal 20.0 - 45.0 [facility] Comment on above: Performed By: #### 2 13858 #### [facility],[address] [place] [address] MANUAL DIFF N/A Normal [facility] Comment on above: Performed By: #### 2 40957 #### [facility],[address] [place] [address] MCH (RBC) [Entitic mass] 30 pg Normal 27 - 33 [facility] Comment on above: Performed By: #### 2 92283 #### [facility],[address] [place] [address] MCHC 35 X10 3 Normal 32 - 36 [facility] Comment on above: Performed By: #### 2 57026 #### [facility],[address] [place] [address] 04433 MCV (RBC) [Entitic vol] 87 fL Normal 81 - 98 [facility] Comment on above: Performed By: #### 2 78768 #### [facility],[address] [place] [address] 77252 Wright # 0.43 x10EE3/UL Normal 0.20 - 1.00 [facility] Comment on above: Performed By: #### 2 77900 #### [facility],[address] [place] [address] 07176 MONOS % 8.8 % Normal 0.0 - 10.0 [facility] Comment on above: Performed By: #### 2 79955 #### [facility],[address] [place] [address] Morphology Joe (Bld) [Interp] N/A Normal [facility] Comment on above: Performed By: #### 2 41909 #### [facility],[address] [place] [address] Neut # 3.14 x10EE3/UL Normal 1.50 - 7.10 [facility] Comment on above: Performed By: #### 2 60235 #### [facility],[address] [place] [address] 94435 Neutrophils/100 WBC (Bld) 63.9 % Normal 46.0 - 76.0 [facility] Comment on above: Performed By: #### 2 52729 #### [facility],[address] [place] [address] 64428 PLATELET 217 x10EE3/UL Normal 150 - 450 [facility] Comment on above: Performed By: #### 2 13180 #### [facility],[address] [place] [address] 23392 Platelet mean volume (Bld) [Entitic vol] 7.4 fL Normal 6.4 - 10.5 [facility] Comment on above: Result Comment: AUTO MATED DIFFERENTIAL Performed By: #### 2 81589 #### [facility],[address] [place] [address] 48207 RBC 3.58 x 10EE6/UL Low 4.50 - 6.00 [facility] Comment on above: Performed By: #### 2 16159 #### [facility],[address] [place] [address] 03286 WBC 4.9 x 10EE3/UL Normal 4.5 - 10.8 [facility] Comment on above: Performed By: #### 2 50033 #### [facility],[address] [place] [address] 62789 CMP with eGFRon 07-16-2024 AGE 78 years Normal [facility] Comment on above: Performed By: #### 2 12290 #### [facility],[address] [place] [address] 33159 Albumin [Mass/Vol] 3.6 g/dL Normal 3.4 - 5.0 [facility] Comment on above: Performed By: #### 2 96378 #### [facility],[address] [place] [address] 35712 Albumin/Globulin [Mass ratio] 1.2 {ratio} Normal 0.9 - 1.6 [facility] Comment on above: Performed By: #### 2 89803 #### [facility],[address] [place] [address] 54567 ALK PHOS 64 U/L Normal 46 - 116 [facility] Comment on above: Performed By: #### 2 45389 #### [facility],[address] [place] [address] 85081 ALT [Catalytic activity/Vol] 15 U/L Low 16 - 63 [facility] Comment on above: Performed By: #### 2 27849 #### [facility],[address] [place] [address] 96535 Anion gap [Moles/Vol] 12 mmol/L Normal 10 - 20 [facility] Comment on above: Performed By: #### 2 16767 #### [facility],[address] [place] [address] 50737 AST [Catalytic activity/Vol] 18 U/L Normal 15 - 37 [facility] Comment on above: Performed By: #### 2 96528 #### [facility],[address] [place] [address] 80616 B/C RATIO 22 ratio Normal 0 - 30 [facility] Comment on above: Performed By: #### 2 04260 #### [facility],[address] [place] [address] 20717 Bilirubin [Mass/Vol] 0.3 mg/dL Normal 0.2 - 1.0 [facility] Comment on above: Performed By: #### 2 02719 #### [facility],[address] [place] [address] 24655 Calcium [Mass/Vol] 9.4 mg/dL Normal 8.5 - 10.1 [facility] Comment on above: Performed By: #### 2 99926 #### [facility],[address] [place] [address] 76698 Chloride [Moles/Vol] 106 mmol/L Normal 98 - 107 [facility] Comment on above: Performed By: #### 2 07007 #### [facility],[address] [place] [address] 49092 CMP with eGFR Normal [facility] Comment on above: Result Comment: COMP REHENSIVE METABOLIC PANEL Performed By: #### 2 36876 #### [facility],[address] [place] [address] 57526 CO2 [Moles/Vol] 29.1 mmol/L Normal 21.0 - 32.0 [facility] Comment on above: Performed By: #### 2 49810 #### [facility],[address] [place] [address] 66195 Creatinine [Mass/Vol] 1.62 mg/dL High 0.70 - 1.30 [facility] Comment on above: Performed By: #### 2 53600 #### [facility],[address] [place] [address] 32779 eGFR 42 ML/MINUTE Low 60 - 999 [facility] Comment on above: Performed By: #### 2 39606 #### [facility],[address] [place] [address] 78638 eGFR(AA) 50 ML/MINUTE Low 60 - 999 [facility] Comment on above: Result Comment: ACCO RDING TO THE NATIONAL KIDNEY DISEASE EDUCATION PROGRAM(NKDE), A NORMAL eGFR IS A VALUE GREATER THAN OR EQUAL TO 60 ML/MIN/1.73 SQ METERS. CHRONIC KIDNEY DISEASE: <60mL/MIN/1.73 SQ METERS KIDNEY FAILURE: <15mL/MIN/1.73 SQ METERS THIS TEST SHOULD ONLY BE USED FOR PATIENTS 18 YEARS OF AGE AND OLDER. Performed By: #### 2 71822 #### [facility],[address] [place] [address] 15458 Globulin (S) [Mass/Vol] 3.1 g/dL Normal 1.5 - 3.8 [facility] Comment on above: Performed By: #### 2 75914 #### [facility],[address] [place] [address] 91427 Glucose [Mass/Vol] 144 mg/dL High 74 - 106 [facility] Comment on above: Performed By: #### 2 68563 #### [facility],[address] [place] [address] 78647 Potassium [Moles/Vol] 5.0 mmol/L Normal 3.5 - 5.1 [facility] Comment on above: Performed By: #### 2 94990 #### [facility],[address] [place] [address] 96467 Protein [Mass/Vol] 6.7 g/dL Normal 6.4 - 8.2 [facility] Comment on above: Performed By: #### 2 67302 #### [facility],[address] [place] [address] 18480 Sodium [Moles/Vol] 142 mmol/L Normal 136 - 145 [facility] Comment on above: Performed By: #### 2 59792 #### [facility],[address] [place] [address] 40025 Urea nitrogen [Mass/Vol] 35 mg/dL High 7 - 18 [facility] Comment on above: Performed By: #### 2 87956 #### [facility],[address] [place] [address] 37237 FOLATESon 07-16-2024 FOLATES 50.2 ng/ml Normal 8.6 - 58.9 [facility] Comment on above: Performed By: #### 2 58333 #### [facility],[address] [place] [address] 02281 Ferritin SerPl-mCncon 2024 Ferritin [Mass/Vol] 90.9 ng/mL Normal 30.3-565.7 [facility] Comment on above: Order Comment: Speci men Type: BLOOD SPECIMEN Ordering Facility: [facility] Address: [address] [place] [address] Performed By: #### 2 276-4 #### [facility] CLIA [id number] [address] [place] [address] [place] HEMOGLOBIN A1C (POM)on 07-16 Glucose [Mass/Vol] 162.8 mg/dL High 0.0 - 0.0 [facility] Comment on above: Result Comment: BLDo HEMOGLOBIN A1C REFERENCE RANGESBLDo Suggested Diagnosis HbA1c(%) HbA1C (mmol/mol Diabetic >/=6.5 >/=48 Prediabetes 5.7 - 6.4 39 - 47 Normal <5.7 <39 Performed By: #### 2 81031 #### [facility],[address] [place] [address] 12805 HbA1c (Bld) [Mass fraction] 7.3 % High 0.0 - 6.5 [facility] Comment on above: Performed By: #### 2 06640 #### [facility],[address] [place] [address] 63738 IRON AND TIBCon 07-16-2024 %SATURATION 18 % Normal [facility] Comment on above: Performed By: #### 2 13939 #### [facility],[address] [place] [address] 14257 Iron [Mass/Vol] 57 ug/dL Low 65 - 175 [facility] Comment on above: Performed By: #### 2 82062 #### [facility],[address] [place] [address] 17679 TIBC 316 ug/dl Normal 250 - 450 [facility] Comment on above: Performed By: #### 2 68066 #### [facility],[address] [place] [address] 65877 UIBC 259 ug/dL Normal 155 - 355 [facility] Comment on above: Performed By: #### 2 26285 #### [facility],[address] [place] [address] 25336 LIPID PROFILEon 07-16-2024 Cholesterol [Mass/Vol] 114 mg/dL Normal 0 - 240 [facility] Comment on above: Performed By: #### 2 60219 #### [facility],[address] [place] [address] 64423 Cholesterol in HDL [Mass/Vol] 70 mg/dL High 40 - 60 [facility] Comment on above: Performed By: #### 2 56665 #### [facility],[address] [place] [address] 38603 Cholesterol in LDL [Mass/Vol] 33 mg/dL Normal 0 - 129 [facility] Comment on above: Performed By: #### 2 64954 #### [facility] [facility],[address] [place] [address] 16143 Cholesterol.total/Chol esterol in HDL [Mass ratio] 1.6 {ratio} Normal 0.0 - 5.0 [facility] Comment on above: Performed By: #### 2 49894 #### [facility],[address] [place] [address] 50851 Lipid 1996 panel Normal [facility] Comment on above: Result Comment: LIPI D PROFILE Performed By: #### 2 86887 #### [facility],[address] [place] [address] 67844 Triglyceride [Mass/Vol] 56 mg/dL Normal 0 - 150 [facility] Comment on above: Performed By: #### 2 66198 #### [facility],[address] [place] [address] 91301 T4-FREE (FREE THYROXINE)on 0 07-16-2024 Free T4 [Mass/Vol] 1.17 ng/dL Normal 0.76 - 1.46 [facility] Comment on above: Result Comment: P otential of falsely elevated results when biotin concentrations are > 10 ng/mL. Performed By: #### 2 94207 #### [facility],[address] [place] [address] 41095 TSHon 07-16-2024 TSH Qn 2.20 m[IU]/L Normal 0.35 - 3.74 [facility] Comment on above: Performed By: #### 2 43177 #### [facility],[address] [place] [address] 74364 URINE MICROALBUMIN W/CREATIN INE, RANDOMon 07-16-2024 CREATININE UR 92.08 mg/dl Normal [facility] Comment on above: Performed By: #### 2 28980 #### [facility],[address] [place] [address] 61961 MICROALBUMIN UR 5.6 mg/dL Normal 0.1 - 25.1 [facility] Comment on above: Performed By: #### 2 25938 #### [facility],[address] [place] [address] 19311 UACR 61 mg/g Normal [facility] Comment on above: Performed By: #### 2 98430 #### [facility],[address] [place] [address] 30254 VITAMIN B-12on 07-16-2024 Cobalamin (Vitamin B12) [Mass/Vol] 285 pg/mL Normal 193 - 986 [facility] Comment on above: Performed By: #### 2 63355 #### [facility],[address] [place] [address] 35068 VITAMIN D, 25 HYDROXYon 05- VitD 44.30 ng/mL Normal 30.00 - 100 [facility] Comment on above: Result Comment: 25-O [...] D2 Not Established Performed By: #### 2 61678 #### [facility],[address] [place] [address] 96274 Carotid Duplex Ultrasoundon 06-15-2024 Carotid Duplex Ultrasound [facility] [address] [place] [address] 16505 Carotid Duplex Ultrasound 06/15/24 0955 MR#: [id number] Acct: [id number] Name: SUMEET MAJANO Rep #: [id number] : 1945 78 From: Ramu Rehman MD Attending Dr: TAYLOR Donovan Status: REG CLI Ordering Dr: Evelyn Arana Date: 06/15/24 Location: [facility] Sex: M C [...] the left vertebral artery. Procedure Carotid Duplex 31222. This is a Carotid Duplex examination using B-mode, color flow and specral Doppler. Exam performed in department. VL/Carotid Duplex Ultrasound Interpretation Summary Mild (<50%) stenosis right extracranial internal carotid. Mild (<50%) stenosis left extracranial internal carotid. Patent and antegrade vertebrals bilaterally. Ordering Physician: Evelyn Arana Referring Physician: Evelyn Arana Performed By: Marilyn Garcia, RVT 06/15/249 Date Ramu Rehman MD CC: TAYLOR Donovan; Dr. Seema Sterling MD Date Dictated: 06/15/24954 Date Transcribed: 06/15/241548 Service Desk Associate: Signed Normal [facility] Duplex ultrasound of carotid artery reportOrdered By: Ramu Rehman on 06-15-2024 Study report [facility] [address] [place] [address] Carotid Duplex Ultrasound 06/15/24954 MR#: [id number] Acct: [id number] Name: SUMEET MAJANO Rep #:[id number] : 1945 78 From: Ramu Hutchins Attending Dr: TAYLOR Donovan Stat us: REG CLI Ordering Dr: Evelyn Arana Date: Location: [facility] Sex: M C Admitted: Reason For [...] the left vertebral artery. Procedure Carotid Duplex 74006. This is a Carotid Duplex examination using B-mode, color flow and specral Doppler. Exam performed in department. VL/Carotid Duplex Ultrasound Interpretation Summary Mild (<50%) stenosis right extracranial internal carotid. Mild (<50%) stenosis left extracranial internal carotid. Patent and antegrade vertebrals bilaterally. Ordering Physician: Evelyn Arana Referring Physician: Evelyn Arana Performed By: Marilyn Garcia RVT 06/15/241548 Date _ Ramu Rehman MD CC: TAYLOR Donovan; Dr. Seema Sterling MD ~ Date Dictated: 06/15/24954 Date Transcribed: 06/15/241548 Service Desk Associate: Signed [facility] Work Phone: PSA,Total- Diagnosticon - PSA, DIAGNOSTIC 92.20 ng/mL High 0.00-4.[address] [facility] Comment on above: Result Comment: This [...] confirm baseline values. Performed By: #### L 501.9916 #### [facility] Laboratory [facility] [address] [place], [place], [address] Diagnostic total prostate sp ecific antigen (PSA) measurementOrdered By: Sally Plummer on 05-17-2024 Prostate Specific Antigen Total 92.20 ng/mL High 0.00-4.[address] [facility] Comment on above: This test was [...] # 0.03 x10EE3/UL Normal 0.00 - 0.10 [facility] Comment on above: Performed By: #### 2 53206 #### [facility],[address] [place] [address] 89945 Basophils/100 WBC (Bld) 0.8 % Normal 0.0 - 2.0 [facility] Comment on above: Performed By: #### 2 63453 #### [facility],[address] [place], [place] [address] CBC + DIFF Normal [facility] Comment on above: Result Comment: CBC- COMPLETE BLOOD COUNT Performed By: #### 2 85525 #### [facility],[address] [place] [address] 23951 EO # 0.29 x10EE3/UL Normal 0.00 - 0.50 [facility] Comment on above: Performed By: #### 2 26645 #### [facility],[address] [place] [address] Eosinophils/100 WBC (Bld) 6.8 % Normal 0.0 - 7.0 [facility] Comment on above: Performed By: #### 2 34170 #### [facility],[address] [place] [address] Erythrocyte distribution width (RBC) [Ratio] 13.9 % Normal 12.0 - 15.6 [facility] Comment on above: Performed By: #### 2 23919 #### [facility],[address] [place] [address] Hematocrit (Bld) [Volume fraction] 36.8 % Low 40.0 - 52.0 [facility] Comment on above: Performed By: #### 2 28666 #### [facility],[address] [place], [place] [address] Hemoglobin (Bld) [Mass/Vol] 11.7 g/dL Low 13.0 - 17.5 [facility] Comment on above: Performed By: #### 2 53707 #### [facility],[address] [place], [place] [address] Lymph # 0.85 x10EE3/UL Normal 0.80 - 2.80 [facility] Comment on above: Performed By: #### 2 44355 #### [facility],[address] [place], [place] [address] Lymphocytes/100 WBC (Bld) 19.8 % Low 20.0 - 45.0 [facility] Comment on above: Performed By: #### 2 20561 #### [facility],[address] [place] [address] MANUAL DIFF N/A Normal [facility] Comment on above: Performed By: #### 2 91167 #### [facility],[address] [place] [address] MCH (RBC) [Entitic mass] 29 pg Normal 27 - 33 [facility] Comment on above: Performed By: #### 2 58729 #### [facility],[address] [place] [address] MCHC 32 X10 3 Normal 32 - 36 [facility] Comment on above: Performed By: #### 2 07911 #### [place] [address] MCV (RBC) [Entitic vol] 90 fL Normal 81 - 98 [facility] Comment on above: Performed By: #### 2 18198 #### [facility],[address] [place] [address] Wright # 0.35 x10EE3/UL Normal 0.20 - 1.00 [facility] Comment on above: Performed By: #### 2 84316 #### [facility],[address] [place] [address] MONOS % 8.2 % Normal 0.0 - 10.0 [facility] Comment on above: Performed By: #### 2 85670 #### [facility],[address] [place] [address] Morphology Joe (Bld) [Interp] N/A Normal [facility] Comment on above: Performed By: #### 2 39991 #### [facility],[address] [place] [address] Neut # 2.76 x10EE3/UL Normal 1.50 - 7.10 [facility] Comment on above: Performed By: #### 2 42629 #### [facility],[address] [place] [address] 27018 Neutrophils/100 WBC (Bld) 64.5 % Normal 46.0 - 76.0 [facility] Comment on above: Performed By: #### 2 45423 #### [facility],[address] [place] [address] 34176 PLATELET 215 x10EE3/UL Normal 150 - 450 [facility] Comment on above: Performed By: #### 2 86769 #### [facility],[address] [place] [address] 01118 Platelet mean volume (Bld) [Entitic vol] 8.2 fL Normal 6.4 - 10.5 [facility] Comment on above: Result Comment: AUTO MATED DIFFERENTIAL Performed By: #### 2 98559 #### [facility],[address] [place], [place] [address] RBC 4.09 x 10EE6/UL Low 4.50 - 6.00 [facility] Comment on above: Performed By: #### 2 00518 #### [facility],[address] [place] [address] 15468 WBC 4.3 x 10EE3/UL Low 4.5 - 10.8 [facility] Comment on above: Performed By: #### 2 28585 #### [facility],[address] [place], [place] [address] CMP with eGFRon 02-13-2024 AGE 78 years Normal [facility] Comment on above: Performed By: #### 2 96753 #### [facility],[address] [place] [address] 67706 Albumin [Mass/Vol] 3.3 g/dL Low 3.4 - 5.0 [facility] Comment on above: Performed By: #### 2 89753 #### [facility],[address] [place], [place] [address] Albumin/Globulin [Mass ratio] 0.9 {ratio} Normal 0.9 - 1.6 [facility] Comment on above: Performed By: #### 2 09929 #### [facility],[address] [place] [address] 27797 ALK PHOS 60 U/L Normal 46 - 116 [facility] Comment on above: Performed By: #### 2 76137 #### [facility],[address] [place] [address] 34175 ALT [Catalytic activity/Vol] 11 U/L Low 16 - 63 [facility] Comment on above: Performed By: #### 2 79484 #### [facility],[address] [place] [address] 92987 Anion gap [Moles/Vol] 14 mmol/L Normal 10 - 20 [facility] Comment on above: Performed By: #### 2 79460 #### [facility],[address] [place], [place] [address] AST [Catalytic activity/Vol] 13 U/L Low 15 - 37 [facility] Comment on above: Performed By: #### 2 44389 #### [facility],[address] [place] [address] 04001 B/C RATIO 19 ratio Normal 0 - 30 [facility] Comment on above: Performed By: #### 2 53803 #### [facility],[address] [place] [address] 21594 Bilirubin [Mass/Vol] 0.4 mg/dL Normal 0.2 - 1.0 [facility] Comment on above: Performed By: #### 2 25679 #### [facility],[address] [place] [address] 74955 Calcium [Mass/Vol] 9.4 mg/dL Normal 8.5 - 10.1 [facility] Comment on above: Performed By: #### 2 23797 #### [facility],[address] [place] [address] 00543 Chloride [Moles/Vol] 107 mmol/L Normal 98 - 107 [facility] Comment on above: Performed By: #### 2 69390 #### [facility],[address] [place] [address] 08870 CMP with eGFR Normal [facility] Comment on above: Result Comment: COMP REHENSIVE METABOLIC PANEL Performed By: #### 2 11081 #### [facility],[address] [place], [place] [address] CO2 [Moles/Vol] 24.5 mmol/L Normal 21.0 - 32.0 [facility] Comment on above: Performed By: #### 2 70211 #### [facility],[address] [place], [place] [address] Creatinine [Mass/Vol] 1.71 mg/dL High 0.70 - 1.30 [facility] Comment on above: Performed By: #### 2 52827 #### [facility],[address] [place] [address] 47095 eGFR 39 ML/MINUTE Low 60 - 999 [facility] Comment on above: Performed By: #### 2 32935 #### [facility],[address] [place] [address] 50535 eGFR(AA) 47 ML/MINUTE Low 60 - 999 [facility] Comment on above: Result Comment: ACCO RDING TO THE NATIONAL KIDNEY DISEASE EDUCATION PROGRAM(NKDE), A NORMAL eGFR IS A VALUE GREATER THAN OR EQUAL TO 60 ML/MIN/1.73 SQ METERS. CHRONIC KIDNEY DISEASE: <60mL/MIN/1.73 SQ METERS KIDNEY FAILURE: <15mL/MIN/1.73 SQ METERS THIS TEST SHOULD ONLY BE USED FOR PATIENTS 18 YEARS OF AGE AND OLDER. Performed By: #### 2 18439 #### [facility],[address] [place] [address] 02247 Globulin (S) [Mass/Vol] 3.5 g/dL Normal 1.5 - 3.8 [facility] Comment on above: Performed By: #### 2 99931 #### [facility],[address] [place] [address] 31739 Glucose [Mass/Vol] 145 mg/dL High 74 - 106 [facility] Comment on above: Performed By: #### 2 05210 #### [facility],[address] [place] [address] 49098 Potassium [Moles/Vol] 4.2 mmol/L Normal 3.5 - 5.1 [facility] Comment on above: Performed By: #### 2 45560 #### [facility],[address] [place] [address] 13981 Protein [Mass/Vol] 6.8 g/dL Normal 6.4 - 8.2 [facility] Comment on above: Performed By: #### 2 51409 #### [facility],[address] [place] [address] 47756 Sodium [Moles/Vol] 141 mmol/L Normal 136 - 145 [facility] Comment on above: Performed By: #### 2 32844 #### [facility],[address] [place] [address] 00116 Urea nitrogen [Mass/Vol] 32 mg/dL High 7 - 18 [facility] Comment on above: Performed By: #### 2 58925 #### [facility],[address] [place] [address] 58010 FOLATESon 02-13-2024 FOLATES 24.3 ng/ml Normal 8.6 - 58.9 [facility] Comment on above: Performed By: #### 2 28036 #### [facility],[address] [place] [address] 70641 HEMOGLOBIN A1C (POM)on 02-12 Glucose [Mass/Vol] 162.8 mg/dL High 0.0 - 0.0 [facility] Comment on above: Result Comment: BLDo HEMOGLOBIN A1C REFERENCE RANGESBLDo Suggested Diagnosis HbA1c(%) HbA1C (mmol/mol Diabetic >/=6.5 >/=48 Prediabetes 5.7 - 6.4 39 - 47 Normal <5.7 <39 Performed By: #### 2 06783 #### [facility],[address] [place] [address] 16849 HbA1c (Bld) [Mass fraction] 7.3 % High 0.0 - 6.5 [facility] Comment on above: Performed By: #### 2 50744 #### [facility],[address] [place] [address] 33787 LIPID PROFILEon 02-13-2024 Cholesterol [Mass/Vol] 131 mg/dL Normal 0 - 240 [facility] Comment on above: Performed By: #### 2 75784 #### [facility],[address] [place], [place] [address] Cholesterol in HDL [Mass/Vol] 68 mg/dL High 40 - 60 [facility] Comment on above: Performed By: #### 2 42191 #### [facility],[address] [place], [place] [address] Cholesterol in LDL [Mass/Vol] 34 mg/dL Normal 0 - 129 [facility] Comment on above: Performed By: #### 2 44078 #### [facility],[address] [place] [address] 90298 Cholesterol.total/Chol esterol in HDL [Mass ratio] 1.9 {ratio} Normal 0.0 - 5.0 [facility] Comment on above: Performed By: #### 2 84765 #### [facility],[address] [place] [address] 31126 Lipid 1996 panel Normal [facility] Comment on above: Result Comment: LIPI D PROFILE Performed By: #### 2 41422 #### [facility],[address] [place] [address] 98259 Triglyceride [Mass/Vol] 143 mg/dL Normal 0 - 150 [facility] Comment on above: Performed By: #### 2 62696 #### [facility],[address] [place] [address] 53567 MICROALBUMIN RANDOM URINE W/ CREATININEon 02-13-2024 CREATININE UR 141.51 mg/dl Normal [facility] Comment on above: Result Comment: Micr oalbumin/Creat Ratio Performed By: #### 2 02274 #### [facility],[address] [place] [address] 29591 MICROALBUMIN UR 6.4 mg/dL Normal 0.1 - 25.1 [facility] Comment on above: Performed By: #### 2 60468 #### [facility],[address] [place] [address] 98112 UACR 45 mg/g Normal [facility] Comment on above: Performed By: #### 2 06324 #### [facility],[address] [place] [address] 29706 T4-FREE (FREE THYROXINE)on 04-14-2023 Free T4 [Mass/Vol] 1.20 ng/dL Normal 0.76 - 1.46 [facility] Comment on above: Result Comment: P otential of falsely elevated results when biotin concentrations are > 10 ng/mL. Performed By: #### 2 09643 #### [facility],[address] [place] [address] 70823 TSHon 02-13-2024 TSH Qn 3.82 m[IU]/L High 0.35 - 3.74 [facility] Comment on above: Performed By: #### 2 56641 #### [facility],[address] [place] [address] 61741 VITAMIN B-12on 02-13-2024 Cobalamin (Vitamin B12) [Mass/Vol] 330 pg/mL Normal 193 - 986 [facility] Comment on above: Performed By: #### 2 35290 #### [facility],[address] [place] [address] 74941 VITAMIN D, 25 HYDROXYon 01-16 VitD 44.60 ng/mL Normal 30.00 - 100 [facility] Comment on above: Result Comment: 25-O [...] D2 Not Established Performed By: #### 2 32853 #### [facility],[address] [place] [address] 80899 Diagnostic total prostate sp ecific antigen (PSA) measurementOrdered By: Rodrigo Maurice on 02-10-2024 Prostate Specific Antigen Total 43.70 ng/mL High 0.0-4.[address] [facility] Comment on above: This test was perfor med using the TPSA assay method for theZin.gl chemistry system. Values obtained with differentassay methods cannot be used interchangably.When changing PSA assays in the course of monitoring apatient, additional sequential testing should be carriedout to confirm baseline values. PSA,Total- Diagnosticon 01-16 PSA, DIAGNOSTIC 43.70 ng/mL High 0.0-4.[address] [facility] Comment on above: Result Comment: This test was performed using the TPSA assay method for the Zin.gl chemistry system. Values obtained with different assay methods cannot be used interchangably. When changing PSA assays in the course of monitoring a patient, additional sequential testing should be carried out to confirm baseline values. Performed By: #### L 501.9940 #### [facility] Laboratory [address] [place], [address] Carotid Duplex Ultrasoundon 01-19-2024 Carotid Duplex Ultrasound [facility] [address] [place] [address] Carotid Duplex Ultrasound 01/19/24 0953 MR#: [id number] Acct: [id number] Name: SUMEET MAJANO Rep #: [id number] : 1945 78 From: Ramu Rehman MD Attending Dr: TAYLOR Donovan Status: REG CLI Ordering Dr: Evelyn Arana Date: 01/19/24 Location: [facility] Sex: M C Admitted: Reason For [...] noted Lt Vert A. Procedure Carotid Duplex 11584. This is a Carotid Duplex examination using B-mode, color flow and specral Doppler. Exam performed in department. VL/Carotid Duplex Ultrasound Interpretation Summary Mild (<50%) stenosis right extracranial internal carotid. Mild (<50%) stenosis left extracranial internal carotid. The Right vertebral is patent and antegrade. The Left vertebral flow is retrograde. Ordering Physician: Evelyn Arana Referring Physician: Seema Sterling Performed By: Irene Jaramillo, TASHI, RVT 01/26/241937 Date Ramu Rehman MD CC: TAYLOR Donovan; Dr. Seema Sterling MD Date Dictated: 01/19/24952 Date Transcribed: 01/26/241937 Service Desk Associate: Signed Normal [facility] Surgery Visit Reporton 01-07 Surgery Visit Report [facility] [address] [facility] [address] [place] [address] OFFICE VISIT Date of Service: 01/08/24 MR#: [id number] Acct: [id number] Name: SUMEET MAJANO Rep #: [id number] : 1945 Provider: TAYLOR Donovan Age/Sex: 78/M Location: [facility] [place] Status: Signed Intake Vital Signs 12/24/23 14:34 [...] pressure medications this morning. He denies any HARRISON, vision changes, chest/back pain, SOB. He started [...] Primary hypertension I10 Hypertension type: primary hypertension [facility] Medical History History of left common carotid [...] umbilical hernia repair History of tonsillectomy ( 2017) Family History [...] as needed. 01/08/242215 Date Evelyn VAZQUEZ 01/13/24 0748 Cosigner Signature: Date (if applicable) Ramu Rehman MD CC: Dr. Seema Sterling MD Normal [facility] ACT Activated Clotting Timeo n 12-25-2023 ACTk CLOT TIME 336 sec High 74-[address] [facility] Comment on above: Performed By: #### L 9100.0100 #### [facility] [address] [place], [address] CBC W/Diff, Automatedon 10- Absolute Lymph 1.35 X10 3/uL Normal 0.83-4.[address] [facility] Comment on above: Performed By: #### L 501.080 #### [facility] [address] [place], [address] Absolute Neut 3.5 X10 3/uL Normal 2.0-7.[address] [facility] Comment on above: Performed By: #### L 501.080 #### [facility] [address] [place], [address] Basophils/100 WBC (Bld) 0.7 % Normal 0-[address] [facility] Comment on above: Performed By: #### L 501.080 #### [facility] [address] [place], [address] Eosinophils/100 WBC (Bld) 3.5 % Normal 0-[address] [facility] Comment on above: Performed By: #### L 501.080 #### [facility] [address] [place], [address] Erythrocyte distribution width (RBC) [Ratio] 13.2 % Normal 11.6-14.[address] [facility] Comment on above: Performed By: #### L 501.080 #### [facility] [address] [place], [address] Hematocrit (Bld) [Volume fraction] 29.3 % Low 40-[address] [facility] Comment on above: Performed By: #### L 501.080 #### [facility] [address] [place], [address] Hemoglobin (Bld) [Mass/Vol] 9.6 g/dL Low 13.0-16.[address] [facility] Comment on above: Performed By: #### L 501.080 #### [facility] [address] [place], [address] IG% 0.500 Normal 0.0-0.[address] [facility] Comment on above: Result Comment: IG% - Immature Granulocytes (promyelocytes, myelocytes and metamyelocytes) > 1% indicates that a LEFT SHIFT is Present. Performed By: #### L 501.080 #### [facility] [address] [place], [address] Lymphocytes/100 WBC (Bld) 23.9 % Normal 19-[address] [facility] Comment on above: Performed By: #### L 501.080 #### [facility] [address] [place], [address] MCH (RBC) [Entitic mass] 29.4 pg Normal 27.0-32.[address] [facility] Comment on above: Performed By: #### L 501.080 #### [facility] [address] [place], [address] MCHC (RBC) [Mass/Vol] 32.8 g/dL Normal 32-36 [facility] Comment on above: Performed By: #### L 501.080 #### [facility] [address] [place], [address] MCV (RBC) [Entitic vol] 89.9 fL Normal 80-[address] [facility] Comment on above: Performed By: #### L 501.080 #### [facility] [address] [place], [address] Monocytes/100 WBC (Bld) 9.0 % Normal 0-[address] [facility] Comment on above: Performed By: #### L 501.080 #### [facility] [address] [place], [address] Neutrophils/100 WBC (Bld) 62.4 % Normal 47-[address] [facility] Comment on above: Performed By: #### L 501.080 #### [facility] [address] [place], [address] Nucleated RBC (Bld) [#/Vol] 0 10*3/uL Normal 0-[address] [facility] Comment on above: Performed By: #### L 501.080 #### [facility] [address] [place], [address] Platelet mean volume (Bld) [Entitic vol] 10.5 fL Normal 6.2-12.[address] [facility] Comment on above: Performed By: #### L 501.080 #### [facility] [address] [place], [address] Platelets (Bld) [#/Vol] 157 10*3/uL Normal 150-[address] [facility] Comment on above: Performed By: #### L 501.080 #### [facility] [address] [place], [address] RBC (Bld) [#/Vol] 3.26 10*6/uL Low 4.6-6.2 [facility] Comment on above: Performed By: #### L 501.080 #### [facility] [address] [place], [address] RDW SD 43.9 fl Normal 35.1-43.[address] [facility] Comment on above: Performed By: #### L 501.080 #### [facility] [address] [place], [address] WBC (Bld) [#/Vol] 5.6 10*3/uL Normal 4.4-11.0 [facility] Comment on above: Performed By: #### L 501.080 #### [facility] [address] [place], [address] Bedside Glucoseon 12-23-2023 FINGERSTICK GLU 163 mg/dL High 74-[address] [facility] Comment on above: Result Comment: XUAN LOBATO OF PATIENT CARE PER NURSING PROTOCOL Performed By: #### L 501.080 #### [facility] [address] [place], [address] MR/POSTOP.ANEon 12-23-2023 MR/POSTOP.ANE [facility] Medical Records Department [address] [place] [address] Anesthesia Postop Eval I 12/23/23 1152 MR#: [id number] Acct: [id number] Name: SUMEET MAJANO Rep #: [id number] : 1945 78 From: Osmar Santos CRNA PCP: Dr. Seema Sterling MD Status:ADM IN Y Race: C Location: ICU [id number] Anesthesia: Postop Eval I Current Vital Signs [...] completed: Yes 12/23/23 1153 Date Osmar Santos TRAVEL REGISTERED NURSE ICU Cosigner Signature: Date CC: Signed Normal [facility] MR/POSTOP.ANE [facility] Medical Records Department [address] [place] [address] Anesthesia Postop Eval I 12/23/23 1113 MR#: [id number] Acct: [id number] Name: SUMEET MAJANO Rep #: [id number] : 1945 78 From: Ramu Mcgrath MD PCP: Dr. Seema Sterling MD Status:ADM IN Y Race: C Location: ICU [id number] Anesthesia: Postop Eval I Current Vital Signs Temperature: 96.8 F Pulse Rate: 57 Blood Pressure: 122/56 Respiratory Rate: 16 Pulse Ox: 97 Assessment Airway patent: Yes Spontaneous unlabored respirations: Yes nausea: No Vomiting: No Anesthesia Complication: No Fluid Hydration Crystalloid volume administer (ml): 1,000 Total IV fluid infused: 1,000 Progress Note Anesthesia document: Postop Eval 1 completed: Yes 12/23/23 111 Ramu Mcgrath MD Cosigner Signature: CC: Signed Normal [facility] MR/[id number] 12-23-2023 MR/POSTOPAN2 [facility] Medical Records Department [address] [place] [address] Anesthesia Postop Eval II 12/23/23 1110 MR#: [id number] Acct: [id number] Name: JORGELEVSUMEET LUNA Cuong Rep #: [id number] : 1945 78 From: Ramu Mcgrath MD PCP: Dr. Seema Sterling MD Status:ADM IN Y Race: C Location: ICU [place] [address] Anesthesia Postop Eval I Sum Anesthesia Postop [...] 0 nausea: No Vomiting: No 12/23/23 1111 Ramu Gillespieignpeyton Signature: CC: Signed Normal [facility] Operative Reporton 10-08-202 4 Operative Report [facility] Medical Records Department [address] [place] [address] Operative Report 12/23/23 1115 MR#: [id number] Acct: [id number] Name: SUMEET MAJANO Rep #: [id number] : 1945 78 From: Ramu Rehman MD PCP: Dr. Seema Sterling MD Status:ADM IN Location: ICU [id number] Report of Operation Date of Procedure: 12/23/23 Pre-Operative Diagnosis: right carotid artery stenosis Post-Operative Diagnosis: same Surgery/Procedure Performed:: right carotid artery stent TCAR Surgeon: Ramu Rehman wood carver: Marcelle Vásquez Type of Anesthesia: General Drains: [...] procedure site patient was taken to the [facility] where he was placed under general anesthesia. [...] the micropuncture sheath exchanged for the 8 Togolese venous return sheath. Next a micropuncture needle [...] sheath was then exchanged for the [address] flow reversal sheath. Once this [...] then reversed with protamine and a 19 Togolese channel WILLIAM placed via separate stab incision. [...] MD on 12/23/23 at 1635 Addendum The temporary administrative assistant (more content not included)... Normal [facility] Carotid Duplex Ultrasoundon 12-12-2023 Carotid Duplex Ultrasound [facility] [address] [place] [address] Carotid Duplex Ultrasound 12/12/23 1432 MR#: [id number] Acct: [id number] Name: SUMEET MAJANO Rep #: [id number] : 1945 78 From: Ramu Rehman MD Attending Dr: TAYLOR Donovan Status: REG CLI Ordering Dr: Evelyn Arana Date: 12/12/23 Location: [facility] Sex: M C Admitted: Reason For [...] noted Lt Vert A. Procedure Carotid Duplex 62051. This is a Carotid Duplex examination using B-mode, color flow and specral Doppler. Prelim given to Kirti at [facility]. Exam performed in department. 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 Normal left extracranial internal carotid. The Right vertebral is patent and antegrade. The Left vertebral flow is bidirectional. Ordering Physician: Evelyn Arana Referring Physician: Seema Sterling Performed By: Irene Jaramillo, TASHI, RVT 12/17/23 1101 Date Ramu Rehman MD CC: TAYLOR Donovan; Dr. Seema Sterling MD Date Dictated: 12/12/23 1432 Date Transcribed: 12/17/23 110 Service Desk Associate: Signed Normal [facility] Surgery Visit Reporton 12-03 Surgery Visit Report [facility] [address] [place] [address]. [address] [place] [address] OFFICE VISIT Date of Service: 12/04/23 MR#: [id number] Acct: [id number] Name: JORGELEVSUMEET LUNA Cuong Rep #: [id number] : 1945 Provider: TAYLOR Donovan Age/Sex: 78/M Location: [facility] [place] Status: Signed Intake Vital Signs 11/19/23 09:41 [...] Primary hypertension I10 Hypertension type: primary hypertension [facility] Medical History Tinnitus of both ears Wears [...] retrograde, obstruc (more content not included)... Normal [facility] Bedside Glucoseon 11-19-2023 FINGERSTICK GLU 217 mg/dL High 74-[address] [facility] Comment on above: Result Comment: Dr Susan shannon Followed MANAGEMENT OF PATIENT CARE PER NURSING PROTOCOL Performed By: #### L 501.080 #### [facility] [address] [place], [address] FINGERSTICK GLU 153 mg/dL High 74-[address] [facility] Comment on above: Result Comment: XUAN LOBATO OF PATIENT CARE PER NURSING PROTOCOL Performed By: #### L 501.080 #### [facility] [address] [place], [address] CBC W/Diff, Automatedon 09-0 4-4 Absolute Lymph 1.50 X10 3/uL Normal 0.83-4.[address] [facility] Comment on above: Performed By: #### L 100.0100 #### [facility] [address] [place], [address] Absolute Neut 4.5 X10 3/uL Normal 2.0-7.[address] [facility] Comment on above: Performed By: #### L 100.0100 #### [facility] [address] [place], [address] Basophils/100 WBC (Bld) 0.6 % Normal 0-[address] [facility] Comment on above: Performed By: #### L 100.0100 #### [facility] [address] [place], [address] Eosinophils/100 WBC (Bld) 2.2 % Normal 0-[address] [facility] Comment on above: Performed By: #### L 100.0100 #### [facility] [address] [place], [address] Erythrocyte distribution width (RBC) [Ratio] 13.1 % Normal 11.6-14.[address] [facility] Comment on above: Performed By: #### L 100.0100 #### [facility] [address] [place], [address] Hematocrit (Bld) [Volume fraction] 28.2 % Low 40-[address] [facility] Comment on above: Performed By: #### L 100.0100 #### [facility] [address] [place], [address] Hemoglobin (Bld) [Mass/Vol] 9.3 g/dL Low 13.0-16.[address] [facility] Comment on above: Performed By: #### L 100.0100 #### [facility] [address] [place], [address] IG% 0.300 Normal 0.0-0.[address] [facility] Comment on above: Result Comment: IG% - Immature Granulocytes (promyelocytes, myelocytes and metamyelocytes) > 1% indicates that a LEFT SHIFT is Present. Performed By: #### L 100.0100 #### [facility] [address] [place], [address] Lymphocytes/100 WBC (Bld) 22.2 % Normal 19-[address] [facility] Comment on above: Performed By: #### L 100.0100 #### [facility] [address] [place], [address] MCH (RBC) [Entitic mass] 29.4 pg Normal 27.0-32.[address] [facility] Comment on above: Performed By: #### L 100.0100 #### [facility] [address] [place], [address] MCHC (RBC) [Mass/Vol] 33.0 g/dL Normal 32-36 [facility] Comment on above: Performed By: #### L 100.0100 #### [facility] [address] [place], [address] MCV (RBC) [Entitic vol] 89.2 fL Normal 80-[address] [facility] Comment on above: Performed By: #### L 100.0100 #### [facility] [address] [place], [address] Monocytes/100 WBC (Bld) 8.3 % Normal 0-[address] [facility] Comment on above: Performed By: #### L 100.0100 #### [facility] [address] [place], [address] Neutrophils/100 WBC (Bld) 66.4 % Normal 47-[address] [facility] Comment on above: Performed By: #### L 100.0100 #### [facility] [address] [place], [address] Nucleated RBC (Bld) [#/Vol] 0 10*3/uL Normal 0-[address] [facility] Comment on above: Performed By: #### L 100.0100 #### [facility] [address] [place], [address] Platelet mean volume (Bld) [Entitic vol] 10.3 fL Normal 6.2-12.[address] [facility] Comment on above: Performed By: #### L 100.0100 #### [facility] [address] [place], [address] Platelets (Bld) [#/Vol] 174 10*3/uL Normal 150-[address] [facility] Comment on above: Performed By: #### L 100.0100 #### [facility] [address] [place], [address] RBC (Bld) [#/Vol] 3.16 10*6/uL Low 4.6-6.2 [facility] Comment on above: Performed By: #### L 100.0100 #### [facility] [address] [place], [address] RDW SD 42.7 fl Normal 35.1-43.[address] [facility] Comment on above: Performed By: #### L 100.0100 #### [facility] [address] [place], [address] WBC (Bld) [#/Vol] 6.8 10*3/uL Normal 4.4-11.0 [facility] Comment on above: Performed By: #### L 100.0100 #### [facility] [address] [place], [address] ACT Activated Clotting Timeo n 11-18-2023 ACTk CLOT TIME 348 sec High 74-[address] [facility] Comment on above: Performed By: #### L 9100.0100 #### [facility] [address] [place], [address] Bedside Glucoseon 11-18-2023 FINGERSTICK GLU 206 mg/dL High 74-[address] [facility] Comment on above: Result Comment: XUAN GEMENT OF PATIENT CARE PER NURSING PROTOCOL Performed By: #### L 501.080 #### [facility] [address] [place], [address] FINGERSTICK GLU 199 mg/dL High 74-[address] [facility] Comment on above: Result Comment: Dr Susan shannon Followed Insulin Given MANAGEMENT OF PATIENT CARE PER NURSING PROTOCOL Performed By: #### L 9100.0100 #### [facility] [address] [place], [address] FINGERSTICK GLU 188 mg/dL High [facility] [facility] Comment on above: Result Comment: Dr Susan shannon Followed MANAGEMENT OF PATIENT CARE PER NURSING PROTOCOL Performed By: #### L 9100.0100 #### [facility] [address] [place], [address] FINGERSTICK GLU 174 mg/dL High [address] [facility] Comment on above: Result Comment: XUAN GEMENT OF PATIENT CARE PER NURSING PROTOCOL Performed By: #### L 9100.0100 #### [facility] [address] [place], [address] MR/POSTOP.ANEon 11-18-2023 MR/POSTOP.[facility] Medical Records Department [address] [place] [address] Anesthesia Postop Eval I 11/18/23 1110 MR#: [id number] Acct: [id number] Name: SUMEET MAJANO Rep #: [id number] : 1945 78 From: Chavo Alexandra PCP: Dr. Seema Sterling MD Status:ADM IN Y Race: C Location: ICU [place] [address] Anesthesia: Postop Eval I Current Vital Signs [...] Chavo Reed Signature: Date CC: Signed Normal [facility] MR/[id number] 11-18-[address] Medical Records Department [address] [place] [address] Anesthesia Postop Eval II 11/18/23 1231 MR#: [id number] Acct: [id number] Name: SUMEET MAJANO Rep #: [id number] : 1945 78 From: Gregory Amin MD PCP: Dr. Seema Sterling MD Status:ADM IN Y Race: C Location: ICU [id number] Anesthesia Postop Eval I Sum Postop Eval Completion status Anesthesia document: Postop Eval 1 completed: Yes Anesthesia Postop Eval I Summary Anesthesia Postop Eval I Summary: Anesthesia Postop Eval I: Assessment Summary Airway patent Yes 11/18/23 11:11 TRAVEL REGISTERED NURSE ICU.MDOT Spontaneous unlabored Yes 11/18/23 11:11 TRAVEL REGISTERED NURSE ICU.MDOT respirations Mental status Awake,Calm 11/18/23 11:11 TRAVEL REGISTERED NURSE ICU.MDOT nausea No 11/18/23 11:11 TRAVEL REGISTERED NURSE ICU.MDOT Vomiting No 11/18/23 11:11 TRAVEL REGISTERED NURSE ICU.MDOT Anesthesia Postop Eval I: Fluid Summary Crystalloid volume administer 1,200 11/18/23 11:11 TRAVEL REGISTERED NURSE ICU.MDOT (ml) Colloids volume administered ( ml) Blood Product volume administered (ml) Total IV fluid infused 1,200 11/18/23 11:11 TRAVEL REGISTERED NURSE ICU.MDOT Anesthesia Postop Eval I: Summary Notes Anesthesia Complication No 11/18/23 11:11 TRAVEL REGISTERED NURSE ICU.MDOT Anesthesia Complication Comment: Post-operative progress note Anesthesia: Postop Eval II Evaluation Mental status: Awake and Calm Pain Level: 1 nausea: No Vomiting: No Complications Anesthesia Complication: No 11/18/23 1235 Date Gregory Amin MD Cosigner Signature: Date CC: Signed Normal [facility] Operative Reporton 4 Operative Report [facility] Medical Records Department [address] [place] [address] Operative Report 11/18/23 1043 MR#: [id number] Acct: [id number] Name: JORGEZAFARSUMEET DAVIS Cuong Rep #: [id number] : 1945 78 From: Ramu Rehman MD PCP: Dr. Seema Sterling MD Status:ADM IN Location: ICU [id number] Report of Operation Date of Procedure: 11/18/23 [...] procedure site patient was taken to the Master Certified Rv Technician where he was placed under general anesthesia. [...] the micropuncture sheath exchanged for the 8 Togolese flow reversal return sheath. Next a micropuncture [...] MD; Dr. Ramu Rehman MD Signed Normal [facility] Basophil percentageOrdered B y: Sally Plummer on 04-22-2023 Basophil percentage 8.57 ng/mL 0.0-4.0 [facility] Comment on above: This test was perfor med using the TPSA assay method for theDimension chemistry system. Values obtained with differentassay methods cannot be used interchangably.When changing PSA assays in the course of monitoring apatient, additional sequential testing should be carriedout to confirm baseline values. No Panel InformationOrdered By: Rodrigo Maurice on 01-08-2023 Prostate Specific Antigen Total 6.87 ng/mL 0.0-4.[address] [facility] Comment on above: This test was perfor med using the TPSA assay method for theDimension chemistry system. Values obtained with differentassay methods cannot be used interchangably.When changing PSA assays in the course of monitoring apatient, additional sequential testing should be carriedout to confirm baseline values. No Panel InformationOrdered By: Rodrigo Maurice on 10-01-2022 Prostate Specific Antigen Total 6.99 ng/mL 0.0-4.[address] [facility] Comment on above: This test was perfor med using the TPSA assay method for theDimension chemistry system. Values obtained with differentassay methods cannot be used interchangably.When changing PSA assays in the course of monitoring apatient, additional sequential testing should be carriedout to confirm baseline values. No Panel InformationOrdered By: Dr. Maurice on 07-11-2022 Prostate Specific Antigen Total 5.66 ng/mL 0.0-4.[address] [facility] Comment on above: This test was perfor med using the TPSA assay method for theAvesthagenPockethernet chemistry system. Values obtained with differentassay methods cannot be used interchangably.When changing PSA assays in the course of monitoring apatient, additional sequential testing should be carriedout to confirm baseline values. No Panel InformationOrdered By: CHRISTINE Kapoor on 04-11-2022 Prostate Specific Antigen Total 2.62 ng/mL 0.0-4.[address] [facility] Comment on above: This test was perfor med using the TPSA assay method for the[facility] chemistry system. Values obtained with differentassay methods cannot be used interchangably.When changing PSA assays in the course of monitoring apatient, additional sequential testing should be carriedout to confirm baseline values. Absolute lymphocyte countOrd ered By: Dr. Sterling on 01-10-2022 Lymphocytes Auto (Unsp spec) [#/Vol] 0.63 10*3/uL 0.83-4.[address] [facility] Basophil percentageOrdered B y: Dr. Sterling on 01-10-2022 Basophils/100 WBC (Bld) 0.2 % 0-[address] [facility] Bilirubin [Mass/Vol] 0.60 mg/dL 0.20-1.00 [facility] Comment on above: For patients on eltr ombopag therapy, use of Dimension [place] TBIL is not recommended. Chloride [Moles/Vol] 107 mmol/L 98-107 [facility] Eosinophils/100 WBC (Bld) 0.6 % 0-[address] [facility] Glucose [Mass/Vol] 176 mg/dL 74-106 [facility] Comment on above: Fasting Glucose resu lt greater than or equal to 126 mg/dL suggests DIABETES MELLITUS per A.D.A. criteria. Neutrophils (Bld) [#/Vol] 6.7 10*3/uL 2.0-7.[address] [facility] Neutrophils/100 WBC (Bld) 82.7 % 47-[address] [facility] Potassium [Moles/Vol] 3.4 mmol/L 3.5-5.1 [facility] Protein [Mass/Vol] 6.9 g/dL 6.4-8.2 [facility] Sodium [Moles/Vol] 137 mmol/L 136-145 [facility] WBC (Bld) [#/Vol] 8.1 10*3/uL 4.4-11.0 [facility] Blood erythrocytes count (nu mber/volume)Ordered By: Dr. Sterling on 01-10-2022 RBC (Bld) [#/Vol] 3.59 10*6/uL 4.6-6.2 [facility] Blood hemoglobin measurement (mass/volume)Ordered By: Dr. Sterling on 01-10-2022 Hemoglobin (Bld) [Mass/Vol] 10.7 g/dL 13.0-16.[address] [facility] Blood lymphocytes/100 leukoc ytesOrdered By: Dr. Sterling on 01-10-2022 Lymphocytes/100 WBC (Bld) 7.8 % 19-[address] [facility] Blood monocytes/100 leukocyt esOrdered By: Dr. Sterling on 01-10-2022 Monocytes/100 WBC (Bld) 7.6 % 0-[address] [facility] Blood platelet mean volumeOr dered By: Dr. Sterling on 01-10-2022 Platelet mean volume (Bld) [Entitic vol] 10.9 fL 6.2-12.[address] [facility] Determination of erythrocyte mean corpuscular volume (MCV)Ordered By: Dr. Sterling on 01-10-2022 MCV (RBC) [Entitic vol] 88.6 fL 80-[address] [facility] Hematocrit Auto (Bld) [Volum e fraction]Ordered By: Dr. Sterling on 01-10-2022 Hematocrit (Bld) [Volume fraction] 31.8 % 40-[address] [facility] - Chemistry and C hemistry - challengeOrdered By: Dr. Sterling on 01-10-2022 ALP [Catalytic activity/Vol] 115 U/L 45-[address] [facility] ALT [Catalytic activity/Vol] 45 U/L 16-[address] [facility] CO2 [Moles/Vol] 21.0 mmol/L 21.0-32.[address] [facility] Free T4 [Mass/Vol] 1.67 ng/dL 0.76-1.46 [facility] Globulin (S) [Mass/Vol] 4.6 g/dL 2.2-4.[address] [facility] Urea nitrogen/Creatinine [Mass ratio] 26.3 mg/mg 10-[address] [facility] - Hematology and Cell countsOrdered By: Dr. Sterling on 01-10-2022 Erythrocyte distribution width (RBC) [Entitic vol] 41.7 fL 35.1-43.[address] [facility] Erythrocyte distribution width (RBC) [Ratio] 12.8 % 11.6-14.[address] [facility] Immature granulocytes/100 WBC (Bld) 1.100 % 0.0-0.[address] [facility] Comment on above: IG% - Immature Granu locytes (promyelocytes, myelocytes and metamyelocytes) > 1% indicates that a LEFT SHIFT is Present. MCH (RBC) [Entitic mass] 29.8 pg 27.0-32.[address] [facility] Nucleated RBC/100 WBC (Bld) [Ratio] 0 % 0-[address] [facility] MCHC Auto (RBC) [Mass/Vol]Or dered By: Dr. Sterling on 01-10-2022 MCHC (RBC) [Mass/Vol] 33.6 g/dL 32-36 [facility] No Panel InformationOrdered By: Dr. Sterling on 01-10-2022 Estimated GFR (MDRD) Amer 41 mL/min >[address] [facility] Comment on above: GFR Calc Estimated GFR (MDRD) Non-Af Amer 34 mL/min >[address] [facility] Comment on above: Non- GFR Calc Thyroid Stimulating Hormone (TSH) 3.45 uIU/mL 0.358-3.[address] [facility] Platelets bldOrdered By: Dr. Sterling on 01-10-2022 Platelets (Bld) [#/Vol] 238 10*3/uL 150-[address] [facility] Serum or plasma albumin jermaine urement (mass/volume)Ordered By: Dr. Sterling on 01-10-2022 Albumin [Mass/Vol] 2.3 g/dL 3.2-5.0 [facility] Serum or plasma albumin/glob ulin mass ratioOrdered By: Dr. Sterling on 01-10-2022 Albumin/Globulin [Mass ratio] 0.5 {ratio} 0.9-2.[address] [facility] Serum or plasma calcium jermaine urement (mass/volume)Ordered By: Dr. Sterling on 01-10-2022 Calcium [Mass/Vol] 9.2 mg/dL 8.5-10.1 [facility] Serum or plasma creatinine m easurement (mass/volume)Ordered By: Dr. Sterling on 01-10-2022 Creatinine [Mass/Vol] 2.05 mg/dL 0.70-1.30 [facility] Comment on above: The validity of the calculated GFR & GFRAA in patients over 70 years has not been determined. Clinical correlation is essential. Serum or plasma folate measu rement (mass/volume)Ordered By: Dr. Sterling on 01-10-2022 Folate [Mass/Vol] 30.50 ng/mL 3.1-55.4 [facility] Serum or plasma urea nitroge n measurement (mass/volume)Ordered By: Dr. Sterling on 01-10-2022 Urea nitrogen [Mass/Vol] 54 mg/dL 7-[address] [facility] Thin prep Papanicolaou smear with manual screeningOrdered By: Dr. Sterling on 01-10-2022 Thin prep Papanicolaou smear with manual screening 53 U/L 15-[address] [facility] Thin prep Papanicolaou smear with manual screening 9 5-[address] [facility] Whole blood hemoglobin A1c/t otal hemoglobin ratio (mass fraction)Ordered By: Dr. Sterling on 01-10-2022 HbA1c (Bld) [Mass fraction] 6.9 % 3.8-5.[address] [facility] Comment on above: Normal < 5.7 % Predi abetic 5.7 - 6.4 % Diabetic >or= 6.5 % Please note range changes. No Panel Informationon 09-24 Prostate Specific Antigen Total 1.51 ng/mL 0.0-4.[address] [facility] Work Phone: Comment on above: This test was perfor med using the TPSA assay method for [employer] chemistry system. Values obtained with differentassay methods cannot be used interchangably.When changing PSA assays in the course of monitoring apatient, additional sequential testing should be carriedout to confirm baseline values. 25-Hydroxy D2+D3on 25-Hydroxy D Total 27.5 ng/mL Low 30.0-100.0 [facility] Comment on above: Performed By: #### H BA1C #### [facility] Routine Lab [address] [place] [phone] #### D2D3 #### [facility] Chemistry [address] [place], [place] [phone] 25-Hydroxy D2 <4.0 Normal [facility] Comment on above: Performed By: #### H BA1C #### [facility] Routine Lab [address] [phone] #### D2D3 #### [facility] Chemistry [address] [phone] 25-Hydroxy D3 27.5 ng/mL Normal [facility] Comment on above: Performed By: #### Wilda BA1C #### [facility] Routine Lab [address] [phone] #### D2D3 #### [facility] Chemistry [address] [place] [phone] Hemoglobin A1con 11-04-2020 Glucose [Mass/Vol] 186 mg/dL Normal [facility] Comment on above: Performed By: #### H BA1C #### [facility] Routine Lab [address] [phone] #### D2D3 #### [facility] Chemistry [address] [place] [phone] HbA1c (Bld) [Mass fraction] 8.1 % High 4.3-5.6 [facility] Comment on above: Performed By: #### H BA1C #### [facility] Routine Lab [address], [place] [phone] #### D2D3 #### [facility] Chemistry [address], [place] [phone] Hemoglobin A1con 01-28-2020 Glucose [Mass/Vol] 166 mg/dL Normal [facility] Comment on above: Performed By: #### H BA1C #### [facility] Routine Lab [address], [place] [phone] HbA1c (Bld) [Mass fraction] 7.4 % High 4.3-5.6 [facility] Comment on above: Performed By: #### H BA1C #### [facility] Routine Lab [address], [place] [id number] PSAon 08-19-2017 PSA 96.30 NG/ML High 0.0-4.0 [facility] Comment on above: Performed By: #### L [phone] ####[facility] [id number] [place], [place] [address]Oo# [phone] Encounters Encounter Date Encounter Type Care Provider Facility Start: 11-11-2024 ambulatory Seema Sterling Facility: [facility] Start: 09-15-2024 End: 09-15-2024 [facility] Start: 09-14-2024 End: 09-14-2024 ambulatory SEEMA SHETH [facility] Start: 08-14-2024 End: 08-14-[address] Seema Sterling MD Work Phone: [facility] Work Phone: Start: 08-14-2024 End: 08-14-2024 Patient encounter procedure Sally Plummer -Laboratory Work Phone: Start: 08-14-2024 End: 08-14-2024 ambulatory Sally Panama Facility:[facility] Start: 07-16-2024 End: 07-16-2024 ambulatory SEEMA SHETH [facility] Start: 06-15-2024 Non-patient / Non-visit Dr. Ramu browning MD -[facility] Start: 06-15-2024 End: 06-15-[address] Seema Sterling MD Work Phone: [facility] Work Phone: Start: 06-15-2024 End: 06-15-2024 Patient encounter procedure Evelyn VAZQUEZ -Cardiovascular Services Work Phone: Start: 06-15-2024 End: 06-15-2024 ambulatory Butros Latf Facility:[facility] Start: 05-17-2024 End: 05-17-[address] Seema Sterling MD Work Phone: [facility] Work Phone: Start: 05-17-2024 End: 05-17-2024 Patient encounter procedure Sally Plummer -Laboratory Work Phone: Start: 05-17-2024 End: 05-17-2024 ambulatory Sally Plummer Facility:[facility] Start: 02-13-2024 End: 02-13-2024 ambulatory SEEMA SHETH [facility] Start: 02-10-2024 End: 02-10-[address] Rodrigo Maurice MD -Laboratory Work Phone: Start: 02-10-2024 End: 02-10-2024 ambulatory Butros Latouf Facility:[facility] Start: 01-19-2024 ambulatory Butros Latouf Facility: [facility] Start: 01-19-2024 End: 01-19-2024 ambulatory Butros Latouf Facility:[facility] Start: 01-08-2024 End: 01-08-2024 ambulatory [facility] Start: 12-24-2023 Encounter for other preprocedural examination Ramu Rehman [facility] Start: 12-23-2023 ambulatory Ramu Sherie Facility:[facility] Start: 12-23-2023 End: 12-24-2023 Evaluation and management of inpatient Ramu Premium Facility:[facility] Start: 12-23-2023 ambulatory Ramu Sherie [facility] Start: 12-12-2023 ambulatory Ramu Premium [facility] Start: 12-12-2023 End: 12-12-2023 ambulatory Evelyn Harrisonhn Facility:[facility] Start: 12-04-2023 End: 12-04-2023 ambulatory Seema [facility] Facility:[facility] Start: 11-18-2023 ambulatory Ramu Premium [facility] Start: 11-18-2023 End: 11-19-2023 Evaluation and management of inpatient Ramu Premium Facility:[facility] Start: 11-18-2023 ambulatory Ramu Premium [facility] Start: 10-31-[address] Santino Sterling MD Work Phone: [facility] Start: 05-02-2023 End: 05-02-[address] [facility] Work Phone: Start: 05-02-2023 End: 05-02-2023 Patient encounter procedure [facility]-Radiology, [facility] Work Phone: Start: 04-29-2023 End: 04-29-[address] [facility] Work Phone: Start: 04-29-2023 End: 04-29-2023 Patient encounter procedure [facility]-Nuclear Medicine, [facility] Work Phone: Start: 04-22-2023 End: 04-22-2023 Patient encounter procedure [facility]-Laboratory, [place] Work Phone: Start: 03-21-2023 End: 03-21-[address] [facility] Work Phone: Start: 03-21-2023 End: 03-21-2023 Patient encounter procedure [facility]-Radiology, [facility] Work Phone: Start: 01-08-2023 End: 01-08-[address] [facility] Work Phone: Start: 01-08-2023 End: 01-08-2023 Patient encounter procedure [facility]-Laboratory, [place] Work Phone: Start: 10-01-2022 End: 10-01-[address] [facility] Work Phone: Start: 10-01-2022 End: 10-01-2022 Patient encounter procedure [facility]-Laboratory Work Phone: Start: 07-11-2022 End: 07-11-[address] [facility] Work Phone: Start: 07-11-2022 End: 07-11-2022 Patient encounter procedure [facility]-Laboratory Start: 04-11-2022 End: 04-11-[address] [facility] Work Phone: Start: 04-11-2022 End: 04-11-2022 Patient encounter procedure [facility]-Laboratory Start: 01-16-2022 End: 01-16-[address] [facility] Work Phone: Start: 01-16-2022 End: 01-16-2022 Patient encounter procedure [facility] Start: 01-10-2022 End: 01-10-[address] [facility] Work Phone: Start: 01-10-2022 End: 01-10-2022 Patient encounter procedure [facility]-Laboratory Start: 09-24-2021 End: 09-24-2021 Patient encounter procedure [facility]-Laboratory Start: 08-18-2017 Ambulatory Armani Alva Facility :[facility] Procedures Date Procedure Procedure Detail Performing [...] of tumor PET/CT Tumor Base -Thigh Subs [facility] Work Phone: Start: 01-16-2022 PT Unspecified body region [facility] Work Phone: Payers Date Payer Category Payer Self-pay [id number] 2011 Medicare [id number] 2011 Medicare [id number] 2011 Unknown [id number] 1945 Unknown [id number] 2.16.8 40.1.185405.3.579.2.65 1945 Unknown [id number] 2.16.8 40.1.053965.3.579.2.65 1945 Unknown [id number] 2.16.8 40.1.341880.3.579.2.651 1945 Unknown [id number] 2.16.8 40.1.736219.3.579.2.651 Unknown [id number] 2.16.8 40.1.138832.3.579.2.462 Unknown [id number] 2.16.8 40.1.563239.3.579.2.462 Unknown [id number] 2.16.8 40.1.253388.3.579.2.462 Unknown [id number] 2.16.8 40.1.165439.3.579.2.462 Unknown [id number] 2.16.8 40.1.004446.3.579.2.462 Unknown [id number] 2.16.8 40.1.264433.3.579.2.462 Unknown [id number] 2.16.8 40.1.907815.3.579.2.462 Unknown [id number] 2.16.8 40.1.303740.3.579.2.462 Unknown [id number] 2.16.8 40.1.183011.3.579.2.462 Unknown [id number] 2.16.8 40.1.646589.3.579.2.462 Unknown [id number] 2.16.8 40.1.454026.3.579.2.462 Unknown [id number] 2.16.8 40.1.662120.3.579.2.462 Unknown [id number] 2.16.8 40.1.274739.3.579.2.462 Unknown [id number] 2.16.8 40.1.572241.3.579.2.462 Unknown [id number] 2.16.8 40.1.514694.3.579.2.462 Unknown [id number] 2.16.8 40.1.202758.3.579.2.462 Unknown [id number] 2.16.8 40.1.610856.3.579.2.462 Unknown [id number] 2.16.8 40.1.858903.3.579.2.462 Social History Date Type Detail Facility Start: 09-27-2016 End: 09-27-2016 Tobacco smoking status NHIS Unknown if ever smoked [facility] Start: 1945 Sex Assigned At Male [facility] Start: 12-08-2023 Tobacco smoking stat us NHIS Never smoked tobacco (finding) [facility] Start: 05-28-2024 End: 06-21-2024 Sex Male (finding) [facility] Medical Equipment Procedure Code Equipment Code Equipment Origin al Text Equipment Identifier Dates Bare-metal carot id artery stent ()[id number] FDA Start: 11-18-2023 Bare-metal carot id artery stent ()[id number] FDA Start: 12-23-2023 Discharge summary note 12-24-2023 Note Date & Type Note Facility 12-24-2023 Note [facility] Medical Records Department [address] [place] [address] Discharge Summary 12/24/23 1531 MR#: [id number] Acct: [id number] Name: SUMEET MAJANO Rep #: [id number] : 1945 78 From: Ramu Rehman MD PCP: Dr. Seema Sterling MD Status:ADM IN Location: ICU [id number] Providers Date of Admission: 12/23/23 Primary Care Physician: Dr. 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 Ramu Rehman MD Signed [facility] Clinical Note 12-23-2023 Note Date & Type Note Facility 12-23-2023 Note [facility] Medical Records Department [address] [place] [address] History Physical Exam 12/23/23 0746 MR#: [id number] Acct: [id number] Name: SUMEET MAJANO Rep #: [id number] : 1945 78 From: Ramu Rehman MD PCP: Dr. Seema Sterling MD Status:ADM IN Location: [facility] AC-TBA-1 HPI - General General Date of Admission: 12/23/23 HPI Narrative SUMEET MAJANO, is a 78 M who presents with right ICA stenosis, asymptomatic. Recently underwent left ICA TCAR from which he has recovered well. [facility] Medical History History of left common carotid [...] cooperative; Negative for (more content not included)... [facility] Discharge summary note 11-19-2023 Note Date & Type Note Facility 11-19-2023 Note [facility] Medical Records Department [address] [place] [address] Discharge Summary 11/19/23 1309 MR#: [id number] Acct: [id number] Name: SUMEET MAJANO Rep #: [id number] : 1945 78 From: Evelyn VAZQUEZ PCP: Dr. Seema Sterling MD Status:DIS IN Location: ICU [id number] Providers Date of Admission: 11/18/23 Primary Care Physician: Dr. 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 [facility] Clinical Note 11-18-2023 Note Date & Type Note Facility 11-18-2023 Note [facility] Medical Records Department [address] [place] [address] History Physical Exam 11/18/23 0750 MR#: [id number] Acct: [id number] Name: SUMEET MAJANO Rep #: [id number] : 1945 78 From: Ramu Rehman MD PCP: Dr. Seema Sterling MD Status:ADM IN Location: [place] [address] History and Physical Allergies No Known Allergies [...] Gait: normal gait (more content not included)... [facility] Evaluation note Note Date & Type Note Facility Evaluation note No assessment information availa ble [facility] Work Phone: Reason for referral (narrative) Note Date & Type Note Facility Reason for referral (narrative) No reason for referral information available [facility] Work Phone: Summary Purpose Family History No Family History Records Found Relationship Condition Age at Onset Recorded Date/T christel Not Specified Cardiac disease Unknown Myocardial infarction Unknown Advance Directives No Advanced Directives Records Found Advance Directive Response Recorded Date/ Time Living Will No September 27, 2016 1:46pm Power of Reception Centre Manager No September 27 7 1:46pm Advance Directive Response Recorded Date/ Time Living Will No September 27, 2016 12:46pm Power of Reception Centre Manager No September 27 7 12:46pm Chief Complaint and Reason for Visit [...] section and content) DATE CREATED AUTHOR 09/02/2017 [facility] DATE CREATED AUTHOR AUTHOR'S ORGANIZ ATION 11/09/2020 [facility] DATE CREATED AUTHOR AUTHOR'S ORGANIZ ATION 07/22/2024 [facility] DATE CREATED AUTHOR AUTHOR'S ORGANIZ ATION 09/23/2024 [facility] DATE CREATED AUTHOR AUTHOR'S ORGANIZ ATION 11/13/2024 [facility] Goals (unrecognized section and content) Goals may [...] Seema Sterling MD Primary Care Provider Active MADDIE Velasco Attending Provider Active Team Status: Inactive Member Role Status Dates Dr. Seema Sterling MD Primary Care Provider Active Eda Kapoor NP-C Attending Provider, Referrin g Provider Active Team Status: Inactive Member Role Status Dates Dr. Seema Sterling MD Primary Care Provider Active Dr. Zac Nair MD Attending Provider, Referrin g Provider Active Team Status: Inactive Member Role Status Dates Dr. Seema Sterling MD Primary Care Provider Active Sally Plummer Attending Provider, Referring Provide r Active Team [...] 17, 2024 End: May 17, 2024 Sally Panama Attending Provider Active Start : May 17, 2024 End: May 17, 2024 Sally Panama Referring Provider Active Start : May 17, [...] BE BASED ON THE PRIMARY CLINICAL RECORDS. [facility] [employer] [facility]. provides no warranty or guarantee of the accuracy or completeness of information in this document.
== END | disposition home or self-care (01) ==
LOC: LAB 11:32
PROVIDERS: PCP Internal Medicine Infectious Disease; Referring Provider Urology; Visit Provider Urology
DX: C61 Malignant neoplasm of prostate (principal)
CPT/HCPCS: 36415; 84153

== ENCOUNTER → 2024-11-30 | Outpatient (CLI) | payer MEDICARE, OTHER, SELFPAY ==
--- OUTSIDE RECORDS SUMMARY | 2024-11-30 06:53 | XMS RPT_ITS | CCD ---
Author Organization [facility] Care Team Providers Care Analysis Mgr Name Role Phone Armani AlvaEstelita Unavailable Unavailable Latouf , Dr. Jaimes Primary Care Provider Josafat SHETH, Dr. Rodrigo Purdy Attending Provider Josafat SHETH, Dr. Rodrigo Purdy Referring Provider SomervilleSally Attending Provider Somerville, Sally Referring Provider [phone] Seema Sterling MD Primary Care Provider Evelyn Olvera Attending Provider Evelyn Olvera Referring Provider [phone] Sherie SHETH, Dr. 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 Jaimes Primary Care Provider [phone] Som[place], Sally Attending Provider [place], Sally Referring Provider Josafat SHETH, Dr. Rodrigo Purdy Attending Provider [phone] Josafta SHETH, Dr. Rodrigo Purdy Referring Provider David SHETH, Dr. Alberto Primary Care Provider Arana PA, Evelyn Other Provider Remy Hernandez Primary Care Unavailable Josafat, Rodrigo Purdy Referring Unavailable Josafat, Rodrigo Purdy Attending Unavailable Latouf, Butros Primary Care Unavailable Arana, Evelyn Referring Unavailable Arana, Evelyn Attending Unavailable Berkshire, Ramu Attending Unavailable Arana, Evelyn Referring Unavailable Latouf, Butros Primary Care Unavailable Latouf, Butros Primary Care Unavailable Sherie, Ramu Consulting Unavailable Sherie, Ramu Admitting Unavailable Sherie, Ramu Referring Unavailable Berkshire, Ramu Attending Unavailable Sherie, Ramu Attending Unavailable [place], Ramu Consulting Unavailable [place], Ramu Admitting Unavailable Sherie, Ramu Referring Unavailable Latouf, Butros Primary Care Unavailable Latouf, Butros Referring Unavailable Latouf, Butros Primary Care Unavailable Arana, Evelyn Attending Unavailable Latouf, Butros Primary Care Unavailable Sherie, Ramu Attending Unavailable Arana, Evelyn Referring Unavailable Somerville, Sally Referring Unavailable Somerville, Sally Attending Unavailable Latouf, Butros Primary Care Unavailable Latouf, Butros Primary Care Unavailable Josafat, Fer Attending Unavailable Josafat, Fer Referring Unavailable Arana, Evelyn Referring Unavailable Latouf, Butros Primary Care Unavailable Arana, Evelyn Attending Unavailable Latouf, Butros Primary Care Unavailable Arana, Evelyn Referring Unavailable Sherie, Ramu Attending Unavailable Latouf, Butros Referring Unavailable Latouf, Butros Primary Care Unavailable Arana, Evelyn Attending Unavailable Latouf, Butros Primary Care Unavailable Arana, Evelyn Referring Unavailable Arana, Evelyn Attending Unavailable Latouf, Butros Primary Care Unavailable Ramu Rehman Admitting Unavailable Ramu Rehman Referring Unavailable Ramu Rehman Attending Unavailable Rodrigo Maurice Referring Unavailable JosafatRodrigo Attending Unavailable Latf, Butros Primary Care Unavailable Remy Hernandez Primary Care Unavailable Rodrigo Maurice Referring Unavailable Rodrigo Maurice Attending Unavailable Evelyn Arana Consulting Unavailable Somerville, Sally Referring Unavailable [place], Sally Attending Unavailable Latf, Butros Primary Care Unavailable Medications Current Medications Medication Drug Class(es) Dates Sig (Normalized) Sig (Original) aspirin 81 mg chewable tablet (13 sources) Platelet Aggregation Inhibitor, Nonsteroidal Anti-inflammatory Drug Start: 7 take 1 tablet by mouth once daily Aspirin 81 MG tablet,chewable Active 81 mg PO DAILY@0800 August 06, 2016 12:00am [facility] cholecalciferol 0.05 mg oral capsule (4 sources) Vitamin D Start: 4 take 1 capsule by mouth once daily Cholecalciferol (Vitamin D3) 50 mcg (2,000 unit) capsule Active 50 ug PO DAILY September 29, 2023 12:00am SUPPLEMENT clopidogrel 75 mg oral tablet (4 sources) P2Y12 Platelet Inhibitor Start: 4 take 1 tablet by mouth once daily Clopidogrel (Plavix) 75 mg tablet Active 75 mg PO DAILY 30 September 30, 2023 12:00am BLOOD THINNER 24 hr dilTIAZem hydrochloride 120 mg extended release oral capsule (4 sources) Calcium Channel Natali Start: 4 take 1 capsule by mouth once daily Diltiazem Hcl 120 mg capsule,extended release 24 hr Active 120 mg PO DAILY December 23, 2023 12:00am blood pressure enzalutamide 40 mg oral capsule (4 sources) Androgen Receptor Inhibitor Start: 4 take 1 capsule by mouth at bedtime Enzalutamide (Xtandi) 40 mg capsule Active 160 mg PO AT BEDTIME September 29, 2023 12:00am PROSTATE folic acid 1 mg oral tablet (4 sources) Start: 4 take 1 tablet by mouth once daily Folic Acid 1 mg tablet Active 1 mg PO DAILY September 29, 2023 12:00am SUPPLEMENT glipiZIDE er 2.5 mg 24 hr extended release oral tablet (4 sources) Sulfonylurea Start: 4 take 1 tablet by mouth once daily Glipizide 2.5 mg tablet extended release 24hr Active 2.5 mg PO DAILY November 05, 2023 12:00am DIABETES hydroCHLOROthiazide 12.5 mg / losartan potassium 100 mg oral tablet (4 sources) Thiazide Diuretic, Angiotensin 2 Receptor Natali Start: 4 Losartan-Hydrochlor othiazide 100-12.5 mg tablet Active 1 {tbl} PO DAILY November 05, 2023 12:00am BP levothyroxine sodium 0.088 mg oral capsule (4 sources) l-Thyroxine Start: 4 take 1 capsule by mouth once daily Levothyroxine 88 mcg capsule Active 88 ug PO DAILY September 29, 2023 12:00am THYROID rosuvastatin calcium 20 mg oral tablet (4 sources) HMG-CoA Reductase Inhibitor Start: 4 take 1 tablet by mouth at bedtime Rosuvastatin 20 mg tablet Active 20 mg PO AT BEDTIME September 29, 2023 12:00am CHOLESTEROL Completed/Discontinued Medications Medication Drug Class(es) Dates Sig (Normalized) Sig (Original) glimepiride 4 mg oral tablet (13 sources) Sulfonylurea Start: 08-06-2016 End: 09-29-2023 take 1 tablet by mouth once daily Glimepiride 4 MG tablet Discontinued 4 mg PO DAILY August 06, 2016 12:00am September 29, 2023 4:04pm inositol 141 mg / niacin 500 mg oral capsule (13 sources) Nicotinic Acid Start: 08-06-2016 End: 09-29-2023 take 1 capsule by mouth once daily Niacin (Inositol Niacinate) 500 MG capsule Discontinued 500 mg PO DAILY August 06, 2016 12:00am September 29, 2023 4:07pm losartan potassium 100 mg oral tablet (8 sources) Angiotensin 2 Receptor Natali Start: 12-08-2023 End: 12-10-2023 take 2 tablets by mouth once daily Losartan 100 mg tablet Discontinued 200 mg PO DAILY December 08, 2023 12:00am December 10, 2023 12:35pm BP Start: 09-29-2023 End: 11-05-2023 take 1 tablet by mouth once daily Losartan 25 mg tablet Discontinued 25 mg PO DAILY September 29, 2023 12:00am November 05, 2023 11:12am lovastatin 10 mg oral tablet (13 sources) HMG-CoA Reductase Inhibitor Start: 08-06-2016 End: 09-29-2023 take 1 tablet by mouth once daily Lovastatin 10 MG tablet Discontinued 10 mg PO DAILY August 06, 2016 12:00am September 29, 2023 4:29pm metFORMIN hydrochloride 1000 mg oral tablet (13 sources) Biguanide Start: 08-06-2016 End: 09-29-2023 take 1 tablet by mouth twice daily Metformin 1,000 MG tablet Discontinued 1000 mg PO TWICE A DAY August 06, 2016 12:00am September 29, 2023 4:04pm raNITIdine 150 mg oral tablet (13 sources) Histamine-2 Receptor Antagonist Start: 08-06-2016 End: 09-29-2023 take 1 tablet by mouth once daily as needed Ranitidine Hcl (Acid Control) 150 MG tablet Discontinued 150 mg PO DAILY as needed for Indigestion August 06, 2016 12:00am September 29, 2023 4:07pm Problems Active Problems Problem Classification Problem Date Documented Date Episodic/Chronic Acute cerebrovascular disease (4 sources) Cerebrovascular accident; Translations: [Cerebral infarction, unspecified] Onset: 03-17-2023 11-05-2023 Chronic Comment on above: TIA 08/2023. SLOW TO RESPOND TO QUESTIONS/MEMORY LOSS Cancer of prostate (6 sources) Malignant tumor of prostate; Translations: [Malignant neoplasm of prostate] Onset: 11-25-2024 11-05-2023 Chronic Comment on above: ON MED AT THIS TIME Chronic kidney disease (4 sources) Chronic kidney disease; Translations: [Chronic kidney [...] Onset: 07-16-2024 Chronic Diabetes mellitus without complication (6 sources) Diabetes mellitus; Translations: [Type 2 diabetes mellitus without complications] Onset: 02-13-2024 11-05-2023 Chronic Comment on above: ON ORAL MED Disorders of lipid metabolism (4 sources) Hyperlipidemia; Translations: [Hyperlipidemia, unspecified] 10-31-2023 Chronic Essential hypertension (5 sources) Hypertensive disorder; Translations: [Essential (primary) hypertension] Onset: 02-13-2024 01-08-2024 Chronic Nutritional deficiencies (1 source) Vitamin D deficiency, unspecified; Translations: [Vitamin D deficiency, unspecified] Onset: 07-16-2024 Chronic Occlusion or stenosis of precerebral arteries (10 sources) Internal carotid artery stenosis; Translations: [Occlusion and stenosis of right carotid artery] Onset: 01-08-2024 10-28-2023 Chronic Other aftercare (4 sources) Surgical follow-up; Translations: [Encounter for surgical aftercare following surgery on the circulatory system] 12-04-2023 Episodic Other lower respiratory disease (4 sources) Dyspnea on exertion; Translations: [Other forms of dyspnea] 11-05-2023 Episodic Comment on above: WITH [address] AIRS Other nutritional; endocrine; and metabolic disorders (4 sources) Obesity; Translations: [Obesity, unspecified] 10-28-2023 Chronic Residual codes; unclassified (4 sources) Obstructive sleep apnea syndrome; Translations: [Obstructive sleep apnea (adult) (pediatric)] 10-28-2023 Chronic Thyroid disorders (5 sources) Hypothyroidism; Translations: [Hypothyroidism, unspecified] Onset: 07-16-2024 [...] Value Interpretation Reference Range Facility PSA,Total- Diagnosticon 11-15 PSA, DIAGNOSTIC 271.00 ng/mL High 0.00-4.00 [facility] Comment on above: Result Comment: This [...] values. Performed By: #### L 501.9940 #### [facility] [address] [place], [place], [address] PSA,Total- Diagnosticon 10-16 PSA, DIAGNOSTIC 273.00 ng/mL High 0.00-4.00 [facility] Comment on above: Result Comment: This [...] values. Performed By: #### L [id number] #### [facility] [address] [place], [place], [address] CBC + DIFFon 09-14-2024 Baso # 0.02 x10EE3/UL Normal 0.00 - 0.10 [facility] Comment on above: Performed By: #### 2 04405 #### [facility],[address] [place] [address]888 Basophils/100 WBC (Bld) 0.5 % Normal 0.0 - 2.0 [facility] Comment on above: Performed By: #### 2 21098 #### [facility],[address] [place] [address]27[address] CBC + DIFF Normal [facility] Comment on above: Result Comment: CBC- COMPLETE BLOOD COUNT Performed By: #### 2 01221 #### [facility],[address] [place] [address]50 EO # 0.28 x10EE3/UL Normal 0.00 - 0.50 [facility] Comment on above: Performed By: #### 2 91400 #### [facility],[address] [place] [address] 17308 Eosinophils/100 WBC (Bld) 5.7 % Normal 0.0 - 7.0 [facility] Comment on above: Performed By: #### 2 75493 #### [facility],[address] [place] [address] Erythrocyte distribution width (RBC) [Ratio] 14.0 % Normal 12.0 - 15.6 [facility] Comment on above: Performed By: #### 2 40330 #### [facility],[address] [place] [address] Hematocrit (Bld) [Volume fraction] 32.5 % Low 40.0 - 52.0 [facility] Comment on above: Performed By: #### 2 15204 #### [place] [address] Hemoglobin (Bld) [Mass/Vol] 11.3 g/dL Low 13.0 - 17.5 [facility] Comment on above: Performed By: #### 2 94745 #### [facility],[address] [place] [address] Lymph # 1.17 x10EE3/UL Normal 0.80 - 2.80 [facility] Comment on above: Performed By: #### 2 15183 #### [facility],[address] [place], [place] [id number] Lymphocytes/100 WBC (Bld) 23.4 % Normal 20.0 - 45.0 [facility] Comment on above: Performed By: #### 2 18168 #### [address] [address] MANUAL DIFF N/A Normal [facility] Comment on above: Performed By: #### 2 20140 #### [address] [address] MCH (RBC) [Entitic mass] 31 pg Normal 27 - 33 [facility] Comment on above: Performed By: #### 2 99192 #### [facility],[address] [place] [address] MCHC 35 X10 3 Normal 32 - 36 [facility] Comment on above: Performed By: #### 2 22093 #### [facility],[address] [place] [address] 29619 MCV (RBC) [Entitic vol] 88 fL Normal 81 - 98 [facility] Comment on above: Performed By: #### 2 41730 #### [facility],[address] [place] [address] [place] # 0.40 x10EE3/UL Normal 0.20 - 1.00 [facility] Comment on above: Performed By: #### 2 84036 #### [facility],[address] [place] [address] MONOS % 8.0 % Normal 0.0 - 10.0 [facility] Comment on above: Performed By: #### 2 96663 #### [facility],[address] [place] [address] Morphology Joe (Bld) [Interp] N/A Normal [facility] Comment on above: Performed By: #### 2 34231 #### [facility],[address] [place] [address] 12227 Neut # 3.12 x10EE3/UL Normal 1.50 - 7.10 [facility] Comment on above: Performed By: #### 2 91967 #### [facility],[address] [place] [address]206 Neutrophils/100 WBC (Bld) 62.5 % Normal 46.0 - 76.0 [facility] Comment on above: Performed By: #### 2 93242 #### [facility],[address] [place] [address] PLATELET 217 x10EE3/UL Normal 150 - 450 [facility] Comment on above: Performed By: #### 2 79051 #### [facility],[address] [place] [address] 20365 Platelet mean volume (Bld) [Entitic vol] 8.6 fL Normal 6.4 - 10.5 [facility] Comment on above: Result Comment: AUTO MATED DIFFERENTIAL Performed By: #### 2 65790 #### [facility],[address] [place] [address] 6[address]20 RBC 3.71 x 10EE6/UL Low 4.50 - 6.[address] [facility] Comment on above: Performed By: #### 2 58686 #### [facility],[address] [place], [place] [id number] WBC 5.0 x 10EE3/UL Normal 4.5 - 10.8 [facility] Comment on above: Performed By: #### 2 37377 #### [facility],[address] [place], [place] [id number] HEMOGLOBIN A1C (POM)on 09-14 Glucose [Mass/Vol] 145.6 mg/dL High 0.0 - 0.0 [facility] Comment on above: Result Comment: BLDo HEMOGLOBIN A1C REFERENCE RANGESBLDo Suggested Diagnosis HbA1c(%) HbA1C (mmol/mol Diabetic >/=6.5 >/=48 Prediabetes 5.7 - 6.4 39 - 47 Normal <5.7 <39 Performed By: #### 2 49011 #### [facility],[address] [place], [place] [id number] HbA1c (Bld) [Mass fraction] 6.7 % High 0.0 - 6.5 [facility] Comment on above: Performed By: #### 2 36482 #### [address] [address] IRON AND TIBCon 09-14-2024 %SATURATION 27 % Normal [facility] Comment on above: Performed By: #### 2 38864 #### [facility],[address] [place] [address] 14297 Iron [Mass/Vol] 74 ug/dL Normal 65 - 175 [facility] Comment on above: Performed By: #### 2 00968 #### [facility],[address] [place] [address]64[address] TIBC 272 ug/dl Normal 250 - 450 [facility] Comment on above: Performed By: #### 2 12317 #### [address] [address] UIBC 198 ug/dL Normal 155 - 355 [facility] Comment on above: Performed By: #### 2 06103 #### [facility],[address] [place] [address] PSA,Total- Diagn[facility] 07-17 PSA, DIAGNOSTIC 235.00 ng/mL High 0.00-4.00 [facility] Comment on above: Result Comment: This test was performed using the [employer] tPSA method. Measured values of a patient??sample can vary depending on the testing procedure used. PSA values determined on patient samples by different testing procedures cannot be used interchangeably. If there is a change in PSA assays while monitoring therapy, sequential testing should be performed to confirm baseline values. Performed By: #### L 501.9940 #### [facility] [address] [place], [place], [address] FERRITIN [CCL]on 07-17-2024 Ferritin [Mass/Vol] 90.9 ng/mL Normal 30.3-565.7 [facility] Comment on above: Result Comment: [facility] [address] [place] [address] Zafar Bangura III, M.D. [id number] Performed By: #### 2 62169 #### [facility],[address] [place] [address]016 CBC + DIFFon 07-16-2024 Baso # 0.03 x10EE3/UL Normal 0.00 - 0.10 [facility] Comment on above: Performed By: #### 2 38644 #### [facility],[address] [place] [address] 37867 Basophils/100 WBC (Bld) 0.6 % Normal 0.0 - 2.0 [facility] Comment on above: Performed By: #### 2 07031 #### [facility],[address] [place] [address] CBC + DIFF Normal [facility] Comment on above: Result Comment: CBC- COMPLETE BLOOD COUNT Performed By: #### 2 98190 #### [facility],[address] [place] [address] EO # 0.26 x10EE3/UL Normal 0.00 - 0.50 [facility] Comment on above: Performed By: #### 2 58312 #### [place] [address] Eosinophils/100 WBC (Bld) 5.2 % Normal 0.0 - 7.0 [facility] Comment on above: Performed By: #### 2 41649 #### [facility],[address] [place] [address] Erythrocyte distribution width (RBC) [Ratio] 14.1 % Normal 12.0 - 15.6 [facility] Comment on above: Performed By: #### 2 58176 #### [facility],[address] [place] [address] Hematocrit (Bld) [Volume fraction] 31.1 % Low 40.0 - 52.0 [facility] Comment on above: Performed By: #### 2 08656 #### [facility],[address] [place] [address] Hemoglobin (Bld) [Mass/Vol] 10.8 g/dL Low 13.0 - 17.5 [facility] Comment on above: Performed By: #### 2 45287 #### [facility],[address] [place] [address] Lymph # 1.06 x10EE3/UL Normal 0.80 - 2.80 [facility] Comment on above: Performed By: #### 2 61033 #### [place] [address] Lymphocytes/100 WBC (Bld) 21.5 % Normal 20.0 - 45.0 [facility] Comment on above: Performed By: #### 2 74863 #### [facility],[address] [place] [address] MANUAL DIFF N/A Normal [facility] Comment on above: Performed By: #### 2 74452 #### [place] [address] MCH (RBC) [Entitic mass] 30 pg Normal 27 - 33 [facility] Comment on above: Performed By: #### 2 60073 #### [place] [address] MCHC 35 X10 3 Normal 32 - 36 [facility] Comment on above: Performed By: #### 2 94888 #### [place] [address] MCV (RBC) [Entitic vol] 87 fL Normal 81 - 98 [facility] Comment on above: Performed By: #### 2 97355 #### [place] [address] [place] # 0.43 x10EE3/UL Normal 0.20 - 1.00 [facility] Comment on above: Performed By: #### 2 38201 #### [place] [address] MONOS % 8.8 % Normal 0.0 - 10.0 [facility] Comment on above: Performed By: #### 2 92329 #### [place] [id number] Morphology Joe (Bld) [Interp] N/A Normal [facility] Comment on above: Performed By: #### 2 14286 #### [facility],[address] [place], [place] [id number] Neut # 3.14 x10EE3/UL Normal 1.50 - 7.10 [facility] Comment on above: Performed By: #### 2 14450 #### [facility],[address] [place] [address] Neutrophils/100 WBC (Bld) 63.9 % Normal 46.0 - 76.0 [facility] Comment on above: Performed By: #### 2 66989 #### [facility],[address] [place] [address] PLATELET 217 x10EE3/UL Normal 150 - 450 [facility] Comment on above: Performed By: #### 2 62361 #### [place] [address] Platelet mean volume (Bld) [Entitic vol] 7.4 fL Normal 6.4 - 10.5 [facility] Comment on above: Result Comment: AUTO MATED DIFFERENTIAL Performed By: #### 2 41863 #### [facility],[address] [place] [address] RBC 3.58 x 10EE6/UL Low 4.50 - 6.[address] [facility] Comment on above: Performed By: #### 2 87285 #### [facility],[address] [place], [place] [id number] WBC 4.9 x 10EE3/UL Normal 4.5 - 10.8 [facility] Comment on above: Performed By: #### 2 51772 #### [place] [id number] CMP with eGFRon 07-16-2024 AGE 78 years Normal [facility] Comment on above: Performed By: #### 2 94589 #### [facility],[address],[place] [address] Albumin [Mass/Vol] 3.6 g/dL Normal 3.4 - 5.0 [facility] Comment on above: Performed By: #### 2 88552 #### [facility],[address] [place] [address]658 Albumin/Globulin [Mass ratio] 1.2 {ratio} Normal 0.9 - 1.6 [facility] Comment on above: Performed By: #### 2 96586 #### [facility],[address] [place] [address] ALK PHOS 64 U/L Normal 46 - 116 [facility] Comment on above: Performed By: #### 2 82103 #### [facility],[address] [place] [address] 09175 ALT [Catalytic activity/Vol] 15 U/L Low 16 - 63 [facility] Comment on above: Performed By: #### 2 39597 #### [facility],[address] [place] [address]105 Anion gap [Moles/Vol] 12 mmol/L Normal 10 - 20 [facility] Comment on above: Performed By: #### 2 14462 #### [facility],[address] [place] [address] 64351 AST [Catalytic activity/Vol] 18 U/L Normal 15 - 37 [facility] Comment on above: Performed By: #### 2 50730 #### [facility],[address] [place] [address]25 B/C RATIO 22 ratio Normal 0 - 30 [facility] Comment on above: Performed By: #### 2 87210 #### [facility],[address] [place] [address] 66372 Bilirubin [Mass/Vol] 0.3 mg/dL Normal 0.2 - 1.0 [facility] Comment on above: Performed By: #### 2 28803 #### [facility],[address] [place] [address] 88699 Calcium [Mass/Vol] 9.4 mg/dL Normal 8.5 - 10.1 [facility] Comment on above: Performed By: #### 2 21035 #### [facility],[address] [place], [place] [id number] Chloride [Moles/Vol] 106 mmol/L Normal 98 - 107 [facility] Comment on above: Performed By: #### 2 78029 #### [facility],[address] [place], [place] [id number] CMP with eGFR Normal [facility] Comment on above: Result Comment: COMP REHENSIVE METABOLIC PANEL Performed By: #### 2 81884 #### [facility],[address] [place], [place] [id number] CO2 [Moles/Vol] 29.1 mmol/L Normal 21.0 - 32.0 [facility] Comment on above: Performed By: #### 2 80876 #### [facility],[address] [place], [place] [id number] Creatinine [Mass/Vol] 1.62 mg/dL High 0.70 - 1.30 [facility] Comment on above: Performed By: #### 2 80807 #### [facility],[address] [place] [address] 33767 eGFR 42 ML/MINUTE Low 60 - 999 [facility] Comment on above: Performed By: #### 2 69109 #### [facility],[address] [place] [address] 19059 eGFR(AA) 50 ML/MINUTE Low 60 - 999 [facility] Comment on above: Result Comment: ACCO RDING TO THE NATIONAL KIDNEY DISEASE EDUCATION PROGRAM(NKDE), A NORMAL eGFR IS A VALUE GREATER THAN OR EQUAL TO 60 ML/MIN/1.73 SQ METERS. CHRONIC KIDNEY DISEASE: <60mL/MIN/1.73 SQ METERS KIDNEY FAILURE: <15mL/MIN/1.73 SQ METERS THIS TEST SHOULD ONLY BE USED FOR PATIENTS 18 YEARS OF AGE AND OLDER. Performed By: #### 2 32409 #### [facility],[address] [place] [address] 70740 Globulin (S) [Mass/Vol] 3.1 g/dL Normal 1.5 - 3.8 [facility] Comment on above: Performed By: #### 2 99262 #### [facility],[address] [place] [address] 18413 Glucose [Mass/Vol] 144 mg/dL High 74 - 106 [facility] Comment on above: Performed By: #### 2 11959 #### [facility],[address] [place] [address] 04551 Potassium [Moles/Vol] 5.0 mmol/L Normal 3.5 - 5.1 [facility] Comment on above: Performed By: #### 2 42145 #### [facility],[address] [place] [address] 22576 Protein [Mass/Vol] 6.7 g/dL Normal 6.4 - 8.2 [facility] Comment on above: Performed By: #### 2 95987 #### [facility],[address] [place] [address] 67750 Sodium [Moles/Vol] 142 mmol/L Normal 136 - 145 [facility] Comment on above: Performed By: #### 2 82469 #### [facility],[address] [place] [address] 30316 Urea nitrogen [Mass/Vol] 35 mg/dL High 7 - 18 [facility] Comment on above: Performed By: #### 2 79387 #### [facility],[address] [place] [address] 60904 FOLATESon 07-16-2024 FOLATES 50.2 ng/ml Normal 8.6 - 58.9 [facility] Comment on above: Performed By: #### 2 70257 #### [facility],[address] [place] [address] 38287 Ferritin SerPl-mCncon 2024 Ferritin [Mass/Vol] 90.9 ng/mL Normal 30.3-565.7 [facility] Comment on above: Order Comment: Speci men Type: BLOOD SPECIMEN Ordering Facility: [facility] Address: [address] [place] [address] Performed By: #### 2 276-4 #### [facility] CLIA [id number] [address] [place] [address] [place] HEMOGLOBIN A1C (POM)on 07-16 Glucose [Mass/Vol] 162.8 mg/dL High 0.0 - 0.0 [facility] Comment on above: Result Comment: Do HEMOGLOBIN A1C REFERENCE RANGESBLDo Suggested Diagnosis HbA1c(%) HbA1C (mmol/mol Diabetic >/=6.5 >/=48 Prediabetes 5.7 - 6.4 39 - 47 Normal <5.7 <39 Performed By: #### 2 45259 #### [facility],[address] [place] [address] HbA1c (Bld) [Mass fraction] 7.3 % High 0.0 - 6.5 [facility] Comment on above: Performed By: #### 2 79148 #### [facility],[address] [place] [address] 12482 IRON AND TIBCon 07-16-2024 %SATURATION 18 % Normal [facility] Comment on above: Performed By: #### 2 88916 #### [facility],[address] [place] [address] 91855 Iron [Mass/Vol] 57 ug/dL Low 65 - 175 [facility] Comment on above: Performed By: #### 2 80586 #### [facility],[address] [place] [address] 83557 TIBC 316 ug/dl Normal 250 - 450 [facility] Comment on above: Performed By: #### 2 22580 #### [facility],[address] [place] [address] 34053 UIBC 259 ug/dL Normal 155 - 355 [facility] Comment on above: Performed By: #### 2 76111 #### [facility],[address] [place] [address] 09923 LIPID PROFILEon 07-16-2024 Cholesterol [Mass/Vol] 114 mg/dL Normal 0 - 240 [facility] Comment on above: Performed By: #### 2 62211 #### [facility],[address] [place] [address] 59855 Cholesterol in HDL [Mass/Vol] 70 mg/dL High 40 - 60 [facility] Comment on above: Performed By: #### 2 71588 #### [facility],[address] [place] [address] 21760 Cholesterol in LDL [Mass/Vol] 33 mg/dL Normal 0 - 129 [facility] Comment on above: Performed By: #### 2 67704 #### [facility],[address] [place] [address] 83908 Cholesterol.total/Felecia sterol in HDL [Mass ratio] 1.6 {ratio} Normal 0.0 - 5.0 [facility] Comment on above: Performed By: #### 2 64863 #### [facility],[address] [place] [address] 13143 Lipid [address] [facility] Comment on above: Result Comment: LIPI D PROFILE Performed By: #### 2 80445 #### [facility],[address] [place] [address] 58002 Triglyceride [Mass/Vol] 56 mg/dL Normal 0 - 150 [facility] Comment on above: Performed By: #### 2 61034 #### [facility],[address] [place] [address] 22259 T4-FREE (FREE THYROXINE)on 0 07-16-2024 Free T4 [Mass/Vol] 1.17 ng/dL Normal 0.76 - 1.46 [facility] Comment on above: Result Comment: P otential of falsely elevated results when biotin concentrations are > 10 ng/mL. Performed By: #### 2 76200 #### [facility],[address] [place] [address] 14849 TSHon 07-16-2024 TSH Qn 2.20 m[IU]/L Normal 0.35 - 3.74 [facility] Comment on above: Performed By: #### 2 78950 #### [facility],[address] [place] [address] 05154 URINE MICROALBUMIN W/CREATIN INE, RANDOMon 07-16-2024 CREATININE UR 92.08 mg/dl Normal [facility] Comment on above: Performed By: #### 2 07597 #### [facility],[address] [place] [address] 23998 MICROALBUMIN UR 5.6 mg/dL Normal 0.1 - 25.1 [facility] Comment on above: Performed By: #### 2 03480 #### [facility],[address] [place] [address] 07233 UACR 61 mg/g Normal [facility] Comment on above: Performed By: #### 2 19232 #### [facility],[address] [place] [address] 81835 VITAMIN B-12on 07-16-2024 Cobalamin (Vitamin B12) [Mass/Vol] 285 pg/mL Normal 193 - 986 [facility] Comment on above: Performed By: #### 2 04945 #### [facility],[address] [place] [address] 43490 VITAMIN D, 25 HYDROXYon 05- VitD 44.30 ng/mL Normal 30.00 - 100 [facility] Comment on above: Result Comment: 25-O [...] D2 Not Established Performed By: #### 2 40851 #### [facility],[address] [place] [address] 04634 Carotid Duplex Ultrasoundon 06-15-[address] [facility] [place] [address] Carotid Duplex Ultrasound 06/15/24 0955 MR#: [id number] Acct: [id number] Name: SUMEET MAJANO Rep #: [id number] : 1945 78 From: Ramu Rehman MD Attending Dr: TAYLOR Donovan Status: REG CLI Ordering Dr: Evelyn Arana Date: 06/15/24 Location: [facility] Sex: M C Admitted: Reason For [...] the left vertebral artery. Procedure Carotid Duplex 92594. This is a Carotid Duplex examination using B-mode, color flow and specral Doppler. Exam performed in department. VL/Carotid Duplex Ultrasound Interpretation Summary Mild (<50%) stenosis right extracranial internal carotid. Mild (<50%) stenosis left extracranial internal carotid. Patent and antegrade vertebrals bilaterally. Ordering Physician: Evelyn Arana Referring Physician: Evelyn Arana Performed By: Marilyn Garcia, RVT 06/15/24 1549 Date Ramu Rehman MD CC: TAYLOR Donovan; Dr. Seema Sterling MD Date Dictated: 06/15/24 0955 Date Transcribed: 06/15/24 7652 Economics Professor: Signed Normal [facility] Duplex ultrasound of carotid artery reportOrdered By: Ramu Rehman on 06-15-[address] [facility] [address] [place] [address] Carotid Duplex Ultrasound 06/15/24 0955 MR#: [id number] Acct: [id number] Name: SUMEET MAJANO Rep #:[id number] : 1945 78 From: Ramu Hutchins Attending Dr: TAYLOR Donovan Stat us: REG CLI Ordering Dr: Evelyn Arana Date: Location: [facility] Sex: M C Admitted: Reason [...] the left vertebral artery. Procedure Carotid Duplex 49703. This is a Carotid Duplex examination using B-mode, color flow and specral Doppler. Exam performed in department. VL/Carotid Duplex Ultrasound Interpretation Summary Mild (<50%) stenosis right extracranial internal carotid. Mild (<50%) stenosis left extracranial internal carotid. Patent and antegrade vertebrals bilaterally. Ordering Physician: Evelyn Arana Referring Physician: Evelyn Arana Performed By: Marilyn Garcia RVT 06/15/24 1549 Date _ Ramu Rehman MD CC: TAYLOR Donovan; Dr. Seema Sterling MD ~ Date Dictated: 06/15/24 09 Date Transcribed: 06/15/24 3037 Economics Professor: Signed [facility] Work Phone: PSA,Total- Diagnosticon 03-0 PSA, DIAGNOSTIC 92.20 ng/mL High 0.00-4.00 [facility] Comment on above: Result Comment: This [...] baseline values. Performed By: #### L 501.9940 ####[facility] [address] [place], [address] Diagnostic total prostate sp ecific antigen (PSA) measurementOrdered By: Sally Plummer on 05-17-2024 Prostate Specific Antigen Total 92.20 ng/mL High 0.00-4.00 [facility] Comment on above: This test was [...] # 0.03 x10EE3/UL Normal 0.00 - 0.10 [facility] Comment on above: Performed By: #### 2 00485 #### [facility],[address] [place] [address] Basophils/100 WBC (Bld) 0.8 % Normal 0.0 - 2.0 [facility] Comment on above: Performed By: #### 2 52815 #### [facility],[address] [place] [address] CBC + DIFF Normal [facility] Comment on above: Result Comment: CBC- COMPLETE BLOOD COUNT Performed By: #### 2 36919 #### [place] [id number] EO # 0.29 x10EE3/UL Normal 0.00 - 0.50 [facility] Comment on above: Performed By: #### 2 61899 #### [address] [address] Eosinophils/100 WBC (Bld) 6.8 % Normal 0.0 - 7.0 [facility] Comment on above: Performed By: #### 2 19517 #### [place] [id number] Erythrocyte distribution width (RBC) [Ratio] 13.9 % Normal 12.0 - 15.6 [facility] Comment on above: Performed By: #### 2 43379 #### [facility],[address] [place] [address] Hematocrit (Bld) [Volume fraction] 36.8 % Low 40.0 - 52.0 [facility] Comment on above: Performed By: #### 2 42282 #### [facility],[address] [place] [address] Hemoglobin (Bld) [Mass/Vol] 11.7 g/dL Low 13.0 - 17.5 [facility] Comment on above: Performed By: #### 2 39709 #### [facility],[address] [place] [address] Lymph # 0.85 x10EE3/UL Normal 0.80 - 2.80 [facility] Comment on above: Performed By: #### 2 01780 #### [facility],[address] [place] [address] Lymphocytes/100 WBC (Bld) 19.8 % Low 20.0 - 45.0 [facility] Comment on above: Performed By: #### 2 38817 #### [facility],[address] [place] [address] MANUAL DIFF N/A Normal [facility] Comment on above: Performed By: #### 2 00729 #### [facility],[address] [place] [address] MCH (RBC) [Entitic mass] 29 pg Normal 27 - 33 [facility] Comment on above: Performed By: #### 2 67230 #### [facility],[address] [place] [address] MCHC 32 X10 3 Normal 32 - 36 [facility] Comment on above: Performed By: #### 2 15492 #### [facility],[address] [place], [place] [id number] MCV (RBC) [Entitic vol] 90 fL Normal 81 - 98 [facility] Comment on above: Performed By: #### 2 49905 #### [facility],[address] [place] [address] 96211 [place] # 0.35 x10EE3/UL Normal 0.20 - 1.00 [facility] Comment on above: Performed By: #### 2 25600 #### [facility],[address] [place] [address] 67597 MONOS % 8.2 % Normal 0.0 - 10.0 [facility] Comment on above: Performed By: #### 2 80520 #### [facility],[address] [place], [place] [id number] Morphology Joe (Bld) [Interp] N/A Normal [facility] Comment on above: Performed By: #### 2 88786 #### [facility],[address] [place] [address] Neut # 2.76 x10EE3/UL Normal 1.50 - 7.10 [facility] Comment on above: Performed By: #### 2 05325 #### [facility],[address] [place] [address] 85851 Neutrophils/100 WBC (Bld) 64.5 % Normal 46.0 - 76.0 [facility] Comment on above: Performed By: #### 2 54013 #### [facility],[address] [place] [address] 25893 PLATELET 215 x10EE3/UL Normal 150 - 450 [facility] Comment on above: Performed By: #### 2 53079 #### [facility],[address] [place] [address] 65945 Platelet mean volume (Bld) [Entitic vol] 8.2 fL Normal 6.4 - 10.5 [facility] Comment on above: Result Comment: AUTO MATED DIFFERENTIAL Performed By: #### 2 63181 #### [facility],[address] [place] [address] 10843 RBC 4.09 x 10EE6/UL Low 4.50 - 6.[address] [facility] Comment on above: Performed By: #### 2 92870 #### [facility],[address] [place] [address] 02903 WBC 4.3 x 10EE3/UL Low 4.5 - 10.8 [facility] Comment on above: Performed By: #### 2 35304 #### [facility],[address] [place] [address] 42227 CMP with eGFRon 02-13-2024 AGE 78 years Normal [facility] Comment on above: Performed By: #### 2 43620 #### [facility],[address] [place] [address] 81802 Albumin [Mass/Vol] 3.3 g/dL Low 3.4 - 5.0 [facility] Comment on above: Performed By: #### 2 56545 #### [facility],[address] [place] [address] 60552 Albumin/Globulin [Mass ratio] 0.9 {ratio} Normal 0.9 - 1.6 [facility] Comment on above: Performed By: #### 2 73202 #### [facility],[address] [place] [address] 44378 ALK PHOS 60 U/L Normal 46 - 116 [facility] Comment on above: Performed By: #### 2 35456 #### [facility],[address] [place] [address] 59564 ALT [Catalytic activity/Vol] 11 U/L Low 16 - 63 [facility] Comment on above: Performed By: #### 2 25900 #### [facility],[address] [place] [address] 75358 Anion gap [Moles/Vol] 14 mmol/L Normal 10 - 20 [facility] Comment on above: Performed By: #### 2 91616 #### [facility],[address] [place] [address] 72068 AST [Catalytic activity/Vol] 13 U/L Low 15 - 37 [facility] Comment on above: Performed By: #### 2 18200 #### [facility],[address] [place] [address] 04342 B/C RATIO 19 ratio Normal 0 - 30 [facility] Comment on above: Performed By: #### 2 61231 #### [facility],[address] [place] [address] 27950 Bilirubin [Mass/Vol] 0.4 mg/dL Normal 0.2 - 1.0 [facility] Comment on above: Performed By: #### 2 41399 #### [facility],[address] [place] [address] 94240 Calcium [Mass/Vol] 9.4 mg/dL Normal 8.5 - 10.1 [facility] Comment on above: Performed By: #### 2 86825 #### [facility],[address] [place] [address] 24464 Chloride [Moles/Vol] 107 mmol/L Normal 98 - 107 [facility] Comment on above: Performed By: #### 2 48553 #### [facility],[address] [place] [address] 68616 CMP with eGFR Normal [facility] Comment on above: Result Comment: COMP REHENSIVE METABOLIC PANEL Performed By: #### 2 78631 #### [facility],[address] [place] [address] 93826 CO2 [Moles/Vol] 24.5 mmol/L Normal 21.0 - 32.0 [facility] Comment on above: Performed By: #### 2 54610 #### [facility],[address] [place] [address] 97513 Creatinine [Mass/Vol] 1.71 mg/dL High 0.70 - 1.30 [facility] Comment on above: Performed By: #### 2 51989 #### [facility],[address] [place] [address] 32934 eGFR 39 ML/MINUTE Low 60 - 999 [facility] Comment on above: Performed By: #### 2 27386 #### [facility],[address] [place] [address] 98134 eGFR(AA) 47 ML/MINUTE Low 60 - 999 [facility] Comment on above: Result Comment: ACCO RDING TO THE NATIONAL KIDNEY DISEASE EDUCATION PROGRAM(NKDE), A NORMAL eGFR IS A VALUE GREATER THAN OR EQUAL TO 60 ML/MIN/1.73 SQ METERS. CHRONIC KIDNEY DISEASE: <60mL/MIN/1.73 SQ METERS KIDNEY FAILURE: <15mL/MIN/1.73 SQ METERS THIS TEST SHOULD ONLY BE USED FOR PATIENTS 18 YEARS OF AGE AND OLDER. Performed By: #### 2 84094 #### [address] [address] Globulin (S) [Mass/Vol] 3.5 g/dL Normal 1.5 - 3.8 [facility] Comment on above: Performed By: #### 2 13048 #### [address] [address] Glucose [Mass/Vol] 145 mg/dL High 74 - 106 [facility] Comment on above: Performed By: #### 2 09047 #### [address] [address] Potassium [Moles/Vol] 4.2 mmol/L Normal 3.5 - 5.1 [facility] Comment on above: Performed By: #### 2 97015 #### [address] [address] Protein [Mass/Vol] 6.8 g/dL Normal 6.4 - 8.2 [facility] Comment on above: Performed By: #### 2 76143 #### [address],[place] [address] Sodium [Moles/Vol] 141 mmol/L Normal 136 - 145 [facility] Comment on above: Performed By: #### 2 20209 #### [facility],[address] [place] [address] 24497 Urea nitrogen [Mass/Vol] 32 mg/dL High 7 - 18 [facility] Comment on above: Performed By: #### 2 22599 #### [facility],[address] [place] [address] 81479 FOLATESon 02-13-2024 FOLATES 24.3 ng/ml Normal 8.6 - 58.9 [facility] Comment on above: Performed By: #### 2 07624 #### [facility],[address] [place] [address] 78677 HEMOGLOBIN A1C (POM)on 02-12 Glucose [Mass/Vol] 162.8 mg/dL High 0.0 - 0.0 [facility] Comment on above: Result Comment: BLDo HEMOGLOBIN A1C REFERENCE RANGESBLDo Suggested Diagnosis HbA1c(%) HbA1C (mmol/mol Diabetic >/=6.5 >/=48 Prediabetes 5.7 - 6.4 39 - 47 Normal <5.7 <39 Performed By: #### 2 69471 #### [facility],[address] [place] [address] 21607 HbA1c (Bld) [Mass fraction] 7.3 % High 0.0 - 6.5 [facility] Comment on above: Performed By: #### 2 24746 #### [facility],[address] [place] [address] 37769 LIPID PROFILEon 02-13-2024 Cholesterol [Mass/Vol] 131 mg/dL Normal 0 - 240 [facility] Comment on above: Performed By: #### 2 34870 #### [facility],[address] [place] [address] 90416 Cholesterol in HDL [Mass/Vol] 68 mg/dL High 40 - 60 [facility] Comment on above: Performed By: #### 2 50359 #### [facility],[address] [place] [address] 97573 Cholesterol in LDL [Mass/Vol] 34 mg/dL Normal 0 - 129 [facility] Comment on above: Performed By: #### 2 60794 #### [facility],[address] [place] [address] 62560 Cholesterol.total/Felecia sterol in HDL [Mass ratio] 1.9 {ratio} Normal 0.0 - 5.0 [facility] Comment on above: Performed By: #### 2 42755 #### [facility],[address] [place] [address] 44050 Lipid [address] [facility] Comment on above: Result Comment: LIPI D PROFILE Performed By: #### 2 73964 #### [facility],[address] [place] [address] 17318 Triglyceride [Mass/Vol] 143 mg/dL Normal 0 - 150 [facility] Comment on above: Performed By: #### 2 42755 #### [facility],[address] [place] [address] 92180 MICROALBUMIN RANDOM URINE W/ CREATININEon 02-13-2024 CREATININE UR 141.51 mg/dl Normal [facility] Comment on above: Result Comment: Micr oalbumin/Creat Ratio Performed By: #### 2 75800 #### [facility],[address] [place] [address] 70407 MICROALBUMIN UR 6.4 mg/dL Normal 0.1 - 25.1 [facility] Comment on above: Performed By: #### 2 43264 #### [facility],[address] [place] [address] 31271 UACR 45 mg/g Normal [facility] Comment on above: Performed By: #### 2 44164 #### [facility],[address] [place] [address] 61309 T4-FREE (FREE THYROXINE)on 04-14-2023 Free T4 [Mass/Vol] 1.20 ng/dL Normal 0.76 - 1.46 [facility] Comment on above: Result Comment: P otential of falsely elevated results when biotin concentrations are > 10 ng/mL. Performed By: #### 2 29278 #### [facility],[address] [place] [address] 65506 TSHon 02-13-2024 TSH Qn 3.82 m[IU]/L High 0.35 - 3.74 [facility] Comment on above: Performed By: #### 2 37132 #### [address] [address] VITAMIN B-12on 02-13-2024 Cobalamin (Vitamin B12) [Mass/Vol] 330 pg/mL Normal 193 - 986 [facility] Comment on above: Performed By: #### 2 81909 #### [facility],[address] [place] [address] 23914 VITAMIN D, 25 HYDROXYon 01-16 VitD 44.60 ng/mL Normal 30.00 - 100 [facility] Comment on above: Result Comment: 25-O [...] D2 Not Established Performed By: #### 2 75136 #### [address] [address] Diagnostic total prostate sp ecific antigen (PSA) measurementOrdered By: Rodrigo Maurice on 02-10-2024 Prostate Specific Antigen Total 43.70 ng/mL High 0.0-4.0 [facility] Comment on above: This test was perfor med using the TPSA assay method for theUGOBE chemistry system. Values obtained with differentassay methods cannot be used interchangably.When changing PSA assays in the course of monitoring apatient, additional sequential testing should be carriedout to confirm baseline values. PSA,Total- Diagnosticon 01-16 PSA, DIAGNOSTIC 43.70 ng/mL High 0.0-4.0 [facility] Comment on above: Result Comment: This test was performed using the TPSA assay method for the UGOBE chemistry system. Values obtained with different assay methods cannot be used interchangably. When changing PSA assays in the course of monitoring a patient, additional sequential testing should be carried out to confirm baseline values. Performed By: #### L 501.9940 ####[facility] [address] [place], [address] Carotid Duplex Ultrasoundon 01-19-2024 Carotid Duplex Ultrasound [facility] [address] [facility] [place] [address] Carotid Duplex Ultrasound 01/19/24 0953 MR#: [id number] Acct: [id number] Name: SUMEET MAJANO Cuong Rep #: [id number] : 1945 78 From: Ramu Rehman MD Attending Dr: TAYLOR Donovan Status: REG CLI Ordering Dr: Evelyn Arana Date: 01/19/24 Location: [facility] Sex: M C Admitted: Reason For [...] noted Lt Vert A. Procedure Carotid Duplex 20877. This is a Carotid Duplex examination using B-mode, color flow and specral Doppler. Exam performed in department. VL/Carotid Duplex Ultrasound Interpretation Summary Mild (<50%) stenosis right extracranial internal carotid. Mild (<50%) stenosis left extracranial internal carotid. The Right vertebral is patent and antegrade. The Left vertebral flow is retrograde. Ordering Physician: Evelyn Arana Referring Physician: Seema Sterling Performed By: Irene Jaramillo, RDCS, RVT 01/26/241937 Date Ramu Rehman MD CC: TAYLOR Donovan; Dr. Seema Sterling MD Date Dictated: 01/19/2453 Date Transcribed: 01/26/241937 Economics Professor: Signed Normal [facility] Surgery Visit Reporton 01-07 Surgery Visit Report [facility] [address] [place] [address] OFFICE VISIT Date of Service: 01/08/24 MR#: [id number] Acct: [id number] Name: SUMEET MAJANO Rep #: [id number] : 1945 Provider: TAYLOR Donovan Age/Sex: 78/M Location: [facility] Status: Signed Intake Vital Signs 12/24/23 14:34 [...] Primary hypertension I10 Hypertension type: primary hypertension [facility] Medical History History of left common carotid [...] or sooner as needed. 01/08/242215 Date Evelyn Harrisonprem VAZQUEZ 01/13/24 0748 Cosigner Signature: Date (if applicable) Ramu Rehman MD CC: Dr. Seema Sterling MD Normal [facility] ACT Activated Clotting Timeo n 12-25-2023 ACTk CLOT TIME 336 sec High 74-137 [facility] Comment on above: Performed By: #### L 9100.0100 #### [facility] [address] [place], [address] CBC W/Diff, Automatedon 10-0 Absolute Lymph 1.35 X10 3/uL Normal 0.83-4.51 [facility] Comment on above: Performed By: #### L 100.0100 ####[facility] [address] [place], [address] Absolute Neut 3.5 X10 3/uL Normal 2.0-7.7 [facility] Comment on above: Performed By: #### L 100.0100 ####[facility] [address] [place], [address] Basophils/100 WBC (Bld) 0.7 % Normal 0-1 [facility] Comment on above: Performed By: #### L 100.0100 ####[facility] [address] [place], [address] Eosinophils/100 WBC (Bld) 3.5 % Normal 0-5 [facility] Comment on above: Performed By: #### L 100.0100 ####[facility] [address] [place], [address] Erythrocyte distribution width (RBC) [Ratio] 13.2 % Normal 11.6-14.6 [facility] Comment on above: Performed By: #### L 100.0100 ####[facility] [address] [place], [address] Hematocrit (Bld) [Volume fraction] 29.3 % Low 40-54 [facility] Comment on above: Performed By: #### L 100.0100 ####[facility] [address] [place], [address] Hemoglobin (Bld) [Mass/Vol] 9.6 g/dL Low 13.0-16.5 [facility] Comment on above: Performed By: #### L 100.0100 ####[facility] [address] [place], [address] IG% 0.500 Normal 0.0-0.9 [facility] Comment on above: Result Comment: IG% - Immature Granulocytes (promyelocytes, myelocytes and metamyelocytes) > 1% indicates that a LEFT SHIFT is Present. Performed By: #### L 100.0100 ####[facility] [address] [place], [address] Lymphocytes/100 WBC (Bld) 23.9 % Normal 19-41 [facility] Comment on above: Performed By: #### L 100.0100 ####[facility] [address] [place], [address] MCH (RBC) [Entitic mass] 29.4 pg Normal 27.0-32.0 [facility] Comment on above: Performed By: #### L 100.0100 ####[facility] [address] [place], [address] MCHC (RBC) [Mass/Vol] 32.8 g/dL Normal 32-36 [facility] Comment on above: Performed By: #### L 100.0100 ####[facility] [address] [place], [address] MCV (RBC) [Entitic vol] 89.9 fL Normal 80-94 [facility] Comment on above: Performed By: #### L 100.0100 ####[facility] [address] [place], [address] Monocytes/100 WBC (Bld) 9.0 % Normal 0-10 [facility] Comment on above: Performed By: #### L 100.0100 ####[facility] [address] [place], [address] Neutrophils/100 WBC (Bld) 62.4 % Normal 47-70 [facility] Comment on above: Performed By: #### L 100.0100 ####[facility] [address] [place], [address] Nucleated RBC (Bld) [#/Vol] 0 10*3/uL Normal 0-5 [facility] Comment on above: Performed By: #### L 100.0100 ####[facility] [address] [place], [address] Platelet mean volume (Bld) [Entitic vol] 10.5 fL Normal 6.2-12.0 [facility] Comment on above: Performed By: #### L 100.0100 ####[facility] [address] [place], [address] Platelets (Bld) [#/Vol] 157 10*3/uL Normal 150-450 [facility] Comment on above: Performed By: #### L 100.0100 ####[facility] [address] [place], [address] RBC (Bld) [#/Vol] 3.26 10*6/uL Low 4.6-6.2 [facility] [place] Comment on above: Performed By: #### L 100.0100 ####[facility] [address] [place], [address] RDW SD 43.9 fl Normal 35.1-43.9 [facility] Comment on above: Performed By: #### L 100.0100 ####[facility] [address] [place], [address] WBC (Bld) [#/Vol] 5.6 10*3/uL Normal 4.4-11.0 [facility] Comment on above: Performed By: #### L 100.0100 ####[facility] [address] [place], [address] Bedside Glucoseon 12-23-2023 FINGERSTICK GLU 163 mg/dL High 74-106 [facility] Comment on above: Result Comment: XUAN LOBATO OF PATIENT CARE PER NURSING PROTOCOL Performed By: #### L 501.080 #### [facility] [address] [place], [address] MR/POSTOP.ANEon 12-23-2023 MR/POSTOP.[facility] Medical Records Department [address] [place] [address] Anesthesia Postop Eval I 12/23/23 1152 MR#: [id number] Acct: [id number] Name: SUMEET MAJANO Rep #: [id number] : 1945 78 From: Osmar Santos CRNA PCP: Dr. Seema Sterling MD Status:ADM IN Y Race: C Location: ICU [id number] Anesthesia: Postop Eval I Current Vital Signs [...] completed: Yes 12/23/23 1153 Date Osmar Santos FIFI Gillespieignpeyton Signature: Date CC: Signed Normal [facility] MR/POSTOP.ANE [facility] Medical Records Department [address] [place] [address] Anesthesia Postop Eval I 12/23/23 1113 MR#: [id number] Acct: [id number] Name: SUMEET MAJANO Rep #: [id number] : 1945 78 From: Ramu Mcgrath MD PCP: Dr. Seema Sterling MD Status:ADM IN Y Race: C Location: ICU [place] [address] Anesthesia: Postop Eval I Current Vital Signs Temperature: 96.8 F Pulse Rate: 57 Blood Pressure: 122/56 Respiratory Rate: 16 Pulse Ox: 97 Assessment Airway patent: Yes Spontaneous unlabored respirations: Yes nausea: No Vomiting: No Anesthesia Complication: No Fluid Hydration Crystalloid volume administer (ml): 1,000 Total IV fluid infused: 1,000 Progress Note Anesthesia document: Postop Eval 1 completed: Yes 12/23/231113 Date Ramu Reed Signature: Date CC: Signed Normal [facility] MR/[id number] 12-23-2023 MR/POSTOPAN2 [facility] Medical Records Department [address] [place] [address] Anesthesia Postop Eval II 12/23/23 1110 MR#: [id number] Acct: [id number] Name: SUMEET MAJANO Rep #: [id number] : 1945 78 From: Ramu Mcgrath MD PCP: Dr. Seema Sterling MD Status:ADM IN Y Race: C Location: ICU [id number] Anesthesia Postop Eval I Sum Anesthesia Postop [...] MD Cosigner Signature: Date CC: Signed Normal [facility] Operative Reporton [address] [facility] Medical Records Department [address] [place] [address] Operative Report 12/23/23 1115 MR#: [id number] Acct: [id number] Name: SUMEET MAJANO Rep #: [id number] : 1945 78 From: Ramu Rehman MD PCP: Dr. Seema Sterling MD Status:ADM IN Location: ICU [id number] Report of Operation Date of Procedure: 12/23/23 Pre-Operative Diagnosis: right carotid artery stenosis Post-Operative Diagnosis: same Surgery/Procedure Performed:: right carotid artery stent TCAR Surgeon: Ramu Rehman process control manager: Marcelle Vásquez Type of Anesthesia: General Drains: [...] procedure site patient was taken to the [facility] where he was placed under general anesthesia. [...] the micropuncture sheath exchanged for the 8 [place]z venous return sheath. Next a micropuncture needle [...] sheath was then exchanged for the [address] flow reversal sheath. Once this [...] then reversed with protamine and a 19 Kyr[place]z channel WILLIAM placed via separate stab incision. [...] MD on 12/23/23 at 1635 Addendum The assistant spa director (more content not included)... Normal [facility] Carotid Duplex Ultrasoundon 12-12-2023 Carotid Duplex Ultrasound [facility] [address] [place] [address] Carotid Duplex Ultrasound 12/12/23 1432 MR#: [id number] Acct: [id number] Name: SUMEET MAJANO Rep #: [id number] : 1945 78 From: Ramu Rehman MD Attending Dr: TAYLOR Donovan Status: REG CLI Ordering Dr: Evelyn Arana Date: 12/12/23 Location: CVS Sex: M C Admitted: Reason [...] noted Lt Vert A. Procedure Carotid Duplex 19669. This is a Carotid Duplex examination using B-mode, color flow and specral Doppler. Prelim given to Kirti at [facility]. Exam performed in department. 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 Normal left extracranial internal carotid. The Right vertebral is patent and antegrade. The Left vertebral flow is bidirectional. Ordering Physician: Evelyn Arana Referring Physician: Seema Sterling Performed By: Irene Jaramillo, SUZANNECS, RVT 12/17/23 1101 Date Ramu Rehman MD CC: TAYLOR Donovan; Dr. 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 [place] [address] OFFICE VISIT Date of Service: 12/04/23 MR#: [id number] Acct: [id number] Name: SUMEET MAJANO Rep #: [id number] : 1945 Provider: TAYLOR Donovan Age/Sex: 78/M Location: [facility] Status: Signed Intake Vital Signs 11/19/23 09:41 [...] tab PO DAILY BP 11/05/23 12/04/23 History mg-hydrochlorothiazi de 12.5 mg tablet Have you fallen in [...] of breath, palpitations, abdominal pain.states he feels "just fine". He is pretty sure he took his [...] Primary hypertension I10 Hypertension type: primary hypertension [facility] Medical History Tinnitus of both ears Wears [...] retrograde, obstruc (more content not included)... Normal [facility] Basophil percentageOrdered B y: Sally Plummer on 04-22-2023 Basophil percentage 8.57 ng/mL 0.0-4.0 [facility] [place] Comment on above: This test was perfor med using the TPSA assay method for theDimension chemistry system. Values obtained with differentassay methods cannot be used interchangably.When changing PSA assays in the course of monitoring apatient, additional sequential testing should be carriedout to confirm baseline values. No Panel InformationOrdered By: Rodrigo Maurice on 01-08-2023 Prostate Specific Antigen Total 6.87 ng/mL 0.0-4.0 [facility] Comment on above: This test was perfor med using the TPSA assay method for theDimension chemistry system. Values obtained with differentassay methods cannot be used interchangably.When changing PSA assays in the course of monitoring apatient, additional sequential testing should be carriedout to confirm baseline values. No Panel InformationOrdered By: Rodrigo Maurice on 10-01-2022 Prostate Specific Antigen Total 6.99 ng/mL 0.0-4.0 [facility] Comment on above: This test was perfor med using the TPSA assay method for theDimension chemistry system. Values obtained with differentassay methods cannot be used interchangably.When changing PSA assays in the course of monitoring apatient, additional sequential testing should be carriedout to confirm baseline values. No Panel InformationOrdered By: Dr. Maurice on 07-11-2022 Prostate Specific Antigen Total 5.66 ng/mL 0.0-4.0 [facility] Comment on above: This test was perfor med using the TPSA assay method for theDimenselect [facility] chemistry system. Values obtained with differentassay methods cannot be used interchangably.When changing PSA assays in the course of monitoring apatient, additional sequential testing should be carriedout to confirm baseline values. No Panel InformationOrdered By: CHRISTINE MadisonEda Emelia on 04-11-2022 Prostate Specific Antigen Total 2.62 ng/mL 0.0-4.0 [facility] Comment on above: This test was perfor med using the TPSA assay method for theDimension chemistry system. Values obtained with differentassay methods cannot be used interchangably.When changing PSA assays in the course of monitoring apatient, additional sequential testing should be carriedout to confirm baseline values. Absolute lymphocyte countOrd ered By: Dr. Sterling on 01-10-2022 Lymphocytes Auto (Unsp spec) [#/Vol] 0.63 10*3/uL 0.83-4.51 [facility] Basophil percentageOrdered B y: Dr. Sterling on 01-10-2022 Basophils/100 WBC (Bld) 0.2 % 0-1 [facility] Bilirubin [Mass/Vol] 0.60 mg/dL 0.20-1.[address] [facility] Comment on above: For patients on eltr ombopag therapy, use of Dimension [place] TBIL is not recommended. Chloride [Moles/Vol] 107 mmol/L 98-[address] [facility] Eosinophils/100 WBC (Bld) 0.6 % 0-5 [facility] Glucose [Mass/Vol] 176 mg/dL 74-106 [facility] Comment on above: Fasting Glucose resu lt greater than or equal to 126 mg/dL suggests DIABETES MELLITUS per A.D.A. criteria. Neutrophils (Bld) [#/Vol] 6.7 10*3/uL 2.0-7.7 [facility] Neutrophils/100 WBC (Bld) 82.7 % 47-70 [facility] Potassium [Moles/Vol] 3.4 mmol/L 3.5-5.1 [facility] Protein [Mass/Vol] 6.9 g/dL 6.4-8.2 [facility] Sodium [Moles/Vol] 137 mmol/L 136-145 [facility] WBC (Bld) [#/Vol] 8.1 10*3/uL 4.4-11.0 [facility] Blood erythrocytes count (nu mber/volume)Ordered By: Dr. Sterling on 01-10-2022 RBC (Bld) [#/Vol] 3.59 10*6/uL 4.6-6.2 [facility] [place] Blood hemoglobin measurement (mass/volume)Ordered By: Dr. Sterling on 01-10-2022 Hemoglobin (Bld) [Mass/Vol] 10.7 g/dL 13.0-16.5 [facility] Blood lymphocytes/100 leukoc ytesOrdered By: Dr. Sterling on 01-10-2022 Lymphocytes/100 WBC (Bld) 7.8 % 19-41 [facility] Blood monocytes/100 leukocyt esOrdered By: Dr. Sterling on 01-10-2022 Monocytes/100 WBC (Bld) 7.6 % 0-10 [facility] Blood platelet mean volumeOr dered By: Dr. Sterling on 01-10-2022 Platelet mean volume (Bld) [Entitic vol] 10.9 fL 6.2-12.0 [facility] Determination of erythrocyte mean corpuscular volume (MCV)Ordered By: Dr. Sterling on 01-10-2022 MCV (RBC) [Entitic vol] 88.6 fL 80-94 [facility] Hematocrit Auto (Bld) [Volum e fraction]Ordered By: Dr. Sterling on 01-10-2022 Hematocrit (Bld) [Volume fraction] 31.8 % 40-54 [facility] - Chemistry and C hemistry - challengeOrdered By: Dr. Sterling on 01-10-2022 ALP [Catalytic activity/Vol] 115 U/L 45-117 [facility] ALT [Catalytic activity/Vol] 45 U/L 16-61 [facility] CO2 [Moles/Vol] 21.0 mmol/L 21.0-32.0 [facility] Free T4 [Mass/Vol] 1.67 ng/dL 0.76-1.46 [facility] Globulin (S) [Mass/Vol] 4.6 g/dL 2.2-4.2 [facility] Urea nitrogen/Creatinine [Mass ratio] 26.3 mg/mg 10-20 [facility] - Hematology and Cell countsOrdered By: Dr. Sterling on 01-10-2022 Erythrocyte distribution width (RBC) [Entitic vol] 41.7 fL 35.1-43.9 [facility] Erythrocyte distribution width (RBC) [Ratio] 12.8 % 11.6-14.6 [facility] Immature granulocytes/100 WBC (Bld) 1.100 % 0.0-0.9 [facility] Comment on above: IG% - Immature Granu locytes (promyelocytes, myelocytes and metamyelocytes) > 1% indicates that a LEFT SHIFT is Present. MCH (RBC) [Entitic mass] 29.8 pg 27.0-32.0 [facility] Nucleated RBC/100 WBC (Bld) [Ratio] 0 % 0-5 [facility] MCHC Auto (RBC) [Mass/Vol]Or dered By: Dr. Sterling on 01-10-2022 MCHC (RBC) [Mass/Vol] 33.6 g/dL 32-36 [facility] No Panel InformationOrdered By: Dr. Sterling on 01-10-2022 Estimated GFR (MDRD) Amer 41 mL/min >60 [facility] Comment on above: GFR Calc Estimated GFR (MDRD) Non-Af Amer 34 mL/min >60 [facility] Comment on above: Non- GFR Calc Thyroid Stimulating Hormone (TSH) 3.45 uIU/mL 0.358-3.74 [facility] Platelets bldOrdered By: Dr. Sterling on 01-10-2022 Platelets (Bld) [#/Vol] 238 10*3/uL 150-450 [facility] Serum or plasma albumin jermaine urement (mass/volume)Ordered By: Dr. Sterling on 01-10-2022 Albumin [Mass/Vol] 2.3 g/dL 3.2-5.0 [facility] Serum or plasma albumin/glob ulin mass ratioOrdered By: Dr. Sterling on 01-10-2022 Albumin/Globulin [Mass ratio] 0.5 {ratio} 0.9-2.4 [facility] Serum or plasma calcium jermaine urement (mass/volume)Ordered By: Dr. Sterling on 01-10-2022 Calcium [Mass/Vol] 9.2 mg/dL 8.5-10.1 [facility] Serum or plasma creatinine m easurement (mass/volume)Ordered By: Dr. Sterling on 01-10-2022 Creatinine [Mass/Vol] 2.05 mg/dL 0.70-1.30 [facility] Comment on above: The validity of the calculated GFR & GFRAA in patients over 70 years has not been determined. Clinical correlation is essential. Serum or plasma folate measu rement (mass/volume)Ordered By: Dr. Sterling on 01-10-2022 Folate [Mass/Vol] 30.50 ng/mL 3.1-55.4 [facility] Serum or plasma urea nitroge n measurement (mass/volume)Ordered By: Dr. Sterling on 01-10-2022 Urea nitrogen [Mass/Vol] 54 mg/dL 7-18 [facility] Thin prep Papanicolaou smear with manual screeningOrdered By: Dr. Sterling on 01-10-2022 Thin prep Papanicolaou smear with manual screening 53 U/L 15-37 [facility] Thin prep Papanicolaou smear with manual screening 9 5-15 [facility] Whole blood hemoglobin A1c/t otal hemoglobin ratio (mass fraction)Ordered By: Dr. Sterling on 01-10-2022 HbA1c (Bld) [Mass fraction] 6.9 % 3.8-5.6 [facility] Comment on above: Normal < 5.7 % Predi abetic 5.7 - 6.4 % Diabetic >or= 6.5 % Please note range changes. No Panel Informationon 09-24 Prostate Specific Antigen Total 1.51 ng/mL 0.0-4.0 [facility] Work Phone: Comment on above: This test was perfor med using the TPSA assay method for [employer] chemistry system. Values obtained with differentassay methods cannot be used interchangably.When changing PSA assays in the course of monitoring apatient, additional sequential testing should be carriedout to confirm baseline values. 25-Hydroxy D2+D3on 25-Hydroxy D Total 27.5 ng/mL Low 30.0-100.0 [facility] Comment on above: Performed By: #### H BA1C #### [facility] Routine Lab [address] [place] [phone] #### D2D3 #### [facility] Chemistry [address] [place] [phone] 25-Hydroxy D2 <4.0 Normal [facility] Comment on above: Performed By: #### Wilda BA1C #### [facility] Routine Lab [address] [phone] #### D2D3 #### [facility] Chemistry [address] [phone] 25-Hydroxy D3 27.5 ng/mL Normal [facility] Comment on above: Performed By: #### Wilda BA1C #### [facility] Routine Lab [address] [phone] #### D2D3 #### [facility] Chemistry [address] [phone] Hemoglobin A1con 11-04-2020 Glucose [Mass/Vol] 186 mg/dL Normal [facility] Comment on above: Performed By: #### H BA1C #### [facility] Routine Lab [address] [phone] #### D2D3 #### [facility] Chemistry [address] [place], [place] [id number] HbA1c (Bld) [Mass fraction] 8.1 % High 4.3-5.6 [facility] Comment on above: Performed By: #### H BA1C #### [facility] Routine Lab [address] [place], [place] [address] #### D2D3 #### [facility] Chemistry [address] [place] [address] Hemoglobin A1con 01-28-2020 Glucose [Mass/Vol] 166 mg/dL Normal [facility] Comment on above: Performed By: #### H BA1C #### [facility] Routine Lab [address] [place], [place] [address] HbA1c (Bld) [Mass fraction] 7.4 % High 4.3-5.6 [facility] Comment on above: Performed By: #### H BA1C #### [facility] Routine Lab [address] [place] [address] PSAon 08-19-2017 PSA 96.30 NG/ML High 0.0-4.0 [facility] [place] Comment on above: Performed By: #### L 500.41091 ####[facility] [id number] [place], [place] [address]Qq# [phone] Encounters Encounter Date Encounter Type Care Provider Facility Start: 11-30-2024 ambulatory [facility] Facility:[facility] Start: 11-25-[address] Rodrigo Maurice MD -Laboratory Work Phone: Start: 11-25-2024 ambulatory [facility] Facility:[facility] Start: 11-11-2024 End: 11-11-[address] Seema Sterling MD Work Phone: -Laboratory Start: 11-11-2024 End: 11-11-[address] Rodrigo Maurice MD -Laboratory Work Phone: Start: 11-11-2024 End: 11-11-2024 [facility] Start: 09-15-2024 End: 09-15-2024 ambulatory SEEMA SHETH [facility] Start: 09-14-2024 End: 09-14-2024 ambulatory SEEMA SHETH [facility] Start: 08-14-2024 End: 08-14-[address] Seema Sterling MD Work Phone: [facility] Work Phone: Start: 08-14-2024 End: 08-14-2024 Patient encounter procedure Sally Somerville -Laboratory Work Phone: Start: 08-14-2024 End: 08-14-2024 ambulatory Sally Somerville Facility:[facility] Start: 07-16-2024 End: 07-16-2024 ambulatory SEEMA SHETH [facility] Start: 06-15-2024 Non-patient / Non-visit Dr. Ramu browning MD -[facility] Start: 06-15-2024 End: 06-15-[address] Seema Sterling MD Work Phone: [facility] Work Phone: Start: 06-15-2024 End: 06-15-2024 Patient encounter procedure Evelyn VAZQUEZ -Cardiovascular Services Work Phone: Start: 06-15-2024 End: 06-15-2024 ambulatory Seema Sterling Facility:[facility] Start: 05-17-2024 End: 05-17-[address] Seema Sterling MD Work Phone: [facility] Work Phone: Start: 05-17-2024 End: 05-17-2024 Patient encounter procedure Sally Somerville -Laboratory Work Phone: Start: 05-17-2024 End: 05-17-2024 ambulatory Sally Somerville Facility:[facility] Start: 02-13-2024 End: 02-13-2024 ambulatory SEEMA STERLING [facility] Start: 02-10-2024 End: 02-10-[address] Rodrigo Maurice MD -Laboratory Work Phone: Start: 02-10-2024 End: 02-10-2024 ambulatory Rodrigo Maurice Facility:[facility] Start: 01-19-2024 ambulatory Ramu Sherie Facility:[facility] Start: 01-19-2024 End: 01-19-2024 ambulatory Evelyn Arana Facility:[facility] Start: 01-08-2024 End: 01-08-2024 ambulatory Butros Latouf Facility:[facility] Start: 12-23-2023 ambulatory Ramu Rehman [facility] Start: 12-23-2023 End: 12-24-2023 Evaluation and management of inpatient Butros Latouf Facility:[facility] Start: 12-23-2023 ambulatory Butros Latouf Facility: [facility] Start: 12-12-2023 ambulatory Butros Latouf Facility: [facility] Start: 12-12-2023 End: 12-12-2023 ambulatory Butros Latouf Facility:[facility] Start: 12-04-2023 End: 12-04-2023 ambulatory Butros Latouf Facility:[facility] Start: 10-31-[address] Santino Sterling MD Work Phone: [facility] Start: 05-02-2023 End: 05-02-2023 ambulatory [facility] Work Phone: Start: 05-02-2023 End: 05-02-2023 Patient encounter procedure [facility]Radiology, [facility] Work Phone: Start: 04-29-2023 End: 04-29-2023 ambulatory [facility] Work Phone: Start: 04-29-2023 End: 04-29-2023 Patient encounter procedure [facility]-Nuclear Medicine, [facility] Work Phone: Start: 04-22-2023 End: 04-22-2023 Patient encounter procedure [facility]Laboratory, [place] Work Phone: Start: 03-21-2023 End: 03-21-2023 ambulatory [facility] Work Phone: Start: 03-21-2023 End: 03-21-2023 Patient encounter procedure [facility]Radiology, [facility] Work Phone: Start: 01-08-2023 End: 01-08-2023 ambulatory [facility] Work Phone: Start: 01-08-2023 End: 01-08-2023 Patient encounter procedure [facility], [place] Work Phone: Start: 10-01-2022 End: 10-01-2022 ambulatory [facility] Work Phone: Start: 10-01-2022 End: 10-01-2022 Patient encounter procedure [facility] Work Phone: Start: 07-11-2022 End: 07-11-2022 ambulatory [facility] Work Phone: Start: 07-11-2022 End: 07-11-2022 Patient encounter procedure [facility] Start: 04-11-2022 End: 04-11-2022 ambulatory [facility] Work Phone: Start: 04-11-2022 End: 04-11-2022 Patient encounter procedure [facility] Start: 01-16-2022 End: 01-16-2022 ambulatory [facility] Work Phone: Start: 01-16-2022 End: 01-16-2022 Patient encounter procedure [facility] Start: 01-10-2022 End: 01-10-2022 ambulatory [facility] Work Phone: Start: 01-10-2022 End: 01-10-2022 Patient encounter procedure [facility] Start: 09-24-2021 End: 09-24-2021 Patient encounter procedure [facility] Start: 08-18-2017 Ambulatory Armani Alva Facility :[facility] Procedures Date Procedure Procedure Detail Performing Clinician Start: 11-25-2024 Assay of prostate sp ecific antigen total [...] be performed to confirm baseline values. Start: 11-11-2024 Assay of prostate sp ecific antigen total [...] be performed to confirm baseline values. Start: 08-14-2024 Assay of prostate sp ecific [...] This test was perfor med using the [employer] tPSA method. Measured values of a [...] of tumor PET/CT Tumor Base -Thigh Subs [facility] Work Phone: Start: 01-16-2022 PT Unspecified body region [facility] Work Phone: Payers Date Payer Category Payer Self-pay [id number] 2011 Medicare [id number] 2011 Medicare [id number] 2011 Unknown [id number] 1945 Unknown [id number] 2.16.8 40.1.319903.3.579.2.651 1945 Unknown [id number] 2.16.8 40.1.912049.3.579.2.651 1945 Unknown [id number] 2.16.8 40.1.530409.3.579.2.651 1945 Unknown [id number] 2.16.8 40.1.897492.3.579.2.651 Unknown [id number] 2.16.8 40.1.477279.3.579.2.462 Unknown [id number] 2.16.8 40.1.149151.3.579.2.462 Unknown [id number] 2.16.8 40.1.525726.3.579.2.462 Unknown [id number] 2.16.8 40.1.247163.3.579.2.462 Unknown [id number] 2.16.8 40.1.025766.3.579.2.462 Unknown [id number] 2.16.8 40.1.144392.3.579.2.462 Unknown [id number] 2.16.8 40.1.386813.3.579.2.462 Unknown [id number] 2.16.8 40.1.043080.3.579.2.462 Unknown [id number] 2.16.8 40.1.616618.3.579.2.462 Unknown [id number] 2.16.8 40.1.097806.3.579.2.462 Unknown [id number] 2.16.8 40.1.031338.3.579.2.462 Unknown [id number] 2.16.8 40.1.965883.3.579.2.462 Unknown [id number] 2.16.8 40.1.343650.3.579.2.462 Unknown [id number] 2.16.8 40.1.338134.3.579.2.462 Unknown [id number] 2.16.8 40.1.391162.3.579.2.462 Unknown [id number] 2.16.8 40.1.899187.3.579.2.462 Unknown [id number] 2.16.8 40.1.783614.3.579.2.462 Social History Date Type Detail Facility Start: 09-27-2016 End: 09-27-2016 Tobacco smoking status DCIS Unknown if ever smoked [facility] Start: 1945 Sex Assigned At Male [facility] Start: 12-08-2023 Tobacco smoking stat us DCIS Never smoked tobacco (finding) [facility] Start: 05-28-2024 End: 06-21-2024 Sex Male (finding) [facility] Medical Equipment Procedure Code Equipment Code Equipment Origin al Text Equipment Identifier Dates Bare-metal carot id artery stent ()[id number] FDA Start: 11-18-2023 Bare-metal carot id artery stent ()[id number] FDA Start: 12-23-2023 Discharge summary note 12-24-2023 Note Date & Type Note Facility 12-24-2023 Note [facility] Medical Records Department [address] [place] [address] Discharge Summary 12/24/23 1531 MR#: [id number] Acct: [id number] Name: SUMEET MAJANO Rep #: [id number] : 1945 78 From: Ramu Rehman MD PCP: Dr. Seema Sterling MD Status:ADM IN Location: ICU [id number] Providers Date of Admission: 12/23/23 Primary Care [...] % (Auto) 62.4, Lymph % (Auto) 23.9, [place] % (Auto) 9.0, Eos % (Auto) 3.5, [...] Sterling MD; Dr. Ramu Rehman MD Signed [facility] Clinical Note 12-23-2023 Note Date & Type Note Facility 12-23-2023 Note [facility] Medical Records Department [address] [place] [address] History Physical Exam 12/23/23 0746 MR#: [id number] Acct: [id number] Name: SUMEET MAJANO Rep #: [id number] : 1945 78 From: Ramu Rehman MD PCP: Dr. Seema Sterling MD Status:ADM IN Location: [place] [address] HPI - General General Date of Admission: 12/23/23 HPI Narrative SUMEET MAJANO, is a 78 M who presents with right ICA stenosis, asymptomatic. Recently underwent left ICA TCAR from which he has recovered well. [facility] Medical History History of left common carotid [...] cooperative; Negative for (more content not included)... [facility] Evaluation note Note Date & Type Note Facility Evaluation note No assessment information availa ble [facility] Work Phone: Reason for referral (narrative) Note Date & Type Note Facility Reason for referral (narrative) No reason for referral information available [facility] Work Phone: Summary Purpose Family History No Family History Records Found Relationship Condition Age at Onset Recorded Date/T christel Not Specified Cardiac disease Unknown Myocardial infarction Unknown Advance Directives No Advanced Directives Records Found Advance Directive Response Recorded Date/ Time Living Will No September 27, 2016 1:46pm Power of Automotive Title Clerk No September 27 7 1:46pm Advance Directive Response Recorded Date/ Time Living Will No September 27, 2016 12:46pm Power of Automotive Title Clerk No September 27, 7 12:46pm Chief Complaint and Reason for Visit Chief Complaint MALIGNANT NEOPLASM O F PROSTATE Chief Complaint PSA Chief Complaint PSA C61 Chief Complaint Admit Date AFTERCARE June 15, 2024 9:53 am Chief Complaint Admit Date 2 ORDERING DRS/E ORDER & PAPER November 25, 2024 11:30am Additional Source Comments (unrecognized sect ion and content) No Status Records FoundNo Status Records FoundNo Status Records FoundNo Status Records FoundNo Status Records Found INFORMATION SOURCE (unrecogn ized section and content) DATE CREATED AUTHOR 09/02/2017 [facility] [place] DATE CREATED AUTHOR AUTHOR'S ORGANIZ ATION 11/09/2020 [facility] DATE CREATED AUTHOR AUTHOR'S ORGANIZ ATION 07/22/2024 [facility] DATE CREATED AUTHOR AUTHOR'S ORGANIZ ATION 09/23/2024 [facility] DATE CREATED AUTHOR AUTHOR'S ORGANIZ ATION 11/29/2024 [facility] Goals (unrecognized section and content) Goals [...] Sterling MD Primary Care Provider Active Eda McCuistion , [employer] Attending Provider Active Team Status: Inactive Member Role Status Dates Dr. Seema Sterling MD Primary Care Provider Active Eda Kapoor , [employer] Attending Provider, Referrin g Provider Active Team Status: Inactive Member Role Status Dates Dr. Seema Sterling MD Primary Care Provider Active Dr. Zca Nair MD Attending Provider, Referrin g Provider [...] 17, 2024 End: May 17, 2024 Sally Somerville Attending Provider Active Start : May 17, 2024 End: May 17, 2024 Sally Somerville Referring Provider Active Start : May 17, [...] 14, 2024 End: August 14, 2024 Sally Somerville Attending Provider Active Start : August 14, 2024 End: August 14, 20[facility] Active Start : August 14, 2024 End: August 14, 2024 Team Status: Active Member Role/Relationship Status Dates Dr. Remy Hernandez MD Primary Care Provider Active Team Status: Inactive Member Role/Relationship Status Dates Dr. Seema Sterling MD Primary Care Provider Active Start: August 14, 2024 End: August 14, 2024 Sally Somerville Attending Provider Active Start : August 14, 2024 End: August 14, 2024 Sally Somerville Referring Provider Active Start : August 14, 2024 End: August 14, 2024 Team Status: Inactive Member Role/Relationship Status Dates Dr. Seema Sterling MD Primary Care Provider Active Start: November 11, 2024 End: November 11, 2024 Dr. Rodrigo Maurice MD Attending Provider Active Start: November 11, 2024 End: November 11, 2024 Dr. Rodrigo Maurice MD Referring Provider Active Start: November 11, 2024 End: November 11, 2024 Team Status: Active Member Role/Relationship Status Dates Dr. Remy Hernandez MD Primary Care Provider Active Start: November 25, 2024 Dr. Rodrigo Maurice MD Attending Provider Active Start: November 25, 2024 Dr. Rodrigo Maurice MD Referring Provider Active Start: November 25, 2024 TAYLOR Donovan Other Provider Active Start: S [facility] 2024 FOR RECORDS PERTAINING TO PATIENTS WHO [...] BE BASED ON THE PRIMARY CLINICAL RECORDS. [facility]. provides no warranty or guarantee of the accuracy or completeness of information in this document.
--- NOTE | 2024-11-30 07:00 | PET_ITS ---
PROCEDURE: PET/CT TUMOR BASE -THIGH SUBS 11/30/2024 REASON FOR EXAM: 79 y/o M with PYLARIFY TECHNIQUE: Procedure Code: PETPTCTSUB Modality: PT Procedure: PET/CT TUMOR BASE -THIGH SUBS Following the intravenous administration of radionucleotide, image acquisition on a dedicated PET/CT unit was performed at one hour post injection. A preliminary CT study encompassing the Skull base, neck, chest, abdomen, pelvis, and proximal thighs was performed for purposes of attenuation correction and anatomic localization. The proximal thighs were also included. The patient's blood glucose level was mg/dL (allowable range: 50-180 mg/dL). RADIOPHARMACEUTICAL: 9.95 mCi Pylarify (Piflufolastat F18) - Prostate Specific Membrane Agent - IV was injected into he patient. RADIATION DOSE SUMMARY: Effective Dose: Approximately 7 mSv for a standard whole-body PET scan Organ Doses: Varies by organ, with higher doses typically to the bladder, liver, and brain COMPARISON: PET-CT dated January 16, 2022 FINDINGS: Significant interval increase in the size of the prostate gland measuring 3.6 x 5.3 by with intense hypermetabolic uptake (SUV max of 55) consistent with prostate cancer. This appears to efface the right neurovascular bundle area and abuts the rectum. Direct extension of disease is difficult to exclude on this exam. There is evidence of lymph node disease with a tiny lymph node seen posterior to the right iliopsoas and numerous lymph nodes appreciated in the kirby and mediastinum. Small superior left mediastinal lymph node also noted. There is evidence of metastatic disease with hypermetabolic focus within the left sacral ala also demonstrating a sclerotic lesion on CT. Remaining skeleton appears within normal limits. Normal bio distribution of radiopharmaceutical present within the salivary glands lacrimal glands liver spleen and kidneys. Expected normal bladder uptake. CT images demonstrate the visible lung in orbits to be within normal limits. There is no overt lymphadenopathy in the neck. The right submandibular gland has been removed. Atherosclerosis is present within the vessels of the neck. Cardiomegaly is noted. Coronary arterial calcifications evident. No pericardial effusion. No mediastinal mass. The gallbladder is distended. The unenhanced appearance of the liver spleen kidneys pancreas and adrenal glands reveals no abnormality. Bilateral peripelvic renal cysts present. Large amount of stool in the colon with diverticulosis. No diverticulitis. PET/PET/CT Tumor Base -Thigh Subs IMPRESSION: Marked interval increase in the size of the prostate gland with avid hypermetab olic uptake abutting the anterior wall of the rectum and right neurovascular bundle. 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 There is evidence of lymph node disease with uptake seen in small lymph nodes i n the pelvis, mediastinum and bilateral kirby. Reading Location: [id number]
== END | disposition home or self-care (01) ==
LOC: ONC 06:47
PROVIDERS: PCP Internal Medicine Infectious Disease; Referring Provider Urology; Visit Provider Urology
DX: C61 Malignant neoplasm of prostate (principal); R97.21 Rising PSA following treatment for malignant neoplasm of prostate
CPT/HCPCS: 78815; A9595

== ENCOUNTER → 2024-12-27 | Outpatient (CLI) | payer MEDICARE, OTHER, SELFPAY ==
--- NOTE | 2024-12-27 07:40 | CDU_ITS ---
Reason For Study Reason For Study: S/P Bilateral TCAR Rt. Velocities/BP Lt. Velocities/BP Prox CCA 94.9/12.6 cm/sec. Prox CCA 76.2/16.8 cm/sec. Mid CCA, Pre Stent, 83.9/16.3 cm/sec. Mid CCA 75.1/16.8 cm/sec. Distal CCA, Prox Stent, 93.7/16.3 cm/sec. Distal CCA, Pre Stent, 89.4/23.4 cm/sec. Prox ICA, Mid Stent, 92.9/13.8 cm/sec. Prox ICA, Prox Stent, 113.8/22.5 cm/sec. Mid ICA, Distal Stent, 103.8/20.4 cm/sec. Mid ICA, Mid Stent, 86.4/18.8 cm/sec. Distal ICA, Distal to Stent, 116.3/21.1 Mid ICA, Distal Stent, 93.7/18.8 cm/sec. cm/sec. Distal ICA, Distal to Stent, 113.8/26.1 Rt. ICA/CCA = 1.39. cm/sec. Prox ECA 163.1/11.6 cm/sec. Lt. ICA/CCA = 1.52. Rt. Vert. 110.1/20.6 cm/sec. Prox ECA 113.8/13.3 cm/sec. Right Extracranial There is heterogeneous, irregular atherosclerotic plaque noted in the right common carotid artery. There is heterogeneous, irregular atherosclerotic plaque noted in the right internal carotid artery. Stent noted in the right CCA distal to ICA mid. There is intimal thickening but no significant atherosclerotic plaque noted in the right external carotid artery. Antegrade flow is noted in the right vertebral artery. Left Extracranial There is heterogeneous, irregular atherosclerotic plaque noted in the left common carotid artery. There is heterogeneous, irregular atherosclerotic plaque noted in the left internal carotid artery. Stent noted in the left ICA prox to mid. There is heterogeneous, irregular atherosclerotic plaque noted in the left external carotid artery. Bidirectional flow noted in the left vertebral artery. Procedure Carotid Duplex [id number]. This is a Carotid Duplex examination using B-mode, color flow and specral Doppler. Exam performed in department. VL/Carotid Duplex Ultrasound Interpretation Summary Mild (<50%) stenosis right extracranial internal carotid. Mild (<50%) stenosis left extracranial internal carotid. The Right vertebral is patent and antegrade. The Left vertebral flow is bidirectional. Ordering Physician: Evelyn Arana Referring Physician: Remy Hernandez Performed By: Maria Eugenia León RVT
== END | disposition home or self-care (01) ==
LOC: CVS 07:40
PROVIDERS: PCP Internal Medicine Infectious Disease; Referring Provider Physician Assistant; Visit Provider Physician Assistant
DX: Z48.812 Encounter for surgical aftercare following surgery on the circulatory system (principal); I65.23 Occlusion and stenosis of bilateral carotid arteries
CPT/HCPCS: 93880

== ENCOUNTER → 2025-02-25 | Outpatient (CLI) | payer MEDICARE, OTHER, SELFPAY ==
[2025-02-25 12:27] LABS: PSA,Total- Diagnostic 355.00 ng/mL (0.00-4.00)
== END | disposition home or self-care (01) ==
PROVIDERS: PCP Internal Medicine Infectious Disease; Referring Provider Urology; Visit Provider Urology
DX: C61 Malignant neoplasm of prostate (principal)
CPT/HCPCS: 36415; 84153

== ENCOUNTER → 2025-02-28 | Outpatient (CLI) | payer MEDICARE, OTHER, SELFPAY | END | disposition home or self-care (01) | PROVIDERS: PCP Internal Medicine Infectious Disease; Referring Provider Urology; Visit Provider Urology | DX: C61 Malignant neoplasm of prostate (principal) | CPT/HCPCS: 36415 ==